=== PATIENT | female | born 1940 | race Caucasian/White ===

== ENCOUNTER → 2018-02-15 15:50 | Outpatient (CLI) | payer MEDICARE, SELFPAY ==
[2018-02-15 16:23] LABS: Hematocrit 37.6 % (37-47); Hemoglobin 11.2 g/dl (12.0-15.0); Mean Corp Hgb Conc 29.8 g/gl (32-36); Mean Corpuscular Hgb 28.4 pg (27.0-32.0); Mean Corpuscular Volume 95.2 fL (81-99); Mean Platelet Vol. 9.5 fl (6.2-12.0); Platelet Count 342 K/mm3 (150-450); RBC Distribution Width SD 55.2 fl (35.1-43.9); Red Blood Count 3.95 M/mm3 (4.2-5.4); White Blood Count 15.4 K/mm3 (4.4-11.0)
[2018-02-15 16:28] LABS: Thyroid Stim Hormone (TSH) 3.22 uIU/mL (0.358-3.74)
[2018-02-15 17:08] LABS: Scan Indicated on CBC? Y/N NO
== END ==
PROVIDERS: Family Provider Family Medicine; PCP Family Medicine; Visit Provider Family Medicine
DX: Z79.899 Other long term (current) drug therapy (principal)
CPT/HCPCS: 84443; 85027

== ENCOUNTER → 2018-04-05 16:12 | Outpatient (CLI) | payer MEDICARE, SELFPAY ==
[2018-04-05 17:33] LABS: Absolute Lymphocyte Count 2.17 X10^3/ul (0.83-4.51); Absolute Neutrophil Count 7.6 X10^3/uL (2.0-7.7); Basophil# 0.07 X10^3/uL; Basophil% 0.6 % (0-1); Eosinophil# 0.56 X10^3/uL; Hematocrit 39.6 % (37-47); Hemoglobin 12.3 g/dl (12.0-15.0); Lymphocyte # 2.17 X10^3/ul (4.0); Lymphocyte % 19.3 % (19-41); Mean Corp Hgb Conc 31.1 g/gl (32-36); Mean Corpuscular Hgb 28.1 pg (27.0-32.0); Mean Corpuscular Volume 90.6 fL (81-99); Mean Platelet Vol. 9.9 fl (6.2-12.0); Monocyte# 0.85 X10^3/uL; Monocyte% 7.6 % (0-10); Neutrophil # 7.57 X10^3/uL (2.7-7.7); Neutrophil % 67.2 % (47-70); Platelet Count 278 K/mm3 (150-450); RBC Distribution Width SD 53.8 fl (35.1-43.9); Red Blood Count 4.37 M/mm3 (4.2-5.4); White Blood Count 11.3 K/mm3 (4.4-11.0)
[2018-04-05 17:36] LABS: Hemoglobin A1c 6.6 % (4.2-6.3)
[2018-04-05 17:41] LABS: POSITIVE COUNT NO; POSITIVE DIFFERENTIAL NO; POSITIVE MORPHOLOGY NO
[2018-04-05 18:11] LABS: Anion Gap 5 (5-15); BUN 12 mg/dL (7-18); BUN/Creat Ratio 11.1 RATIO (10-20); Calcium,Total 9.1 mg/dL (8.5-10.1); Chloride 104 mmol/L (98-107); Cholesterol 169 mg/dL (200); Creatinine, Serum 1.08 mg/dL (0.55-1.02); EST Glomerular Filtration Rate 52 mL/min (>60); Est Glom Filt Rate - Afr Amer 63 mL/min (>60); Glucose 114 mg/dL (74-106); High Density Lipoprotein 78 mg/dL; Potassium 4.3 mmol/L (3.5-5.1); Sodium Level 136 mmol/L (136-145); Triglycerides 122 mg/dL; Very Low Density Lipoprotein 24 mg/dL (5-40)
== END ==
PROVIDERS: Family Provider Family Medicine; PCP Family Medicine; Visit Provider Family Medicine
DX: Z79.899 Other long term (current) drug therapy (principal); D64.9 Anemia, unspecified; E11.49 Type 2 diabetes mellitus with other diabetic neurological complication
CPT/HCPCS: 80048; 80061; 83036; 85025

== ENCOUNTER 2018-04-29 10:52 | Emergency (ER) | payer MEDICARE, SELFPAY ==
--- NOTE | 2018-04-29 10:52 | DT_ITS ---
This patient was seen during an EMR downtime April 22, 2018 - April 29, 2018. This patient may have a combination of paper and electronic documentation or all paper documentation. All documentation is viewable within the e-chart portion of [employer] for each patient visit.
[2018-04-29 10:53] VITALS: BP 177/75; PULSE 98; RESP 16; TEMP 36.8; O2SAT 91; BMI 42.3
--- NOTE | 2018-04-29 11:21 | ED.DCSUM_ITS ---
- ER Visit Summary Date of Service: 04/29/18 Chief Complaint: Left buttock and leg pain History of Present Illness: The patient is a 77 F with history of chronic lower back pain in the left who presents for worsening of her chronic pain, now with pain in the left buttock and leg. This new pain is been going on for approximately 2 weeks. Patient is currently on gabapentin, meloxicam, tramadol , and is 3 days into a prednisone taper for the same complaint. Pain is continuous and worse with movement and walking. Patient has fallen 3 times in the house due to her leg giving out. The last time was 1 week ago. Patient denies any other injuries from this. She is supposed to start therapy for her complaint, but missed her first appointment last week because of the fall. Patient is having difficulties with her activities of daily living because of the pain. No urinary symptoms, abdominal pain, fever, chest pain or shortness of breath. Patient is diabetic and has hypertension. No history of cancer or back surgery. Physical Examination: Vital signs: afebrile, hemodynamically stable, no hypoxia on room air General: well nourished, well developed, in no distress Skin: warm, dry, no rash, no pallor HEENT: normocephalic and atraumatic; PERRL, EOMI, moist mucous membranes Cardiovascular: regular rate and rhythm without murmurs, no peripheral edema, 2 + pulses all distal extremities Respiratory: No increased work of breathing, lungs are clear to auscultation bilaterally, no rales, rhonchi or wheezing Abdominal: Abdomen is soft, nontender with normoactive bowel sounds, no guarding or rebound, no masses Back: Tenderness in the left paraspinal/buttock region. No rash. No midline tenderness, deformity, step-offs, erythema or induration. Straight leg raise negative bilaterally. MSK: Moves all extremities, no deformities, normal strength and sensation in all dermatomes, full flexion and extension of knees and hips. Mild discomfort with external and internal rotation of the left hip. No leg shortening or rotation. Neuro: Awake and alert, oriented ?4. No facial droop, sensation and motor function intact and symmetric Test Results: Abnormal Lab Results 04/29/18 11:22 POC Glucose 154 H Clinical Impression(s) from Imaging Studies Lumbar Spine X-Ray 04/29/18 11:27 IMPRESSION: Degenerative changes of the spine, as detailed above. Electronically Signed: Tao Thurston MD at 12:57 EDT , Service support , Emergency Department Course and Treatment: The patient is diabetic and on prednisone, blood sugar was checked. It was 154. Is currently on multiple medications for her back pain, including prednisone. She is receiving appropriate outpatient workup, but is concerned because of the recurrent falls. X-ray was performed of the lumbar spine and showed degenerative changes. Patient was offered and declined pain medication in the emergency department. The family requested patient be admitted, and I discussed with them that there was no emergent indication that would require admission and emergency consultation with a back surgeon. Case management was consulted and evaluated the patient after patient and family stated that they would be willing for her to be placed in rehab due to her worsening condition. She was evaluated by physical therapist. Patient was able to ambulate. Patient is home health appropriate. Health follow-up was arranged with the patient by case management , and the family and patient were amenable to this plan. Patient was discharged home. Treatment Plan: [] Disposition: [] Impression: Acute on chronic back pain This note was generated with [employer] dictation software. It may contain incorrect words, spelling, and punctuation that were not noted in review of the chart prior to signing ED Disposition - Plan for ED Patient: Disposition: Home or Assisted Living Chief Complaint: Back Instructions: ED Neck Back Pain General, ED Sciatica Referrals: Blayne Dominguez III, MD [Primary Care Provider] - 3-5 Days Additional Instructions: Please follow-up with the home health care plan as was discussed with our pillowcase folder. Please follow-up with Dr. Dominguez for a reevaluation and to discuss further need for physical therapy or medications. If you have any worsening of your condition or any new concerning symptoms, please return immediately to the emergency department for another evaluation.
[2018-04-29 11:25] LABS: Bedside Glucose 154 mg/dL (70-110)
--- NOTE | 2018-04-29 11:27 | RAD_ITS ---
STUDY: X-RAY - LUMBAR SPINE REASON FOR EXAM: Female, 77 years old. Back and left leg pain. TECHNIQUE: 3 view(s) of the lumbar spine were obtained. COMPARISON: None FINDINGS: Normal lumbar lordosis. There is a 10 degree levoscoliosis centered at the thoracolumbar junction. There is a normal alignment of the vertebrae. There is multilevel endplate spondylosis of the thoracolumbar spine. There is multi-level degenerative disc disease with multi-level disc space narrowing. There is no demonstrated fracture. There are degenerative arthroses of the visualized lower lumbar facet articulations and bilateral sacroiliac joints. The soft tissue structures are unremarkable. RAD/Lumbar Spine 2 or 3 Views IMPRESSION: Degenerative changes of the spine, as detailed above. Electronically Signed: Tao Thurston MD at 12:57 EDT , Service support ,
--- NOTE | 2018-04-29 13:14 | CM.ED ---
Case Management Assessment: Patient evaluated in the ED due to recent falls and safe discharge planning. Home: Lives with spouse in one story home. Three steps into home. HHS/Aides: Has never had. DME: Uses a cane. Has shower chair as well. Home Oxygen: Denies. [facility]acy: [facility] Advance Directives: Yes, patient states her is her medical POA. PCP: Blayne Dominguez Specialists: Denies. Patient and family expressed interest inpatient rehab or SNF placement. There are no beds available on our inpatient rehab unit at this time. Discussed MCR payment for SNF requires a three midnight stay with inpatient status and would otherwise be self-pay. Jacquie, from [facility], confirms that they will accept the patient for PT/OT services with a start date of either 04/30/18 or 05/01/18. Family is agreeable with this plan. DC Plan: Home with home health PT/OT services. CM will continue to follow for safe and effective discharge planning.
--- NOTE | 2018-04-29 13:28 | DCINST.ED_ITS ---
ED Disposition - Plan for ED Patient: Disposition: Home or Assisted Living Chief Complaint: Back Instructions: ED Sciatica, ED Neck Back Pain General Referrals: Blayne Dominguez III, MD [Primary Care Provider] - 3-5 Days Additional Instructions: Please follow-up with the home health care plan as was discussed with our case managers. Please follow-up with Dr. Dominguez for a reevaluation and to discuss further need for physical therapy or medications. If you have any worsening of your condition or any new concerning symptoms, please return immediately to the emergency department for another evaluation.
== END 2018-04-29 13:59 | disposition home or self-care (01) ==
PROVIDERS: Emergency Provider Emergency Medicine; Family Provider Family Medicine; PCP Family Medicine
DX: G89.29 Other chronic pain (principal); M54.9 Dorsalgia, unspecified; E11.9 Type 2 diabetes mellitus without complications; I10 Essential (primary) hypertension
CPT/HCPCS: 72100; 82962; 97166; 99283; G8978; G8979

== ENCOUNTER → 2018-05-08 14:34 | Outpatient (CLI) | payer MEDICARE, SELFPAY ==
--- NOTE | 2018-05-08 14:42 | RAD_ITS ---
STUDY: X-RAY - PELVIS AND LEFT HIP REASON FOR EXAM: Left hip pain. TECHNIQUE: Radiological exam, hip, unilateral, with pelvis when performed; 2 or 3 views. COMPARISON: None. FINDINGS: Normal visualized soft tissue structures. Normal bilateral iliac wings, sacroiliac joints and visualized sacrum. Normal bilateral superior and inferior pubic rami. Normal pubic symphysis. Normal bilateral ischial tuberosities. Normal visualized femoral head. Normal acetabulum. Normal hip joint. RAD/Hip 2-3 Views with Pelvis IMPRESSION: Unremarkable x-ray examination of the pelvis and left hip. Electronically Signed: Anselmo Chua MD at 15:22 EDT Tel , Service support ,
== END ==
PROVIDERS: Family Provider Family Medicine; PCP Family Medicine; Visit Provider Anesthesiology Pain Medicine
DX: M25.559 Pain in unspecified hip (principal)
CPT/HCPCS: 73502

== ENCOUNTER → 2018-05-27 13:39 | Outpatient (CLI) | payer MEDICARE, SELFPAY ==
[2018-05-28 15:48] LABS: Anion Gap 11 (5-15); BUN 30 mg/dL (7-18); BUN/Creat Ratio 17.9 RATIO (10-20); Calcium,Total 10.7 mg/dL (8.5-10.1); Chloride 97 mmol/L (98-107); Creatinine, Serum 1.68 mg/dL (0.55-1.02); EST Glomerular Filtration Rate 31 mL/min (>60); Est Glom Filt Rate - Afr Amer 38 mL/min (>60); Glucose 139 mg/dL (74-106); Magnesium 1.4 mg/dL (1.6-2.6); Potassium 4.5 mmol/L (3.5-5.1); Sodium Level 136 mmol/L (136-145); Thyroid Stim Hormone (TSH) 0.67 uIU/mL (0.358-3.74)
[2018-05-29 08:29] LABS: Vitamin B12 480 pg/mL (211-911)
== END ==
PROVIDERS: Family Provider Family Medicine; PCP Family Medicine; Visit Provider Nurse Practitioner Family
DX: G60.9 Hereditary and idiopathic neuropathy, unspecified (principal)
CPT/HCPCS: 80048; 82607; 82746; 83735; 84443

== ENCOUNTER → 2018-07-16 11:14 | Outpatient (CLI) | payer MEDICARE, SELFPAY ==
[2018-07-16 12:52] LABS: T4 Total, Thyroxin 10.7 ug/dL (4.8-13.9); Thyroid Stim Hormone (TSH) 2.41 uIU/mL (0.358-3.74)
[2018-07-17 11:24] LABS: Thyroid Peroxidase AB 12 IU/mL (0-34)
[2018-07-17 13:34] LABS: T3 Total - Triiodothyronine 1.37 ng/mL (0.6-1.81)
== END ==
PROVIDERS: Family Provider Family Medicine; PCP Family Medicine; Visit Provider Dermatology Pediatric Dermatology
DX: I89.0 Lymphedema, not elsewhere classified (principal); E03.8 Other specified hypothyroidism
CPT/HCPCS: 36415; 84436; 84443; 84480; 86376

== ENCOUNTER 2018-08-30 12:30 | Outpatient (RCR) | payer MEDICARE, SELFPAY ==
--- NOTE | 2018-07-26 13:03 | HP.PTEVAL ---
Patient's Visit Information BG FULLER is a 77 year old F referred to Physical Therapy by Blayne Dominguez with a diagnosis of Low back pain. Date of Evaluation: 07/26/18 Physical Therapist: Laurel Steel - Visit Plan Frequency: 2-3x /Week Duration: 3 Weeks Plan: Focus on postural corrections, gait training without AD and endurance. Core s/s- leading to HEP with silver sneakers - Subjective Subjective: Patient reports that she has a lot of pain in her back and both legs. Had a pain injections from Dr. Fay yesterday. Can walk but not very far. This is the first one in a long time- feels this one might help. Feels better now than she did before. Pain starts in the back and travels down to her feet. Has lyphedema in both legs and she just has a lot of joint pain. Worst: 06/28 Agg: walking a lot, standing Eases: sitting. Pain feels more like pressure- goes away quickly when she sits down. Describes the leg pain as shooting, bee stings, and tingling in her toes. Insurance has declined and MRI but she has had hip x-rays about a month ago. Sleep: disturbed- but does sleep in a bed- right side wakes a lot due to pain. Has fallen a lot in the last year- last fall was 3 months ago- felt her legs buckled under her. Uses furniture at home but uses a quad cane outside. Has stairs at home but does not need to use them. Leaks urine. Feels at this point she is in a plateau- not better or worse. Has a small chair that fits her which is harder- but does have a reclyner she sits in. PMHx: DM, HTN,OA Meds: duloxetine, metformin, amoldipine, opmerazol, carvedilol, meloxicam, gabapentin, hydroxzine, vit D, Asprin, temazepam - Objective Gait: WFL, ambulated 150' with 4 point cane in R hand with L hand occasional reach for wall for support. Slight decrease in gait speed but no breaks needed. Ascend/descend 1 flight of stairs using 1 HR and cane with reciprocal pattern ascend and step to pattern descend- poor control. Posture: R shoulder depressed/L shoulder elevated, kyphosis. Lymphedema mild LE bilat. Able to rise from chair without using hands. 1 hand on arm rest when stand to sit in chair. LE min A when transfer supine to sit. Able to SLS R and L leg with bilat. hand support on table in front. Flexibility: global flexibility, hamstring WNL. ROM: lumbar WNL, LE: WNL Strength: Core: poor, Hip: 4/5 throughout,Knee: 4+/5, Ankle: 4+/5 Palpation: tender along paraspinals bilateral lumbar spine - Goals Goal 1:: Patient will be I with HEP and progression Goal Time Frame: 4-6 Weeks Goal 2:: Patient will demonstrate proper posture t/o tx session to demo increased core s/s. Goal Time Frame: 4-6 Weeks Goal 3:: Patient will ambulate > 300 ft. without use of cane around obstacles safely Goal Time Frame: 4-6 Weeks Goal 4:: Patient will have worst pain level 2/10 or less Goal Time Frame: 4-6 Weeks - Rehabilitation Potential Physical Therapy Diagnosis: Patient presents with hypomobility-she has decreased strength and muscular endurance leading to decreased ability to perform ADL's safely and increasing pain. Rehabilitation Potential: Fair - Anticipated Interventions Patient/Client Instruction: Educate patient on: Benefits of Fitness Program Therapeutic Exercise to Include: Strength training, Endurance training, Balance training, Body mechanics, Postural training, Gait and locomotor training, Dynamic Lumbar Stabilization For the Purpose of:: To improve muscle performance and motor function TENS: Yes Thermo therapy (hot pack): Yes Ultrasound (thermal/non thermal): Yes For the Purpose of:: To decrease pain Thank you for the opportunity to evaluate your patient. For Medicare and Medicare HMO plans, please review the plan of care and approve it. It will need to be FAXED BACK to us at [phone] for Medicare purposes. Please let me know if there are questions or concerns regarding this plan of care. Physician Signature: Date:
--- NOTE | 2018-07-31 09:23 | HP.OTEVAL_ITS ---
Patient's Visit Information BG FULLRE is a 77 year old F, referred to Occupational Therapy by Blayne Dominguez , with a diagnosis of LE lymphedema. Date of Evaluation: 07/30/18 Occupational Therapist: KAVIN Dougherty/Bill, CHT - Subjective Subjective: Pt arrives for OT lymphedema ed. and eval. pt arrives with circaid juxtalight Lower leg compression sock. pt states she did have to pay out of pocket for the garment- she recived one- and states it cost about $101. pt states her LE has been swelling for about a year. pt states she noticed swelling with travel. pt states she did get a sore on her right LE and it has been there 3-4 months. pt states she has tried the compression socks and they cased increase pain to LE . pt states she did have a short visit at the hospital for falls ( x4) all over pain and Home PT was rec'd for 4 weeks. The home PT did give pt HEP to perform and she is currently undergoing out-pt Physical therapy. - Pain right LE 0 Pain Intensity Range: 0, 3 - Lymphedema (Circumferential Measure) Mid-foot: right 22cm left 22.5cm Ankle: right 28cm left 27cm Lower calf: right 30.5 left 29cm Largest calf: right 43cm left 42cm Below knee: right 41cm left 39.5cm Lower Exremity Comments: right LE demo min. edema - Lower Limb Functional Index Lower Extremity Functional Score: 20 - Goals Demonstrate a 20% reduction in edema by d/c: Yes Demonstrate adequate knowledge of self-bangaging by 1st week: Yes Demonstrate adequate knowledge skin care/prec by 2nd week: Yes Select approp compression garment w/donning/care/wear by d/c: Yes Voice need to replace compression garment every 4-6mo by dc: Yes - Rehabilitation General Assessment: This 77 year old female amb. to OT area with quad cane. pt was SOB once to exam area. pt demo with increase edema in right LE. demo need for ed. on lymphedema and skin care precuations. pt arrived with circaide juxta light for right LE. therapist ed. pt and pts on donning/doffing, care and wearing the compression garment. pt also ed. on skin care and precautions with Circaide use. pt stated the circaide felt good on and demo good ability to amb. out of facility. pt is to cont. with out-pt PT. to cont to improve safe functional mobility. pt to return if she has questions, concerns with compression garment within 2-4 weeks. pt and spouse is agreeable to POC. Rehabilitation Potential: Good - Anticipated Interventions Anticipated Interventions: Education re Diagnosis, Education re Life-long lymphedema Management, Education re Skin Care and Precautions, Education re Correct Donning Tech,Care&Wearing Sched Comp Garments - Visit Plan Frequency: follow up call 2 weeks TEXT: Thank you for the opportunity to evaluate your patient. For Medicare and Medicare HMO plans, please review the plan of care and approve it. It will need to be FAXED BACK to us at [phone] for Medicare purposes. Please let me know if there are questions or concerns regarding this plan of care. Physician Signature: Date:
--- NOTE | 2018-09-02 07:17 | HP.PTREVAL_ITS ---
Blayne Dominguez, It has been my pleasure to treat BG FULLER over the last 10 visits for Low back pain. Please see the progress note below for an update on the physical therapy plan of care! Subjective: Was doing real good in therapy till past couple days had some bad times. Traveling was a little hard, used w/c in hotel because easier. Stairs in theater. Frequent pain. Pain in buttock, hip, and knee. No current pain. Most days 4-5/10, worst 7/10 when walking. Walk to end of drive way and back without a break. Most difficult part of walking is SOB and fatigue. Objective/Function: Gait: 4 point cane on R side, decreased brianda, leans to R. Posture: L shoulder elevated. Stairs: ascend step to pattern 2 HR-sig nificantly using UE to pull self up; descend stairs reciprocally 2 HR. AROM: LE WFL. Heel and toe raise with UE support. Strength: hip flex 4/5, ext 5/5, abd./add. 5/5, R hip IR/ER 5/5, L hip IR/ER 3+/5, R knee 5/5, L knee 4/5, ankle 5/5. Balance: SL R leg 7 seconds L leg 4 seconds. Sit to stand no UE 30 seconds: achieves 4 Plan Plan: Cont. PT services focusing on endurance, gait with LRD, and continue progressing LE strength. Goals Goal 1:: Patient will be I with HEP and progression Goal Time Frame: 4-6 Weeks Goal Progress: Progressing Goal 2:: Patient will demonstrate proper posture t/o tx session to demo increased core s/s. Goal Time Frame: 4-6 Weeks Goal Progress: Progressing Goal 3:: Patient will ambulate > 300 ft. without use of cane around obstacles safely Goal Time Frame: 4-6 Weeks Goal Progress: Progressing Goal 4:: Patient will have worst pain level 2/10 or less Goal Time Frame: 4-6 Weeks Goal Progress: Progressing Anticipated Interventions Patient/Client Instruction: Educate patient on: Benefits of Fitness Program Therapeutic Exercise to Include: Strength training, Endurance training, Balance training, Body mechanics, Postural training, Gait and locomotor training, Dynamic Lumbar Stabilization For the Purpose of:: To improve muscle performance and motor function TENS: Yes Thermo therapy (hot pack): Yes Ultrasound (thermal/non thermal): Yes For the Purpose of:: To decrease pain Please do not hesitate to contact me at [phone] by phone or if you have questions or concerns regarding this new plan of care! Sincerely, Laurel Steel
--- NOTE | 2018-11-15 09:29 | HP.PT.NRP ---
HP - Discharge Summary (1) - Patient Information BG FULLER was seen in my office for initial evaluation on 07/26/18. The following Plan of Care was established for this patient: Initial Frequency: 2-3x /Week Initial Duration: 3 Weeks - Anticipated Interventions Patient/Client Instruction: Educate patient on: Benefits of Fitness Program Therapeutic Exercise to Include: Strength training, Endurance training, Balance training, Body mechanics, Postural training, Gait and locomotor training, Dynamic Lumbar Stabilization For the Purpose of:: To improve muscle performance and motor function TENS: Yes Thermo therapy (hot pack): Yes Ultrasound (thermal/non thermal): Yes For the Purpose of:: To decrease pain This patient was last seen in our office . Pertinent comments regarding their Physical therapy will appear below: Patient has not attended therapy in over 8 weeks- appropriate for d/c and return to MD for further evaluation as needed. At this point I will be discontinuing this patient from physical therapy. I would be happy to see this patient again in the future if found appropriate by the physician. Thank you! Laurel Steel DPT
== END 2018-08-30 19:00 | disposition home or self-care (01) ==
LOC: PT 12:30
PROVIDERS: Family Provider Family Medicine; PCP Family Medicine; Visit Provider Family Medicine
DX: I89.0 Lymphedema, not elsewhere classified (principal)
CPT/HCPCS: 97110; 97162; 97164; 97166

== ENCOUNTER 2018-09-03 17:01 | Inpatient (IN) | payer MEDICARE, SELFPAY ==
[2018-09-03] VITALS (11 sets, daily range): BP systolic 118–148; BP diastolic 58–75; PULSE 74–96; RESP 18–26; TEMP 36.6–37.1; O2SAT 77–97; BMI 42.9; BMI 43.0; BMI 40.9; BMI 41.0
--- NOTE | 2018-09-03 17:10 | EKG12_ITS ---
Test Reason : CP Blood Pressure : / mmHG Vent. Rate : 075 BPM Atrial Rate : 075 BPM P-R Int : 140 ms QRS Dur : 088 ms QT Int : 400 ms P-R-T Axes : 041 052 038 degrees QTc Int : 446 ms Normal sinus rhythm Normal ECG Confirmed by ZORAIDA HYATT, ALBERTO ([id number]), scientific editor VIRY VERONICA ([id number]) on 09/05/2018 10:00:15 AM Referred By: Gilberto Squires Confirmed By:ALBERTO CONWAY MD
--- NOTE | 2018-09-03 17:15 | RAD_ITS ---
STUDY: X-RAY CHEST REASON FOR EXAM: Female, 77 years old. Chest pain TECHNIQUE: Single AP portable view of the chest. COMPARISON: February 01, 2010 chest FINDINGS: Allowing for summation of shadows there is vague focal groundglass opacity within the right upper lobe and thickening of the right minor fissure. There is increased linear density in the left lung base. There is no demonstrated pleural abnormality. There is mild to moderate cardiomegaly. Normal mediastinum and nickie. Normal visualized pulmonary arteries. Normal visualized aortic arch and descending thoracic aorta. There are diffuse degenerative changes of the visualized thoracic spine. Normal visualized ribs, clavicles, and shoulders. There is no demonstrated abnormality of the visualized soft tissue structures of the upper abdomen. RAD/Chest 1 View (Portable) IMPRESSION: Findings suspicious for developing right upper lobe right midlung zone infiltrate and/or effusion. Left lower lobe atelectasis and or developing infiltrate. Electronically Signed: Olive Hargrove MD at 17:41 EDT Tel , Service support ,
[2018-09-03 17:41] LABS: Absolute Lymphocyte Count 1.07 X10^3/ul (0.83-4.51); Basophil# 0.03 X10^3/uL; Basophil% 0.2 % (0-1); Eosinophil# 0.04 X10^3/uL; Eosinophils% 0.3 % (0-5); Hemoglobin 10.3 g/dl (12.0-15.0); Lymphocyte # 1.07 X10^3/ul (4.0); Lymphocyte % 7.9 % (19-41); Mean Corp Hgb Conc 31.2 g/gl (32-36); Mean Corpuscular Hgb 29.2 pg (27.0-32.0); Mean Corpuscular Volume 93.5 fL (81-99); Mean Platelet Vol. 9.3 fl (6.2-12.0); Monocyte# 1.26 X10^3/uL; Monocyte% 9.4 % (0-10); Neutrophil # 11.04 X10^3/uL (2.7-7.7); Platelet Count 188 K/mm3 (150-450); RBC Distribution Width CV 17.9 % (11.6-14.6); RBC Distribution Width SD 58.3 fl (35.1-43.9); Red Blood Count 3.53 M/mm3 (4.2-5.4); White Blood Count 13.5 K/mm3 (4.4-11.0)
[2018-09-03 17:42] LABS: POSITIVE COUNT NO; POSITIVE DIFFERENTIAL NO; POSITIVE MORPHOLOGY NO
[2018-09-03 17:55] LABS: D-Dimer Quantitative (DVT/PE) 0.88 FEU/ug/m (0.27-0.49)
[2018-09-03 18:01] LABS: Anion Gap 8 (5-15); BUN 12 mg/dL (7-18); BUN/Creat Ratio 12.1 RATIO (10-20); Calcium,Total 8.9 mg/dL (8.5-10.1); Chloride 102 mmol/L (98-107); Creatinine, Serum 0.99 mg/dL (0.55-1.02); EST Glomerular Filtration Rate 58 mL/min (>60); Est Glom Filt Rate - Afr Amer 70 mL/min (>60); Estimated Creatinine Clearance 65.28 ml/min; Glucose 132 mg/dL (74-106); Potassium 3.9 mmol/L (3.5-5.1); Sodium Level 135 mmol/L (136-145)
--- NOTE | 2018-09-03 18:12 | CT_ITS ---
STUDY: CTA CHEST REASON FOR EXAM: Female, 77 years old. Chest pain 3 days shortness of breath radiating to back History of cholecystectomy appendectomy RADIATION DOSAGE (If Supplied By Facility): CTDIvol = ( 15.06 ) mGy, DLP = ( 613.14 ) mGycm TECHNIQUE: The examination was performed with the intravenous administration of 100ML ml of Isovue 370 contrast material. Post-processing of the angiographic images was performed, with multiplanar reformation and 3D reconstruction. Individualized dose optimization techniques were used for this CT. COMPARISON: September 03, 2018 chest x-ray FINDINGS: Normal enhancement of the main pulmonary artery and right and left pulmonary arteries. Normal enhancement of the bilateral peripheral pulmonary arteries. There is no demonstrated pulmonary embolism. Normal thoracic aorta and visualized great vessels. There is no demonstrated aortic dissection. There is mild to moderate cardiac enlargement. There is a 1.86 cm lymph node in the AP window. There is a 1.9 cm lymph node in the AP window. There is a right side paratracheal lymph node measuring 8.2 mm. There is a lymph node measuring 1.7 x 1.7 cm per Normal visualized trachea and bronchi. There is a pattern of midlung zone ground glass opacity. There is a minimal focus of consolidation in the left upper lobe tracking along the major fissure. There is left lower lobe consolidation. There is right lower lobe consolidation. There is a small left pleural effusion. Normal chest wall structures. There is kyphosis. There is multilevel disc space narrowing endplate sclerosis spondylosis. There is severe right renal atrophy. CT/CTA Chest W/WO Contrast IMPRESSION: Right lower lobe consolidation. Left lower lobe consolidation left-sided effusion scattered areas of groundglass opacity which may represent atypical infiltrate and/or pulmonary edema. There is a trace focus of infiltrate in the left upper lobe. No evidence of pulmonary embolism. Cardiomegaly. Multilevel degenerative change of the thoracic spine. Severe right renal atrophy recommend correlation with renal laboratory values. Electronically Signed: Olive Hargrove MD at 19:25 EDT Tel , Service support ,
[2018-09-03 18:22] LABS: BNP,B-Type NATRIURETIC PEPTIDE 541.4 pg/mL (0-100)
[2018-09-03 18:44] LABS: Lactic Acid 1.9 mmol/L (0.4-2.0)
[2018-09-03 18:56] LABS: Amphetamine Urine VISTA NEGATIVE (<1000 ng/mL); Barbiturate Urine VISTA NEGATIVE (< 200 ng/mL); Benzodiazepine Urine VISTA POSITIVE (< 200 ng/mL); Cocaine Urine VISTA NEGATIVE (< 300 ng/mL); Ecstacy Urine VISTA NEGATIVE (< 500 ng/mL); Methadone Urine VISTA NEGATIVE (< 300 ng/mL); PCP Urine VISTA POSITIVE (< 25 ng/mL); THC Urine VISTA NEGATIVE (< 50 ng/mL); Vista UDS pH Range 5
--- NOTE | 2018-09-03 19:53 | ED.VISSUMM ---
- ER Visit Summary Date of Service: 09/03/18 Chief Complaint: Shortness of breath History of Present Illness: The patient is a 77 F presenting with shortness of breath and chest pain. She states this began about a week ago. She went to her primary care physician Dr. Dominguez today and was sent into the ED. She had a pulse ox of 74% in the office. She states the chest pain has been intermittent throughout the week and has been exertional. It is relieved with rest. She has had subjective fever and cough. She had recent travel to [place]. She has a history of diabetes, hypertension, hypercholesterolemia, CHF. She is not a smoker. Physical Examination: Vitals are stable. Patient is afebrile. Alert no acute distress. HEENT exam is unremarkable. Neck is supple. Lungs are rales bases bilaterally. Heart is regular rate and rhythm. Abdomen is soft nontender nondistended. Extremities are symmetric edema. Skin is warm and dry. No focal neurologic deficit. Remainder of exam is unremarkable. Emergency Department Course and Treatment: EKG is sinus rate of 75 with no acute ischemic changes. CBC shows a white count of 13.5, hemoglobin 10.3. Chemistries show sodium 135, glucose 132. Troponin is negative. BNP 541. D-dimer 0.88. Chest x-ray shows suspicion of bilateral infiltrate. CTA chest was obtained shows right lower lobe consolidation. Left lower lobe consolidation left-sided effusion scattered areas of groundglass opacity which may represent atypical infiltrate and/or pulmonary edema. There is a trace focus of infiltrate in the left upper lobe. No evidence of pulmonary embolism. Cardiomegaly. She was given Rocephin and Zithromax IV. Discussed with the hospitalist for admission. Disposition: Admission Impression: Community acquired pneumonia, hypoxia This note was generated with [employer] dictation software. It may contain incorrect words, spelling, and punctuation that were not noted in review of the chart prior to signing ED Disposition - Plan for ED Patient: Chief Complaint: Chest Pain Referrals: Blayne Dominguez III, MD [Primary Care Provider] -
--- NOTE | 2018-09-03 19:59 | ED.DCSUM_ITS ---
- ER Visit Summary Date of Service: 09/03/18 Chief Complaint: Shortness of breath History of Present Illness: The patient is a 77 F presenting with shortness of breath and chest pain. She states this began about a week ago. She went to her primary care physician Dr. Dominguez today and was sent into the ED. She had a pulse ox of 74% in the office. She states the chest pain has been intermittent throughout the week and has been exertional. It is relieved with rest. She has had subjective fever and cough. She had recent travel to [place]. She has a history of diabetes, hypertension, hypercholesterolemia, CHF. She is not a smoker. Physical Examination: Vitals are stable. Patient is afebrile. Alert no acute distress. HEENT exam is unremarkable. Neck is supple. Lungs are rales bases bilaterally. Heart is regular rate and rhythm. Abdomen is soft nontender nondistended. Extremities are symmetric edema. Skin is warm and dry. No focal neurologic deficit. Remainder of exam is unremarkable. Emergency Department Course and Treatment: EKG is sinus rate of 75 with no acute ischemic changes. CBC shows a white count of 13.5, hemoglobin 10.3. Chemistries show sodium 135, glucose 132. Troponin is negative. BNP 541. D- dimer 0.88. Chest x-ray shows suspicion of bilateral infiltrate. CTA chest was obtained shows right lower lobe consolidation. Left lower lobe consolidation left-sided effusion scattered areas of groundglass opacity which may represent atypical infiltrate and/or pulmonary edema. There is a trace focus of infiltrate in the left upper lobe. No evidence of pulmonary embolism. Cardiomegaly. She was given Rocephin and Zithromax IV. Discussed with the hospitalist for admission. Disposition: Admission Impression: Community acquired pneumonia, hypoxia This note was generated with [employer] dictation software. It may contain incorrect words, spelling, and punctuation that were not noted in review of the chart prior to signing ED Disposition - Plan for ED Patient: Chief Complaint: Chest Pain Referrals: Blayne Dominguez III, MD [Primary Care Provider] -
--- NOTE | 2018-09-03 20:24 | PCM.HP.STD ---
Problem List (1) Bilateral pneumonia Status: Acute (2) Depression Status: Chronic (3) Anxiety state Status: Chronic (4) HTN (hypertension) Status: Chronic (5) Acute hypoxemic respiratory failure Status: Acute (6) Polysubstance (excluding opioids) dependence Status: Acute History of Present Illness Date of Admission: 09/03/18 Chief Complaint: Chest pain and shortness of breath The patient is a 77 year old F with a significant history of hypertension, diabetes who presents with 3-5 days of progressively worsening chest pain and shortness of breath. Patient states that her chest pain and shortness of breath is aggravated with mild exertion. Her chest pain and shortness of breath improved somewhat with rest. Chest pain Her chest pain is substernal and it radiates to her back. She rates her pain as 10 out of 10. Her pain is constant. She described her chest pain as grabbing Shortness of breath. At the PCPs office her oxygen saturation was 74%. Also she reports of a nonproductive cough. At emergency department a chest x-ray and CTA showed bilateral infiltrates. At emergency department she was placed on 40% Venturi mask and her O2 sats was in the mid 90s. She was then placed on 6 L high flow nasal cannula and her O2 sat dropped to the 80s. Associated with her symptoms is fatigue, weakness and headache. The last time that her bowels moved was 3 days ago; but this is her normal pattern. Past Medical History Past Medical History (Chronic Problems): Chronic Problems Depression (Chronic) Morbid obesity (Chronic) HTN (hypertension) (Chronic) History of esophageal reflux (Chronic) History of angioedema (Chronic) History of asthma (Chronic) Anxiety state (Chronic) Allergies losartan [From Cozaar] Allergy (Verified 09/03/18 20:08) Swelling carbamazepine [From Tegretol] Adverse Reaction (Verified 09/03/18 20:08) MENTAL STATUS CHANGE hydrochlorothiazide Adverse Reaction (Verified 09/03/18 17:09) Unknown Home Medications: Ambulatory Orders Medication Instructions Recorded Amlodipine [Norvasc] 10 mg PO DAILY 04/29/18 Aspirin [Aspirin, Baby] 81 mg PO DAILY@0800 04/29/18 Carvedilol [Coreg] 6.25 mg PO BID 04/29/18 Cholecalciferol (Vitamin D3) 2,000 unit PO DAILY 04/29/18 [D3-2000] Duloxetine HCl 60 mg PO DAILY 04/29/18 Furosemide [Lasix] 20 mg PO DAILY 04/29/18 Gabapentin [Neurontin] 300 mg PO TIDCM 04/29/18 Hydroxyzine HCl 25 mg PO BID 04/29/18 Metformin HCl [Glucophage] 500 mg PO BIDCM 04/29/18 Omeprazole [Prilosec] 20 mg PO DAILY 04/29/18 Temazepam 30 mg PO QHS 04/29/18 traMADol [Ultram (G)] 50 mg PO BID 04/29/18 Mometasone Furoate [Elocon] 1 applic TP DAILY 09/03/18 Surgical History: cholecystectomy, hysterectomy, tonsillectomy Psychiatric History: Anxiety, Depression Lives: Spouse/ Significant Other Smoking Status: Never smoker Alcohol: Heavy - *Family History Maternal History Items: Cancer - LEUKEMIA Paternal History Items: Stroke Review of Systems Constitutional: Reports: Weakness, Fatigue HEENT: Reports: Head Aches. Denies: Sinus Congestion, Sinus Drainage Cardiovascular: Reports: Chest Pain. Denies: Palpitations Respiratory: Reports: Cough, Shortness of breath at rest, Shortness of breath upon exertion. Denies: Sputum production Gastrointestinal: Reports: Constipation - chronic. Denies: Abdominal Pain, Nausea, Vomiting Genitourinary: Denies: Dysuria Musculoskeletal: Denies: Joint Pain, Joint Tenderness Skin: Denies: Rash, Wounds Neurological: Reports: Headaches. Denies: Focal weakness, Numbness, Tingling Psychiatric: Reports: Anxiety, Depression. Denies: Homicidal Ideations, Suicidal Ideations Hematologic/ Lymphatic: Denies: Easy Bruising, Easy Bleeding VTE Information - Inpt Only VTE Present on Admission: No VTE Mechan Device Prophylaxis: None VTE Pharm Prophylaxis ordered?: Yes Patient Problems: Active and Suspected Problems Bilateral pneumonia (Acute) Acute hypoxemic respiratory failure (Acute) Polysubstance (excluding opioids) dependence (Acute) - Physical Exam General: Alert, Oriented x3, Cooperative HEENT: Atraumatic, PERRLA, EOMI, Normocephalic Neck: Supple, No JVD, Negative Carotid Bruits Lungs: Normal air movement, Rales - left lung lockhart Cardiovascular: Regular rate, No murmurs Abdomen: Bowel Sounds Present, Soft, Non Tender Extremities: No edema, Capillary Refill Less than 3 Seconds Skin: No rashes, No breakdown Musculoskeletal: No Tenderness to Palpation of Joints or Extremities Neurological: Cranial nerves II-XII grossly intact Psych/Mental Status: Normal Affect, Appropriate Vital Signs Temp Pulse Resp BP Pulse Ox 97.8 F 74 21 H 118/58 L 96 09/03/18 17:03 09/03/18 18:16 09/03/18 18:16 09/03/18 18:16 09/03/18 18:16 Oxygen Flow Rate (L/min) 10 Oxygen Delivery Method Non-Rebreather Weight: 86.9 kg Body Mass Index (BMI) 42.9 Finger Stick Blood Glucose 154 Laboratory Tests Past 24 Hrs 09/03/18 09/03/18 09/03/18 17:30 17:30 17:30 WBC 13.5 H RBC 3.53 L Hgb 10.3 L Hct 33.0 L MCV 93.5 MCH 29.2 MCHC 31.2 L RDW 17.9 H RDW Differential 58.3 H Plt Count 188 MPV 9.3 Immature Gran % (Auto) 0.200 Neut % (Auto) 82.0 H Lymph % (Auto) 7.9 L Villal[place] % (Auto) 9.4 Eos % (Auto) 0.3 Baso % (Auto) 0.2 Absolute Neuts (auto) 11.0 H Absolute Lymphs (auto) 1.07 Total Counted Not Reportable D-Dimer Quant (PE/DVT) 0.88 H* Sodium 135 L Potassium 3.9 Chloride 102 Carbon Dioxide 25.0 Anion Gap 8 BUN 12 Creatinine 0.99 Estim Creat Clear Calc 65.28 Est GFR (MDRD) Af Amer 70 Est GFR (MDRD) Non-Af 58 L BUN/Creatinine Ratio 12.1 Glucose 132 H Lactic Acid Calcium 8.9 Troponin I < 0.015 B-Natriuretic Peptide Urine Opiates Screen Urine Methadone Screen Ur Barbiturates Screen Ur Phencyclidine Scrn Ur Amphetamines Screen U Methamphetamin-MDMA U Benzodiazepines Scrn Urine Cocaine Screen U Cannabinoids Screen Ur Drug Screen Comment 09/03/18 09/03/18 09/03/18 17:30 18:15 18:25 WBC RBC Hgb Hct MCV MCH MCHC RDW RDW Differential Plt Count MPV Immature Gran % (Auto) Neut % (Auto) Lymph % (Auto) Villalba % (Auto) Eos % (Auto) Baso % (Auto) Absolute Neuts (auto) Absolute Lymphs (auto) Total Counted D-Dimer Quant (PE/DVT) Sodium Potassium Chloride Carbon Dioxide Anion Gap BUN Creatinine Estim Creat Clear Calc Est GFR (MDRD) Af Amer Est GFR (MDRD) Non-Af BUN/Creatinine Ratio Glucose Lactic Acid 1.9 Calcium Troponin I B-Natriuretic Peptide 541.4 H Urine Opiates Screen POSITIVE H Urine Methadone Screen NEGATIVE Ur Barbiturates Screen NEGATIVE Ur Phencyclidine Scrn POSITIVE H Ur Amphetamines Screen NEGATIVE U Methamphetamin-MDMA NEGATIVE U Benzodiazepines Scrn POSITIVE H Urine Cocaine Screen NEGATIVE U Cannabinoids Screen NEGATIVE Ur Drug Screen Comment Assessment/Plan All Active Problems Bilateral pneumonia (Acute) Acute hypoxemic respiratory failure (Acute) Polysubstance (excluding opioids) dependence (Acute) The patient is a 77 year old F with a significant history of hypertension, diabetes who presents with 3-5 days of progressively worsening chest pain and shortness of breath; and found to have neutrophilic leukocytosis, mild hyponatremia; and radiographic evidence of bilateral lung infiltrates consistent with likely pneumonia. Acute hypoxemic respiratory failure secondary to community-acquired pneumonia Patient with leukocytosis Chest x-ray independently reviewed confirms bilateral infiltrates CTA chest independently reviewed confirms bilateral infiltrates Blood culture ?2 is pending Respiratory Gram stain and culture ordered Antibiotics : Received ceftriaxone and azithromycin at emergency department. Ceftriaxone and azithromycin continued. DuoNeb scheduled. Albuterol as needed Continue Venturi mask and transition to high flow; or nasal cannula to keep O2 sat more than 92%. Legionella antigen screen and Strep antigen ordered Trend CBC and BMP. Hyponatremia Mild Likely this is due to her pneumonia or beer potomania Trend BMP Treat pneumonia as above Chest pain Received aspirin at emergency department. Likely this is due to her pneumonia Continue daily baby aspirin Troponin so far negative. Continue to trend troponin. Polysubstance dependence Per nurse, Family reported that patient used to take narcotics with alcohol and for this reason at home narcotics were discontinued. Urine screen showed Phencyclidine, opiates and benzo. Importantly patient takes temazepam nightly. Reported home tramadol not reordered at this time. Clinical monitoring. Ethanol dependence Per family patient drinks every day. She takes 2 shots of hard liquor daily Counseled. Placed on stroke protocol with thiamine, folic acid, multivitamins and Ativan as needed. Importantly patient takes temazepam nightly. Diabetes mellitus Blood glucose within goal admission. Patient takes metformin at home. Metformin held because patient received contrast for CTA Accu-Chek q. before meals at bedtime; and correction scale insulin Constipation The last time that her bowels moved was 3 days ago; but this is her normal pattern. Senokot ordered. DVT prophylaxis Lovenox. Code Visit Inpatient E&M: 19056 Init Hosp L3
[2018-09-03] MEDS: Ceftriaxone 1 GM/50 ML BAG IV (20:30)
--- NOTE | 2018-09-03 21:10 | EKG12_ITS ---
Test Reason : Blood Pressure : / mmHG Vent. Rate : 105 BPM Atrial Rate : 105 BPM P-R Int : 142 ms QRS Dur : 086 ms QT Int : 332 ms P-R-T Axes : 017 026 034 degrees QTc Int : 438 ms Sinus tachycardia Otherwise normal ECG When compared with ECG of 03-SEP-2018 21:42, MANUAL COMPARISON REQUIRED, DATA IS UNCONFIRMED Confirmed by ZORAIDA HYATT, ALBERTO ([id number]), staff editor JOHN ZHANG ([id number]) on 09/09/2018 10:55:30 AM Referred By: Gilberto Squires Confirmed By:ALBERTO CONWAY MD
[2018-09-04] VITALS (26 sets, daily range): BP systolic 144–169; BP diastolic 73–84; PULSE 91–129; RESP 16–24; TEMP 36.3–37.4; O2SAT 88–96
[2018-09-04] MEDS: Temazepam 15 MG Capsule 30 MG PO ×2 (00:29→21:51)
[2018-09-04] MEDS: hydrOXYzine PAM 25 MG Capsule PO ×3 (00:29→21:45)
[2018-09-04] MEDS: Carvedilol 6.25 MG Tablet PO ×3 (00:29→21:44)
[2018-09-04 00:51] LABS: Bedside Glucose 139 mg/dL (70-110)
[2018-09-04] MEDS: Albuterol 2.5 MG/3 ML VIAL.NEB. INHALATION ×2 (03:40→15:57)
[2018-09-04 05:54] LABS: Hematocrit 32.1 % (37-47); Hemoglobin 9.8 g/dl (12.0-15.0); Mean Corp Hgb Conc 30.5 g/gl (32-36); Mean Corpuscular Hgb 28.2 pg (27.0-32.0); Mean Corpuscular Volume 92.2 fL (81-99); Mean Platelet Vol. 10.3 fl (6.2-12.0); Platelet Count 182 K/mm3 (150-450); RBC Distribution Width CV 17.9 % (11.6-14.6); RBC Distribution Width SD 57.7 fl (35.1-43.9); Red Blood Count 3.48 M/mm3 (4.2-5.4); White Blood Count 13.6 K/mm3 (4.4-11.0)
[2018-09-04 05:57] LABS: Anion Gap 10 (5-15); BUN 10 mg/dL (7-18); BUN/Creat Ratio 13.6 RATIO (10-20); Calcium,Total 9.2 mg/dL (8.5-10.1); Chloride 102 mmol/L (98-107); Creatinine, Serum 0.74 mg/dL (0.55-1.02); EST Glomerular Filtration Rate 81 mL/min (>60); Est Glom Filt Rate - Afr Amer 99 mL/min (>60); Estimated Creatinine Clearance 61.29 ml/min; Glucose 106 mg/dL (74-106); Potassium 3.7 mmol/L (3.5-5.1); Sodium Level 137 mmol/L (136-145)
[2018-09-04 06:16] LABS: Scan Indicated on CBC? Y/N NO
[2018-09-04 06:55] LABS: Bedside Glucose 129 mg/dL (70-110)
[2018-09-04] MEDS: Ipratropium/Albuterol Sulfate 3 ML AMPUL.NEB INHALATION ×3 (07:23→23:30)
[2018-09-04] MEDS: Gabapentin 300 MG Capsule PO ×3 (08:35→17:52)
[2018-09-04] MEDS: Aspirin 81 MG TAB.CHEW PO (08:35)
[2018-09-04] MEDS: Folic Acid 1 MG Tablet PO (08:35)
[2018-09-04] MEDS: Multivitamins,Ther W-Minerals Tablet 1 TABLET PO (08:35)
[2018-09-04] MEDS: Ceftriaxone 1 GM/50 ML BAG IV ×2 (08:36→21:52)
[2018-09-04] MEDS: Thiamine Hydrochloride 100 MG Tablet PO ×2 (08:36→17:52)
[2018-09-04] MEDS: 0.9% NaCl Peripheral Flush Adult/Peds IV ×2 (08:36→13:24)
[2018-09-04] MEDS: DULoxetine Hcl 60 MG Capsule PO (09:39)
[2018-09-04] MEDS: Enoxaparin 40 MG/0.4 ML Syringe SC (09:39)
[2018-09-04] MEDS: Pantoprazole Sodium 20 MG Tablet PO (09:40)
[2018-09-04] MEDS: amLODIPine 10 MG Tablet PO (09:40)
[2018-09-04] MEDS: Senna Tablet 2 TABLET PO ×2 (09:41→21:52)
[2018-09-04] MEDS: Triamcinolone 0.5% Cream 1 APPLIC TOPICAL (09:42)
[2018-09-04] MEDS: Acetaminophen 325 MG Tablet 650 MG PO (11:16)
[2018-09-04 11:26] LABS: Bedside Glucose 165 mg/dL (70-110)
--- NOTE | 2018-09-04 11:41 | CASEMGMT ---
ALEXANDER TAVARES assessment: Face to Face with patient for initial transition planning/care coordination assessment. ALEXANDER TAVARES introduced self and role at [facility], pt voices understanding and consents to assessment at this time. Pt is sitting up in chair in no distress at this time with venti mask in place at this time. Pt is A/O x4 at this time and answers all questions appropriately at this time. Care providers, pharmacy, and demographics verified at this time. PCP: Alberto KUO Specialists: Betsey Preferred Pharmacy: [facility] Insurance: [employer] [facility] Prescription Benefit: [employer] [facility] Living Will/HPOA: Pt states has LW/HPOA and , Rasheed Tiwari, is HPOA. LW/HPOA are not currently on file at [facility] at this time. LNOK: Rasheed Tiwari, Living Arrangements: Pt lives with in house with stairs to basement and states does not need to use them regularly and pt states no concerns at home at this time. Transportation: Pt states normally drives and states no transportation concerns at at this time. DME/HHC: Pt states has a cane and shower chair at home at this time and states no need for any further DME at this time. Pt states no preference for DME company at this time if home oxygen is needed at discharge. Pt states no hx of HHC or SNF in the past. Pt states no concerns with going home at time of discharge. Pt states does not smoke but does drink occasionally. Pt voices no further concerns/needs at this time. CM to follow for home oxygen and any further discharge planning/needs. Advised pt to ask for CM if any further questions/concerns/needs arise, voices understanding. Plan: [place] ALEXANDER TAVARES
[2018-09-04] MEDS: Insulin Lispro 100 UNIT/ML INSULN.PEN SQ ×2 (12:17→17:51)
--- NOTE | 2018-09-04 12:30 | PCM.PN.HOSP ---
Patient Problems: Active and Suspected Problems Bilateral pneumonia (Acute) Acute hypoxemic respiratory failure (Acute) Polysubstance (excluding opioids) dependence (Acute) Subjective: Patient seen and examined. Complains of worsening SOB, denies fever or chills. ROS is negative Objective: Physical Exam General: Alert, Oriented x3, Cooperative, on Venturi mask, appears comfortable though HEENT: Atraumatic, PERRLA, EOMI, Normocephalic Neck: Supple, No JVD, Negative Carotid Bruits Lungs: Decreased air entry, rales in both lower lung lockhart Cardiovascular: Regular rate, No murmurs Abdomen: Bowel Sounds Present, Soft, Non Tender Extremities: No edema, Capillary Refill Less than 3 Seconds Skin: No rashes, No breakdown Musculoskeletal: No Tenderness to Palpation of Joints or Extremities Neurological: Cranial nerves II-XII grossly intact Psych/Mental Status: Normal Affect, Appropriate Vitals/I&O's: Vital Signs Temp Pulse Resp BP Pulse Ox 98.4 F 98 16 155/82 H 91 09/04/18 10:54 09/04/18 11:00 09/04/18 10:54 09/04/18 10:54 09/04/18 10:54 Oxygen Flow Rate (L/min) 12 Oxygen Delivery Method Venturi Mask Weight: 82.4 kg Body Mass Index (BMI) 40.9 Finger Stick Blood Glucose 154 Intake and Output for Last 24 Hours 09/02/18 09/03/18 09/04/18 23:59 23:59 23:59 Intake Total 487.1 / 487.1 640 / 640 Balance 487.1 / 487.1 640 / 640 Microbiology Past 72 Hours 09/03/18 23:15 Interface Orders Streptococcus pneumoniae Antigen (M - Final 09/03/18 23:15 Interface Orders Legionella Antigen - Final Laboratory Results 09/03/18 17:30: WBC 13.5 H, RBC 3.53 L, Hgb 10.3 L, Hct 33.0 L, MCV 93.5, MCH 29.2, MCHC 31.2 L, RDW 17.9 H, RDW Differential 58.3 H, Plt Count 188, MPV 9.3, Immature Gran % (Auto) 0.200, Neut % (Auto) 82.0 H, Lymph % (Auto) 7.9 L, [place] % (Auto) 9.4, Eos % (Auto) 0.3, Baso % (Auto) 0.2, Absolute Neuts (auto) 11.0 H, Absolute Lymphs (auto) 1.07, Total Counted Not Reportable 09/03/18 17:30: Sodium 135 L, Potassium 3.9, Chloride 102, Carbon Dioxide 25.0, Anion Gap 8, BUN 12, Creatinine 0.99, Estim Creat Clear Calc 65.28, Est GFR (MDRD) Af Amer 70, Est GFR (MDRD) Non-Af 58 L, BUN/Creatinine Ratio 12.1, Glucose 132 H, Calcium 8.9, Troponin I < 0.015 09/03/18 17:30: D-Dimer Quant (PE/DVT) 0.88 H* 09/03/18 17:30: B-Natriuretic Peptide 541.4 H 09/03/18 17:30: Ethyl Alcohol 15.0 09/03/18 18:15: Lactic Acid 1.9 09/03/18 18:25: Urine Opiates Screen POSITIVE H, Urine Methadone Screen NEGATIVE, Ur Barbiturates Screen NEGATIVE, Ur Phencyclidine Scrn POSITIVE H, Ur Amphetamines Screen NEGATIVE, U Methamphetamin-MDMA NEGATIVE, U Benzodiazepines Scrn POSITIVE H, Urine Cocaine Screen NEGATIVE, U Cannabinoids Screen NEGATIVE, Ur Drug Screen Comment 09/03/18 22:59: Troponin I < 0.015 09/04/18 00:27: POC Glucose 139 H 09/04/18 01:52: Troponin I < 0.015 09/04/18 05:04: Sodium 137, Potassium 3.7, Chloride 102, Carbon Dioxide 25.0, Anion Gap 10, BUN 10, Creatinine 0.74, Estim Creat Clear Calc 61.29, Est GFR (MDRD) Af Amer 99, Est GFR (MDRD) Non-Af 81, BUN/Creatinine Ratio 13.6, Glucose 106, Calcium 9.2, Troponin I < 0.015 09/04/18 05:04: WBC 13.6 H, RBC 3.48 L, Hgb 9.8 L, Hct 32.1 L, MCV 92.2, MCH 28.2, MCHC 30.5 L, RDW 17.9 H, RDW Differential 57.7 H, Plt Count 182, MPV 10.3 09/04/18 06:51: POC Glucose 129 H 09/04/18 11:14: POC Glucose 165 H Current Medications Acetaminophen (Tylenol) 650 mg PO Q6H PRN PRN PRN Reason: Mild Pain (scale 0-3)/T>100.7 Last Admin: 09/04/18 11:16 Dose: 650 mg Albuterol Sulfate (Ventolin Aerosols) 2.5 mg INHALATION Q2H PRN PRN PRN Reason: SHORTNESS OF BREATH Last Admin: 09/04/18 03:40 Dose: 2.5 mg Albuterol/Ipratropium (Duoneb) 3 ml INHALATION Q6H.RT COUNTS INCLUDE 234 BEDS AT THE [facility] Last Admin: 09/04/18 07:23 Dose: 3 ml Amlodipine Besylate (Norvasc) 10 mg PO DAILY COUNTS INCLUDE 234 BEDS AT THE [facility] Last Admin: 09/04/18 09:40 Dose: 10 mg Aspirin (Aspirin, Baby) 81 mg PO DAILY@0800 COUNTS INCLUDE 234 BEDS AT THE [facility] Last Admin: 09/04/18 08:35 Dose: 81 mg Carvedilol (Coreg) 6.25 mg PO BID COUNTS INCLUDE 234 BEDS AT THE [facility] Last Admin: 09/04/18 09:39 Dose: 6.25 mg Cholecalciferol (Vitamin D) 2,000 unit PO DAILY COUNTS INCLUDE 234 BEDS AT THE [facility] Last Admin: 09/04/18 09:43 Dose: 2,000 unit Dextrose (D50w Syringe) 0 gm IV X1 PRN; Protocol PRN Reason: Hypoglycemia Duloxetine HCl (Cymbalta) 60 mg PO DAILY COUNTS INCLUDE 234 BEDS AT THE [facility] Last Admin: 09/04/18 09:39 Dose: 60 mg Enoxaparin Sodium (Lovenox) 40 mg SC DAILY COUNTS INCLUDE 234 BEDS AT THE [facility] Last Admin: 09/04/18 09:39 Dose: 40 mg Folic Acid (Folic Acid) 1 mg PO DAILY@0800 COUNTS INCLUDE 234 BEDS AT THE [facility] Stop: 09/06/18 08:01 Last Admin: 09/04/18 08:35 Dose: 1 mg Gabapentin (Neurontin) 300 mg PO TIDCM COUNTS INCLUDE 234 BEDS AT THE [facility] Last Admin: 09/04/18 12:17 Dose: 300 mg Glucagon () 1 mg IM .X1 PRN PRN Reason: Hypoglycemia Hydroxyzine Pamoate (Vistaril Pamoate Capsule) 25 mg PO BID COUNTS INCLUDE 234 BEDS AT THE [facility] Last Admin: 09/04/18 09:43 Dose: 25 mg Azithromycin 500 mg/ Dextrose 255 mls @ 250 mls/hr IV Q24 COUNTS INCLUDE 234 BEDS AT THE [facility] Stop: 09/06/18 11:02 Last Admin: 09/04/18 09:44 Dose: 250 mls/hr Ceftriaxone Sodium (Rocephin) 1 gm in 50 mls @ 100 mls/hr IV Q12 COUNTS INCLUDE 234 BEDS AT THE [facility] Last Admin: 09/04/18 08:36 Dose: 100 mls/hr Insulin Human Lispro (Humalog Kwikpen (Bkc)) 0 unit SQ ACHS COUNTS INCLUDE 234 BEDS AT THE [facility]; Protocol Last Admin: 09/04/18 12:17 Dose: 2 units Lorazepam (Ativan) 2 mg PO Q2H PRN PRN; Protocol PRN Reason: CIWA score > 8 but <15 Lorazepam (Ativan) 2 mg PO UD PRN; Protocol PRN Reason: CIWA score >/=15. Lorazepam (Ativan) 2 mg IV Q2H PRN PRN; Protocol PRN Reason: CIWA score > 8 but <15 Lorazepam (Ativan) 2 mg IV UD PRN; Protocol PRN Reason: CIWA score >/=15. Magnesium Hydroxide (Milk Of Magnesia) 30 ml PO DAILY PRN PRN Reason: Constipation Multivitamins/Minerals ([facility]) [facility] Admin: 09/04/18 08:35 Dose: 1 tablet Ondansetron HCl (Zofran) 4 mg IV Q8H PRN PRN PRN Reason: Nausea Pantoprazole Sodium (Protonix) 20 mg PO DAILY COUNTS INCLUDE 234 BEDS AT THE [facility] Last Admin: 09/04/18 09:40 Dose: 20 mg Senna (Senokot) 2 tablet PO BID COUNTS INCLUDE 234 BEDS AT THE [facility] Last Admin: 09/04/18 09:41 Dose: 2 tablet Sodium Chloride () 5 - 30 ml IV UD PRN PRN Reason: SALINE FLUSH Last Admin: 09/04/18 08:36 Dose: 10 ml Temazepam (Restoril) 30 mg PO QHS COUNTS INCLUDE 234 BEDS AT THE [facility] Last Admin: 09/04/18 00:29 Dose: 30 mg Thiamine HCl ([facility]itamin [facility]) [facility] Stop: 09/06/18 17:01 Last Admin: 09/04/18 08:36 Dose: 100 mg Triamcinolone Acetonide (Triamcinolone Acetonide) 1 applic TOPICAL DAILY COUNTS INCLUDE 234 BEDS AT THE [facility] Last Admin: 09/04/18 09:42 Dose: 1 applicatio Medical Necessity - Tobacco Use Smoking Status: Never smoker Assessment/Plan All Active Problems Bilateral pneumonia (Acute) Acute hypoxemic respiratory failure (Acute) Polysubstance (excluding opioids) dependence (Acute) 77-year-old female with past medical history of hypertension, type II DM admitted with progressive worsening chest pain and shortness of breath ongoing for 3-5 days. 1. Acute hypoxic respiratory failure secondary to bilateral community-acquired pneumonia, patient is currently on Ventimask, Acute PE ruled out with negative CTA , will continue on breathing treatment, IV antibiotics, wean off oxygen, aggressive pulmonary toileting. 2. Community-acquired pneumonia, bilateral,started on IV ceftriaxone, azithromycin, leukocytosis remains the same, will continue to trend labs 3. Hypertension, uncontrolled, continue on amlodipine, carvedilol, continue to monitor vitals closely 4. Type II DM, sugars are fairly controlled, on metformin at home, continue with Accu-Cheks with insulin sliding scale 5. Hyponatremia, resolved 6. Elevated BNPep, no renal dysfunction, no history of CHF, will get 2D echo, Lasix 40 mg IV x1 7. DVT prophylaxis with Lovenox subcu 8. CODE STATUS - DNR CCA -clarified with patient who said she had a DNR on file. Code Visit Inpatient E&M: 60512 Subs Hosp L2
--- NOTE | 2018-09-04 12:48 | ECHOD_ITS ---
Reason For Study: Dyspnea/SOB Procedure This was a 2D Doppler, Color Flow transthoracic echocardiogram. Did not use Definity due to increased PAP. Exam performed portable in patient room. Left Ventricle Normal LV size. Left ventricular systolic function is normal. The estimated ejection fraction is 65 %. There is evidence of diastolic dysfunction. No regional wall motion abnormalities noted. Right Ventricle Normal RV size. Normal systolic function. Atria The left atrium is moderately enlarged. Normal right atrium. No doppler evidence for ASD. Mitral Valve There is no mitral annular calcification. Mild focal mitral valve calcification of the anterior leaflet. Moderate (2+) mitral valve insufficiency. Tricuspid Valve Normal tricuspid valve. Mild to moderate (1-2+) tricuspid valve insufficiency. Right ventricular systolic pressure estimated to be 61 mmHg. Aortic Valve Trisinus/trileaflet aortic valve. Mild focal aortic valve thickening. Trivial aortic valve insufficiency. Pulmonic Valve The pulmonic valve is not well visualized. Great Vessels Normal sized aortic root. Pericardium/Pleural No pericardial effusion. MMode/2D Measurements & Calculations LVIDd: 3.7 cm IVSd: 1.2 cm Ao root diam: 2.5 cm LVIDs: 2.4 cm LVPWd: 1.1 cm RVDd: 3.6 cm FS: 34.2 % LAV(MOD-bp): 71.7 ml LVAd ap4: 20.6 cm2 SV(MOD-sp4): 35.2 ml LAV(MOD-bp) Indexed: 42.1 ml/m2 EDV(MOD-sp4): 50.8 ml LAV(MOD-sp2): 72.7 ml EDV(sp4-el): 51.6 ml LAV(MOD-sp4): 64.5 ml LVAs ap4: 10.5 cm2 ESV(MOD-sp4): 15.6 ml ESV(sp4-el): 16.0 ml EF(MOD-sp4): 69.3 % EF(sp4-el): 69.1 % SV(sp4-el): 35.6 ml LA A4 area: 22.2 cm2 RA A4 area: 11.9 cm2 Time Measurements MV dec time: 0.07 sec Doppler Measurements & Calculations MV E max danny: 104.6 cm/sec Lat Peak E' Danny: 5.6 cm/sec Med Peak E' Danny: 8.1 cm/sec MV A max danny: 133.6 cm/sec E/E' lat: 18.6 E/E' med: 12.9 MV E/A: 0.78 MV V2 max: 143.0 cm/sec MV P1/2t max danny: 123.6 cm/sec Ao V2 max: 175.1 cm/sec MV max P.2 mmHg MV P1/2t: 68.9 msec Ao max P.3 mmHg MV V2 mean: 93.9 cm/sec MV dec slope: 525.2 cm/sec2 Ao V2 mean: 122.6 cm/sec MV mean P.9 mmHg MVA(P1/2t): 3.2 cm2 Ao mean P.7 mmHg MV V2 VTI: 31.0 cm Ao V2 VTI: 34.9 cm LV V1 max: 119.7 cm/sec PA V2 max: 82.3 cm/sec TR max danny: 365.5 cm/sec LV V1 max P.7 mmHg TR max P.4 mmHg Interpretation Summary Left ventricular systolic function is normal. The estimated ejection fraction is 65 %. The left atrium is moderately enlarged. Mild focal mitral valve calcification of the anterior leaflet. Moderate (2+) mitral valve insufficiency. Mild to moderate (1-2+) tricuspid valve insufficiency. Mild focal aortic valve thickening. Trivial aortic valve insufficiency. Right ventricular systolic pressure estimated to be 61 mmHg c/w pulmonary hypertension. There is evidence of diastolic dysfunction. Ordering Physician: Thania Hahn Referring Physician: Blayne Dominguez Performed By: Irma Salinas, RDCS, RVT
[2018-09-04] MEDS: Furosemide 40 MG/4 ML Vial IV (13:24)
--- NOTE | 2018-09-04 15:48 | CHAPLAIN ---
Type of Pastoral Visit _x__ Initial Visit ___ Follow-up Visit ___ On-call Visit ___ General Patient Visit ___ Spiritual Assessment ___ Family Conference ___ Bereavement ___ Rapid Response ___ Code Blue ___ Other (describe below) Pastoral Care Referral From _x__ Patient ___ Family ___ Nurse ___ Physician ___ Clinical Unit Educator ___ Internal Grinding Machine Operator ___ Other (describe below) Sacrament/Intervention _x__ Active listening ___ Anointing ___ Tenriism ___ Bereavement ___ Communion ___ Tita exploration ___ ___ Life review _x__ Prayer ___ Reconciliation ___ Sacrament of Sick _x__ Supportive presence ___ Wedding ___ Other (describe below) Pastoral Comments
[2018-09-04 17:21] LABS: Bedside Glucose 150 mg/dL (70-110)
[2018-09-04 22:06] LABS: Bedside Glucose 145 mg/dL (70-110)
[2018-09-05] VITALS (21 sets, daily range): BP systolic 150–175; BP diastolic 68–89; PULSE 90–106; RESP 17–22; TEMP 36.6–37.4; O2SAT 93–98
--- NOTE | 2018-09-05 00:03 | EKG12_ITS ---
Test Reason : CP-ADM Blood Pressure : / mmHG Vent. Rate : 091 BPM Atrial Rate : 091 BPM P-R Int : 156 ms QRS Dur : 088 ms QT Int : 366 ms P-R-T Axes : 011 015 037 degrees QTc Int : 450 ms Normal sinus rhythm Normal ECG When compared with ECG of 03-SEP-2018 17:06, MANUAL COMPARISON REQUIRED, DATA IS UNCONFIRMED Confirmed by ZORAIDA HYATT, ALBERTO ([id number]), graphic editor JOHN ZHANG ([id number]) on 09/09/2018 10:56:30 AM Referred By: Gilberto Squires Confirmed By:ALBERTO CONWAY MD
[2018-09-05] MEDS: Acetaminophen 325 MG Tablet 650 MG PO ×2 (00:07→20:00)
[2018-09-05] MEDS: Ipratropium/Albuterol Sulfate 3 ML AMPUL.NEB INHALATION ×5 (03:30→20:24)
--- NOTE | 2018-09-05 03:48 | RAD_ITS ---
STUDY: X-RAY CHEST REASON FOR EXAM: Female, 77 years old. Hypoxia TECHNIQUE: Single frontal view of the chest. COMPARISON: September 03, 2018 FINDINGS: Low lung volumes. Nonspecific elevation of the left hemidiaphragm. No pneumothorax. Similar appearance to the lungs including the bilateral areas of infiltrate. Question tiny left pleural effusion. Degenerative changes. The heart appears enlarged. RAD/Chest 1 View (Portable) IMPRESSION: Compared to prior examination September 03, 2018 there is been no significant interval change in the bilateral infiltrates. Recommend follow-up to ensure resolution. Electronically Signed: Mitch Garcia, at 4:28 EDT Tel , Service support ,
[2018-09-05 06:55] LABS: Bedside Glucose 113 mg/dL (70-110)
[2018-09-05 08:11] LABS: Absolute Lymphocyte Count 1.13 X10^3/ul (0.83-4.51); Absolute Neutrophil Count 10.5 X10^3/uL (2.0-7.7); Basophil# 0.03 X10^3/uL; Basophil% 0.2 % (0-1); Eosinophils% 1.5 % (0-5); Hematocrit 33.8 % (37-47); Hemoglobin 10.3 g/dl (12.0-15.0); Lymphocyte # 1.13 X10^3/ul (4.0); Lymphocyte % 8.7 % (19-41); Mean Corp Hgb Conc 30.5 g/gl (32-36); Mean Corpuscular Hgb 27.8 pg (27.0-32.0); Mean Corpuscular Volume 91.1 fL (81-99); Mean Platelet Vol. 9.6 fl (6.2-12.0); Monocyte# 0.99 X10^3/uL; Monocyte% 7.7 % (0-10); Neutrophil # 10.51 X10^3/uL (2.7-7.7); Neutrophil % 81.3 % (47-70); Platelet Count 213 K/mm3 (150-450); RBC Distribution Width CV 17.8 % (11.6-14.6); RBC Distribution Width SD 59.1 fl (35.1-43.9); Red Blood Count 3.71 M/mm3 (4.2-5.4); White Blood Count 12.9 K/mm3 (4.4-11.0)
[2018-09-05 08:19] LABS: POSITIVE COUNT NO; POSITIVE DIFFERENTIAL NO; POSITIVE MORPHOLOGY NO
[2018-09-05 08:29] LABS: Anion Gap 9 (5-15); BUN 7 mg/dL (7-18); BUN/Creat Ratio 10.3 RATIO (10-20); Calcium,Total 9.6 mg/dL (8.5-10.1); Chloride 101 mmol/L (98-107); Creatinine, Serum 0.68 mg/dL (0.55-1.02); EST Glomerular Filtration Rate 89 mL/min (>60); Est Glom Filt Rate - Afr Amer 108 mL/min (>60); Estimated Creatinine Clearance 61.29 ml/min; Glucose 112 mg/dL (74-106); Potassium 3.1 mmol/L (3.5-5.1); Sodium Level 141 mmol/L (136-145)
[2018-09-05] MEDS: Aspirin 81 MG TAB.CHEW PO (10:54)
[2018-09-05] MEDS: Folic Acid 1 MG Tablet PO (10:54)
[2018-09-05] MEDS: Multivitamins,Ther W-Minerals Tablet 1 TABLET PO (10:54)
[2018-09-05] MEDS: Pantoprazole Sodium 20 MG Tablet PO (10:55)
[2018-09-05] MEDS: DULoxetine Hcl 60 MG Capsule PO (10:55)
[2018-09-05] MEDS: Gabapentin 300 MG Capsule PO ×3 (10:55→18:19)
[2018-09-05] MEDS: Thiamine Hydrochloride 100 MG Tablet PO ×2 (10:55→19:57)
[2018-09-05] MEDS: amLODIPine 10 MG Tablet PO (10:55)
[2018-09-05] MEDS: Enoxaparin 40 MG/0.4 ML Syringe SC (10:55)
[2018-09-05] MEDS: Carvedilol 6.25 MG Tablet PO (10:55)
[2018-09-05] MEDS: Senna Tablet 2 TABLET PO ×2 (10:56→22:13)
[2018-09-05] MEDS: hydrOXYzine PAM 25 MG Capsule PO ×2 (10:56→22:06)
[2018-09-05] MEDS: Triamcinolone 0.5% Cream 1 APPLIC TOPICAL (10:57)
[2018-09-05] MEDS: 0.9% NaCl Peripheral Flush Adult/Peds IV ×4 (11:08→22:09)
[2018-09-05] MEDS: Ceftriaxone 1 GM/50 ML BAG IV ×2 (11:09→22:09)
[2018-09-05 11:35] LABS: Bedside Glucose 190 mg/dL (70-110)
--- NOTE | 2018-09-05 11:42 | PCM.PN.HOSP ---
Patient Problems: Active and Suspected Problems Bilateral pneumonia (Acute) Acute hypoxemic respiratory failure (Acute) Polysubstance (excluding opioids) dependence (Acute) Subjective: Patient was seen and examined. Feels slightly improved. Off the Ventimask. On 5 L of oxygen. No fevers or chills or nausea or vomiting or chest pain or dizziness. Objective: Physical Exam General: Alert, Oriented x3, Cooperative, on 5 L of oxygen, appears a little comfortable than yesterday HEENT: Atraumatic, PERRLA, EOMI, Normocephalic Neck: Supple, No JVD, Negative Carotid Bruits Lungs: Decreased air entry, rales in both lower lung lockhart Cardiovascular: Regular rate, No murmurs Abdomen: Bowel Sounds Present, Soft, Non Tender Extremities: No edema, Capillary Refill Less than 3 Seconds Skin: No rashes, No breakdown Musculoskeletal: No Tenderness to Palpation of Joints or Extremities Neurological: Cranial nerves II-XII grossly intact Psych/Mental Status: Normal Affect, Appropriate Vitals/I&O's: Vital Signs Temp Pulse Resp BP Pulse Ox 98.9 F 106 H 17 150/77 H 95 09/05/18 09:27 09/05/18 09:27 09/05/18 09:27 09/05/18 09:27 09/05/18 09:27 Oxygen Flow Rate (L/min) 5 Oxygen Delivery Method Nasal Cannula Weight: 82.4 kg Body Mass Index (BMI) 40.9 Finger Stick Blood Glucose 154 Intake and Output for Last 24 Hours 09/03/18 09/04/18 09/05/18 23:59 23:59 23:59 Intake Total 487.1 / 487.1 1186.5 / 1186.5 Balance 487.1 / 487.1 1186.5 / 1186.5 Microbiology Past 72 Hours 09/03/18 23:15 Interface Orders Streptococcus pneumoniae Antigen (M - Final 09/03/18 23:15 Interface Orders Legionella Antigen - Final Laboratory Results 09/04/18 16:54: POC Glucose 150 H 09/04/18 21:41: POC Glucose 145 H 09/05/18 06:52: POC Glucose 113 H 09/05/18 07:52: WBC 12.9 H, RBC 3.71 L, Hgb 10.3 L, Hct 33.8 L, MCV 91.1, MCH 27.8, MCHC 30.5 L, RDW 17.8 H, RDW Differential 59.1 H, Plt Count 213, MPV 9.6, Immature Gran % (Auto) 0.600, Neut % (Auto) 81.3 H, Lymph % (Auto) 8.7 L, Hawkins % (Auto) 7.7, Eos % (Auto) 1.5, Baso % (Auto) 0.2, Absolute Neuts (auto) 10.5 H, Absolute Lymphs (auto) 1.13, Total Counted Not Reportable 09/05/18 07:52: Sodium 141, Potassium 3.1 L, Chloride 101, Carbon Dioxide 31.0, Anion Gap 9, BUN 7, Creatinine 0.68, Estim Creat Clear Calc 61.29, Est GFR (MDRD) Af Amer 108, Est GFR (MDRD) Non-Af 89, BUN/Creatinine Ratio 10.3, Glucose 112 H, Calcium 9.6 09/05/18 11:31: POC Glucose 190 H Current Medications Acetaminophen (Tylenol) 650 mg PO Q6H PRN PRN PRN Reason: Mild Pain (scale 0-3)/T>100.7 Last Admin: 09/05/18 00:07 Dose: 650 mg Albuterol Sulfate (Ventolin Aerosols) 2.5 mg INHALATION Q2H PRN PRN PRN Reason: SHORTNESS OF BREATH Last Admin: 09/04/18 15:57 Dose: 2.5 mg Albuterol/Ipratropium (Duoneb) 3 ml INHALATION Q4H.RT [facility] Last Admin: 09/05/18 11:04 Dose: 3 ml Amlodipine Besylate (Norvasc) 10 mg PO DAILY [facility] Last Admin: 09/05/18 10:55 Dose: 10 mg Aspirin (Aspirin, Baby) 81 mg PO DAILY@0800 [facility] Last Admin: 09/05/18 10:54 Dose: 81 mg Carvedilol (Coreg) 6.25 mg PO BID [facility] Last Admin: 09/05/18 10:55 Dose: 6.25 mg Cholecalciferol (Vitamin D) 2,000 unit PO DAILY [facility] Last Admin: 09/05/18 10:56 Dose: 2,000 unit Dextrose (D50w Syringe) 0 gm IV X1 PRN; Protocol PRN Reason: Hypoglycemia Duloxetine HCl (Cymbalta) 60 mg PO DAILY [facility] Last Admin: 09/05/18 10:55 Dose: 60 mg Enoxaparin Sodium (Lovenox) 40 mg SC DAILY [facility] Last Admin: 09/05/18 10:55 Dose: 40 mg Folic Acid (Folic Acid) 1 mg PO DAILY@0800 [facility] Stop: 09/06/18 08:01 Last Admin: 09/05/18 10:54 Dose: 1 mg Gabapentin (Neurontin) 300 mg PO TIDCM [facility] Last Admin: 09/05/18 10:55 Dose: 300 mg Glucagon () 1 mg IM .X1 PRN PRN Reason: Hypoglycemia Hydroxyzine Pamoate (Vistaril Pamoate Capsule) 25 mg PO BID [facility] Last Admin: 09/05/18 10:56 Dose: 25 mg Azithromycin 500 mg/ Dextrose 255 mls @ 250 mls/hr IV Q24 [facility] Stop: 09/06/18 11:02 Last Admin: 09/04/18 09:44 Dose: 250 mls/hr Ceftriaxone Sodium (Rocephin) 1 gm in 50 mls @ 100 mls/hr IV Q12 [facility] Last Admin: 09/05/18 11:09 Dose: 100 mls/hr Insulin Human Lispro (Humalog Kwikpen (Bkc)) 0 unit SQ ACHS [facility]; Protocol Last Admin: 09/05/18 10:51 Dose: Not Given Labetalol HCl (Trandate) 10 mg IV Q6H PRN PRN PRN Reason: systolic BP >160 Lorazepam (Ativan) 2 mg PO Q2H PRN PRN; Protocol PRN Reason: CIWA score > 8 but <15 Lorazepam (Ativan) 2 mg PO UD PRN; Protocol PRN Reason: CIWA score >/=15. Lorazepam (Ativan) 2 mg IV Q2H PRN PRN; Protocol PRN Reason: CIWA score > 8 but <15 Lorazepam (Ativan) 2 mg IV UD PRN; Protocol PRN Reason: CIWA score >/=15. Magnesium Hydroxide (Milk Of Magnesia) 30 ml PO DAILY PRN PRN Reason: Constipation Multivitamins/Minerals ([facility]it[facility] With Minerals) [facility] Last Admin: 09/05/18 10:54 Dose: 1 tablet Ondansetron HCl (Zofran) 4 mg IV Q8H PRN PRN PRN Reason: Nausea Pantoprazole Sodium (Protonix) 20 mg PO DAILY [facility] Last Admin: 09/05/18 10:55 Dose: 20 mg Potassium Chloride (K-Dur) 60 meq PO X1 ONE Stop: 09/05/18 11:40 Senna (Senokot) 2 tablet PO BID [facility] Last Admin: 09/05/18 10:56 Dose: 2 tablet Sodium Chloride () 5 - 30 ml IV UD PRN PRN Reason: SALINE FLUSH Last Admin: 09/05/18 11:08 Dose: 10 ml Temazepam (Restoril) 30 mg PO QHS [facility] Last Admin: 09/04/18 21:51 Dose: 30 mg Thiamine HCl (Vitamin B1) 100 mg PO BIDCM [facility] Stop: 09/06/18 17:01 Last Admin: 09/05/18 10:55 Dose: 100 mg Triamcinolone Acetonide (Triamcinolone Acetonide) 1 applic TOPICAL DAILY [facility] Last Admin: 09/05/18 10:57 Dose: 1 applicatio Medical Necessity - Tobacco Use Smoking Status: Never smoker Assessment/Plan All Active Problems Bilateral pneumonia (Acute) Acute hypoxemic respiratory failure (Acute) Polysubstance (excluding opioids) dependence (Acute) 77-year-old female with past medical history of hypertension, type II DM admitted with progressive worsening chest pain and shortness of breath ongoing for 3-5 days. 1. Acute hypoxic respiratory failure secondary to bilateral community-acquired pneumonia, very slowly improving, currently on 5 L of oxygen Acute PE ruled out with negative CTA , will continue on breathing treatment, IV antibiotics, wean off oxygen, aggressive pulmonary toileting. 2. Community-acquired pneumonia, bilateral,started on IV ceftriaxone, azithromycin, slow improvement in leukocytosis, will continue to trend labs 3. Hypertension, uncontrolled, continue on amlodipine, carvedilol, increase carvedilol to 12.5 mg p.o. twice daily, add hydralazine as needed 4. Type II DM, sugars are fairly controlled, on metformin at home, continue with Accu-Cheks with insulin sliding scale 5. Hyponatremia, resolved 6. Hypokalemia, resolved 7. Elevated BNPep, no renal dysfunction, no history of CHF, likely second to fluid overload, given Lasix x1 with improvement 8. DVT prophylaxis with Lovenox subcu 9. CODE STATUS - DNR CCA -clarified with patient who said she had a DNR on file. Code Visit Inpatient E&M: 39431 Subs Hosp L2
[2018-09-05] MEDS: Insulin Lispro 100 UNIT/ML INSULN.PEN SQ (12:13)
[2018-09-05] MEDS: Labetalol 20 MG/4 ML Vial 10 MG IV (15:26)
[2018-09-05 17:51] LABS: Bedside Glucose 109 mg/dL (70-110)
[2018-09-05] MEDS: hydrALAZINE 20 MG/ML Vial 5 MG IV (19:35)
[2018-09-05] MEDS: Temazepam 15 MG Capsule 30 MG PO (22:09)
[2018-09-05] MEDS: Carvedilol 12.5 MG Tablet PO (22:13)
[2018-09-05 23:46] LABS: Bedside Glucose 114 mg/dL (70-110)
[2018-09-06] VITALS (19 sets, daily range): BP systolic 145–169; BP diastolic 70–86; PULSE 75–111; RESP 18; TEMP 36.9–37.3; O2SAT 92–97
[2018-09-06] MEDS: oxyCODONE 5 MG Tablet PO (03:32)
[2018-09-06 06:21] LABS: Anion Gap 8 (5-15); BUN 4 mg/dL (7-18); BUN/Creat Ratio 7.1 RATIO (10-20); Calcium,Total 9.8 mg/dL (8.5-10.1); Chloride 104 mmol/L (98-107); Creatinine, Serum 0.57 mg/dL (0.55-1.02); EST Glomerular Filtration Rate 110 mL/min (>60); Est Glom Filt Rate - Afr Amer 133 mL/min (>60); Estimated Creatinine Clearance 61.29 ml/min; Glucose 111 mg/dL (74-106); Potassium 3.6 mmol/L (3.5-5.1); Sodium Level 142 mmol/L (136-145)
[2018-09-06] MEDS: Labetalol 20 MG/4 ML Vial 10 MG IV (06:30)
[2018-09-06] MEDS: 0.9% NaCl Peripheral Flush Adult/Peds IV ×2 (06:31→21:43)
[2018-09-06] MEDS: Ipratropium/Albuterol Sulfate 3 ML AMPUL.NEB INHALATION ×5 (06:58→23:05)
[2018-09-06 07:06] LABS: Bedside Glucose 108 mg/dL (70-110)
[2018-09-06] MEDS: Aspirin 81 MG TAB.CHEW PO (08:34)
[2018-09-06] MEDS: Thiamine Hydrochloride 100 MG Tablet PO ×2 (08:34→16:11)
[2018-09-06] MEDS: Folic Acid 1 MG Tablet PO (08:34)
[2018-09-06] MEDS: Gabapentin 300 MG Capsule PO ×3 (08:34→16:11)
[2018-09-06] MEDS: Multivitamins,Ther W-Minerals Tablet 1 TABLET PO (08:34)
[2018-09-06] MEDS: Carvedilol 12.5 MG Tablet PO ×2 (09:47→21:43)
[2018-09-06] MEDS: Senna Tablet 2 TABLET PO ×2 (09:47→21:46)
[2018-09-06] MEDS: hydrOXYzine PAM 25 MG Capsule PO ×2 (09:47→21:42)
[2018-09-06] MEDS: Pantoprazole Sodium 20 MG Tablet PO (09:47)
[2018-09-06] MEDS: amLODIPine 10 MG Tablet PO (09:48)
[2018-09-06] MEDS: Enoxaparin 40 MG/0.4 ML Syringe SC (09:48)
[2018-09-06] MEDS: DULoxetine Hcl 60 MG Capsule PO (09:48)
[2018-09-06] MEDS: Triamcinolone 0.5% Cream 1 APPLIC TOPICAL (09:48)
[2018-09-06] MEDS: Ceftriaxone 1 GM/50 ML BAG IV ×2 (09:48→21:46)
[2018-09-06] MEDS: Insulin Lispro 100 UNIT/ML INSULN.PEN SQ (11:05)
[2018-09-06 11:20] LABS: Bedside Glucose 215 mg/dL (70-110)
--- NOTE | 2018-09-06 15:58 | CASEMGMT ---
Pt states that she already has OP therapy set up and is fine to go home with same. Call to [facility] to verify that no new order needed at this time. Pt aware of possible need for home oxygen at discharge and advised her that this RN ANUSHA left order with instruction on chart at this time, voices understanding. Green sheet on chart. SStshay MUNOZ CM
[2018-09-06 16:16] LABS: Bedside Glucose 130 mg/dL (70-110)
--- NOTE | 2018-09-06 17:57 | PCM.PN.HOSP ---
Patient Problems: Active and Suspected Problems Bilateral pneumonia (Acute) Acute hypoxemic respiratory failure (Acute) Polysubstance (excluding opioids) dependence (Acute) Subjective: Patient was seen and examined. She is feeling frustrated that she still on oxygen. Remains on 5 L of oxygen. Denies any fever or chills or chest pain. No acute events overnight Objective: Physical Exam General: Alert, Oriented x3, Cooperative, on 5 L of oxygen, appears a little comfortable than yesterday HEENT: Atraumatic, PERRLA, EOMI, Normocephalic Neck: Supple, No JVD, Negative Carotid Bruits Lungs: Decreased air entry, rales in both lower lung lockhart Cardiovascular: Regular rate, No murmurs Abdomen: Bowel Sounds Present, Soft, Non Tender Extremities: No edema, Capillary Refill Less than 3 Seconds Skin: No rashes, No breakdown Musculoskeletal: No Tenderness to Palpation of Joints or Extremities Neurological: Cranial nerves II-XII grossly intact Psych/Mental Status: Normal Affect, Appropriate Vitals/I&O's: Vital Signs Temp Pulse Resp BP Pulse Ox 98.4 F 94 18 146/75 H 97 09/06/18 14:06 09/06/18 14:46 09/06/18 14:21 09/06/18 14:06 09/06/18 14:09 Oxygen Flow Rate (L/min) 4 Oxygen Delivery Method Nasal Cannula Weight: 82.4 kg Body Mass Index (BMI) 40.9 Finger Stick Blood Glucose 154 Intake and Output for Last 24 Hours 09/04/18 09/05/18 09/06/18 23:59 23:59 23:59 Intake Total 1186.5 / 1186.5 1183.6 / 1183.6 559 / 559 Balance 1186.5 / 1186.5 1183.6 / 1183.6 559 / 559 Microbiology Past 72 Hours 09/03/18 23:15 Interface Orders Streptococcus pneumoniae Antigen (M - Final 09/03/18 23:15 Interface Orders Legionella Antigen - Final Laboratory Results 09/05/18 22:02: POC Glucose 114 H 09/06/18 05:42: Sodium 142, Potassium 3.6, Chloride 104, Carbon Dioxide 30.0, Anion Gap 8, BUN 4 L, Creatinine 0.57, Estim Creat Clear Calc 61.29, Est GFR (MDRD) Af Amer 133, Est GFR (MDRD) Non-Af 110, BUN/Creatinine Ratio 7.1 L, Glucose 111 H, Calcium 9.8 09/06/18 06:33: POC Glucose 108 09/06/18 11:05: POC Glucose 215 H 09/06/18 16:10: POC Glucose 130 H Current Medications Acetaminophen (Tylenol) 650 mg PO Q6H PRN PRN PRN Reason: Mild Pain (scale 0-3)/T>100.7 Last Admin: 09/05/18 20:00 Dose: 650 mg Albuterol Sulfate (Ventolin Aerosols) 2.5 mg INHALATION Q2H PRN PRN PRN Reason: SHORTNESS OF BREATH Last Admin: 09/04/18 15:57 Dose: 2.5 mg Albuterol/Ipratropium (Duoneb) 3 ml INHALATION Q4H.RT [facility] Last Admin: 09/06/18 14:20 Dose: 3 ml Amlodipine Besylate (Norvasc) 10 mg PO DAILY [facility] Last Admin: 09/06/18 09:48 Dose: 10 mg Aspirin (Aspirin, Baby) 81 mg PO DAILY@0800 [facility] Last Admin: 09/06/18 08:34 Dose: 81 mg Carvedilol (Coreg) 12.5 mg PO BID [facility] Last Admin: 09/06/18 09:47 Dose: 12.5 mg Cholecalciferol (Vitamin D) 2,000 unit PO DAILY [facility] Last Admin: 09/06/18 09:47 Dose: 2,000 unit Dextrose (D50w Syringe) 0 gm IV X1 PRN; Protocol PRN Reason: Hypoglycemia Duloxetine HCl (Cymbalta) 60 mg PO DAILY [facility] Last Admin: 09/06/18 09:48 Dose: 60 mg Enoxaparin Sodium (Lovenox) 40 mg SC DAILY [facility] Last Admin: 09/06/18 09:48 Dose: 40 mg Gabapentin (Neurontin) 300 mg PO TIDCM [facility] Last Admin: 09/06/18 16:11 Dose: 300 mg Glucagon () 1 mg IM .X1 PRN PRN Reason: Hypoglycemia Hydralazine HCl (Apresoline Iv) 5 mg IV Q6H PRN PRN PRN Reason: BLOOD PRESSURE Last Admin: 09/05/18 19:35 Dose: 5 mg Hydroxyzine Pamoate (Vistaril Pamoate Capsule) 25 mg PO BID [facility] Last Admin: 09/06/18 09:47 Dose: 25 mg Ceftriaxone Sodium (Rocephin) 1 gm in 50 mls @ 100 mls/hr IV Q12 [facility] Last Admin: 09/06/18 09:48 Dose: 100 mls/hr Insulin Human Lispro (Humalog Kwikpen (Bkc)) 0 unit SQ ACHS [facility]; Protocol Last Admin: 09/06/18 16:11 Dose: Not Given Labetalol HCl (Trandate) 10 mg IV Q6H PRN PRN PRN Reason: systolic BP >160 Last Admin: 09/06/18 06:30 Dose: 10 mg Lorazepam (Ativan) 2 mg PO Q2H PRN PRN; Protocol PRN Reason: CIWA score > 8 but <15 Lorazepam (Ativan) 2 mg PO UD PRN; Protocol PRN Reason: CIWA score >/=15. Lorazepam (Ativan) 2 mg IV Q2H PRN PRN; Protocol PRN Reason: CIWA score > 8 but <15 Lorazepam (Ativan) 2 mg IV UD PRN; Protocol PRN Reason: CIWA score >/=15. Magnesium Hydroxide (Milk Of Magnesia) 30 ml PO DAILY PRN PRN Reason: Constipation Multivitamins/Minerals ([facility] Min[facility]) [facility] Last Admin: 09/06/18 08:34 Dose: 1 tablet Ondansetron HCl (Zofran) 4 mg IV Q8H PRN PRN PRN Reason: Nausea Pantoprazole Sodium (Protonix) 20 mg PO DAILY [facility] Last Admin: 09/06/18 09:47 Dose: 20 mg Senna (Senokot) 2 tablet PO BID [facility] Last Admin: 09/06/18 09:47 Dose: 2 tablet Sodium Chloride () 5 - 30 ml IV UD PRN PRN Reason: SALINE FLUSH Last Admin: 09/06/18 06:31 Dose: 10 ml Temazepam (Restoril) 30 mg PO QHS [facility] Last Admin: 09/05/18 22:09 Dose: 30 mg Triamcinolone Acetonide (Triamcinolone Acetonide) 1 applic TOPICAL DAILY [facility] Last Admin: 09/06/18 09:48 Dose: 1 applicatio Medical Necessity - Tobacco Use Smoking Status: Never smoker Assessment/Plan All Active Problems Bilateral pneumonia (Acute) Acute hypoxemic respiratory failure (Acute) Polysubstance (excluding opioids) dependence (Acute) 77-year-old female with past medical history of hypertension, type II DM admitted with progressive worsening chest pain and shortness of breath ongoing for 3-5 days. 1. Acute hypoxic respiratory failure secondary to bilateral community-acquired pneumonia, very slowly improving, currently on 5 L of oxygen Acute PE ruled out with negative CTA , will continue on breathing treatment, IV antibiotics, wean off oxygen, aggressive pulmonary toileting. 2. Community-acquired pneumonia, bilateral,started on IV ceftriaxone, azithromycin(day 4), slow improvement in leukocytosis, will continue to trend labs 3. Hypertension, fairly controlled, continue on amlodipine, carvedilol, hydralazine as needed 4. Type II DM, sugars are fairly controlled, on metformin at home, continue with Accu-Cheks with insulin sliding scale 5. Hyponatremia, resolved 6. Hypokalemia, resolved 7. Elevated BNPep, no renal dysfunction, no history of CHF, likely second to fluid overload, given Lasix x1 with some improvement, will continue with lasix 20mg po bid 8. DVT prophylaxis with Lovenox subcu 9. CODE STATUS - DNR CCA -clarified with patient who said she had a DNR on file. Code Visit Inpatient E&M: 44074 Subs Hosp L2
[2018-09-06] MEDS: Acetaminophen 325 MG Tablet 650 MG PO (20:27)
[2018-09-06] MEDS: Furosemide 20 MG Tablet PO (20:27)
[2018-09-06] MEDS: Temazepam 15 MG Capsule 30 MG PO (21:46)
[2018-09-06 22:35] LABS: Bedside Glucose 128 mg/dL (70-110)
[2018-09-07] VITALS (15 sets, daily range): BP systolic 139–184; BP diastolic 67–95; PULSE 92–115; RESP 18–20; TEMP 36.5–37.1; O2SAT 84–98
[2018-09-07] MEDS: Acetaminophen 325 MG Tablet 650 MG PO ×2 (04:18→10:22)
[2018-09-07] MEDS: Labetalol 20 MG/4 ML Vial 10 MG IV (04:25)
[2018-09-07] MEDS: 0.9% NaCl Peripheral Flush Adult/Peds IV ×3 (04:26→05:47)
[2018-09-07] MEDS: hydrALAZINE 20 MG/ML Vial 5 MG IV (05:47)
[2018-09-07 06:50] LABS: Bedside Glucose 126 mg/dL (70-110)
[2018-09-07] MEDS: Ipratropium/Albuterol Sulfate 3 ML AMPUL.NEB INHALATION ×2 (07:19→11:09)
[2018-09-07 07:27] LABS: Anion Gap 9 (5-15); BUN 5 mg/dL (7-18); BUN/Creat Ratio 6.8 RATIO (10-20); Calcium,Total 10.5 mg/dL (8.5-10.1); Chloride 101 mmol/L (98-107); Creatinine, Serum 0.73 mg/dL (0.55-1.02); EST Glomerular Filtration Rate 82 mL/min (>60); Est Glom Filt Rate - Afr Amer 99 mL/min (>60); Estimated Creatinine Clearance 61.29 ml/min; Glucose 133 mg/dL (74-106); Potassium 3.5 mmol/L (3.5-5.1); Sodium Level 139 mmol/L (136-145)
[2018-09-07] MEDS: Gabapentin 300 MG Capsule PO ×2 (08:27→12:10)
[2018-09-07] MEDS: Multivitamins,Ther W-Minerals Tablet 1 TABLET PO (08:27)
[2018-09-07] MEDS: Aspirin 81 MG TAB.CHEW PO (08:27)
[2018-09-07] MEDS: Triamcinolone 0.5% Cream 1 APPLIC TOPICAL (10:21)
[2018-09-07] MEDS: Ceftriaxone 1 GM/50 ML BAG IV (10:21)
[2018-09-07] MEDS: Enoxaparin 40 MG/0.4 ML Syringe SC (10:22)
[2018-09-07] MEDS: DULoxetine Hcl 60 MG Capsule PO (10:23)
[2018-09-07] MEDS: amLODIPine 10 MG Tablet PO (10:23)
[2018-09-07] MEDS: Pantoprazole Sodium 20 MG Tablet PO (10:23)
[2018-09-07] MEDS: Carvedilol 12.5 MG Tablet PO ×2 (10:23→12:13)
[2018-09-07] MEDS: Furosemide 20 MG Tablet PO (10:24)
[2018-09-07] MEDS: hydrOXYzine PAM 25 MG Capsule PO (10:24)
[2018-09-07] MEDS: Senna Tablet 2 TABLET PO (10:24)
[2018-09-07 11:15] LABS: Bedside Glucose 209 mg/dL (70-110)
--- NOTE | 2018-09-07 11:30 | DCINST_ITS ---
- Discharge Diagnoses Current Active Problems: Current Active and Chronic Problems Bilateral pneumonia (Acute) Depression (Chronic) Acute hypoxemic respiratory failure (Acute) Polysubstance (excluding opioids) dependence (Acute) You will use the following diet at home:: Calorie/Carbohydrate Controlled (specify 1200, 1400, etc) - 1800 ADA diet, Cardiac Your food should be the consistency of: Regular Discharge Activity: May Not Drive Call your doctor if you observe: Fever of 101 or Higher, Inability to have a bowel movement, Shortness of breath, Dizziness, Fainting spells, Swelling in the ankles, Chest pain Allergies/Adverse Reactions: Allergies losartan [From Cozaar] Allergy (Verified 09/03/18 20:08) Swelling carbamazepine [From Tegretol] Adverse Reaction (Verified 09/03/18 20:08) MENTAL STATUS CHANGE hydrochlorothiazide Adverse Reaction (Verified 09/03/18 17:09) Unknown Medications to take at Discharge Amlodipine [Norvasc] 10 mg PO DAILY 04/29/18 Aspirin [Aspirin, Baby] 81 mg PO DAILY@0800 04/29/18 Cholecalciferol (Vitamin D3) [D3-2000] 2,000 unit PO DAILY 04/29/18 Duloxetine HCl 60 mg PO DAILY 04/29/18 Gabapentin [Neurontin] 300 mg PO TIDCM 04/29/18 Hydroxyzine HCl 25 mg PO BID 04/29/18 Metformin HCl [Glucophage] 500 mg PO BIDCM 04/29/18 Omeprazole [Prilosec] 20 mg PO DAILY 04/29/18 Temazepam 30 mg PO QHS 04/29/18 traMADol [Ultram] 50 mg PO BID 04/29/18 Mometasone Furoate [Elocon] 1 applic TP DAILY 09/03/18 Albuterol Inhaler [Ventolin Hfa] 2 puff INHALATION Q4H PRN PRN #1 inhaler 09/07/18 Carvedilol [Coreg (Beta Augie)] 25 mg PO BID #60 tablet 09/07/18 Furosemide [Lasix] 40 mg PO DAILY #10 09/07/18 Levofloxacin [Levaquin] 500 mg PO DAILY #3 tablet 09/07/18 Lisinopril [Prinivil] 10 mg PO DAILY #30 tablet 09/07/18 The following prescriptions were given: Albuterol Inhaler [Ventolin Hfa] 2 puff INHALATION Q4H PRN PRN #1 inhaler PRN Reason: SOB/Wheezing Levofloxacin [Levaquin] 500 mg PO DAILY #3 tablet Lisinopril [Prinivil] 10 mg PO DAILY #30 tablet Carvedilol [Coreg (Beta Augie)] 25 mg PO BID #60 tablet Primary Care Physician: Blayne Dominguez III, MD [Primary Care Provider] - Please follow up with your Primary Care Physician in: in 1-2 weeks Test Results: Test results from this visit will be discussed in further detail at your follow- up appointment, if applicable. Please Follow Up With: Blayne Dominguez III, MD
--- NOTE | 2018-09-07 11:31 | DS.PCM_ITS ---
Discharge Date and Diagnosis Date of Admission: 09/03/18 Date of Discharge: 09/07/18 - Primary Discharge Diagnosis Active and Suspected Problems Bilateral pneumonia (Acute) Acute hypoxemic respiratory failure (Acute) Polysubstance (excluding opioids) dependence (Acute) - Secondary Discharge Diagnosis Chronic Problems Depression (Chronic) Morbid obesity (Chronic) HTN (hypertension) (Chronic) History of esophageal reflux (Chronic) History of angioedema (Chronic) History of asthma (Chronic) Anxiety state (Chronic) Hospital Course and Treatment Summary of Care Provided: The patient is a pleasant 77-year-old female with past medical history of hypertension, type II DM admitted with progressive worsening chest pain and shortness of breath ongoing for 3-5 days, consistent with acute hypoxic respiratory failure secondary to bilateral lower lobes community-acquired pneumonia: 1. Acute hypoxic respiratory failure secondary to bilateral community-acquired pneumonia: Patient had slow improvement. She was on 95% on 2 L of oxygen and ambulating on room air 84%. Patient discharged on portable and concentrator oxygen 2-4 L to keep pulse ox more than 90%. Follow with PCP. Chest CTA was done and acute PE ruled out. Continue on breathing treatment, IV antibiotics, wean off oxygen, aggressive pulmonary toileting. 2. Community-acquired pneumonia, bilateral lower lobes: It was started on IV ceftriaxone, and Zithromax. Patient had 5 days of IV antibiotics Rocephin. Patient completed Zithromax. Discharged on 3 more days of Levaquin. 3. Hypertension, intermittently high: Continue on amlodipine, carvedilol, hydralazine as needed: Patient blood pressure was high yesterday evening and night 173/74. Patient blood pressure was controlled on labetalol. Stable in the morning. Patient discharged on amlodipine, lisinopril, Coreg. Follow with PCP 4. Type II DM, sugars are fairly controlled, on metformin at home, continue with Accu-Cheks with insulin sliding scale 5. Hyponatremia, resolved 6. Hypokalemia, resolved 7. Elevated BNPep, no renal dysfunction, no history of CHF, likely second to fluid overload, given Lasix x1 with some improvement, will continue with lasix 20mg po bid 8. DVT prophylaxis with Lovenox subcu 9. CODE STATUS - DNR CCA -clarified with patient Discharge medication reconciliation done. Discharge follow-up instructions completed. Patient has mild bilateral lower extremity lymphedema. Advised Lasix 40 mg daily for 7 days and then decrease to 20 mg daily. Lisinopril was started and a prescription given for 10 mg daily. Coreg was increased from 12.5-25 mg twice daily. Discharge medications discussed with the patient. Total time spent, exact 35 minutes on discharge meds reconciliation, examinatio n, review of imaging and blood test and discussion with the patient on follow-up instructions. - Physical Exam General: Alert, Oriented x3, Cooperative HEENT: Atraumatic, PERRLA, EOMI, Normocephalic Neck: Supple, No JVD, Negative Carotid Bruits Lungs: No rhonchi, No wheeze, No rales, Diminished - Bilateral lung bases. Cardiovascular: Regular rate, Normal S1, Normal S2, No murmurs, - - Sinus rhythm on the monitoring and evaluation advisor Abdomen: Bowel Sounds Present, Soft, Non Tender, Non-Distended Extremities: Capillary Refill Less than 3 Seconds, Edema - Mild bilateral lymphedema Skin: No rashes, No breakdown Musculoskeletal: No Tenderness to Palpation of Joints or Extremities Neurological: Cranial nerves II-XII grossly intact, Neuro grossly intact, Motor Exam 5/5 strength throughout Psych/Mental Status: Normal Affect, Appropriate Vital Signs Temp Pulse Resp BP Pulse Ox 98.6 F 104 H 18 152/95 H 96 09/07/18 10:20 09/07/18 11:09 09/07/18 11:09 09/07/18 10:20 09/07/18 11:09 Oxygen Flow Rate (L/min) 2 Oxygen Delivery Method Nasal Cannula Weight: 181 lb 10.574 oz Body Mass Index (BMI) 40.9 Finger Stick Blood Glucose 154 Intake and Output for Last 24 Hours 09/05/18 09/06/18 09/07/18 23:59 23:59 23:59 Intake Total 1183.6 / 1183.6 711 / 711 200 / 200 Output Total 1600 / 1600 Balance 1183.6 / 1183.6 711 / 711 -1400 / -1400 Laboratory Tests Past 24 Hrs 09/07/18 06:16 Sodium 139 Potassium 3.5 Chloride 101 Carbon Dioxide 29.0 Anion Gap 9 BUN 5 L Creatinine 0.73 Estim Creat Clear Calc 61.29 Est GFR (MDRD) Af Amer 99 Est GFR (MDRD) Non-Af 82 BUN/Creatinine Ratio 6.8 L Glucose 133 H Calcium 10.5 H POC Glucose 09/07/18 09/07/18 09/06/18 11:11 06:30 21:39 POC Glucose 209 H 126 H 128 H 09/06/18 16:10 POC Glucose 130 H Discharge Activity: May Not Drive Call your doctor if you observe: Fever of 101 or Higher, Inability to have a bowel movement, Shortness of breath, Dizziness, Fainting spells, Swelling in the ankles, Chest pain Home Medications: Medications to take at Discharge Amlodipine [Norvasc] 10 mg PO DAILY 04/29/18 Aspirin [Aspirin, Baby] 81 mg PO DAILY@0800 04/29/18 Cholecalciferol (Vitamin D3) [D3-2000] 2,000 unit PO DAILY 04/29/18 Duloxetine HCl 60 mg PO DAILY 04/29/18 Gabapentin [Neurontin] 300 mg PO TIDCM 04/29/18 Hydroxyzine HCl 25 mg PO BID 04/29/18 Metformin HCl [Glucophage] 500 mg PO BIDCM 04/29/18 Omeprazole [Prilosec] 20 mg PO DAILY 04/29/18 Temazepam 30 mg PO QHS 04/29/18 traMADol [Ultram] 50 mg PO BID 04/29/18 Mometasone Furoate [Elocon] 1 applic TP DAILY 09/03/18 Albuterol Inhaler [Ventolin Hfa] 2 puff INHALATION Q4H PRN PRN #1 inhaler 09/07/18 Carvedilol [Coreg (Beta Augie)] 25 mg PO BID #60 tablet 09/07/18 Furosemide [Lasix] 40 mg PO DAILY #10 09/07/18 Levofloxacin [Levaquin] 500 mg PO DAILY #3 tablet 09/07/18 Lisinopril [Prinivil] 10 mg PO DAILY #30 tablet 09/07/18 Following Prescrptions Were Given to Patient: Albuterol Inhaler [Ventolin Hfa] 2 puff INHALATION Q4H PRN PRN #1 inhaler PRN Reason: SOB/Wheezing Levofloxacin [Levaquin] 500 mg PO DAILY #3 tablet Lisinopril [Prinivil] 10 mg PO DAILY #30 tablet Carvedilol [Coreg (Beta Augie)] 25 mg PO BID #60 tablet Primary Care Physician: Blayne Dominguez III, MD [Primary Care Provider] - Please follow up with your Primary Care Physician in: in 1-2 weeks Please Follow Up With: Blayne Dominguez III, MD Medical Necessity - Tobacco Use Smoking Status: Never smoker Meaningful Use Info Meaningful Use Diagnoses (Choose all that apply): None applicable Code Visit Inpatient E&M: 98665 Disch Hosp
--- NOTE | 2018-09-07 11:51 | CPS ---
SpO2 decreased with ambulation on RA to 84%. O2 added at 2 l/m nasal cannula SpO2 increased to 90%.
[2018-09-07] MEDS: Insulin Lispro 100 UNIT/ML INSULN.PEN SQ (12:09)
[2018-09-07] MEDS: Lisinopril 10 MG Tablet PO (12:09)
--- NOTE | 2018-09-09 16:38 | CASEMGMT ---
Discharge follow-up phone call GENESIS: Laura STRATA: 4 Discharge date: 09/07/18 Adm Dx: Bilateral pneumonia Call placed to pt and asked her how she has been feeling since she was discharged from the hospital. Pt states she has been doing well. Pt was discharged on oxygen and pt states [facility] did bring the oxygen out to her home and set it up for her. Pt states she denies having any questions about the discharge instructions. She states she was able to get all of her prescriptions filled and denies having any questions about them. Instructed pt on importance of taking antibiotic as prescribed until gone. Pt voiced understanding. Pt stated she called and made an appt with Dr Blayne Dominguez for this coming . Provided [employer] CM's number to pt and informed her to call if she has any questions or concerns. ALEXANDER TAVARES thanked pt for choosing [facility]. Maryjo NEIL RN, CM
== END 2018-09-07 14:25 | disposition home or self-care (01) | DRG 193 ==
LOC: ED 17:53 → PCU 09-04 06:19
PROVIDERS: Internal Medicine; Admitting Provider Hospitalist; Emergency Provider Emergency Medicine; Family Provider Family Medicine; PCP Family Medicine; Referring Provider Hospitalist; Visit Provider Internal Medicine
DX: J18.9 Pneumonia, unspecified organism (principal); J96.01 Acute respiratory failure with hypoxia; Z68.41 Body mass index [BMI] 40.0-44.9, adult; E87.1 Hypo-osmolality and hyponatremia; I10 Essential (primary) hypertension; E11.9 Type 2 diabetes mellitus without complications; E66.01 Morbid (severe) obesity due to excess calories; Z79.84 Long term (current) use of oral hypoglycemic drugs; F32.9 Major depressive disorder, single episode, unspecified; E87.6 Hypokalemia; Z66 Do not resuscitate
CPT/HCPCS: 36415; 71045; 71275; 80048; 80307; 80320; 82962; 83605; 83880; 84484; 85025; 85027; 85379; 87040; 87449; 93005; 93306; 94640; 94667; 94668; 97116; 97162; 97165; 97530; 97535; 99251; 99285; J7040; J7050; Q9967; A4216; G0463; G0480; J1940

== ENCOUNTER → 2018-10-05 10:55 | Outpatient (CLI) | payer MEDICARE, SELFPAY ==
[2018-10-05 12:05] LABS: Microalbumin,Random Urine 38.4 mg/L (NO RANGE EST.); Microalbumin:Creatinine Ratio 47.9 mg/g CRE (<30 mg/g CRE)
== END ==
PROVIDERS: Family Provider Family Medicine; PCP Family Medicine; Referring Provider Family Medicine; Visit Provider Family Medicine
DX: Z79.899 Other long term (current) drug therapy (principal)
CPT/HCPCS: 82043; 82570

== ENCOUNTER → 2018-12-13 15:24 | Outpatient (CLI) | payer MEDICARE, SELFPAY ==
[2018-12-13 16:10] LABS: AST(SGOT) 10 U/L (15-37); Alanine Aminotransfer ALT/SGPT 17 U/L (13-56); Albumin, Serum 3.7 g/dL (3.2-5.0); Alkaline Phosphatase 88 U/L (45-117); Anion Gap 10 (5-15); BUN 12 mg/dL (7-18); BUN/Creat Ratio 10.9 RATIO (10-20); Calcium,Total 9.6 mg/dL (8.5-10.1); Chloride 103 mmol/L (98-107); EST Glomerular Filtration Rate 51 mL/min (>60); Est Glom Filt Rate - Afr Amer 62 mL/min (>60); Globulin 3.7 g/dL (2.2-4.2); Glucose 124 mg/dL (74-106); Potassium 3.9 mmol/L (3.5-5.1); Protein, Total 7.4 g/dL (6.4-8.2); Sodium Level 140 mmol/L (136-145); Thyroid Stim Hormone (TSH) 1.52 uIU/mL (0.358-3.74)
== END ==
PROVIDERS: Family Provider Family Medicine; PCP Family Medicine; Referring Provider Family Medicine; Visit Provider Family Medicine
DX: R60.1 Generalized edema (principal); E03.9 Hypothyroidism, unspecified; K76.0 Fatty (change of) liver, not elsewhere classified
CPT/HCPCS: 80053; 84443

== ENCOUNTER → 2019-02-04 15:28 | Outpatient (CLI) | payer MEDICARE, SELFPAY ==
[2018-09-03 21:27] VITALS: BMI 40.9
[2019-02-04 16:34] LABS: Cholesterol 182 mg/dL (200); High Density Lipoprotein 82 mg/dL; Triglycerides 95 mg/dL; Very Low Density Lipoprotein 19 mg/dL (5-40)
[2019-02-04 16:38] LABS: Hemoglobin A1c 6.3 % (4.2-6.3)
== END ==
PROVIDERS: Family Provider Family Medicine; PCP Family Medicine; Referring Provider Family Medicine; Visit Provider Family Medicine
DX: E78.5 Hyperlipidemia, unspecified (principal); E11.29 Type 2 diabetes mellitus with other diabetic kidney complication; R80.9 Proteinuria, unspecified
CPT/HCPCS: 80061; 83036

== ENCOUNTER 2020-09-18 14:33 | Inpatient (IN) | payer MEDICARE, SELFPAY ==
[2020-09-18] VITALS (10 sets, daily range): BP systolic 113–161; BP diastolic 60–81; PULSE 72–87; RESP 20–24; TEMP 35.8–36.5; O2SAT 76–99; BMI 39.0; BMI 39.7; BMI 39.8
--- NOTE | 2020-09-18 14:50 | RAD_ITS ---
STUDY: X-RAY CHEST REASON FOR EXAM: Female, 79 years old. SOB for a couple days. TECHNIQUE: AP COMPARISON: 09/05/2018 FINDINGS: Lungs are hypoexpanded. Stable elevation of left hemidiaphragm with chronic fibrotic changes in the left lung base. No airspace disease. There is no demonstrated pleural abnormality. There is mild cardiac enlargement. Normal mediastinum and nickie. Normal visualized pulmonary arteries. Normal visualized aortic arch and descending thoracic aorta. There is demineralization of the osseous structures. Normal visualized ribs, clavicles, and shoulders. There is no demonstrated abnormality of the visualized soft tissue structures of the upper abdomen. RAD/Chest 1 View (Portable) IMPRESSION: 1. Stable, nonacute x-ray examination of the chest. 2. Similar chronic changes of left lung bases 2018. Electronically Signed: Brandon Escalona MD (Brooks) at 16:43 EDT , Service support ,
--- NOTE | 2020-09-18 14:52 | EKG12_ITS ---
Test Reason : Blood Pressure : / mmHG Vent. Rate : 074 BPM Atrial Rate : 074 BPM P-R Int : 164 ms QRS Dur : 092 ms QT Int : 406 ms P-R-T Axes : 030 032 088 degrees QTc Int : 450 ms Normal sinus rhythm Normal ECG Confirmed by ZORAIDA HYATT, ALBERTO ([id number]), clinical editor FIDELIA VEGA ([id number]) on 09/21/2020 11:22:34 AM Referred By: Ariadna Green Confirmed By:ALBERTO CONWAY MD
--- NOTE | 2020-09-18 15:00 | ED.DCSUM_ITS ---
- ER Visit Summary Date of Service: 09/18/20 Chief Complaint: Shortness of breath History of Present Illness: The patient is a 79 F history of noncemented diabetes and has had pneumonia twice this year. No prior history of DVT or PE. States has been short of breath since last evening. Denies nausea, vomiting or diarrhea. Mild nonproductive cough. No fever or chills. No hemoptysis. She has had no recent Covid testing. Physical Examination: Elderly female no acute distress initial pulse ox is 76 on room air on oxygen she is in the mid 90s. H EENT exam unremarkable. Neck nontender. Lungs clear to auscultation bilaterally. No rales, rhonchi or wheezing. Heart regular rhythm no murmur rate about 90. Abdomen soft nontender normal bowel sounds no peritoneal signs. Extremities moves all 4. Neurovascular intact. Calves nontender without edema or cords. Neurologically she is awake alert with no focal motor deficits. Test Results: Chest x-ray chronic changes no acute process read both of myself and the radiologist portable 1 view. CTA chest shows no PE no dissection. Elevated left hemidiaphragm. Atelectasis. EKG is normal sinus rhythm rate of 74 no acute signs of CO or ischemia. CBC has elevated white count of 13.6. Chronic anemia with a hemoglobin of 10.7 which is her baseline. Electrolytes unremarkable creatinine of 1.1 gap of 5. Troponin normal. D-dimer elevated 1.11. Emergency Department Course and Treatment: Only female hypoxic rule out COVID-19 versus pneumonia versus pulmonary emboli or other etiologies. Treatment Plan: Patient was treated with IV Decadron. Repeat exam is unchanged. Discussed with hospitalist the patient will be admitted awaiting Covid results Disposition: admission Impression: Acute hypoxia rule out COVID-19 History of diabetes This note was generated with [employer] software. It may contain incorrect words, spelling, and punctuation that were not noted in review of the chart prior to signing ED Disposition - Plan for ED Patient: Referrals: Blayne Dominguez III, MD [Primary Care Provider] -
[2020-09-18 15:09] LABS: Absolute Lymphocyte Count 0.73 X10^3/uL (0.83-4.51); Absolute Neutrophil Count 11.6 X10^3/uL (2.0-7.7); Basophil# 0.06 X10^3/uL; Basophil% 0.4 % (0-1); Eosinophil# 0.26 X10^3/uL; Eosinophils% 1.9 % (0-5); Hematocrit 35.1 % (37-47); Hemoglobin 10.7 g/dL (12.0-15.0); Lymphocyte # 0.73 X10^3/ul (4.0); Lymphocyte % 5.4 % (19-41); Mean Corp Hgb Conc 30.5 g/dL (32-36); Mean Corpuscular Hgb 28.5 pg (27.0-32.0); Mean Corpuscular Volume 93.6 fL (81-99); Mean Platelet Vol. 9.1 fl (6.2-12.0); Monocyte# 0.89 X10^3/uL; Monocyte% 6.5 % (0-10); NRBC Flagged by Analyzer 0 % (0-5); Neutrophil # 11.59 X10^3/uL (2.7-7.7); Neutrophil % 85.1 % (47-70); Platelet Count 602 K/mm3 (150-450); RBC Distribution Width CV 17.8 % (11.6-14.6); RBC Distribution Width SD 60.3 fl (35.1-43.9); Red Blood Count 3.75 M/mm3 (4.2-5.4); White Blood Count 13.6 K/mm3 (4.4-11.0)
[2020-09-18 15:23] LABS: Anion Gap 5 (5-15); BUN 14 mg/dL (7-18); BUN/Creat Ratio 12.3 RATIO (10-20); Calcium,Total 9.5 mg/dL (8.5-10.1); Chloride 110 mmol/L (98-107); Creatinine, Serum 1.14 mg/dL (0.55-1.02); EST Glomerular Filtration Rate 49 mL/min (>60); Est Glom Filt Rate - Afr Amer 59 mL/min (>60); Estimated Creatinine Clearance 28.74 ml/min; Glucose 129 mg/dL (74-106); Potassium 3.6 mmol/L (3.5-5.1); Sodium Level 140 mmol/L (136-145)
[2020-09-18 15:26] LABS: D-Dimer Quantitative (DVT/PE) 1.11 FEU/ug/m (0.27-0.49)
--- NOTE | 2020-09-18 16:16 | CT_ITS ---
STUDY: CTA CHEST REASON FOR EXAM: Female, 79 years old. HYPOXIA, ELEVATED D-DIMER, RADIATION DOSAGE (If Supplied By Facility): CTDIvol = ( 12.46 ) mGy, DLP = ( 415.46 ) mGycm TECHNIQUE: The examination was performed with the intravenous administration of IV 100mL Isovue-370. Post-processing of the angiographic images was performed, with multiplanar reformation and 3D reconstruction. Individualized dose optimization techniques were used for this CT. COMPARISON: None. FINDINGS: Normal enhancement of the main pulmonary artery and right and left pulmonary arteries. Normal enhancement of the bilateral peripheral pulmonary arteries. There is no demonstrated pulmonary embolism. Normal thoracic aorta and visualized great vessels. There is no demonstrated aortic dissection. Normal heart and pericardium. There are reactive appearing lymph nodes of the mediastinum without dominant cheok mass. Normal hilar regions. Normal visualized trachea and bronchi. Scattered fibrotic changes predominantly in the lower lungs with compressive atelectasis involving the bilateral lung bases. No airspace consolidation. No sizable effusion. Left hemidiaphragm is elevated. Normal chest wall structures. There are degenerative changes of thoracic spine. There is atrophy of the right kidney, partially visualized. CT/CTA Chest W/WO Contrast IMPRESSION: 1. No central or segmental embolism. 2. Elevation left hemidiaphragm. 3. Bilateral lower lobe atelectasis. Electronically Signed: Brandon Escalona MD (Brooks) at 17:35 EDT , Service support ,
[2020-09-18] MEDS: dexAMETHasone 10 MG/ML Vial IV (18:11)
--- NOTE | 2020-09-18 18:14 | HP.PCM_ITS ---
Problem List (1) Depression Status: Chronic (2) Morbid obesity Status: Chronic (3) HTN (hypertension) Status: Chronic (4) Anxiety state Status: Chronic History of Present Illness Date of Admission: 09/18/20 Chief Complaint: Shortness of breath. The patient is a 79 year old F with past medical history as mentioned above presented to the emergency room because of shortness of breath and cough. Her symptoms started 3 days ago with shortness of breath, exertional, aggravated by activity, associated with productive cough with minimal clear sputum as well as sore throat. She denies fever or chills. She denied nasal sinus congestion. She states that there is nobody sick around her at home or diagnosed with COVID- 19. She denied recent travel. In the emergency department, she was afebrile, blood pressure and heart rate are stable, she was tachypneic, initial pulse ox was 76% on room air, improved to 91% on 4 L. Routine blood work was remarkable for mild leukocytosis which is chronic, hemoglobin of 10.7 g/dL which is also chronic, otherwise unremarkable. EKG revealed normal sinus rhythm, no acute changes. Troponin was negative. D-dimer was elevated. Chest x-ray revealed elevated left hemidiaphragm, no obvious infiltrate or consolidation. CTA chest revealed no PE or dissection, elevated left hemidiaphragm, bilateral lower lobe atelectasis, possible infiltrate. COVID-19 PCR came back negative. She is being admitted for suspected COVID-19 and acute hypoxic respiratory insufficiency. Past Medical History Past Medical History (Chronic Problems): Chronic Problems Type 2 diabetes mellitus (Chronic) Asthma (Chronic) GERD (gastroesophageal reflux disease) (Chronic) Depression (Chronic) Polysubstance (excluding opioids) dependence (Chronic) Morbid obesity (Chronic) HTN (hypertension) (Chronic) Anxiety state (Chronic) Allergies losartan [From Cozaar] Allergy (Verified 09/18/20 14:34) Swelling carbamazepine [From Tegretol] Adverse Reaction (Verified 09/18/20 14:34) MENTAL STATUS CHANGE hydrochlorothiazide Adverse Reaction (Verified 09/18/20 14:34) Unknown Home Medications: Ambulatory Orders Medication Instructions Recorded Amlodipine [Norvasc] 10 mg PO DAILY 04/29/18 Cholecalciferol (Vitamin D3) 2,000 unit PO DAILY 04/29/18 [D3-2000] Duloxetine HCl 60 mg PO DAILY 04/29/18 Gabapentin [Neurontin] 300 mg PO BID 04/29/18 Hydroxyzine HCl 25 mg PO BID 04/29/18 Omeprazole [Prilosec] 20 mg PO DAILY 04/29/18 metFORMIN HCl [Glucophage] 500 mg PO BIDCM 04/29/18 Mometasone Furoate [Elocon] 1 applic TP DAILY 09/03/18 Albuterol Inhaler [Ventolin Hfa] 2 puff INHALATION Q4H PRN PRN #1 09/07/18 inhaler Carvedilol [Coreg (Beta Augie)] 25 mg PO BID #60 tablet 09/07/18 Furosemide [Lasix] 40 mg PO DAILY #10 09/07/18 Lisinopril [Prinivil] 10 mg PO DAILY #30 tablet 09/07/18 Surgical History: cholecystectomy, hysterectomy, tonsillectomy Psychiatric History: Anxiety, Depression Lives: Spouse/ Significant Other Smoking Status: Never smoker Alcohol: None Drugs: None - *Family History Maternal History Items: Cancer - LEUKEMIA Paternal History Items: Stroke Review of Systems Constitutional: Reports: Weakness. Denies: Anorexia, Chills, Fever, Malaise Eyes: Denies: Blurred vision, Double vision, Drainage, Redness HEENT: Reports: Sore Throat. Denies: Difficulty Hearing, Ear Pain, Eye Pain, Nasal Congestion Cardiovascular: Denies: Chest Pain, Chest Pressure, Edema, Heaviness, Palpitations, Syncope Respiratory: Reports: Cough, Pleuritic Pain, Shortness of Breath, Shortness of breath upon exertion, Sputum production. Denies: Wheezing Gastrointestinal: Denies: Abdominal Pain, Constipation, Diarrhea, Nausea, Vomiting Genitourinary: Denies: Dysuria, Frequency, Hematuria Musculoskeletal: Denies: Arm Pain, Back Pain, Foot Pain Skin: Denies: Dryness, Rash Neurological: Denies: Balance problems, Double vision, Change in Speech, Slurred speech, Confusion, Headaches, Incoordination Psychiatric: Reports: Anxiety, Depression Endocrine: Denies: Change in Body Habitus, Polydipsia, Polyuria VTE Information - Inpt Only VTE Present on Admission: No VTE Mechan Device Prophylaxis: None VTE Pharm Prophylaxis ordered?: Yes - Physical Exam Vitals/I&O's: Vital Signs Temp Pulse Resp BP Pulse Ox 97.2 F L 78 22 H 113/81 H 91 09/18/20 14:34 09/18/20 16:47 09/18/20 16:47 09/18/20 16:47 09/18/20 16:47 Oxygen Flow Rate (L/min) 4 Oxygen Delivery Method Nasal Cannula Weight: 200 lb Body Mass Index (BMI) 39.0 Finger Stick Blood Glucose 154 General: Alert, Oriented x3, Cooperative, - - Mildly short of breath. HEENT: Atraumatic, PERRLA, EOMI, Normocephalic Oral: Moist Mucosa, No Gingival or Mucosal Lesions/ Ulcerations Neck: Supple, No JVD, Negative Carotid Bruits, Trachea Midline, Thyroid Normal Size and Texture Lungs: Clear to auscultation, No wheeze, No rales, Diminished, Rhonchi, Short of Breath Cardiovascular: Regular rate, Regular Rhythm, Normal S1, Normal S2, PMI Normal Abdomen: Bowel Sounds Present, Soft, Non Tender, Non-Distended, No Hepato- splenomegaly, Obese Extremities: No clubbing, No cyanosis, Edema Skin: No rashes, No breakdown Lymphatic: No Cervical, Supraclavicular, or Inguinal Adenopathy Neurological: Cranial nerves II-XII grossly intact, Motor Exam 5/5 strength throughout Psych/Mental Status: Normal Affect, Appropriate, Alert and oriented to time, place, person, mood and affect Laboratory Results 09/18/20 14:50: WBC 13.6 H, RBC 3.75 L, Hgb 10.7 L, Hct 35.1 L, MCV 93.6, MCH 28.5, MCHC 30.5 L, RDW Std Deviation 60.3 H, RDW Coeff of Felicia 17.8 H, Plt Count 602 H, MPV 9.1, Immature Gran % (Auto) 0.700, Neut % (Auto) 85.1 H, Lymph % (Auto) 5.4 L, [place] % (Auto) 6.5, Eos % (Auto) 1.9, Baso % (Auto) 0.4, Absolute Neuts (auto) 11.6 H, Absolute Lymphs (auto) 0.73 L, Nucleated RBC % 0 09/18/20 14:50: Sodium 140, Potassium 3.6, Chloride 110 H, Carbon Dioxide 25.0, Anion Gap 5, BUN 14, Creatinine 1.14 H, Estim Creat Clear Calc 28.74, Est GFR (MDRD) Af Amer 59 L, Est GFR (MDRD) Non-Af 49 L, BUN/Creatinine Ratio 12.3, Glucose 129 H, Calcium 9.5, Troponin I < 0.015 09/18/20 14:50: D-Dimer Quant (PE/DVT) 1.11 H* 09/18/20 16:20: COVID-19 (JAY) Pending Clinical Impression(s) from Imaging Studies Chest X-Ray 09/18/20 14:50 IMPRESSION: 1. Stable, nonacute x-ray examination of the chest. 2. Similar chronic changes of left lung bases 2017. Electronically Signed: Brandon Escalona MD (Brooks) at 16:43 EDT , Service support , Chest CTA 09/18/20 16:16 IMPRESSION: 1. No central or segmental embolism. 2. Elevation left hemidiaphragm. 3. Bilateral lower lobe atelectasis. Electronically Signed: Brandon Escalona MD (Brooks) at 17:35 EDT , Service support , Current Medications Iopamidol (Contrast Allergy Safety Check) 0 ml IV X1 MAYANK Assessment/Plan This is a 79 years old female patient presented to the emergency room because of shortness of breath and cough, was hypoxic with pulse ox of 76% on room air upon arrival to ED, improved to 99% on 4 L, found to have questionable bilateral infiltrate versus atelectasis on CTA chest, COVID-19 came back negative although it is still a possibility and she is being admitted for suspected COVID-19 and acute hypoxic respiratory insufficiency. #1 Acute COVID-19 pneumonia/acute hypoxic respiratory insufficiency: Chest x-ra y and CTA chest reviewed. Patient is currently on 4 L of oxygen. EKG reviewed, was unremarkable. Troponin was negative. COVID-19 PCR came back negative. Although COVID-19 came back negative, I still think this patient has Kovic 19. Plan: Admit to [facility] COVID-19 floor, isolation precautions, albuterol inhaler as needed, repeat COVID-19 PCR tomorrow, check BNP, CPK, LDH, LFT, pro time and INR, start IV Decadron, Tylenol as needed, Zofran as needed, pulmonology and infectious disease consult, repeat CBC and BMP tomorrow morning, incentive spirometer, PT OT evaluation and treatment. #2 hypertension: Blood pressure stable, continue Norvasc and Coreg as well as lisinopril. #3 type 2 diabetes mellitus: ADA diet, Accu-Cheks, insulin sliding scale, hold Metformin. #3 chronic anemia: Hemoglobin and hematocrit are stable, no evidence of active bleeding, no indication for transfusion. #4 GERD: Continue PPI. #5 anxiety/depression: Stable, continue duloxetine. #6 DVT prophylaxis: Subcu Lovenox. This note was generated with [employer] dictation software. It may contain incorrect words, spelling, and punctuation that were not noted in checking the note before signing. Inpatient E&M: [id number] Init Hosp L3
[2020-09-18 19:17] LABS: Probe Check PASS; Specimen Processing Control PASS
[2020-09-18 21:17] LABS: Prothrombin Time (Protime)PT. 12.4 SECONDS (11.7-14.9)
[2020-09-18 21:23] LABS: BNP,B-Type NATRIURETIC PEPTIDE 484.3 pg/mL (0-100)
[2020-09-18 21:24] LABS: AST(SGOT) 104 U/L (15-37); Alanine Aminotransfer ALT/SGPT 56 U/L (13-56); Albumin, Serum 3.3 g/dL (3.2-5.0); Alkaline Phosphatase 242 U/L (45-117); Bilirubin, Direct 0.29 mg/dL (0.00-0.30); CPK Total, Creatine Kinase 26 U/L (26-192); Globulin 3.9 g/dL (2.2-4.2); LDH 234 U/L (84-246); Protein, Total 7.2 g/dL (6.4-8.2)
[2020-09-18] MEDS: Gabapentin 300 MG Capsule PO (21:41)
[2020-09-18] MEDS: Carvedilol 25 MG Tablet PO (21:41)
[2020-09-18 21:59] LABS: Lactic Acid 0.7 mmol/L (0.4-1.9)
[2020-09-18 22:55] LABS: Bedside Glucose 139 mg/dL (70-110)
[2020-09-19] VITALS (11 sets, daily range): BP systolic 147–162; BP diastolic 68–91; PULSE 88–110; RESP 16–24; TEMP 36.6–37.3; O2SAT 92–95
--- NOTE | 2020-09-19 01:17 | NURSING ---
This RN spoke with Osiris in the lab. Per lab techs, must be 24 hours between initial covid test and repeat. Chon MUNOZ
[2020-09-19] MEDS: Insulin Lispro 100 UNIT/ML INSULN.PEN SC ×4 (06:50→21:58)
[2020-09-19 07:06] LABS: Bedside Glucose 175 mg/dL (70-110)
[2020-09-19 07:28] LABS: Absolute Lymphocyte Count 0.42 X10^3/uL (0.83-4.51); Absolute Neutrophil Count 6.6 X10^3/uL (2.0-7.7); Basophil# 0.01 X10^3/uL; Basophil% 0.1 % (0-1); Hematocrit 34.4 % (37-47); Hemoglobin 10.3 g/dL (12.0-15.0); Lymphocyte # 0.42 X10^3/ul (4.0); Lymphocyte % 5.9 % (19-41); Mean Corp Hgb Conc 29.9 g/dL (32-36); Mean Corpuscular Hgb 27.9 pg (27.0-32.0); Mean Corpuscular Volume 93.2 fL (81-99); Mean Platelet Vol. 9.1 fl (6.2-12.0); Monocyte# 0.07 X10^3/uL; NRBC Flagged by Analyzer 0 % (0-5); Neutrophil # 6.55 X10^3/uL (2.7-7.7); Neutrophil % 91.9 % (47-70); POSITIVE DIFFERENTIAL YES; Platelet Count 515 K/mm3 (150-450); RBC Distribution Width CV 17.8 % (11.6-14.6); RBC Distribution Width SD 60.2 fl (35.1-43.9); Red Blood Count 3.69 M/mm3 (4.2-5.4); White Blood Count 7.1 K/mm3 (4.4-11.0)
[2020-09-19 07:42] LABS: Differential Indicated SCAN CRITERIA MET
[2020-09-19 07:55] LABS: Anion Gap 7 (5-15); BUN 12 mg/dL (7-18); BUN/Creat Ratio 13.9 RATIO (10-20); Calcium,Total 9.6 mg/dL (8.5-10.1); Chloride 108 mmol/L (98-107); Creatinine, Serum 0.87 mg/dL (0.55-1.02); EST Glomerular Filtration Rate 67 mL/min (>60); Est Glom Filt Rate - Afr Amer 81 mL/min (>60); Estimated Creatinine Clearance 66.61 ml/min; Glucose 166 mg/dL (74-106); Potassium 3.9 mmol/L (3.5-5.1); Sodium Level 140 mmol/L (136-145)
[2020-09-19 09:53] LABS: Differential Comment SCANNED
[2020-09-19] MEDS: Pantoprazole Sodium 20 MG Tablet PO (10:02)
[2020-09-19] MEDS: Carvedilol 25 MG Tablet PO ×2 (10:02→22:02)
[2020-09-19] MEDS: Furosemide 40 MG Tablet PO (10:02)
[2020-09-19] MEDS: Enoxaparin 40 MG/0.4 ML Syringe SC (10:02)
[2020-09-19] MEDS: DULoxetine Hcl 60 MG Capsule PO (10:02)
[2020-09-19] MEDS: Gabapentin 300 MG Capsule PO ×2 (10:02→22:02)
[2020-09-19] MEDS: amLODIPine 10 MG Tablet PO (10:02)
[2020-09-19] MEDS: Lisinopril 10 MG Tablet PO (10:02)
[2020-09-19] MEDS: dexAMETHasone 10 MG/ML Vial 6 MG IV (10:03)
--- NOTE | 2020-09-19 11:34 | PCM.CONS.PUL ---
Problem List (1) Type 2 diabetes mellitus Status: Chronic (2) Asthma Status: Chronic (3) GERD (gastroesophageal reflux disease) Status: Chronic (4) Depression Status: Chronic (5) Morbid obesity Status: Chronic (6) HTN (hypertension) Status: Chronic Reason for Consult Date of Consultation: 09/19/20 Reason for Consultation: Hypoxia, concern for Covid History of Present Illness: The patient is a 79 year old F, with past medical history listed below, who presented [facility] on 09/18/2020 secondary to progressive shortness of breath. Patient states that she has a 48 to 72-hour history of progressive shortness of breath with a mild productive cough. Patient denied any nausea, vomiting or diarrhea. No fever or chills have been noted. Patient denied any exposure to Covid and states that she has been staying at home with her since this all started. In the ER, patient was noted to be in the mid 90s on room air. Chest x-ray was relatively unremarkable and a CTA showed no PE. No groundglass opacities were noted on the CAT scan. Patient did have an elevated left hemidiaphragm and atelectasis. CBC did show a leukocytosis of 13.6 and a chronic anemia at 10.7. Creatinine was slightly elevated at 1.1, but troponin was normal. D-dimer was slightly elevated at 1.11. Patient did have a Covid test that was negative, but given concern for respiratory complaints, patient remained in Covid isolation and was transferred to the floor for further evaluation. Since being on the floor, patient reports she is subjectively improved. Patient states that she does carry a diagnosis of asthma, but does not require supplemental oxygen at baseline. Patient is very clear that she has not had any fevers and has not had any exposures. Patient denies any current chest pain, abdominal pain, nausea or vomiting. No diarrhea has been reported. Patient is denying any dysuria. Does take Lasix at baseline and reports she has been compliant Review of systems otherwise negative from a constitutional, HEENT, respiratory, cardiovascular, GI, genitourinary, musculoskeletal, skin, neurologic, psychiatric and hematologic system unless stated above. Past Medical History Past Medical History (Chronic Problems): Chronic Problems Type 2 diabetes mellitus (Chronic) Asthma (Chronic) GERD (gastroesophageal reflux disease) (Chronic) Depression (Chronic) Polysubstance (excluding opioids) dependence (Chronic) Morbid obesity (Chronic) HTN (hypertension) (Chronic) Anxiety state (Chronic) Allergies losartan [From Cozaar] Allergy (Verified 09/18/20 14:34) Swelling carbamazepine [From Tegretol] Adverse Reaction (Verified 09/18/20 14:34) MENTAL STATUS CHANGE hydrochlorothiazide Adverse Reaction (Verified 09/18/20 14:34) Unknown Home Medications: Ambulatory Orders Medication Instructions Recorded Amlodipine [Norvasc] 10 mg PO DAILY 04/29/18 Cholecalciferol (Vitamin D3) 2,000 unit PO DAILY 04/29/18 [D3-2000] Duloxetine HCl 60 mg PO DAILY 04/29/18 Gabapentin [Neurontin] 300 mg PO BID 04/29/18 Hydroxyzine HCl 25 mg PO BID 04/29/18 Omeprazole [Prilosec] 20 mg PO DAILY 04/29/18 metFORMIN HCl [Glucophage] 500 mg PO BIDCM 04/29/18 Mometasone Furoate [Elocon] 1 applic TP DAILY 09/03/18 Albuterol Inhaler [Ventolin Hfa] 2 puff INHALATION Q4H PRN PRN #1 09/07/18 inhaler Carvedilol [Coreg (Beta Augie)] 25 mg PO BID #60 tablet 09/07/18 Furosemide [Lasix] 40 mg PO DAILY #10 09/07/18 Lisinopril [Prinivil] 10 mg PO DAILY #30 tablet 09/07/18 Surgical History: cholecystectomy, hysterectomy, tonsillectomy Psychiatric History: Anxiety, Depression Lives: Spouse/ Significant Other Smoking Status: Never smoker Alcohol: None Drugs: None - *Family History Maternal History Items: Cancer - LEUKEMIA Paternal History Items: Stroke Review of Systems Comment: See HPI Objective: All imaging was personally reviewed. Patient does have an echocardiogram from [address] of the chest did not show any pulmonary embolism, but also did not show any groundglass opacities. Patient did have some elevation of the left hemidiaphragm with associated atelectasis. - Physical Exam Vitals/I&O's: Vital Signs Temp Pulse Resp BP Pulse Ox 36.8 C 110 H 18 147/91 H 92 09/19/20 09:58 09/19/20 09:58 09/19/20 09:58 09/19/20 09:58 09/19/20 09:58 Oxygen Flow Rate (L/min) 5 Oxygen Delivery Method Nasal Cannula Weight: 80.467 kg Body Mass Index (BMI) 39.7 Finger Stick Blood Glucose 154 Intake and Output for Last 24 Hours 09/17/20 09/18/20 09/19/20 23:59 23:59 22:59 Intake Total 300 / 300 Balance 300 / 300 General: Alert, Oriented x3, Cooperative, No apparent distress, Well developed, Well nourished, - - Morbidly obese. No conversational dyspnea. HEENT: Atraumatic, PERRLA, EOMI, Normocephalic, - - No scleral icterus or injection noted Oral: Moist Mucosa, No Gingival or Mucosal Lesions/ Ulcerations Neck: Supple, No JVD, No Nodes, Trachea Midline Lungs: No rhonchi, No wheeze, Diminished, Rales - Left base, - - Symmetric expansion. Cardiovascular: Regular rate, Regular Rhythm, Normal S1, Normal S2, No murmurs, No rub noted, No Gallop Abdomen: Bowel Sounds Present, Soft, Non Tender, Non-Distended, Obese Extremities: No clubbing, No cyanosis, Edema - Trace bilateral Skin: No rashes, No breakdown Musculoskeletal: No Tenderness to Palpation of Joints or Extremities Lymphatic: No Cervical, Supraclavicular, or Inguinal Adenopathy Neurological: Cranial nerves II-XII grossly intact, Neuro grossly intact, Motor Exam 5/5 strength throughout Psych/Mental Status: Alert and oriented to time, place, person, mood and affect Laboratory Results 09/18/20 14:50: WBC 13.6 H, RBC 3.75 L, Hgb 10.7 L, Hct 35.1 L, MCV 93.6, MCH 28.5, MCHC 30.5 L, RDW Std Deviation 60.3 H, RDW Coeff of Felicia 17.8 H, Plt Count 602 H, MPV 9.1, Immature Gran % (Auto) 0.700, Neut % (Auto) 85.1 H, Lymph % (Auto) 5.4 L, [place] % (Auto) 6.5, Eos % (Auto) 1.9, Baso % (Auto) 0.4, Absolute Neuts (auto) 11.6 H, Absolute Lymphs (auto) 0.73 L, Nucleated RBC % 0 09/18/20 14:50: Sodium 140, Potassium 3.6, Chloride 110 H, Carbon Dioxide 25.0, Anion Gap 5, BUN 14, Creatinine 1.14 H, Estim Creat Clear Calc 28.74, Est GFR (MDRD) Af Amer 59 L, Est GFR (MDRD) Non-Af 49 L, BUN/Creatinine Ratio 12.3, Glucose 129 H, Calcium 9.5, Troponin I < 0.015 09/18/20 14:50: D-Dimer Quant (PE/DVT) 1.11 H* 09/18/20 14:50: PT 12.4, INR 1.0 09/18/20 14:50: Total Bilirubin 0.60, Direct Bilirubin 0.29, AST 104 H, ALT 56, Alkaline Phosphatase 242 H, Lactate Dehydrogenase 234, Total Creatine Kinase 26, Total Protein 7.2, Albumin 3.3, Globulin 3.9 09/18/20 14:50: B-Natriuretic Peptide 484.3 H 09/18/20 16:20: COVID-19 (JAY) Not Detected 09/18/20 21:22: Lactic Acid 0.7 09/18/20 21:37: POC Glucose 139 H 09/19/20 06:00: WBC 7.1, RBC 3.69 L, Hgb 10.3 L, Hct 34.4 L, MCV 93.2, MCH 27.9, MCHC 29.9 L, RDW Std Deviation 60.2 H, RDW Coeff of Felicia 17.8 H, Plt Count 515 H, MPV 9.1, Immature Gran % (Auto) 1.100 H, Neut % (Auto) 91.9 H, Lymph % (Auto) 5.9 L, [place] % (Auto) 1.0, Eos % (Auto) 0.0, Baso % (Auto) 0.1, Absolute Neuts (auto) 6.6, Absolute Lymphs (auto) 0.42 L, Nucleated RBC % 0, Differential Comment SCANNED 09/19/20 06:00: Sodium 140, Potassium 3.9, Chloride 108 H, Carbon Dioxide 25.0, Anion Gap 7, BUN 12, Creatinine 0.87, Estim Creat Clear Calc 66.61, Est GFR (MDRD) Af Amer 81, Est GFR (MDRD) Non-Af 67, BUN/Creatinine Ratio 13.9, Glucose 166 H, Calcium 9.6 09/19/20 06:47: POC Glucose 175 H 09/19/20 07:55: COVID-19 (JAY) Not Detected Current Medications Acetaminophen (Acetaminophen 325 Mg Tablet) 650 mg PO Q6H PRN PRN PRN Reason: Pain Score 1-10/Temp > 100.7 F Albuterol Sulfate (Albuterol Sulfate 18 Gm Inhaler (200 Puffs)) 2 puff IH Q4H PRN PRN PRN Reason: Shortness of breath, wheezing Last Admin: 09/19/20 05:26 Dose: 2 puff Documented by: Amlodipine Besylate (Amlodipine 10 Mg Tablet) 10 mg PO DAILY [facility] Last Admin: 09/19/20 10:02 Dose: 10 mg Documented by: Carvedilol (Carvedilol 25 Mg Tablet) 25 mg PO BID [facility] Last Admin: 09/19/20 10:02 Dose: 25 mg Documented by: Dexamethasone Sodium Phosphate (Dexamethasone 10 Mg/Ml Vial) 6 mg IV DAILY [facility] Last Admin: 09/19/20 10:03 Dose: 6 mg Documented by: Duloxetine HCl (Duloxetine Hcl 60 Mg Capsule) 60 mg PO DAILY [facility] Last Admin: 09/19/20 10:02 Dose: 60 mg Documented by: Enoxaparin Sodium (Enoxaparin 40 Mg/0.4 Ml Syringe) 40 mg SC DAILY [facility] Last Admin: 09/19/20 10:02 Dose: 40 mg Documented by: Furosemide (Furosemide 40 Mg Tablet) 40 mg PO DAILY [facility] Stop: 09/25/20 10:01 Last Admin: 09/19/20 10:02 Dose: 40 mg Documented by: Furosemide (Furosemide 20 Mg Tablet) 20 mg PO DAILY [facility] Gabapentin (Gabapentin 300 Mg Capsule) 300 mg PO BID [facility] Last Admin: 09/19/20 10:02 Dose: 300 mg Documented by: Hydralazine HCl (Hydralazine 20 Mg/Ml Vial) 10 mg IV Q8H PRN PRN PRN Reason: for SBP>160 Hydroxyzine Pamoate (Hydroxyzine Maribell 25 Mg Capsule) 25 mg PO BID PRN PRN PRN Reason: ANXIETY Sodium Chloride () 250 mls @ 15 mls/hr IV .[id number] PRN PRN Reason: Saline Flush Insulin Human Lispro (Insulin Lispro 100 Unit/Ml Insuln.Pen) 0 unit SC ACHS [facility]; Protocol Last Admin: 09/19/20 06:50 Dose: 1 units Documented by: Lisinopril (Lisinopril 10 Mg Tablet) 10 mg PO DAILY [facility] Last Admin: 09/19/20 10:02 Dose: 10 mg Documented by: Miscellaneous Information (Inhaler, Assist Devices 1 Each Spacer) 1 each INHALATION PRN PRN PRN Reason: WITH ALBUTEROL MDI Ondansetron HCl (Ondansetron 4 Mg/2 Ml Vial) 4 mg IV Q8H PRN PRN PRN Reason: NAUSEA/VOMITING Pantoprazole Sodium (Pantoprazole Sodium 20 Mg Tablet) 20 mg PO DAILY [facility] Last Admin: 09/19/20 10:02 Dose: 20 mg Documented by: Senna/Docusate Sodium (Senna/Docusate Sodium 1 Tablet) 2 tablet PO BID PRN PRN PRN Reason: Constipation Sodium Chloride (0.9% Saline Lock 10 Ml Syringe) 10 - 40 ml IV UD PRN PRN Reason: SALINE FLUSH Zolpidem Tartrate (Zolpidem Tartrate 5 Mg Tablet) 5 mg PO QHS PRN PRN PRN Reason: INSOMNIA Clinical Impression(s) from Imaging Studies Chest X-Ray 09/18/20 14:50 IMPRESSION: 1. Stable, nonacute x-ray examination of the chest. 2. Similar chronic changes of left lung bases 2018. Electronically Signed: Brandon Escalona MD ([place]) at 16:43 EDT , Service support , Chest CTA 09/18/20 16:16 IMPRESSION: 1. No central or segmental embolism. 2. Elevation left hemidiaphragm. 3. Bilateral lower lobe atelectasis. Electronically Signed: Brandon Escalona MD ([facility]) at 17:35 EDT , Service support , Assessment/Plan RECOMMENDATIONS: 1. Okay to continue respiratory isolation until repeat Covid testing 2. Give additional dose of Lasix this evening 3. Consider repeat echocardiogram 4. Wean oxygen as tolerated 5. Encourage incentive spirometer IMPRESSIONS: 1. Acute hypoxic respiratory insufficiency Unclear etiology at this time. Covid is very prevalent in the community, so this would be a concern. However, if repeat Covid testing is negative, likely okay to discontinue respiratory isolation and Decadron from my perspective. My clinical concern would be for acute diastolic congestive heart failure as an etiology given the elevated BNP. Patient would benefit from a repeat echocardiogram, but defer to primary service. Encourage incentive spirometer and ambulation as tolerated. 2. Diabetes mellitus type 2 Anticipate exacerbation of underlying diabetes secondary to steroid therapy. Patient may require increased sliding scale insulin. Given patient's age, Metformin may not be the best option moving forward. 3. Hypertension/chronic anemia/GERD/anxiety/depression/morbid obesity/advanced age Complicates care, management, recovery and prognosis. Okay to reinitiate baseline medications from my perspective. Inpatient E&M: 64107 Init Hosp L3
--- NOTE | 2020-09-19 13:48 | ECHOD_ITS ---
Reason For Study: SOB Procedure This was a 2D Doppler, Color Flow transthoracic echocardiogram. The study was technically difficult. Exam performed portable in patient room. Left Ventricle Normal LV size. Left ventricular systolic function is normal. The estimated ejection fraction is 60 %. No regional wall motion abnormalities noted. Right Ventricle Normal RV size. Normal systolic function. Atria The left atrium is moderately enlarged. Normal right atrium. Mitral Valve Normal mitral valve. Mild-Moderate (1-2+) eccentric mitral valve insufficiency. Tricuspid Valve Normal tricuspid valve. Moderate (2+) tricuspid valve insufficiency. Pulmonary artery systolic pressure is 58 mmHg. Aortic Valve Trisinus/trileaflet aortic valve. Pulmonic Valve Normal pulmonic valve. Great Vessels Normal aortic root. The pulmonary artery is normal size. Normal inferior vena cava. Pericardium/Pleural No pericardial effusion. MMode/2D Measurements & Calculations LVIDd: 3.7 cm IVSd: 1.0 cm LAV(MOD-bp): 72.8 ml LVIDs: 2.8 cm LVPWd: 0.92 cm LAV(MOD-bp) Indexed: 43.2 ml/m2 RVDd: 3.7 cm FS: 24.9 % LAV(MOD-sp2): 74.2 ml LAV(MOD-sp4): 67.8 ml LA dimension(2D): 4.4 cm LA A4 area: 23.1 cm2 RA A4 area: 13.8 cm2 Time Measurements MV dec time: 0.21 sec Doppler Measurements & Calculations MV E max danny: 96.6 cm/sec Lat Peak E' Danny: 6.8 cm/sec Med Peak E' Danny: 6.3 cm/sec MV A max danny: 142.5 cm/sec E/E' lat: 14.1 E/E' med: 15.4 MV E/A: 0.68 MV V2 max: 152.2 cm/sec Ao V2 max: 159.0 cm/sec LV V1 max: 110.5 cm/sec MV max P.3 mmHg Ao max P.1 mmHg LV V1 max P.9 mmHg MV V2 mean: 104.1 cm/sec MV mean P.8 mmHg MV V2 VTI: 23.5 cm PA V2 max: 93.9 cm/sec TR max danny: 369.4 cm/sec MV P1/2t-pr_phl: 43.6 msec TR max P.6 mmHg Interpretation Summary Normal LV size. Left ventricular systolic function is normal. The estimated ejection fraction is 60 %. Pulmonary artery systolic pressure is 58 mmHg. The left atrium is moderately enlarged. Ordering Physician: Alok Jensen Referring Physician: MUNIRA ORELLANA III Performed By: Jojo Aguilar, SHERRY, RVT
[2020-09-19 14:01] LABS: Bedside Glucose 218 mg/dL (70-110)
--- NOTE | 2020-09-19 16:14 | PN_ITS ---
Subjective: Breathing little bit better, still on 5 L nasal cannula. She is not on chronic home oxygen. Vitals/I&O's: Vital Signs Temp Pulse Resp BP Pulse Ox 98.2 F 101 H 18 151/81 H 95 09/19/20 11:46 09/19/20 11:46 09/19/20 11:46 09/19/20 11:46 09/19/20 11:46 Oxygen Flow Rate (L/min) 5 Oxygen Delivery Method Nasal Cannula Weight: 177 lb 6.39 oz Body Mass Index (BMI) 39.7 Finger Stick Blood Glucose 154 Intake and Output for Last 24 Hours 09/17/20 09/18/20 09/19/20 23:59 23:59 22:59 Intake Total 300 / 300 Balance 300 / 300 General: Alert, Oriented x3, Cooperative, No apparent distress HEENT: Atraumatic, PERRLA, EOMI, Normocephalic Oral: Moist Mucosa Neck: Supple, No JVD Lungs: Normal air movement, No rhonchi, No wheeze, Diminished, Rales Cardiovascular: Regular rate, Regular Rhythm, Normal S1, Normal S2, No murmurs Abdomen: Soft, Non Tender, Non-Distended, No Hepato-splenomegaly Extremities: Capillary Refill Less than 3 Seconds, Edema - Trace Skin: No rashes, No breakdown Neurological: Neuro grossly intact, Sensory exam intact to light touch and pain Psych/Mental Status: Normal Affect, Appropriate Laboratory Results 09/18/20 14:50: PT 12.4, INR 1.0 09/18/20 14:50: Total Bilirubin 0.60, Direct Bilirubin 0.29, AST 104 H, ALT 56, Alkaline Phosphatase 242 H, Lactate Dehydrogenase 234, Total Creatine Kinase 26, Total Protein 7.2, Albumin 3.3, Globulin 3.9 09/18/20 14:50: B-Natriuretic Peptide 484.3 H 09/18/20 16:20: COVID-19 (JAY) Not Detected 09/18/20 21:22: Lactic Acid 0.7 09/18/20 21:37: POC Glucose 139 H 09/19/20 06:00: WBC 7.1, RBC 3.69 L, Hgb 10.3 L, Hct 34.4 L, MCV 93.2, MCH 27.9, MCHC 29.9 L, RDW Std Deviation 60.2 H, RDW Coeff of Felicia 17.8 H, Plt Count 515 H, MPV 9.1, Immature Gran % (Auto) 1.100 H, Neut % (Auto) 91.9 H, Lymph % (Auto) 5.9 L, [place] % (Auto) 1.0, Eos % (Auto) 0.0, Baso % (Auto) 0.1, Absolute Neuts (auto) 6.6, Absolute Lymphs (auto) 0.42 L, Nucleated RBC % 0, Differential Comment SCANNED 09/19/20 06:00: Sodium 140, Potassium 3.9, Chloride 108 H, Carbon Dioxide 25.0, Anion Gap 7, BUN 12, Creatinine 0.87, Estim Creat Clear Calc 66.61, Est GFR (MDRD) Af Amer 81, Est GFR (MDRD) Non-Af 67, BUN/Creatinine Ratio 13.9, Glucose 166 H, Calcium 9.6 09/19/20 06:47: POC Glucose 175 H 09/19/20 07:55: COVID-19 (JAY) Not Detected 09/19/20 11:48: POC Glucose 218 H Current Medications Acetaminophen (Acetaminophen 325 Mg Tablet) 650 mg PO Q6H PRN PRN PRN Reason: Pain Score 1-10/Temp > 100.7 F Albuterol Sulfate (Albuterol Sulfate 18 Gm Inhaler (200 Puffs)) 2 puff IH Q4H PRN PRN PRN Reason: Shortness of breath, wheezing Last Admin: 09/19/20 05:26 Dose: 2 puff Documented by: Amlodipine Besylate (Amlodipine 10 Mg Tablet) 10 mg PO DAILY [facility] Last Admin: 09/19/20 10:02 Dose: 10 mg Documented by: Carvedilol (Carvedilol 25 Mg Tablet) 25 mg PO BID [facility] Last Admin: 09/19/20 10:02 Dose: 25 mg Documented by: Duloxetine HCl (Duloxetine Hcl 60 Mg Capsule) 60 mg PO DAILY [facility] Last Admin: 09/19/20 10:02 Dose: 60 mg Documented by: Enoxaparin Sodium (Enoxaparin 40 Mg/0.4 Ml Syringe) 40 mg SC DAILY [facility] Last Admin: 09/19/20 10:02 Dose: 40 mg Documented by: Furosemide (Furosemide 40 Mg Tablet) 40 mg PO DAILY [facility] Stop: 09/25/20 10:01 Last Admin: 09/19/20 10:02 Dose: 40 mg Documented by: Furosemide (Furosemide 20 Mg Tablet) 20 mg PO DAILY [facility] Furosemide (Furosemide 40 Mg Tablet) 40 mg PO X1 ONE Stop: 09/19/20 18:01 Gabapentin (Gabapentin 300 Mg Capsule) 300 mg PO BID [facility] Last Admin: 09/19/20 10:02 Dose: 300 mg Documented by: Hydralazine HCl (Hydralazine 20 Mg/Ml Vial) 10 mg IV Q8H PRN PRN PRN Reason: for SBP>160 Hydroxyzine Pamoate (Hydroxyzine Maribell 25 Mg Capsule) 25 mg PO BID PRN PRN PRN Reason: ANXIETY Sodium Chloride () 250 mls @ 15 mls/hr IV .[id number] PRN PRN Reason: Saline Flush Insulin Human Lispro (Insulin Lispro 100 Unit/Ml Insuln.Pen) 0 unit SC ACHS [facility]; Protocol Last Admin: 09/19/20 11:51 Dose: 2 units Documented by: Lisinopril (Lisinopril 10 Mg Tablet) 10 mg PO DAILY [facility] Last Admin: 09/19/20 10:02 Dose: 10 mg Documented by: Miscellaneous Information (Inhaler, Assist Devices 1 Each Spacer) 1 each INHALATION PRN PRN PRN Reason: WITH ALBUTEROL MDI Ondansetron HCl (Ondansetron 4 Mg/2 Ml Vial) 4 mg IV Q8H PRN PRN PRN Reason: NAUSEA/VOMITING Pantoprazole Sodium (Pantoprazole Sodium 20 Mg Tablet) 20 mg PO DAILY [facility] Last Admin: 09/19/20 10:02 Dose: 20 mg Documented by: Senna/Docusate Sodium (Senna/Docusate Sodium 1 Tablet) 2 tablet PO BID PRN PRN PRN Reason: Constipation Sodium Chloride (0.9% Saline Lock 10 Ml Syringe) 10 - 40 ml IV UD PRN PRN Reason: SALINE FLUSH Zolpidem Tartrate (Zolpidem Tartrate 5 Mg Tablet) 5 mg PO QHS PRN PRN PRN Reason: INSOMNIA Medical Necessity - Tobacco Use Smoking Status: Never smoker Assessment/Plan 1. Acute hypoxic respiratory insufficiency secondary to acute on chronic diastolic CHF and pulmonary hypertension/HTN/HLD -2 Covid test were negative -CT of the chest was unremarkable despite elevated D-dimer -We will start her on IV Lasix with her first dose this evening and then transition to daily IV Lasix and monitor fluid status as well as her creatinine -Since she is not Covid we will order an echo for tomorrow for further evaluation previous echo demonstrated pulmonary hypertension with pressures at 61 mmHg as well as diastolic dysfunction -We will continue with her home blood pressure medications 2. DM 2 -We will hold her home metformin and continue with sliding scale insulin -Accu-Cheks AC at bedtime 3. Anxiety/depression -Stable -Continue with Cymbalta, gabapentin, hydroxyzine 4. GERD -Stable -Continue with PPI 5. Chronic anemia -Stable -No active bleeding DVT: Lovenox Inpatient E&M: 66599 Subs Hosp L2
[2020-09-19] MEDS: Furosemide 40 MG/4 ML Vial IV (16:43)
[2020-09-19 16:51] LABS: Bedside Glucose 160 mg/dL (70-110)
[2020-09-19 22:41] LABS: Bedside Glucose 257 mg/dL (70-110)
[2020-09-20] VITALS (7 sets, daily range): BP systolic 144–153; BP diastolic 72–87; PULSE 95–100; RESP 18–24; TEMP 36.3–36.9; O2SAT 93–98
[2020-09-20 05:58] LABS: Absolute Lymphocyte Count 0.94 X10^3/uL (0.83-4.51); Absolute Neutrophil Count 13.2 X10^3/uL (2.0-7.7); Basophil# 0.01 X10^3/uL; Basophil% 0.1 % (0-1); Hematocrit 33.4 % (37-47); Hemoglobin 10.2 g/dL (12.0-15.0); Lymphocyte # 0.94 X10^3/ul (4.0); Lymphocyte % 6.2 % (19-41); Mean Corp Hgb Conc 30.5 g/dL (32-36); Mean Corpuscular Hgb 28.2 pg (27.0-32.0); Mean Corpuscular Volume 92.3 fL (81-99); Mean Platelet Vol. 8.5 fl (6.2-12.0); Monocyte# 0.87 X10^3/uL; Monocyte% 5.7 % (0-10); NRBC Flagged by Analyzer 0 % (0-5); Neutrophil # 13.24 X10^3/uL (2.7-7.7); Neutrophil % 87.3 % (47-70); Platelet Count 481 K/mm3 (150-450); RBC Distribution Width CV 18.2 % (11.6-14.6); RBC Distribution Width SD 59.6 fl (35.1-43.9); Red Blood Count 3.62 M/mm3 (4.2-5.4); White Blood Count 15.2 K/mm3 (4.4-11.0)
[2020-09-20 06:26] LABS: Anion Gap 4 (5-15); BUN 18 mg/dL (7-18); BUN/Creat Ratio 19.2 RATIO (10-20); Calcium,Total 9.7 mg/dL (8.5-10.1); Chloride 109 mmol/L (98-107); Creatinine, Serum 0.94 mg/dL (0.55-1.02); EST Glomerular Filtration Rate 61 mL/min (>60); Est Glom Filt Rate - Afr Amer 74 mL/min (>60); Estimated Creatinine Clearance 59.68 ml/min; Glucose 142 mg/dL (74-106); Potassium 3.4 mmol/L (3.5-5.1); Sodium Level 140 mmol/L (136-145)
[2020-09-20 07:15] LABS: Bedside Glucose 138 mg/dL (70-110)
--- NOTE | 2020-09-20 09:04 | PN_ITS ---
Reason for Visit: Acute dyspnea Subjective: Patient is a 79-year-old lady admitted with progressive shortness of breath COVID-19 assay obtained on admission came back negative. Admitted to a monitored bed for subsequent management Objective: GENERAL: cooperative HEENT: Atraumatic; EYES; Anicteric, Normal Conjunctiva NECK; supple, normal thyroid, RESPIRATORY: Diminished to auscultation CARDIOVASCULAR: Regular S1 S2, GI: soft, normoactive bowel sounds, : No Renal angle tenderness; EXTREMITIES: No edema, no clubbing, MUSCULOSKELETAL: no muscle waisting NEURO: Awake; no lateralizing signs. SKIN: No Rash PSYCH; Flat affect Vitals/I&O's: Vital Signs Temp Pulse Resp BP Pulse Ox 97.5 F L 99 18 144/87 H 96 09/20/20 06:00 09/20/20 06:00 09/20/20 06:00 09/20/20 06:00 09/20/20 07:15 Oxygen Flow Rate (L/min) 5 Oxygen Delivery Method Nasal Cannula Weight: 77.9 kg Body Mass Index (BMI) 39.7 Finger Stick Blood Glucose 154 Intake and Output for Last 24 Hours 09/19/20 09/19/20 09/20/20 00:59 23:59 23:59 Intake Total 300 / 300 Output Total 1350 / 1350 Balance -1050 / -1050 Laboratory Results 09/19/20 06:00: Differential Comment SCANNED 09/19/20 07:55: COVID-19 (JAY) Not Detected 09/19/20 11:48: POC Glucose 218 H 09/19/20 16:37: POC Glucose 160 H 09/19/20 21:56: POC Glucose 257 H 09/20/20 05:44: WBC 15.2 H, RBC 3.62 L, Hgb 10.2 L, Hct 33.4 L, MCV 92.3, MCH 28.2, MCHC 30.5 L, RDW Std Deviation 59.6 H, RDW Coeff of Felicia 18.2 H, Plt Count 481 H, MPV 8.5, Immature Gran % (Auto) 0.700, Neut % (Auto) 87.3 H, Lymph % (Auto) 6.2 L, Citrus % (Auto) 5.7, Eos % (Auto) 0.0, Baso % (Auto) 0.1, Absolute Neuts (auto) 13.2 H, Absolute Lymphs (auto) 0.94, Nucleated RBC % 0 09/20/20 05:44: Sodium 140, Potassium 3.4 L, Chloride 109 H, Carbon Dioxide 27.0, Anion Gap 4 L, BUN 18, Creatinine 0.94, Estim Creat Clear Calc 59.68, Est GFR (MDRD) Af Amer 74, Est GFR (MDRD) Non-Af 61, BUN/Creatinine Ratio 19.2, Glucose 142 H, Calcium 9.7 09/20/20 07:01: POC Glucose 138 H Current Medications Acetaminophen (Acetaminophen 325 Mg Tablet) 650 mg PO Q6H PRN PRN PRN Reason: Pain Score 1-10/Temp > 100.7 F Albuterol Sulfate (Albuterol Sulfate 18 Gm Inhaler (200 Puffs)) 2 puff IH Q4H PRN PRN PRN Reason: Shortness of breath, wheezing Last Admin: 09/19/20 05:26 Dose: 2 puff Documented by: Amlodipine Besylate (Amlodipine 10 Mg Tablet) 10 mg PO DAILY [facility] Last Admin: 09/19/20 10:02 Dose: 10 mg Documented by: Carvedilol (Carvedilol 25 Mg Tablet) 25 mg PO BID [facility] Last Admin: 09/19/20 22:02 Dose: 25 mg Documented by: Duloxetine HCl (Duloxetine Hcl 60 Mg Capsule) 60 mg PO DAILY [facility] Last Admin: 09/19/20 10:02 Dose: 60 mg Documented by: Enoxaparin Sodium (Enoxaparin 40 Mg/0.4 Ml Syringe) 40 mg SC DAILY [facility] Last Admin: 09/19/20 10:02 Dose: 40 mg Documented by: Furosemide (Furosemide 40 Mg/4 Ml Vial) 40 mg IV DAILY [facility] Gabapentin (Gabapentin 300 Mg Capsule) 300 mg PO BID [facility] Last Admin: 09/19/20 22:02 Dose: 300 mg Documented by: Hydralazine HCl (Hydralazine 20 Mg/Ml Vial) 10 mg IV Q8H PRN PRN PRN Reason: for SBP>160 Hydroxyzine Pamoate (Hydroxyzine Maribell 25 Mg Capsule) 25 mg PO BID PRN PRN PRN Reason: ANXIETY Sodium Chloride () 250 mls @ 15 mls/hr IV .[id number] PRN PRN Reason: Saline Flush Insulin Human Lispro (Insulin Lispro 100 Unit/Ml Insuln.Pen) 0 unit SC ACHS [facility]; Protocol Last Admin: 09/19/20 21:58 Dose: 3 units Documented by: Lisinopril (Lisinopril 10 Mg Tablet) 10 mg PO DAILY [facility] Last Admin: 09/19/20 10:02 Dose: 10 mg Documented by: Miscellaneous Information (Inhaler, Assist Devices 1 Each Spacer) 1 each INHALATION PRN PRN PRN Reason: WITH ALBUTEROL MDI Ondansetron HCl (Ondansetron 4 Mg/2 Ml Vial) 4 mg IV Q8H PRN PRN PRN Reason: NAUSEA/VOMITING Pantoprazole Sodium (Pantoprazole Sodium 20 Mg Tablet) 20 mg PO DAILY [facility] Last Admin: 09/19/20 10:02 Dose: 20 mg Documented by: Senna/Docusate Sodium (Senna/Docusate Sodium 1 Tablet) 2 tablet PO BID PRN PRN PRN Reason: Constipation Sodium Chloride (0.9% Saline Lock 10 Ml Syringe) 10 - 40 ml IV UD PRN PRN Reason: SALINE FLUSH Zolpidem Tartrate (Zolpidem Tartrate 5 Mg Tablet) 5 mg PO QHS PRN PRN PRN Reason: INSOMNIA STROKE Vital Signs/Narrative: Vital Signs Temp Pulse Resp BP Pulse Ox 09/20/20 07:15 96 09/20/20 06:00 97.5 F L 99 18 144/87 H 98 Medical Necessity - Tobacco Use Smoking Status: Never smoker Assessment/Plan Patient is a 79-year-old lady admitted with progressive shortness of breath COVID-19 assay obtained on admission came back negative. Admitted to a monitored bed for subsequent management 1. Acute respiratory insufficiency ?Affected to be secondary to viral bronchitis. COVID-19 assay came back negative. Patient managed with aerosol treatment and supplemental oxygen. 2. Hypertension - Blood pressure controlled, home medications continued with dose adjustment as needed 3. Diabetes mellitus type II - Controlled/uncontrolled, -patient's oral hypoglycemics held. -Placed on long acting insulin, Accu-Cheks a.c. and at bedtime and covered with sliding scale insulin 4. Anemia - Secondary to chronic disorder monitoring H&H and transfuse if patient becomes symptomatic or hemoglobin falls below 7 5. GERD ?Patient is on PPI 6. Depression with anxiety ?Patient is on duloxetine did continue 7. DVT prophylaxis ?Lovenox Advance planning; did discuss with the patient and family regarding advanced directives as well as CODE STATUS. Did explain the various scenarios involved ( FULL CODE, DNR CCA, DNR CCA with no intubation, and DNR CC and what each meant) patient elected to be DNR CCA no intubation. Order was placed. Time spent on discussion 18 minutes. Clinical Impression(s) from Imaging Studies Chest X-Ray 09/18/20 14:50 IMPRESSION: 1. Stable, nonacute x-ray examination of the chest. 2. Similar chronic changes of left lung bases 2017. Electronically Signed: Brandon Escalona MD (Brooks) at 16:43 EDT , Service support , Chest CTA 09/18/20 16:16 IMPRESSION: 1. No central or segmental embolism. 2. Elevation left hemidiaphragm. 3. Bilateral lower lobe atelectasis. Electronically Signed: Brandon Escalona MD (Brooks) at 17:35 EDT , Service support , Inpatient E&M: 35213 Subs Hosp L2 Procedures: 91103 Advncd Care Plan 30 Min
[2020-09-20] MEDS: Carvedilol 25 MG Tablet PO ×2 (09:28→21:56)
[2020-09-20] MEDS: 0.9% Saline Lock 10 ML Syringe IV (09:29)
[2020-09-20] MEDS: DULoxetine Hcl 60 MG Capsule PO (09:29)
[2020-09-20] MEDS: Furosemide 40 MG/4 ML Vial IV (09:29)
[2020-09-20] MEDS: Gabapentin 300 MG Capsule PO ×2 (09:30→21:55)
[2020-09-20] MEDS: Enoxaparin 40 MG/0.4 ML Syringe SC (09:30)
[2020-09-20] MEDS: Pantoprazole Sodium 20 MG Tablet PO (09:31)
[2020-09-20] MEDS: Lisinopril 10 MG Tablet PO (09:31)
[2020-09-20] MEDS: amLODIPine 10 MG Tablet PO (09:31)
[2020-09-20] MEDS: Insulin Lispro 100 UNIT/ML INSULN.PEN SC ×2 (11:53→16:41)
[2020-09-20 12:01] LABS: Bedside Glucose 175 mg/dL (70-110)
--- NOTE | 2020-09-20 13:55 | CASEMGMT ---
ALEXANDER TAVARES assessment: Face to Face with patient for initial transition planning/care coordination assessment. ALEXANDER TAVARES introduced self and role at [facility], pt voices understanding and consents to assessment at this time. Pt is sitting up in bed in no distress at this time. Pt is A/Ox4 at this time and answers all questions appropriately at this time. Pt is currently on 3.5iters of oxygen nc at this time. Care providers, pharmacy, and demographics verified at this time Presentation: SOB for a couple days, low sats at urgent care and family brought to ED-70's in triage Admitting dx: Acute resp failure PCP: Alberto KUO Specialists: Pt states no current specialists. Preferred Pharmacy: [facility] Insurance: [facility] Prescription Benefit: Yes Living Will/HPOA: Pt states has LW/HPOA and is aware that they are not on file at [facility] at this time. Pt states , Rasheed Tiwari, is HPOA. LNOK: Rasheed Tiwari, ; Mariaelena Head, daughter Living Arrangements: Pt states lives with in 1 story home and states no concerns at home at this time. Pt states is independent with ADL's. Transportation: Pt states drives and states no transportation concerns at this time. DME/HHC: Pt states has the following DME: walker, grab bars, and shower chair. Pt states no need for any further DME but would like [facility] for home oxygen, if needed. Pt states has had HHC in the past and denies SNF in the past. Pt states no concerns with going home at time of discharge. Pt states is retired. Pt states does not smoke cigarettes but does drink ETOH occasionally. Pt states no further concerns/needs at this time. CM to follow for home oxygen qualification and any further discharge planning/needs. Advised pt to ask for CM if any further questions/concerns/needs arise, voices understanding. Pt Goal: Home Plan: Home, pending O2 testing, PT/OT ian. Ciarra MUNOZ CM
--- NOTE | 2020-09-20 14:57 | PN_ITS ---
Subjective: The patient was seen and examined at the bedside this morning. Events from the last 24 hours have been reviewed. The patient is currently afebrile, hemodynamically stable and maintaining appropriate oxygen saturations on 3 L/min via nasal cannula. The patient has now had 2 negative Covid tests. She remains on scheduled IV Lasix. Objective: The patient's most recent lab work, culture data and imaging studies have all been personally reviewed. Surface echocardiogram revealed normal LV size with an ejection fraction of 60%. Pulmonary artery systolic pressure was estimated to be 58 mmHg. - Physical Exam Vitals/I&O's: Vital Signs Temp Pulse Resp BP Pulse Ox 98.5 F 100 18 149/72 H 98 09/20/20 09:25 09/20/20 09:25 09/20/20 09:25 09/20/20 09:25 09/20/20 09:25 Oxygen Flow Rate (L/min) 3.5 Oxygen Delivery Method Nasal Cannula Weight: 171 lb 11.841 oz Body Mass Index (BMI) 39.7 Finger Stick Blood Glucose 154 Intake and Output for Last 24 Hours 09/19/20 09/19/20 09/20/20 00:59 23:59 23:59 Intake Total 540 / 540 Output Total 2049 / 2049 Balance -1510 / -1510 General: Alert, Cooperative, No apparent distress, - - Resting comfortably in bed. Morbidly obese. HEENT: Atraumatic, Normocephalic Oral: Moist Mucosa, No Gingival or Mucosal Lesions/ Ulcerations Neck: Supple, No Nodes, Trachea Midline Lungs: Diminished Cardiovascular: Regular rate, Regular Rhythm Abdomen: Bowel Sounds Present, Soft, Non Tender, Obese Extremities: No clubbing, No cyanosis, Edema Skin: No breakdown Musculoskeletal: No Tenderness to Palpation of Joints or Extremities, No Muscle Wasting Lymphatic: No Cervical, Supraclavicular, or Inguinal Adenopathy Neurological: Cranial nerves II-XII grossly intact, Neuro grossly intact Psych/Mental Status: Normal Affect, Appropriate Labs (Last 48 Hours) 09/18/20 09/18/20 09/18/20 14:50 14:50 14:50 WBC RBC Hgb Hct MCV MCH MCHC RDW Std Deviation RDW Coeff of Felicia Plt Count MPV Immature Gran % (Auto) Neut % (Auto) Lymph % (Auto) Wilcox % (Auto) Eos % (Auto) Baso % (Auto) Absolute Neuts (auto) Absolute Lymphs (auto) Nucleated RBC % Differential Comment PT 12.4 INR 1.0 Sodium Potassium Chloride Carbon Dioxide Anion Gap BUN Creatinine Estim Creat Clear Calc Est GFR (MDRD) Af Amer Est GFR (MDRD) Non-Af BUN/Creatinine Ratio Glucose Lactic Acid Calcium Total Bilirubin 0.60 Direct Bilirubin 0.29 AST 104 H ALT 56 Alkaline Phosphatase 242 H Lactate Dehydrogenase 234 Total Creatine Kinase 26 B-Natriuretic Peptide 484.3 H Total Protein 7.2 Albumin 3.3 Globulin 3.9 COVID-19 (JAY) POC Glucose 09/18/20 09/18/20 09/18/20 16:20 21:22 21:37 WBC RBC Hgb Hct MCV MCH MCHC RDW Std Deviation RDW Coeff of Felicia Plt Count MPV Immature Gran % (Auto) Neut % (Auto) Lymph % (Auto) Wilcox % (Auto) Eos % (Auto) Baso % (Auto) Absolute Neuts (auto) Absolute Lymphs (auto) Nucleated RBC % Differential Comment PT INR Sodium Potassium Chloride Carbon Dioxide Anion Gap BUN Creatinine Estim Creat Clear Calc Est GFR (MDRD) Af Amer Est GFR (MDRD) Non-Af BUN/Creatinine Ratio Glucose Lactic Acid 0.7 Calcium Total Bilirubin Direct Bilirubin AST ALT Alkaline Phosphatase Lactate Dehydrogenase Total Creatine Kinase B-Natriuretic Peptide Total Protein Albumin Globulin COVID-19 (JAY) Not Detected POC Glucose 139 H 09/19/20 09/19/20 09/19/20 06:00 06:00 06:47 WBC 7.1 RBC 3.69 L Hgb 10.3 L Hct 34.4 L MCV 93.2 MCH 27.9 MCHC 29.9 L RDW Std Deviation 60.2 H RDW Coeff of Felicia 17.8 H Plt Count 515 H MPV 9.1 Immature Gran % (Auto) 1.100 H Neut % (Auto) 91.9 H Lymph % (Auto) 5.9 L Wilcox % (Auto) 1.0 Eos % (Auto) 0.0 Baso % (Auto) 0.1 Absolute Neuts (auto) 6.6 Absolute Lymphs (auto) 0.42 L Nucleated RBC % 0 Differential Comment SCANNED PT INR Sodium 140 Potassium 3.9 Chloride 108 H Carbon Dioxide 25.0 Anion Gap 7 BUN 12 Creatinine 0.87 Estim Creat Clear Calc 66.61 Est GFR (MDRD) Af Amer 81 Est GFR (MDRD) Non-Af 67 BUN/Creatinine Ratio 13.9 Glucose 166 H Lactic Acid Calcium 9.6 Total Bilirubin Direct Bilirubin AST ALT Alkaline Phosphatase Lactate Dehydrogenase Total Creatine Kinase B-Natriuretic Peptide Total Protein Albumin Globulin COVID-19 (JAY) POC Glucose 175 H 09/19/20 09/19/20 09/19/20 07:55 11:48 16:37 WBC RBC Hgb Hct MCV MCH MCHC RDW Std Deviation RDW Coeff of Felicia Plt Count MPV Immature Gran % (Auto) Neut % (Auto) Lymph % (Auto) Wilcox % (Auto) Eos % (Auto) Baso % (Auto) Absolute Neuts (auto) Absolute Lymphs (auto) Nucleated RBC % Differential Comment PT INR Sodium Potassium Chloride Carbon Dioxide Anion Gap BUN Creatinine Estim Creat Clear Calc Est GFR (MDRD) Af Amer Est GFR (MDRD) Non-Af BUN/Creatinine Ratio Glucose Lactic Acid Calcium Total Bilirubin Direct Bilirubin AST ALT Alkaline Phosphatase Lactate Dehydrogenase Total Creatine Kinase B-Natriuretic Peptide Total Protein Albumin Globulin COVID-19 (JAY) Not Detected POC Glucose 218 H 160 H 09/19/20 09/20/20 09/20/20 21:56 05:44 05:44 WBC 15.2 H RBC 3.62 L Hgb 10.2 L Hct 33.4 L MCV 92.3 MCH 28.2 MCHC 30.5 L RDW Std Deviation 59.6 H RDW Coeff of Felicia 18.2 H Plt Count 481 H MPV 8.5 Immature Gran % (Auto) 0.700 Neut % (Auto) 87.3 H Lymph % (Auto) 6.2 L Wilcox % (Auto) 5.7 Eos % (Auto) 0.0 Baso % (Auto) 0.1 Absolute Neuts (auto) 13.2 H Absolute Lymphs (auto) 0.94 Nucleated RBC % 0 Differential Comment PT INR Sodium 140 Potassium 3.4 L Chloride 109 H Carbon Dioxide 27.0 Anion Gap 4 L BUN 18 Creatinine 0.94 Estim Creat Clear Calc 59.68 Est GFR (MDRD) Af Amer 74 Est GFR (MDRD) Non-Af 61 BUN/Creatinine Ratio 19.2 Glucose 142 H Lactic Acid Calcium 9.7 Total Bilirubin Direct Bilirubin AST ALT Alkaline Phosphatase Lactate Dehydrogenase Total Creatine Kinase B-Natriuretic Peptide Total Protein Albumin Globulin COVID-19 (JAY) POC Glucose 257 H 09/20/20 09/20/20 07:01 11:52 WBC RBC Hgb Hct MCV MCH MCHC RDW Std Deviation RDW Coeff of Felicia Plt Count MPV Immature Gran % (Auto) Neut % (Auto) Lymph % (Auto) Wilcox % (Auto) Eos % (Auto) Baso % (Auto) Absolute Neuts (auto) Absolute Lymphs (auto) Nucleated RBC % Differential Comment PT INR Sodium Potassium Chloride Carbon Dioxide Anion Gap BUN Creatinine Estim Creat Clear Calc Est GFR (MDRD) Af Amer Est GFR (MDRD) Non-Af BUN/Creatinine Ratio Glucose Lactic Acid Calcium Total Bilirubin Direct Bilirubin AST ALT Alkaline Phosphatase Lactate Dehydrogenase Total Creatine Kinase B-Natriuretic Peptide Total Protein Albumin Globulin COVID-19 (JAY) POC Glucose 138 H 175 H Clinical Impression(s) from Imaging Studies Chest X-Ray 09/18/20 14:50 IMPRESSION: 1. Stable, nonacute x-ray examination of the chest. 2. Similar chronic changes of left lung bases 2018. Electronically Signed: Brandon Escalona MD (Brooks) at 16:43 EDT , Service support , Chest CTA 09/18/20 16:16 IMPRESSION: 1. No central or segmental embolism. 2. Elevation left hemidiaphragm. 3. Bilateral lower lobe atelectasis. Electronically Signed: Brandon Escalona MD (Brooks) at 17:35 EDT , Service support , Current Medications Acetaminophen (Acetaminophen 325 Mg Tablet) 650 mg PO Q6H PRN PRN PRN Reason: Pain Score 1-10/Temp > 100.7 F Albuterol Sulfate (Albuterol Sulfate 18 Gm Inhaler (200 Puffs)) 2 puff IH Q4H PRN PRN PRN Reason: Shortness of breath, wheezing Last Admin: 09/19/20 05:26 Dose: 2 puff Documented by: Amlodipine Besylate (Amlodipine 10 Mg Tablet) 10 mg PO DAILY [facility] Last Admin: 09/20/20 09:31 Dose: 10 mg Documented by: Carvedilol (Carvedilol 25 Mg Tablet) 25 mg PO BID [facility] Last Admin: 09/20/20 09:28 Dose: 25 mg Documented by: Duloxetine HCl (Duloxetine Hcl 60 Mg Capsule) 60 mg PO DAILY [facility] Last Admin: 09/20/20 09:29 Dose: 60 mg Documented by: Enoxaparin Sodium (Enoxaparin 40 Mg/0.4 Ml Syringe) 40 mg SC DAILY [facility] Last Admin: 09/20/20 09:30 Dose: 40 mg Documented by: Furosemide (Furosemide 40 Mg/4 Ml Vial) 40 mg IV DAILY [facility] Last Admin: 09/20/20 09:29 Dose: 40 mg Documented by: Gabapentin (Gabapentin 300 Mg Capsule) 300 mg PO BID [facility] Last Admin: 09/20/20 09:30 Dose: 300 mg Documented by: Hydralazine HCl (Hydralazine 20 Mg/Ml Vial) 10 mg IV Q8H PRN PRN PRN Reason: for SBP>160 Hydroxyzine Pamoate (Hydroxyzine Maribell 25 Mg Capsule) 25 mg PO BID PRN PRN PRN Reason: ANXIETY Sodium Chloride () 250 mls @ 15 mls/hr IV .[id number] PRN PRN Reason: Saline Flush Insulin Human Lispro (Insulin Lispro 100 Unit/Ml Insuln.Pen) 0 unit SC [facility]; Protocol Last Admin: 09/20/20 11:53 Dose: 1 units Documented by: Miscellaneous Information (Inhaler, Assist Devices 1 Each Spacer) 1 each INHALATION PRN PRN PRN Reason: WITH ALBUTEROL MDI Ondansetron HCl (Ondansetron 4 Mg/2 Ml Vial) 4 mg IV Q8H PRN PRN PRN Reason: NAUSEA/VOMITING Pantoprazole Sodium (Pantoprazole Sodium 20 Mg Tablet) 20 mg PO DAILY [facility] Last Admin: 09/20/20 09:31 Dose: 20 mg Documented by: Senna/Docusate Sodium (Senna/Docusate Sodium 1 Tablet) 2 tablet PO BID PRN PRN PRN Reason: Constipation Sodium Chloride (0.9% Saline Lock 10 Ml Syringe) 10 - 40 ml IV UD PRN PRN Reason: SALINE FLUSH Last Admin: 09/20/20 09:29 Dose: 10 ml Documented by: Zolpidem Tartrate (Zolpidem Tartrate 5 Mg Tablet) 5 mg PO QHS PRN PRN PRN Reason: INSOMNIA Medical Necessity - Tobacco Use Smoking Status: Never smoker Assessment/Plan RECOMMENDATIONS: 1. Continue diuretics as tolerated by hemodynamics and renal function. 2. Continue to wean supplemental oxygen to maintain saturations at or above 90%. 3. Encourage incentive spirometer use and mobilize patient as tolerated. 4. Secondary work-up for pulmonary hypertension, including sleep study, can be undertaken on outpatient basis. IMPRESSIONS: 1. Acute hypoxic respiratory insufficiency Clinical concern would be for acute diastolic congestive heart failure as an etiology given the elevated BNP. Agree with continuing diuresis as tolerated by hemodynamics and renal function. Continue to wean supplemental oxygen to maintain saturations at or above 90%. Encourage incentive spirometer use and mobilize patient as tolerated. 2. Hypertension/chronic anemia/GERD/anxiety/depression/morbid obesity/diabetes mellitus/advanced age Complicates care, management, recovery and prognosis. Okay to continue baseline medications from my perspective. This note was generated with lucierna dictation software. It may contain incorrect words, spelling, and punctuation that were not noted in checking the note before signing. Inpatient E&M: 53014 Subs Hosp L2
[2020-09-20 16:50] LABS: Bedside Glucose 159 mg/dL (70-110)
--- NOTE | 2020-09-20 19:55 | CON.PCM_ITS ---
Problem List (1) Asthma Status: Chronic Reason for Consult: hypoxia Consulted by: Dr. Ridley History of Present Illness: The patient is a 79 year old F presented with 4-5 days of progressive dyspnea, mild orthopnea, no fever no change in taste or smell, no n/v/d. Chronic muscle aches, no change from baseline. Lives with who has not been sick. Came to hospital, covid neg x2, seen by pulm. On 3.5L, feeling ok, still some dyspnea and cough. Full ROS performed and neg except as noted above. - Medical History Past Medical History (Chronic Problems): Chronic Problems Type 2 diabetes mellitus (Chronic) Asthma (Chronic) GERD (gastroesophageal reflux disease) (Chronic) Depression (Chronic) Polysubstance (excluding opioids) dependence (Chronic) Morbid obesity (Chronic) HTN (hypertension) (Chronic) Anxiety state (Chronic) Allergies/Adverse Reactions: Allergies lisinopril [From Zestril] Allergy (Verified 09/20/20 19:11) Swelling tongue swelling losartan [From Cozaar] Allergy (Verified 09/18/20 14:34) Swelling carbamazepine [From Tegretol] Adverse Reaction (Verified 09/18/20 14:34) MENTAL STATUS CHANGE hydrochlorothiazide Adverse Reaction (Verified 09/18/20 14:34) Unknown Home Medications: Ambulatory Orders Medication Instructions Recorded Amlodipine [Norvasc] 10 mg PO DAILY 04/29/18 Cholecalciferol (Vitamin D3) 2,000 unit PO DAILY 04/29/18 [D3-2000] Duloxetine HCl 60 mg PO DAILY 04/29/18 Gabapentin [Neurontin] 300 mg PO BID 04/29/18 Hydroxyzine HCl 25 mg PO BID 04/29/18 Omeprazole [Prilosec] 20 mg PO DAILY 04/29/18 metFORMIN HCl [Glucophage] 500 mg PO BIDCM 04/29/18 Mometasone Furoate [Elocon] 1 applic TP DAILY 09/03/18 Albuterol Inhaler [Ventolin Hfa] 2 puff INHALATION Q4H PRN PRN #1 09/07/18 inhaler Carvedilol [Coreg (Beta Augie)] 25 mg PO BID #60 tablet 09/07/18 Furosemide [Lasix] 40 mg PO DAILY #10 09/07/18 Lisinopril [Prinivil] 10 mg PO DAILY #30 tablet 09/07/18 - Social History Tobacco Use: non-smoker Vital Signs Temp Pulse Resp BP Pulse Ox 98.1 F 95 18 151/72 H 94 09/20/20 15:40 09/20/20 15:40 09/20/20 15:40 09/20/20 15:40 09/20/20 15:40 Oxygen Flow Rate (L/min) 2 Oxygen Delivery Method Nasal Cannula Weight: 77.9 kg Body Mass Index (BMI) 39.7 Finger Stick Blood Glucose 154 Laboratory Tests Past 24 Hrs 09/20/20 09/20/20 05:44 05:44 WBC 15.2 H RBC 3.62 L Hgb 10.2 L Hct 33.4 L MCV 92.3 MCH 28.2 MCHC 30.5 L RDW Std Deviation 59.6 H RDW Coeff of Felicia 18.2 H Plt Count 481 H MPV 8.5 Immature Gran % (Auto) 0.700 Neut % (Auto) 87.3 H Lymph % (Auto) 6.2 L [place] % (Auto) 5.7 Eos % (Auto) 0.0 Baso % (Auto) 0.1 Absolute Neuts (auto) 13.2 H Absolute Lymphs (auto) 0.94 Nucleated RBC % 0 Sodium 140 Potassium 3.4 L Chloride 109 H Carbon Dioxide 27.0 Anion Gap 4 L BUN 18 Creatinine 0.94 Estim Creat Clear Calc 59.68 Est GFR (MDRD) Af Amer 74 Est GFR (MDRD) Non-Af 61 BUN/Creatinine Ratio 19.2 Glucose 142 H Calcium 9.7 - Other Studies Radiology: [] reviewed Other Studies: [] Route of nutrition/ use of supplements: [] Nutritional Intake: [] IV Site: [] Cid Catheter: [] - Physical Exam General: Alert, Oriented x3, Cooperative, No apparent distress HEENT: Atraumatic, PERRLA, EOMI Neck: Supple, No Nodes Lungs: Diminished Cardiovascular: Regular rate, Regular Rhythm Abdomen: Soft, Non Tender, Non-Distended Extremities: No edema Skin: No rashes IV Site: Peripheral, without redness Musculoskeletal: No Tenderness to Palpation of Joints or Extremities Neurological: Cranial nerves II-XII grossly intact - Assessment/Plan Antibiotics: [] Assessment/Plan: [] Hypoxia, covid neg x2, some lymphopenia, but labs and symptoms otherwise not that convincing for covid. Getting diuresis, cont to monitor off abx. Will follow as needed, thank you
[2020-09-20 23:05] LABS: Bedside Glucose 144 mg/dL (70-110)
[2020-09-21 03:30] VITALS: BP 157/78; PULSE 92; RESP 18; TEMP 37.6; O2SAT 100
[2020-09-21 07:05] LABS: Bedside Glucose 107 mg/dL (70-110)
--- NOTE | 2020-09-21 07:42 | PN_ITS ---
Reason for Visit: Acute bronchitis Subjective: Patient seen clinical condition continues to improve. Plan is for patient to be discharged home after home O2 assessment Objective: GENERAL: cooperative HEENT: Atraumatic; EYES; Anicteric, Normal Conjunctiva NECK; supple, normal thyroid, RESPIRATORY: Diminished to auscultation CARDIOVASCULAR: Regular S1 S2, GI: soft, normoactive bowel sounds, : No Renal angle tenderness; EXTREMITIES: No edema, no clubbing, MUSCULOSKELETAL: no muscle waisting NEURO: Awake; no lateralizing signs. SKIN: No Rash PSYCH; Flat affect Vitals/I&O's: Vital Signs Temp Pulse Resp BP Pulse Ox 99.6 F H 92 18 157/78 H 100 09/21/20 03:30 09/21/20 03:30 09/21/20 03:30 09/21/20 03:30 09/21/20 03:30 Oxygen Flow Rate (L/min) 3 Oxygen Delivery Method Nasal Cannula Weight: 76.8 kg Body Mass Index (BMI) 39.7 Finger Stick Blood Glucose 154 Intake and Output for Last 24 Hours 09/19/20 09/20/20 09/21/20 23:59 23:59 23:59 Intake Total 780 / 980 320 / 320 Output Total 2550 / 2850 300 / 300 Balance -1770 / -1870 Laboratory Results 09/20/20 11:52: POC Glucose 175 H 09/20/20 16:40: POC Glucose 159 H 09/20/20 22:54: POC Glucose 144 H 09/21/20 06:53: POC Glucose 107 Current Medications Acetaminophen (Acetaminophen 325 Mg Tablet) 650 mg PO Q6H PRN PRN PRN Reason: Pain Score 1-10/Temp > 100.7 F Albuterol Sulfate (Albuterol Sulfate 18 Gm Inhaler (200 Puffs)) 2 puff IH Q4H PRN PRN PRN Reason: Shortness of breath, wheezing Last Admin: 09/19/20 05:26 Dose: 2 puff Documented by: Amlodipine Besylate (Amlodipine 10 Mg Tablet) 10 mg PO DAILY [facility] Last Admin: 09/20/20 09:31 Dose: 10 mg Documented by: Carvedilol (Carvedilol 25 Mg Tablet) 25 mg PO BID [facility] Last Admin: 09/20/20 21:56 Dose: 25 mg Documented by: Duloxetine HCl (Duloxetine Hcl 60 Mg Capsule) 60 mg PO DAILY [facility] Last Admin: 09/20/20 09:29 Dose: 60 mg Documented by: Enoxaparin Sodium (Enoxaparin 40 Mg/0.4 Ml Syringe) 40 mg SC DAILY [facility] Last Admin: 09/20/20 09:30 Dose: 40 mg Documented by: Furosemide (Furosemide 40 Mg/4 Ml Vial) 40 mg IV DAILY [facility] Last Admin: 09/20/20 09:29 Dose: 40 mg Documented by: Gabapentin (Gabapentin 300 Mg Capsule) 300 mg PO BID [facility] Last Admin: 09/20/20 21:55 Dose: 300 mg Documented by: Hydralazine HCl (Hydralazine 20 Mg/Ml Vial) 10 mg IV Q8H PRN PRN PRN Reason: for SBP>160 Hydroxyzine Pamoate (Hydroxyzine Maribell 25 Mg Capsule) 25 mg PO BID PRN PRN PRN Reason: ANXIETY Sodium Chloride () 250 mls @ 15 mls/hr IV .[id number] PRN PRN Reason: Saline Flush Insulin Human Lispro (Insulin Lispro 100 Unit/Ml Insuln.Pen) 0 unit SC [facility]; Protocol Last Admin: 09/21/20 06:54 Dose: Not Given Documented by: Miscellaneous Information (Inhaler, Assist Devices 1 Each Spacer) 1 each INHALATION PRN PRN PRN Reason: WITH ALBUTEROL MDI Ondansetron HCl (Ondansetron 4 Mg/2 Ml Vial) 4 mg IV Q8H PRN PRN PRN Reason: NAUSEA/VOMITING Pantoprazole Sodium (Pantoprazole Sodium 20 Mg Tablet) 20 mg PO DAILY [facility] Last Admin: 09/20/20 09:31 Dose: 20 mg Documented by: Senna/Docusate Sodium (Senna/Docusate Sodium 1 Tablet) 2 tablet PO BID PRN PRN PRN Reason: Constipation Sodium Chloride (0.9% Saline Lock 10 Ml Syringe) 10 - 40 ml IV UD PRN PRN Reason: SALINE FLUSH Last Admin: 09/20/20 09:29 Dose: 10 ml Documented by: Zolpidem Tartrate (Zolpidem Tartrate 5 Mg Tablet) 5 mg PO QHS PRN PRN PRN Reason: INSOMNIA Medical Necessity - Tobacco Use Smoking Status: Never smoker Assessment/Plan Patient is a 79-year-old lady admitted with progressive shortness of breath COVID-19 assay obtained on admission came back negative. Admitted to a monitored bed for subsequent management 1. Acute respiratory insufficiency ?Affected to be secondary to viral bronchitis. COVID-19 assay came back negative. Patient managed with aerosol treatment and supplemental oxygen. -09/21/2020 ;Patient seen clinical condition continues to improve. Plan is for patient to be discharged home after home O2 assessment 2. Hypertension - Blood pressure controlled, home medications continued with dose adjustment as needed 3. Diabetes mellitus type II - Controlled/uncontrolled, -patient's oral hypoglycemics held. -Placed on long acting insulin, Accu-Cheks a.c. and at bedtime and covered with sliding scale insulin 4. Anemia - Secondary to chronic disorder monitoring H&H and transfuse if patient becomes symptomatic or hemoglobin falls below 7 5. GERD ?Patient is on PPI 6. Depression with anxiety ?Patient is on duloxetine did continue 7. DVT prophylaxis ?Lovenox Inpatient E&M: [id number] [facility] Hosp L2
[2020-09-21 07:53] VITALS: O2SAT 94
[2020-09-21 08:18] VITALS: BP 164/80; PULSE 94; RESP 20; TEMP 36.9; O2SAT 92
[2020-09-21 08:21] LABS: Hematocrit 35.5 % (37-47); Hemoglobin 10.9 g/dL (12.0-15.0); Mean Corp Hgb Conc 30.7 g/dL (32-36); Mean Corpuscular Hgb 27.7 pg (27.0-32.0); Mean Corpuscular Volume 90.3 fL (81-99); Mean Platelet Vol. 8.4 fl (6.2-12.0); Platelet Count 472 K/mm3 (150-450); RBC Distribution Width CV 18.3 % (11.6-14.6); RBC Distribution Width SD 58.1 fl (35.1-43.9); Red Blood Count 3.93 M/mm3 (4.2-5.4)
[2020-09-21] MEDS: 0.9% Saline Lock 10 ML Syringe IV (08:28)
[2020-09-21] MEDS: Furosemide 40 MG/4 ML Vial IV (08:29)
[2020-09-21] MEDS: Pantoprazole Sodium 20 MG Tablet PO (08:29)
[2020-09-21] MEDS: Enoxaparin 40 MG/0.4 ML Syringe SC (08:29)
[2020-09-21] MEDS: Gabapentin 300 MG Capsule PO (08:29)
[2020-09-21] MEDS: DULoxetine Hcl 60 MG Capsule PO (08:29)
[2020-09-21] MEDS: Carvedilol 25 MG Tablet PO (08:29)
[2020-09-21] MEDS: amLODIPine 10 MG Tablet PO (08:29)
[2020-09-21 08:40] LABS: Anion Gap 6 (5-15); BUN 12 mg/dL (7-18); BUN/Creat Ratio 14.9 RATIO (10-20); Calcium,Total 9.5 mg/dL (8.5-10.1); Chloride 103 mmol/L (98-107); Creatinine, Serum 0.81 mg/dL (0.55-1.02); EST Glomerular Filtration Rate 73 mL/min (>60); Est Glom Filt Rate - Afr Amer 88 mL/min (>60); Estimated Creatinine Clearance 68.28 ml/min; Glucose 98 mg/dL (74-106); Magnesium 0.9 mg/dL (1.6-2.6); Sodium Level 138 mmol/L (136-145)
[2020-09-21 11:16] LABS: Bedside Glucose 121 mg/dL (70-110)
--- NOTE | 2020-09-21 11:30 | PCM.DC ---
- Discharge Diagnoses Current Active Problems: Current Active and Chronic Problems Type 2 diabetes mellitus (Chronic) Asthma (Chronic) GERD (gastroesophageal reflux disease) (Chronic) Depression (Chronic) Morbid obesity (Chronic) HTN (hypertension) (Chronic) Anxiety state (Chronic) You will use the following diet at home:: Calorie/Carbohydrate Controlled (specify 1200, 1400, etc) - 1800 Discharge Activity: Return to Normal Activity Allergies/Adverse Reactions: Allergies lisinopril [From Zestril] Allergy (Verified 09/20/20 19:11) Swelling tongue swelling losartan [From Cozaar] Allergy (Verified 09/18/20 14:34) Swelling carbamazepine [From Tegretol] Adverse Reaction (Verified 09/18/20 14:34) MENTAL STATUS CHANGE hydrochlorothiazide Adverse Reaction (Verified 09/18/20 14:34) Unknown Medications to take at Discharge Amlodipine [Norvasc] 10 mg PO DAILY 04/29/18 Cholecalciferol (Vitamin D3) [D3-2000] 2,000 unit PO DAILY 04/29/18 Duloxetine HCl 60 mg PO DAILY 04/29/18 Gabapentin [Neurontin] 300 mg PO BID 04/29/18 Hydroxyzine HCl 25 mg PO BID 04/29/18 Omeprazole [Prilosec] 20 mg PO DAILY 04/29/18 metFORMIN HCl [Glucophage] 500 mg PO BIDCM 04/29/18 Mometasone Furoate [Elocon] 1 applic TP DAILY 09/03/18 Albuterol Inhaler [Ventolin Hfa] 2 puff INHALATION Q4H PRN PRN #1 inhaler 09/07/18 Carvedilol [Coreg (Beta Augie)] 25 mg PO BID #60 tablet 09/07/18 Furosemide [Lasix] 40 mg PO DAILY #10 09/07/18 Lisinopril [Prinivil] 10 mg PO DAILY #30 tablet 09/07/18 Magnesium Oxide 400 mg PO BID #60 tab 09/21/20 Magnesium Oxide [Mag-Oxide Magnesium] 200 mg PO BID #60 tab 09/21/20 The following prescriptions were given: Magnesium Oxide [Mag-Oxide Magnesium] 200 mg PO BID #60 tab Transmission Status: Pending to [facility] [id number] Magnesium Oxide 400 mg PO BID #60 tab Primary Care Physician: Blayne Dominguez III, MD [Primary Care Provider] - Please follow up with your Primary Care Physician in: 1-2 weeks Test Results: Test results from this visit will be discussed in further detail at your follow-up appointment, if applicable. Proposed Discharge Date: 09/21/20
--- NOTE | 2020-09-21 11:33 | PCM.DC.SUM ---
Discharge Date and Diagnosis Date of Admission: 09/18/20 Date of Discharge: 09/21/20 - Primary Discharge Diagnosis Acute Problems: Acute viral bronchitis - Secondary Discharge Diagnosis Chronic Problems: Chronic Problems Type 2 diabetes mellitus (Chronic) Asthma (Chronic) GERD (gastroesophageal reflux disease) (Chronic) Depression (Chronic) Polysubstance (excluding opioids) dependence (Chronic) Morbid obesity (Chronic) HTN (hypertension) (Chronic) Anxiety state (Chronic) Hospital Course and Treatment Imaging Results: Clinical Impression(s) from Imaging Studies Chest X-Ray 09/18/20 14:50 IMPRESSION: 1. Stable, nonacute x-ray examination of the chest. 2. Similar chronic changes of left lung bases 2017. Electronically Signed: Brandon Escalona MD (Brooks) at 16:43 EDT , Service support , Chest CTA 09/18/20 16:16 IMPRESSION: 1. No central or segmental embolism. 2. Elevation left hemidiaphragm. 3. Bilateral lower lobe atelectasis. Electronically Signed: Brandon Escalona MD (Brooks) at 17:35 EDT , Service support , Summary of Care Provided: Patient is a 79-year-old lady admitted with progressive shortness of breath COVID-19 assay obtained on admission came back negative. Admitted to a monitored bed for subsequent management 1. Acute respiratory insufficiency ?Affected to be secondary to viral bronchitis. COVID-19 assay came back negative. Patient managed with aerosol treatment and supplemental oxygen. -09/21/2020 ;Patient seen clinical condition continues to improve. Patient was assessed for home oxygen needs prior to discharge she did qualify. She will need portability since he is active both in the community as well as at home 2. Hypertension - Blood pressure controlled, home medications continued with dose adjustment as needed 3. Diabetes mellitus type II - Controlled/uncontrolled, -patient's oral hypoglycemics held. -Placed on long acting insulin, Accu-Cheks a.c. and at bedtime and covered with sliding scale insulin 4. Anemia - Secondary to chronic disorder monitoring H&H and transfuse if patient becomes symptomatic or hemoglobin falls below 7 5. GERD ?Patient is on PPI 6. Depression with anxiety ?Patient is on duloxetine did continue 7. DVT prophylaxis ?Lovenox 8. Severe hypomagnesemia ?This was corrected per protocol prescription written for magnesium oxide on discharge Objective: GENERAL: cooperative HEENT: Atraumatic; EYES; Anicteric, Normal Conjunctiva NECK; supple, normal thyroid, RESPIRATORY: Diminished to auscultation CARDIOVASCULAR: Regular S1 S2, GI: soft, normoactive bowel sounds, : No Renal angle tenderness; EXTREMITIES: No edema, no clubbing, MUSCULOSKELETAL: no muscle waisting NEURO: Awake; no lateralizing signs. SKIN: No Rash PSYCH; Flat affect - Physical Exam Vitals/I&O's: Vital Signs Temp Pulse Resp BP Pulse Ox 98.4 F 94 20 H 164/80 H 92 09/21/20 08:18 09/21/20 08:18 09/21/20 08:18 09/21/20 08:18 09/21/20 08:18 Oxygen Flow Rate (L/min) 3 Oxygen Delivery Method Nasal Cannula Weight: 76.8 kg Body Mass Index (BMI) 39.7 Finger Stick Blood Glucose 154 Intake and Output for Last 24 Hours 09/19/20 09/20/20 09/21/20 23:59 23:59 23:59 Intake Total 780 / 980 560 / 560 Output Total 2550 / 2850 750 / 750 Balance -1770 / -1870 -190 / -190 Laboratory Results 09/20/20 11:52: POC Glucose 175 H 09/20/20 16:40: POC Glucose 159 H 09/20/20 22:54: POC Glucose 144 H 09/21/20 06:53: POC Glucose 107 09/21/20 08:12: WBC 16.0 H, RBC 3.93 L, Hgb 10.9 L, Hct 35.5 L, MCV 90.3, MCH 27.7, MCHC 30.7 L, RDW Std Deviation 58.1 H, RDW Coeff of Felicia 18.3 H, Plt Count 472 H, MPV 8.4 09/21/20 08:12: Sodium 138, Potassium 3.0 L, Chloride 103, Carbon Dioxide 29.0, Anion Gap 6, BUN 12, Creatinine 0.81, Estim Creat Clear Calc 68.28, Est GFR (MDRD) Af Amer 88, Est GFR (MDRD) Non-Af 73, BUN/Creatinine Ratio 14.9, Glucose 98, Calcium 9.5, Magnesium 0.9 L* 09/21/20 11:09: POC Glucose 121 H Current Medications Acetaminophen (Acetaminophen 325 Mg Tablet) 650 mg PO Q6H PRN PRN PRN Reason: Pain Score 1-10/Temp > 100.7 F Albuterol Sulfate (Albuterol Sulfate 18 Gm Inhaler (200 Puffs)) 2 puff IH Q4H PRN PRN PRN Reason: Shortness of breath, wheezing Last Admin: 09/19/20 05:26 Dose: 2 puff Documented by: Amlodipine Besylate (Amlodipine 10 Mg Tablet) 10 mg PO DAILY [facility] Last Admin: 09/21/20 08:29 Dose: 10 mg Documented by: Carvedilol (Carvedilol 25 Mg Tablet) 25 mg PO BID [facility] Last Admin: 09/21/20 08:29 Dose: 25 mg Documented by: Duloxetine HCl (Duloxetine Hcl 60 Mg Capsule) 60 mg PO DAILY [facility] Last Admin: 09/21/20 08:29 Dose: 60 mg Documented by: Enoxaparin Sodium (Enoxaparin 40 Mg/0.4 Ml Syringe) 40 mg SC DAILY [facility] Last Admin: 09/21/20 08:29 Dose: 40 mg Documented by: Furosemide (Furosemide 40 Mg/4 Ml Vial) 40 mg IV DAILY [facility] Last Admin: 09/21/20 08:29 Dose: 40 mg Documented by: Gabapentin (Gabapentin 300 Mg Capsule) 300 mg PO BID [facility] Last Admin: 09/21/20 08:29 Dose: 300 mg Documented by: Hydralazine HCl (Hydralazine 20 Mg/Ml Vial) 10 mg IV Q8H PRN PRN PRN Reason: for SBP>160 Hydroxyzine Pamoate (Hydroxyzine Maribell 25 Mg Capsule) 25 mg PO BID PRN PRN PRN Reason: ANXIETY Sodium Chloride () 250 mls @ 15 mls/hr IV .[id number] PRN PRN Reason: Saline Flush Magnesium Sulfate () 4 gm in 100 mls @ 25 mls/hr IV X1 ONE Stop: 09/21/20 13:20 Insulin Human Lispro (Insulin Lispro 100 Unit/Ml Insuln.Pen) 0 unit SC [facility]; Protocol Last Admin: 09/21/20 11:09 Dose: Not Given Documented by: Miscellaneous Information (Inhaler, Assist Devices 1 Each Spacer) 1 each INHALATION PRN PRN PRN Reason: WITH ALBUTEROL MDI Ondansetron HCl (Ondansetron 4 Mg/2 Ml Vial) 4 mg IV Q8H PRN PRN PRN Reason: NAUSEA/VOMITING Pantoprazole Sodium (Pantoprazole Sodium 20 Mg Tablet) 20 mg PO DAILY [facility] Last Admin: 09/21/20 08:29 Dose: 20 mg Documented by: Senna/Docusate Sodium (Senna/Docusate Sodium 1 Tablet) 2 tablet PO BID PRN PRN PRN Reason: Constipation Sodium Chloride (0.9% Saline Lock 10 Ml Syringe) 10 - 40 ml IV UD PRN PRN Reason: SALINE FLUSH Last Admin: 09/21/20 08:28 Dose: 10 ml Documented by: Zolpidem Tartrate (Zolpidem Tartrate 5 Mg Tablet) 5 mg PO QHS PRN PRN PRN Reason: INSOMNIA Discharge Diet: 1800 Calorie Control Diet Discharge Activity: Return to Normal Activity Home Medications: Medications to take at Discharge Amlodipine [Norvasc] 10 mg PO DAILY 04/29/18 Cholecalciferol (Vitamin D3) [D3-2000] 2,000 unit PO DAILY 04/29/18 Duloxetine HCl 60 mg PO DAILY 04/29/18 Gabapentin [Neurontin] 300 mg PO BID 04/29/18 Hydroxyzine HCl 25 mg PO BID 04/29/18 Omeprazole [Prilosec] 20 mg PO DAILY 04/29/18 metFORMIN HCl [Glucophage] 500 mg PO BIDCM 04/29/18 Mometasone Furoate [Elocon] 1 applic TP DAILY 09/03/18 Albuterol Inhaler [Ventolin Hfa] 2 puff INHALATION Q4H PRN PRN #1 inhaler 09/07/18 Carvedilol [Coreg (Beta Augie)] 25 mg PO BID #60 tablet 09/07/18 Furosemide [Lasix] 40 mg PO DAILY #10 09/07/18 Lisinopril [Prinivil] 10 mg PO DAILY #30 tablet 09/07/18 Magnesium Oxide 400 mg PO BID #60 tab 09/21/20 Magnesium Oxide [Mag-Oxide Magnesium] 200 mg PO BID #60 tab 09/21/20 Following Prescriptions Were Given to Patient: Magnesium Oxide [Mag-Oxide Magnesium] 200 mg PO BID #60 tab Transmission Status: Received by [facility] [id number] Magnesium Oxide 400 mg PO BID #60 tab Primary Care Physician: Blayne Dominguez III, MD [Primary Care Provider] - Please follow up with your Primary Care Physician in: 1-2 weeks Disposition: Home Minutes spent on discharge:: 35 Patient Condition:: Stable Medical Necessity - Tobacco Use Smoking Status: Never smoker Meaningful Use Info Meaningful Use Diagnoses (Choose all that apply): None applicable Inpatient E&M: 30830 Disch Hosp
[2020-09-21] MEDS: Magnesium Sulfate 4gm/100mL 4 GM/100 ML IV.SOLN. IV (12:06)
[2020-09-21 14:10] VITALS: O2SAT 87; O2SAT 88; O2SAT 90
[2020-09-21 14:17] VITALS: BP 151/63; PULSE 89; RESP 20; TEMP 36.8; O2SAT 93
--- NOTE | 2020-09-21 14:43 | CASEMGMT ---
Pt does qualify for home oxygen 3liters continuous at this time. Pt had stated previously [facility] [place] [facility]. Script and referral faxed to [facility] at this time. Pt updated on all and states no need for any further therapy at this time. Call to [facility] to updated on referral and to notify of discharge today, voices understanding. Pt voices no further questions/concerns/needs at this time. Ciarra MUNOZ CM
--- NOTE | 2020-09-22 16:04 | CASEMGMT ---
ALEXANDER TAVARES Discharge F/U Phone Call LACE: 11 Strata: 3 Discharge date: 09/21/2020 Call date: 09/22/2020 Call time: [id number] Admission dx: Acute hypoxic resp insufficiency Pt states has been 'doing fair' since discharge. Pt states no questions regarding discharge instructions/medications at this time. Pt states her son scheduled f/u appt's and she plans to keep them. Pt states she got her home oxygen set up last night and states no concerns. Pt states no suggestions for [facility] at this time and states 'I thought the care was very good and the food was good, too!' Pt voices no further questions/concerns/needs at this time. SStaten ALEXANDER TAVARES
== END 2020-09-21 17:40 | disposition home or self-care (01) | DRG 202 ==
LOC: ED 17:23 → PCU 19:34
PROVIDERS: Family Medicine; Admitting Provider Hospitalist; Emergency Provider Emergency Medicine; PCP Family Medicine; Referring Provider Hospitalist; Visit Provider Internal Medicine
DX: J20.8 Acute bronchitis due to other specified organisms (principal); I50.33 Acute on chronic diastolic (congestive) heart failure; F19.20 Other psychoactive substance dependence, uncomplicated; J98.11 Atelectasis; R09.02 Hypoxemia; I11.0 Hypertensive heart disease with heart failure; I27.20 Pulmonary hypertension, unspecified; K21.9 Gastro-esophageal reflux disease without esophagitis; J45.909 Unspecified asthma, uncomplicated; E66.01 Morbid (severe) obesity due to excess calories; Z66 Do not resuscitate; F41.8 Other specified anxiety disorders; E83.42 Hypomagnesemia; Z68.39 Body mass index [BMI] 39.0-39.9, adult; T38.0X5A Adverse effect of glucocorticoids and synthetic analogues, initial encounter; D63.8 Anemia in other chronic diseases classified elsewhere; E11.9 Type 2 diabetes mellitus without complications; D64.9 Anemia, unspecified; Z79.84 Long term (current) use of oral hypoglycemic drugs; Z80.6 Family history of leukemia; Z82.3 Family history of stroke; Z90.710 Acquired absence of both cervix and uterus; Z91.041 Radiographic dye allergy status
CPT/HCPCS: 36415; 71045; 71275; 80048; 80076; 82550; 82962; 83605; 83615; 83735; 83880; 84484; 85025; 85027; 85379; 85610; 87635; 93005; 93306; 94762; 97161; 97165; 97530; 99251; 99285; Q9957; Q9967; A4216; G0463; J1940; U0002

== ENCOUNTER → 2020-11-29 10:07 | Outpatient (CLI) | payer MEDICARE, SELFPAY ==
[2020-09-18 20:28] VITALS: BMI 39.7
== END ==
PROVIDERS: PCP Family Medicine; Referring Provider Family Medicine; Visit Provider Family Medicine
DX: Z20.828 Contact with and (suspected) exposure to other viral communicable diseases (principal)
CPT/HCPCS: 87635; C9803; U0005; U0003

== ENCOUNTER 2020-12-17 12:44 | Outpatient (RCR) | payer MEDICARE, SELFPAY ==
[2020-09-18 20:28] VITALS: BMI 39.7
== END 2020-12-17 23:59 ==
LOC: IMMUN 12:44
PROVIDERS: PCP Family Medicine; Visit Provider Family Medicine
DX: Z23 Encounter for immunization (principal)
CPT/HCPCS: 0011A; 0012A; 91301

== ENCOUNTER 2021-01-11 16:40 | Inpatient (IN) | payer MEDICARE, SELFPAY ==
[2020-09-18 20:28] VITALS: BMI 39.7
[2021-01-11] VITALS (7 sets, daily range): BP systolic 101–159; BP diastolic 69–84; PULSE 92–100; RESP 18–20; TEMP 36.7–37.2; O2SAT 93–96; BMI 37.5; BMI 37.6; BMI 35.7
--- NOTE | 2021-01-11 16:50 | EKG12_ITS ---
Test Reason : ALT LOC Blood Pressure : / mmHG Vent. Rate : 089 BPM Atrial Rate : 089 BPM P-R Int : 142 ms QRS Dur : 090 ms QT Int : 370 ms P-R-T Axes : 032 005 039 degrees QTc Int : 450 ms Normal sinus rhythm Possible Inferior infarct , age undetermined Abnormal ECG Confirmed by ZORAIDA HYATT, ALBERTO ([id number]), film or videotape editor FIDELIA VEGA ([id number]) on 01/12/2021 12:52:59 PM Referred By: SAMUEL Confirmed By:ALBERTO CONWAY MD
--- NOTE | 2021-01-11 16:51 | ED.DCSUM_ITS ---
History of Present Illness Chief Complaint: Alt LOC Informant: Patient, Green Chain Off Bearer Onset: Today Narrative: Patient brought in by EMS secondary to concerns for altered mental status. Patient states she laid down to take a nap in the next thing she knows [facility] was there to bring her to the hospital. She has no complaints and feels like she is at her baseline. She has been wearing home oxygen for the past 6 months or so. She normally wears 2 L. Nursing staff does note her O2 sat was low at 84% on room air here and squad noted she did not have her oxygen on when they were called to the house. - Past Medical History (1) Asthma Status: Chronic (2) Depression Status: Chronic (3) GERD (gastroesophageal reflux disease) Status: Chronic (4) HTN (hypertension) Status: Chronic (5) Type 2 diabetes mellitus Status: Chronic Past Medical History - Allergies and Home Meds Allergies/Adverse Reactions: Allergies lisinopril [From Zestril] Allergy (Verified 01/11/21 16:44) Swelling tongue swelling losartan [From Cozaar] Allergy (Verified 01/11/21 16:44) Swelling carbamazepine [From Tegretol] Adverse Reaction (Verified 01/11/21 16:44) MENTAL STATUS CHANGE hydrochlorothiazide Adverse Reaction (Verified 01/11/21 16:44) Unknown Primary Care Physician: Blayne Dominguez III, MD [Primary Care Provider] - Surgical History: cholecystectomy, hysterectomy, tonsillectomy Lives: Spouse/ Significant Other Smoking Status: Never smoker - Family History Maternal Family History: Reports: Cancer - LEUKEMIA Paternal Family History: Reports: Stroke Review of Systems General: Denies: Chills, Fever Eyes: Denies: Visual changes - bilaterally ENT: Denies: Bilateral ear pain Cardiovascular: Denies: Chest pain, Palpitations Respiratory: Denies: Dyspnea, Cough Gastrointestinal: Denies: Abdominal pain, Vomiting, Diarrhea Musculoskeletal: Denies: Swelling, Extremity Pain Skin: Denies: Rash Neurological: Denies: Headache Hematologic: Denies: Easy bruising, Easy bleeding Allergy: Denies: Uticaria Physical Exam Vital Signs/Narrative: Vital Signs Temp Pulse Resp BP Pulse Ox 01/11/21 16:41 98.3 F 92 20 H 133/69 H 95 Inital Vital Signs reviewed: Yes General: Well nourished, Well developed Head: Normocephalic ENT: Moist mucous membranes Neck: Supple Cardiovascular: Regular rate, Regular rhythm Respiratory: No distress, CTA bilaterally Abdomen: Soft, Nontender Extremities: Nontender Skin: Normal color Neurological: Alert, Oriented x3, Normal Strength, Normal Sensation Psychological: Normal affect Diagnostic/Tx/Re-eval Laboratory Results 01/11/21 01/11/21 01/11/21 16:50 16:50 16:50 WBC 10.4 RBC 3.76 L Hgb 11.1 L Hct 35.6 L MCV 94.7 MCH 29.5 MCHC 31.2 L RDW Std Deviation 56.7 H RDW Coeff of Felicia 16.9 H Plt Count 408 MPV 9.2 Immature Gran % (Auto) 0.500 Neut % (Auto) 68.4 Lymph % (Auto) 18.0 L Wake % (Auto) 9.6 Eos % (Auto) 2.6 Baso % (Auto) 0.9 Absolute Neuts (auto) 7.1 Absolute Lymphs (auto) 1.88 Nucleated RBC % 0 Sodium 138 Potassium 3.4 L Chloride 103 Carbon Dioxide 25.0 Anion Gap 10 BUN 10 Creatinine 0.97 Estim Creat Clear Calc 55.57 Est GFR (MDRD) Af Amer 71 Est GFR (MDRD) Non-Af 59 L BUN/Creatinine Ratio 10.3 Glucose 89 Calcium 9.2 Urine Color Urine Clarity Urine pH Ur Specific [place] Urine Protein Urine Glucose (UA) Urine Ketones Urine Occult Blood Urine Nitrite Urine Bilirubin Urine Urobilinogen Ur Leukocyte Esterase Urine RBC Urine WBC Ur Squamous Epith Cells Urine Bacteria Urine Mucus Ethyl Alcohol 152.0 01/11/21 17:40 WBC RBC Hgb Hct MCV MCH MCHC RDW Std Deviation RDW Coeff of Felicia Plt Count MPV Immature Gran % (Auto) Neut % (Auto) Lymph % (Auto) Wake % (Auto) Eos % (Auto) Baso % (Auto) Absolute Neuts (auto) Absolute Lymphs (auto) Nucleated RBC % Sodium Potassium Chloride Carbon Dioxide Anion Gap BUN Creatinine Estim Creat Clear Calc Est GFR (MDRD) Af Amer Est GFR (MDRD) Non-Af BUN/Creatinine Ratio Glucose Calcium Urine Color Yellow Urine Clarity Clear Urine pH 6.5 Ur Specific [place] 1.005 Urine Protein Negative Urine Glucose (UA) Normal Urine Ketones Negative Urine Occult Blood Negative Urine Nitrite Negative Urine Bilirubin Negative Urine Urobilinogen Normal Ur Leukocyte Esterase 25 H Urine RBC 0 SEEN Urine WBC 0 SEEN Ur Squamous Epith Cells 0 SEEN Urine Bacteria 1+ Urine Mucus 0 SEEN Ethyl Alcohol - EKG Initial EKG Interpretation: Sinus Rhythm - Sinus [address]. - Medical Decision Making Patient was observed on director corporate compliance throughout her ED stay. Alcohol level does return at 150. Patient was seen by social work and she initially declined detox. Patient's daughter presented to the emergency room to speak with her mom. She stated that the patient's has agreed to come in for alcohol detox as he is also an alcoholic. In light of this patient is now in agreement with staying for alcohol detox. I will speak with hospitalist regarding admission. ED Disposition - Plan for ED Patient: Disposition: Acute Care Hospital [facility] Diagnosis: Alcohol intoxication, Desire for detoxification Referrals: Blayne Dominguez III, MD [Primary Care Provider] -
[2021-01-11 17:00] LABS: Absolute Lymphocyte Count 1.88 X10^3/uL (0.83-4.51); Absolute Neutrophil Count 7.1 X10^3/uL (2.0-7.7); Basophil# 0.09 X10^3/uL; Basophil% 0.9 % (0-1); Eosinophil# 0.27 X10^3/uL; Eosinophils% 2.6 % (0-5); Hematocrit 35.6 % (37-47); Hemoglobin 11.1 g/dL (12.0-15.0); Lymphocyte # 1.88 X10^3/ul (4.0); Mean Corp Hgb Conc 31.2 g/dL (32-36); Mean Corpuscular Hgb 29.5 pg (27.0-32.0); Mean Corpuscular Volume 94.7 fL (81-99); Mean Platelet Vol. 9.2 fl (6.2-12.0); Monocyte% 9.6 % (0-10); NRBC Flagged by Analyzer 0 % (0-5); Neutrophil # 7.14 X10^3/uL (2.7-7.7); Neutrophil % 68.4 % (47-70); Platelet Count 408 K/mm3 (150-450); RBC Distribution Width CV 16.9 % (11.6-14.6); RBC Distribution Width SD 56.7 fl (35.1-43.9); Red Blood Count 3.76 M/mm3 (4.2-5.4); White Blood Count 10.4 K/mm3 (4.4-11.0)
[2021-01-11 17:13] LABS: Anion Gap 10 (5-15); BUN 10 mg/dL (7-18); BUN/Creat Ratio 10.3 RATIO (10-20); Calcium,Total 9.2 mg/dL (8.5-10.1); Chloride 103 mmol/L (98-107); Creatinine, Serum 0.97 mg/dL (0.55-1.02); EST Glomerular Filtration Rate 59 mL/min (>60); Est Glom Filt Rate - Afr Amer 71 mL/min (>60); Estimated Creatinine Clearance 55.57 ml/min; Glucose 89 mg/dL (74-106); Potassium 3.4 mmol/L (3.5-5.1); Sodium Level 138 mmol/L (136-145)
--- NOTE | 2021-01-11 17:30 | CM.ED ---
SOCIAL WORK Informant: Dr. Jenkins Reason for Consult: Resources Met with patient in room. Introduced role and reason for referral. Patient A&Ox3. Patient states, I had a drink this afternoon and laid down for nap and next thing I knew my family and ambulance was at my house. Patient reports drinks gin and tonic every couple days. Patient does not view use as a problem. Patient states lives home with in a 1 story home. Patient reports family assists as needed. Patient admits to times of feeling weak and states has had home health care in the past. Patient reports would like to review list, but does not believe she needs home health at this time. Provider lists for skilled home health services and private duty given. Patient reports has oxygen at home through [facility]. Patient voices no needs for home going. Work up being completed at this time. This worker to remain available for needs. Maribell Nava, DIGITAL X RAY SERVICE ENGINEER, SUPERVISOR TAN ROOM
--- NOTE | 2021-01-11 17:33 | ED.RN ---
daughter jazlyn left contact number. [phone]. iman mclaughlin rn [phone]
[2021-01-11 17:45] LABS: Mucous, Urine 0 SEEN /hpf (<or=2+); Red Blood Cells-Urine 0 SEEN /hpf (0-5); Squamous Epithelial Cells - UA 0 SEEN /hpf (5-10); White Blood Cells 0 SEEN /hpf (0-5)
[2021-01-11 17:55] LABS: Color, Urine Yellow (Yellow); Glucose, Dipstick Normal (Normal); Ketone-Dipstick Negative (Negative); Leukocyte Esterase-Dipstick 25 /ul (Negative); Nitrite-Dipstick Negative (Negative); Occult Blood-Urine Negative /ul (Negative); Protein-Dipstick Negative (Negative); Specific Gravity, Urine 1.005 (1.002-1.030); Urine Bilirubin Dipstick Negative (Negative); Urine Clarity Clear (Clear); Urine Urobilinogen Normal (Normal); Urine pH 6.5 (5.0 - 8.0)
[2021-01-11 18:01] LABS: Bacteria 1+ /hpf (None Seen)
--- NOTE | 2021-01-11 19:05 | PCM.HP.STD ---
Problem List (1) Alcohol intoxication Status: Acute Qualifiers: Complication of substance-induced condition: with delirium Qualified Code(s): F10.921 - Alcohol use, unspecified with intoxication delirium (2) Desire for detoxification Status: Acute (3) Type 2 diabetes mellitus Status: Chronic Qualifiers: Diabetes mellitus fpc insulin use: without fpc use Diabetes mellitus complication status: with other specified complication Qualified Code(s): E11.69 - Type 2 diabetes mellitus with other specified complication (4) Asthma Status: Chronic Qualifiers: Asthma severity: unspecified severity Asthma persistence: unspecified Asthma complication type: unspecified Qualified Code(s): J45.909 - Unspecified asthma, uncomplicated (5) GERD (gastroesophageal reflux disease) Status: Chronic Qualifiers: Esophagitis presence: esophagitis presence not specified Qualified Code(s): K21.9 - Gastro-esophageal reflux disease without esophagitis (6) Depression Status: Chronic Qualifiers: Depression Type: unspecified Qualified Code(s): F32.9 - Major depressive disorder, single episode, unspecified (7) HTN (hypertension) Status: Chronic Qualifiers: Hypertension type: essential hypertension Qualified Code(s): I10 - Essential (primary) hypertension (8) Anxiety state Status: Chronic History of Present Illness Date of Admission: 01/11/21 Chief Complaint: Encephalopathy, confusion, hypoxia after intoxication The patient is a 80 y/o F w/ PMHx: Asthma, Anxiety and Depression/Panic attacks/Agoraphobia, Obesity, GERD, Diabetes mellitus type II, EtOH Abuse (cocktails, double, at least 2-4 daily) who presents to the [facility] ED on 01/11/21 with history of altered mental status noted to have laid down for nap and only awoke when the squad was bring her to the emergency room with nursing staff concern for oxygenation 84% although patient did not have oxygen on and is currently using 2 L nasal cannula at baseline which has been using for at least the last 6 months with episode per family of screaming and agitation. In the ED upon arrival patient clinically improved once oxygenation improved. She denies any recent illness including fever, chills, nausea, emesis, abdominal pain, cough or dyspnea sensation. She does have chronic issues with constipation and diarrhea per family. Per discussion with family patient does share pills with her spouse and likely has been taking his temazepam for sleeping in addition to family reporting that she often will use NyQuil for sleep in addition to her alcohol intake. Given her current presentation patient is amenable and eager to try alcohol detox program. Work-up in the ED included T 98.3, heart rate 92, BP 133/69, respiratory rate 20, 95% on 2 L nasal cannula, CBC with WC 10.4, hemoglobin 11.1, platelet 408 with no marked shift, BMP with potassium 3.4 otherwise not marked appearing, pending hepatic profile upon requested evaluation of patient, urinalysis with negative nitrite, leukocyte esterase 25, 0 urine WBCs with 1+ bacteria, ethyl alcohol level 152. Past Medical History Past Medical History (Chronic Problems): Chronic Problems Type 2 diabetes mellitus (Chronic) Asthma (Chronic) GERD (gastroesophageal reflux disease) (Chronic) Depression (Chronic) Polysubstance (excluding opioids) dependence (Chronic) Morbid obesity (Chronic) HTN (hypertension) (Chronic) Anxiety state (Chronic) Allergies lisinopril [From Zestril] Allergy (Verified 01/11/21 16:44) Swelling tongue swelling losartan [From Cozaar] Allergy (Verified 01/11/21 16:44) Swelling carbamazepine [From Tegretol] Adverse Reaction (Verified 01/11/21 16:44) MENTAL STATUS CHANGE hydrochlorothiazide Adverse Reaction (Verified 01/11/21 16:44) Unknown Home Medications: Ambulatory Orders Medication Instructions Recorded Amlodipine [Norvasc] 10 mg PO DAILY 04/29/18 Cholecalciferol (Vitamin D3) 2,000 unit PO DAILY 04/29/18 [D3-2000] Duloxetine HCl 60 mg PO DAILY 04/29/18 Hydroxyzine HCl 25 mg PO BID PRN 04/29/18 Omeprazole [Prilosec] 20 mg PO DAILY 04/29/18 metFORMIN HCl [Glucophage] 500 mg PO BIDCM 04/29/18 Amitriptyline HCl 50 mg PO QHS 01/11/21 Carvedilol [Coreg] 6.25 mg PO BID 01/11/21 Furosemide [Lasix] 20 mg PO DAILY 01/11/21 Magnesium Oxide [Mag-Oxide] 400 mg PO DAILY 01/11/21 Surgical History: cholecystectomy, hysterectomy, tonsillectomy Psychiatric History: Anxiety, Depression 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 Per discussion with family she also misuses sleeping aids including NyQuil and sleeping pills of her spouse's. Drugs: None - *Family History Maternal History Items: Cancer - Mother with history of leukemia. Paternal History Items: Stroke Review of Systems Constitutional: Reports: Weakness, Fatigue. Denies: Anorexia, Chills, Fever, Malaise, Weight Change HEENT: Reports: Head Aches. Denies: Sinus Congestion, Sinus Drainage Cardiovascular: Denies: Chest Pain, Palpitations Respiratory: Denies: Cough, Shortness of Breath, Shortness of breath at rest, Shortness of breath upon exertion, Sputum production Gastrointestinal: Reports: Constipation, Diarrhea. Denies: Abdominal Pain, Nausea, Vomiting Genitourinary: Denies: Dysuria Musculoskeletal: Reports: Back Pain, Joint Pain. Denies: Joint Tenderness Skin: Denies: Rash, Wounds Neurological: Reports: Confusion. Denies: Focal weakness, Numbness, Tingling Psychiatric: Reports: Anxiety, Depression. Denies: Homicidal Ideations, Suicidal Ideations Hematologic/ Lymphatic: Reports: Anemia. Denies: Easy Bruising, Easy Bleeding VTE Information - Inpt Only VTE Present on Admission: No VTE Mechan Device Prophylaxis: SCD's VTE Pharm Prophylaxis ordered?: Yes Patient Problems: Active and Suspected Problems Alcohol intoxication (Acute) Desire for detoxification (Acute) Subjective: Patient seated upright in ED bed, no acute distress, at her baseline per discussion with her and her family. Objective: Physical Examination: General: awake, alert, oriented x [address], self, recent events although is not sure exactly what happened prompting ED presentation, remains cooperative, seated upright in the ED bed, no acute distress. Skin: normal color, turgor, no icterus, cyanosis. HEENT: AT/NC, EOMI, PERRLA, mildly dry MM, no carotid bruits or JVD noted. Lungs: CTA bilaterally, moderate effort, mild decrease BL bases, no rales, ronchi or wheezing. Heart: Regular rate and rhythm; no gallop, rub audible. Abdomen: soft, obese, NTTP, ND, normal BS, no HSM. Extremities: no cyanosis, clubbing, or edema. Neurological: patient awake, alert, oriented as noted; cognitive function improved, appears baseline intact; pupils equally reactive to light and accomodation; cranial nerves II-XII grossly normal, moving all 4 extremities, no focal deficits, strength mildly global decrease given acute presentation and underlying comorbidities. Psychiatric: affect appears mildly fatigued otherwise normal, no acute evidence of depressive or anxiety feelings but does have noted history. - Physical Exam Vitals/I&O's: Vital Signs Temp Pulse Resp BP Pulse Ox 98.3 F 93 20 H 117/70 94 01/11/21 16:41 01/11/21 18:52 01/11/21 18:52 01/11/21 18:52 01/11/21 18:52 Oxygen Flow Rate (L/min) 2 Oxygen Delivery Method Room Air Weight: 167 lb 12.348 oz Body Mass Index (BMI) 37.5 Finger Stick Blood Glucose 154 Laboratory Results 01/11/21 16:50: WBC 10.4, RBC 3.76 L, Hgb 11.1 L, Hct 35.6 L, MCV 94.7, MCH 29.5, MCHC 31.2 L, RDW Std Deviation 56.7 H, RDW Coeff of Felicia 16.9 H, Plt Count 408, MPV 9.2, Immature Gran % (Auto) 0.500, Neut % (Auto) 68.4, Lymph % (Auto) 18.0 L, [place] % (Auto) 9.6, Eos % (Auto) 2.6, Baso % (Auto) 0.9, Absolute Neuts (auto) 7.1, Absolute Lymphs (auto) 1.88, Nucleated RBC % 0 01/11/21 16:50: Sodium 138, Potassium 3.4 L, Chloride 103, Carbon Dioxide 25.0, Anion Gap 10, BUN 10, Creatinine 0.97, Estim Creat Clear Calc 55.57, Est GFR (MDRD) Af Amer 71, Est GFR (MDRD) Non-Af 59 L, BUN/Creatinine Ratio 10.3, Glucose 89, Calcium 9.2 01/11/21 16:50: Ethyl Alcohol 152.0 01/11/21 16:50: Total Bilirubin Pending, Direct Bilirubin Pending, AST Pending, ALT Pending, Alkaline Phosphatase Pending, Total Protein Pending, Albumin Pending 01/11/21 17:40: Urine Color Yellow, Urine Clarity Clear, Urine pH 6.5, Ur Specific [place] 1.005, Urine Protein Negative, Urine Glucose (UA) Normal, Urine Ketones Negative, Urine Occult Blood Negative, Urine Nitrite Negative, Urine Bilirubin Negative, Urine Urobilinogen Normal, Ur Leukocyte Esterase 25 H, Urine RBC 0 SEEN, Urine WBC 0 SEEN, Ur Squamous Epith Cells 0 SEEN, Urine Bacteria 1+, Urine Mucus 0 SEEN Assessment/Plan All Active Problems Alcohol intoxication (Acute) Desire for detoxification (Acute) The patient is a 80 y/o F w/ PMHx: Asthma, Anxiety and Depression/Panic attacks/Agoraphobia, Obesity, GERD, Diabetes mellitus type II, EtOH Abuse (cocktails, double, at least 2-4 daily) who presents to the [facility] ED on 01/11/21 with history of altered mental status noted to have laid down for nap and only awoke when the squad was bring her to the emergency room with nursing staff concern for oxygenation 84% although patient did not have oxygen on and is currently using 2 L nasal cannula at baseline which has been using for at least the last 6 months with episode per family of screaming and agitation. 1. Acute EtOH Withdrawal: Will admit to [facility], routine labs obtained in the ED upon presentation with noted hypokalemia and anemia, request hepatic profile as had not been obtained in the emergency room. Given interest in sobriety, will initiate and continue on protocol with taper course of Phenobarbital, scheduled gabapentin for seizure prophylaxis, as needed Catapres, Bentyl, Vistaril, IV fluids, IV antiemetics, Tylenol as needed for pain. Will consult Case management for assistance for transition to next level of rehabilitation care and likely her and her spouse will benefit from consideration of transition out of the home to assisted living in a very structured setting especially given underlying dementia history and her spouse who is the individual who gives her and makes her drinks. Mag, phos pending. Maintain on CIWA protocol concurrently. 2. Hypokalemia: Admission K+ 3.4, magnesium level pending as noted, supplementation given, repeat level in AM. 3. Normocytic anemia, chronic: Admission hemoglobin 11.1, baseline prior similar ranging 10-11 primarily, encourage continued outpatient work-up. 4. Hypertension: Continue home regimen including Norvasc, Coreg, Lasix, PRN hydralazine. 5. Obesity: Weight loss and lifestyle changes encouraged. 6. Diabetes mellitus type II: We will continue oral home regimen, ADA diet, accu checks w/ ISS. 7. Asthma: Not on any chronic inhalers, encourage head of bed, I-S, as needed albuterol. 8. GERD: We will continue home PPI. 9. Anxiety and depression/panic attacks/agoraphobia: We will continue patient home Cymbalta and amitriptyline regimen. Will benefit strongly from continued follow-up therapy. 10. DVT prophylaxis: SCDs, Lovenox. 11. CODE status: Patient SERA is her per discussion with her and her children as well as her and living will is currently in place. Discussed CODE status at length including difference between FULL code, DNR-CCA and DNR-CC status. Following discussions about the differences in these status, requested Full Code status. Discussed that these items especially given her spouse dementia should be updated as they have not been reviewed in nearly 20 years nor has the family discussed code status concepts. Advanced Care Planning Face to Face Time: 16 minutes. Inpatient E&M: 55484 Init Hosp L3 Procedures: 86476 Advncd Care Plan 30 Min
[2021-01-11 19:13] LABS: AST(SGOT) 196 U/L (15-37); Alanine Aminotransfer ALT/SGPT 115 U/L (13-56); Albumin, Serum 3.3 g/dL (3.2-5.0); Alkaline Phosphatase 431 U/L (45-117); Bilirubin, Direct 0.22 mg/dL (0.00-0.30); Globulin 3.6 g/dL (2.2-4.2); Protein, Total 6.9 g/dL (6.4-8.2)
--- NOTE | 2021-01-11 19:36 | CM.ED ---
SOCIAL WORK Updated by Dr. Jenkins, patient now agreeable to detox as daughter brought in for detox. Hospitalist has been jessicad. Maribell Nava, ADOPTION SERVICES MANAGER, MARKET SPECIALIST
--- NOTE | 2021-01-11 20:03 | CM.ED ---
SOCIAL WORK Call to [facility] Treatment Navigator to update on patient's admission to [facility]. No answer. left message. Maribell Nava MSW, MOBILE HOME PARK MANAGER
[2021-01-11] MEDS: Potassium Chloride Oral Tablet 20 MEQ 40 MEQ PO (20:50)
[2021-01-11] MEDS: 0.9% Saline Lock 10 ML Syringe IV (20:53)
[2021-01-11] MEDS: Lactated Ringers 1,000 ML 125 ML IV (20:54)
[2021-01-11 21:10] LABS: Magnesium 1.2 mg/dL (1.6-2.6); Phosphorus 2.7 mg/dL (2.5-4.9)
[2021-01-11] MEDS: Phenobarbital 32.4 MG Tablet 97.2 MG PO (21:49)
[2021-01-11] MEDS: Magnesium Sulfate 4gm/100mL 4 GM/100 ML IV.SOLN. IV (22:47)
[2021-01-11] MEDS: Amitriptyline 25 MG Tablet 50 MG PO (22:48)
[2021-01-11] MEDS: Carvedilol 6.25 MG Tablet PO (22:48)
[2021-01-11] MEDS: hydrOXYzine PAM 25 MG Capsule 50 MG PO (22:53)
[2021-01-11 22:55] LABS: Bedside Glucose 134 mg/dL (70-110)
[2021-01-12 01:01] VITALS: BP 153/56; PULSE 108; RESP 18; TEMP 37; O2SAT 97
[2021-01-12] MEDS: Gabapentin 100 MG Capsule 200 MG PO (01:05)
[2021-01-12] MEDS: Phenobarbital 32.4 MG Tablet 97.2 MG PO ×5 (01:05→16:31)
[2021-01-12 05:34] VITALS: BP 142/73; PULSE 80; RESP 16; TEMP 36.4; O2SAT 96
[2021-01-12] MEDS: hydrOXYzine PAM 25 MG Capsule 50 MG PO (05:39)
[2021-01-12 06:46] LABS: Bedside Glucose 113 mg/dL (70-110)
[2021-01-12 07:04] LABS: AST(SGOT) 74 U/L (15-37); Alanine Aminotransfer ALT/SGPT 94 U/L (13-56); Albumin, Serum 2.9 g/dL (3.2-5.0); Alkaline Phosphatase 381 U/L (45-117); Anion Gap 4 (5-15); BUN 12 mg/dL (7-18); BUN/Creat Ratio 14.6 RATIO (10-20); Chloride 105 mmol/L (98-107); Creatinine, Serum 0.82 mg/dL (0.55-1.02); EST Glomerular Filtration Rate 71 mL/min (>60); Est Glom Filt Rate - Afr Amer 86 mL/min (>60); Estimated Creatinine Clearance 63.58 ml/min; Glucose 110 mg/dL (74-106); Magnesium 2.7 mg/dL (1.6-2.6); Potassium 3.4 mmol/L (3.5-5.1); Protein, Total 5.9 g/dL (6.4-8.2); Sodium Level 138 mmol/L (136-145)
[2021-01-12 07:11] VITALS: O2SAT 96
[2021-01-12 09:48] VITALS: BP 132/80; PULSE 80; RESP 16; TEMP 36.6; O2SAT 93
--- NOTE | 2021-01-12 09:53 | ADDICTION ---
This keno writer/runner met with PT in her room to complete ASAM,, MSE, AUDIT assessments and to plan for d/c. PT plans to follow-up with a woman who does counseling that she has seen before. PT not interested in follow-up and will d/c to home if appropriate. Assessments completed, faxed to [facility] and placed in PT's chart.
[2021-01-12] MEDS: Folic Acid 1 MG Tablet PO (09:58)
[2021-01-12] MEDS: metFORMIN HCl 500 MG Tablet PO ×2 (09:59→16:31)
[2021-01-12] MEDS: Thiamine Hydrochloride 100 MG Tablet PO (09:59)
[2021-01-12] MEDS: DULoxetine Hcl 60 MG Capsule PO (10:00)
[2021-01-12] MEDS: Carvedilol 6.25 MG Tablet PO ×2 (10:00→21:53)
[2021-01-12] MEDS: Furosemide 20 MG Tablet PO (10:01)
[2021-01-12] MEDS: Magnesium Chloride 64 MG Delay Rel.Tablet 128 MG PO (10:01)
[2021-01-12] MEDS: Pantoprazole Sodium 20 MG Tablet PO (10:02)
[2021-01-12] MEDS: amLODIPine 10 MG Tablet PO (10:02)
--- NOTE | 2021-01-12 14:01 | CASEMGMT ---
Social Work SW met with pt in room and introduced self and role of SW. Pt sitting in bed agreeable to talk with SW. Pt stating that she lives at home with her and both she and her were brought to the hospital and talked into the alcohol program by their daughter. SW inquired about plans to followup for alcohol treatment and pt denies that she will be following up as out patient. She did states she will talk to her counselor who is supportive of her. Pt does admit that she likes to drink gin and tonic but probably drinks too much and shoulf cut back. Pt does not answer when asked how much and how often she drinks. SW inquired about home situation and pt denies any needs at this time. Pt states she is able to care for herself and does the meal prep, although not much actual cooking any longer. Pt stating she feels safe in her home and does not feel threatened by anyone. Pt does not drive but relies on her for transportation. Pt does state falls at home and she also falls. SW inquired about home health services. Pt states she has had home health in the past with [facility] but denies wanting to restart this service. SW inquired about possibility of Assisted Living. Pt states she has been thinking this is a good idea but spouse is not ready to talk about it yet. SW provided list of area Assisted Livings. Pt appreciative of information. At this time pt denying any additional needs at discharge. WALESKA Lynch updated on pt interaction. WALESKA Giron
[2021-01-12 15:26] VITALS: BP 107/77; PULSE 68; RESP 16; TEMP 36.7; O2SAT 95
--- NOTE | 2021-01-12 15:38 | CASEMGMT ---
SW spoke with pt regarding Advance Directives. Pt confirms that she has recently completed both documents although she is unable to remember who she appointed as her HCPOA. Pt notified that documents are not in [facility] records and request they be brought in when able. WALESKA Giron
[2021-01-12 16:35] LABS: Bedside Glucose 124 mg/dL (70-110)
--- NOTE | 2021-01-12 17:05 | PCM.PROGNOTE ---
Patient Problems: Active and Suspected Problems Alcohol intoxication (Acute) Desire for detoxification (Acute) Subjective: Patient was seen and examined today, there is been some discussion about how much the patient actually drinks at home-it may be as few as 3-4 drinks a day after talking with social work msw and nursing. Patient does not seem to be undergoing active withdrawal at this time, she does not appear to be tremorous or nervous, if anything she appears to be mildly sedated. I have elected to stop her phenobarb taper and put her on programmed phenobarbital which I will further decrease tomorrow if the patient remains asymptomatic. - Physical Exam Vitals/I&O's: Vital Signs Temp Pulse Resp BP Pulse Ox 98.0 F 68 16 107/77 95 01/12/21 15:26 01/12/21 15:26 01/12/21 15:26 01/12/21 15:26 01/12/21 15:26 Oxygen Flow Rate (L/min) 2 Oxygen Delivery Method Nasal Cannula Weight: 73.6 kg Body Mass Index (BMI) 35.7 Finger Stick Blood Glucose 154 Intake and Output for Last 24 Hours 01/10/21 01/11/21 01/12/21 23:59 23:59 23:59 Intake Total 435.42 / 435.42 1064.58 / 1064.58 Output Total 100 / 100 300 / 300 Balance 335.42 / 335.42 764.58 / 764.58 General: Alert, Oriented x3, Cooperative, No apparent distress, - - Patient is mildly somnolent HEENT: Atraumatic, PERRLA, EOMI, Normocephalic Oral: Moist Mucosa Neck: Supple, No JVD, Trachea Midline, Thyroid Normal Size and Texture Lungs: Clear to auscultation, Normal air movement, No rhonchi, No wheeze, No rales Cardiovascular: Regular rate, Regular Rhythm, Normal S1, Normal S2, No murmurs, PMI Normal, No rub noted, No Gallop Abdomen: Bowel Sounds Present, Soft, Non Tender, Non-Distended Extremities: No clubbing, No cyanosis, No edema, Capillary Refill Less than 3 Seconds Skin: No rashes, No breakdown Musculoskeletal: No Tenderness to Palpation of Joints or Extremities Neurological: Cranial nerves II-XII grossly intact, Neuro grossly intact, Sensory exam intact to light touch and pain, Coordination normal Psych/Mental Status: Normal Affect, Appropriate Laboratory Results 01/11/21 16:50: Sodium 138, Potassium 3.4 L, Chloride 103, Carbon Dioxide 25.0, Anion Gap 10, BUN 10, Creatinine 0.97, Estim Creat Clear Calc 55.57, Est GFR (MDRD) Af Amer 71, Est GFR (MDRD) Non-Af 59 L, BUN/Creatinine Ratio 10.3, Glucose 89, Calcium 9.2 01/11/21 16:50: Ethyl Alcohol 152.0 01/11/21 16:50: Total Bilirubin 0.50, Direct Bilirubin 0.22, AST 196 H, ALT 115 H, Alkaline Phosphatase 431 H, Total Protein 6.9, Albumin 3.3, Globulin 3.6 01/11/21 16:50: Phosphorus 2.7, Magnesium 1.2 L 01/11/21 17:40: Urine Color Yellow, Urine Clarity Clear, Urine pH 6.5, Ur Specific [place] 1.005, Urine Protein Negative, Urine Glucose (UA) Normal, Urine Ketones Negative, Urine Occult Blood Negative, Urine Nitrite Negative, Urine Bilirubin Negative, Urine Urobilinogen Normal, Ur Leukocyte Esterase 25 H, Urine RBC 0 SEEN, Urine WBC 0 SEEN, Ur Squamous Epith Cells 0 SEEN, Urine Bacteria 1+, Urine Mucus 0 SEEN 01/11/21 22:46: POC Glucose 134 H 01/12/21 05:45: Sodium 138, Potassium 3.4 L, Chloride 105, Carbon Dioxide 29.0, Anion Gap 4 L, BUN 12, Creatinine 0.82, Estim Creat Clear Calc 63.58, Est GFR (MDRD) Af Amer 86, Est GFR (MDRD) Non-Af 71, BUN/Creatinine Ratio 14.6, Glucose 110 H, Calcium 9.0, Magnesium 2.7 H, Total Bilirubin 0.40, AST 74 H, ALT 94 H, Alkaline Phosphatase 381 H, Total Protein 5.9 L, Albumin 2.9 L, Globulin 3.0, Albumin/Globulin Ratio 1.0 01/12/21 06:36: POC Glucose 113 H 01/12/21 16:29: POC Glucose 124 H Current Medications Acetaminophen (Acetaminophen 500 Mg Tablet) 650 mg PO Q4H PRN PRN PRN Reason: Temp > 100.4 F Amitriptyline HCl (Amitriptyline 25 Mg Tablet) 50 mg PO QHS [facility] Last Admin: 01/11/21 22:48 Dose: 50 mg Documented by: Amlodipine Besylate (Amlodipine 10 Mg Tablet) 10 mg PO DAILY [facility] Last Admin: 01/12/21 10:02 Dose: 10 mg Documented by: Bisacodyl (Bisacodyl 10 Mg Suppository) 10 mg RC DAILY PRN PRN Reason: Constipation Carvedilol (Carvedilol 6.25 Mg Tablet) 6.25 mg PO BID [facility] Last Admin: 01/12/21 10:00 Dose: 6.25 mg Documented by: Cholecalciferol (Cholecalciferol (Vit D3) 1,000 Unit (25mcg)) 2,000 unit PO DAILY [facility] Last Admin: 01/12/21 10:02 Dose: 2,000 unit Documented by: Duloxetine HCl (Duloxetine Hcl 60 Mg Capsule) 60 mg PO DAILY [facility] Last Admin: 01/12/21 10:00 Dose: 60 mg Documented by: Folic Acid (Folic Acid 1 Mg Tablet) 1 mg PO DAILY@0800 [facility] Last Admin: 01/12/21 09:58 Dose: 1 mg Documented by: Furosemide (Furosemide 20 Mg Tablet) 20 mg PO DAILY [facility] Last Admin: 01/12/21 10:01 Dose: 20 mg Documented by: Insulin Human Lispro (Insulin Lispro 100 Unit/Ml Insuln.Pen) 0 unit SC [facility]; Protocol Last Admin: 01/12/21 16:31 Dose: Not Given Documented by: Magnesium Chloride (Magnesium Chloride 64 Mg Delay Rel.Tablet) 128 mg PO DAILY [facility] Last Admin: 01/12/21 10:01 Dose: 128 mg Documented by: Metformin HCl (Met[facility] Hcl 500 Mg Tablet) [facility] Admin: 01/12/21 16:31 Dose: 500 mg Documented by: Ondansetron HCl (Ondansetron 8 Mg Tablet) 8 mg PO Q8H PRN PRN PRN Reason: NAUSEA Pantoprazole Sodium (Pantoprazole Sodium 20 Mg Tablet) 20 mg PO DAILY [facility] Last Admin: 01/12/21 10:02 Dose: 20 mg Documented by: Phenobarbital (Phenobarbital 16.2 Mg Tablet) 32.4 mg PO 4X/DAY [facility] Sodium Chloride (0.9% Saline Lock 10 Ml Syringe) 10 - 40 ml IV UD PRN PRN Reason: SALINE FLUSH Last Admin: 01/11/21 20:53 Dose: 10 ml Documented by: Thiamine HCl (Thiamine Hydrochloride 100 Mg Tablet) 100 mg PO DAILYCM [facility] Last Admin: 01/12/21 09:59 Dose: 100 mg Documented by: Medical Necessity - Tobacco Use Smoking Status: Never smoker Tobacco Use: Non-smoker Assessment/Plan All Active Problems Alcohol intoxication (Acute) Desire for detoxification (Acute) #1 alcohol withdrawal-patient exhibits mild symptoms at this point again I have decided to change her phenobarb taper and observe the patient, patient states that she does not want to go into an inpatient alcohol detox program she wants to follow-up as an outpatient with outpatient detox programs. #2 chronic alcoholism #3 type 2 diabetes-blood sugars have been controlled, I will reevaluate the need to perform fingerstick blood sugars tomorrow after looking at her blood sugars for the next 24 hours. #4 chronic depression #5 essential hypertension #6 chronic anxiety Inpatient E&M: 41944 Subs Hosp L2
--- NOTE | 2021-01-12 17:07 | CASEMGMT ---
Social Work Note SW received call from Dr. Pond who admitted pt last night and spoke with pt's daughter. Pt's daughter had relayed concerns to Dr. Pond including pt taking her 's medications and pt's driving while intoxicated. Dr. Pond states she called pt's PCP regarding concerns. JAYSHREE updated that pt's daughter Mariaelena would like to be called for update ([phone]). SW in to speak with pt. JAYSHREE introduced self and role at [facility]. JAYSHREE asked pt if this worker could call Mariaelena back, pt gave this worker permission to do so. JAYSHREE spoke with RN, pt is independent/stand by assist in room. JAYSHREE placed a call to Mariaelena. Mariaelena states pt has been addicted to something her whole life. Mariaelena states in the 20s pt started taking Barbiturates. Mariaelena states pt has the mindset of there's a pill for everything. Mariaelena states she spoke with pt's PCP (Dr. Dominguez) about pill use and when PCP cut back off pain pills pt started drinking. Mariaelena states that is how pt margarita, with drinking. Mariaelena states pt drinks everyday and drink lots. Mariaelena states whatever pt told you, double it and that is probably what she drinks. Mariaelena states when pt found out she had called PCP's office it changed her and pt's relationship. Mariaelena states when she found pt the other day pt was laying in bed, pt was angry and screaming and stated why do you always do this to me. Mariaelena states she had just walked into pt's room. Mariaelena states that pt is not currently seeing a counselor and it's been over a year since pt has seen a counselor. Mariaelena states pt is pretty adamant about not doing counseling. Mariaelena states pt has been in [facility] detox before and has been to [facility]. JAYSHREE informed Mariaelena that pt was spoken to about HHC and Assisted Living and at this time pt denied. Mariaelena asked if pt would be able to go to SNF. JAYSHREE informed Mariaelena that pt wouldn't qualify for SNF plus pt would have to be agreeable. JAYSHREE informed Mariaelena that an APS referral will be made at discharge for pt. JAYSHREE also updated Mariaelena that Dr. Pond did call pt's PCP Dr. Dominguez regarding concerns as well. Mariaelena states understanding, denied additional needs or concerns at this time. SW to remain available if additional needs or concerns arise. SW to make APS referral at discharge. Lora Guevara MARKETING SEGMENT MANAGER, CAGE MAKER MACHINE
[2021-01-12 21:44] VITALS: BP 137/77; PULSE 86; RESP 18; TEMP 37; O2SAT 96
[2021-01-12] MEDS: Amitriptyline 25 MG Tablet 50 MG PO (21:53)
[2021-01-12] MEDS: Acetaminophen 500 MG Tablet 650 MG PO (21:56)
[2021-01-12 22:06] LABS: Bedside Glucose 105 mg/dL (70-110)
[2021-01-13 00:11] LABS: Bedside Glucose 115 mg/dL (70-110)
[2021-01-13 03:43] VITALS: BP 152/69; PULSE 89; RESP 20; TEMP 36.8; O2SAT 96
[2021-01-13 06:35] LABS: Bedside Glucose 121 mg/dL (70-110)
[2021-01-13 07:32] VITALS: O2SAT 93
[2021-01-13 08:09] VITALS: BP 159/87; PULSE 83; RESP 16; TEMP 36.6; O2SAT 96
[2021-01-13] MEDS: Folic Acid 1 MG Tablet PO (08:22)
[2021-01-13] MEDS: metFORMIN HCl 500 MG Tablet PO ×2 (08:23→16:47)
[2021-01-13] MEDS: Thiamine Hydrochloride 100 MG Tablet PO (08:23)
--- NOTE | 2021-01-13 09:00 | CASEMGMT ---
Social Work Note JAYSHREE received call from pt's daughter Mariaelena. Mariaelena states she and her brother and sister had a meeting last night and wanted to inform this worker of the conversation. Mariaelena states she spoke with doctor this morning about COVID vaccinations for pt and was informed pt will be released tomorrow afternoon. Mariaelena states she would like this worker to address the following to pt. Mariaelena asked this worker to let pt know that her 3 children love her and are looking out for her safety and health. Mariaelena states they have taken all of the alcohol and paraphernalia out of the home and pt and her will be returning to a sober living environment, they are taking the car away as pt's shouldn't be driving, they will be ordering groceries online, and her three children really want to see her in counseling. JAYSHREE informed Mariaelena that all of that information should be coming from pt's family not this SW. Mariaelena asked how can get relay this information if pt has no phone. JAYSHREE informed Mariaelena that once pt returns home, they can have a family meeting. Mariaelena asked if this worker could just mention the things to buffer the news to pt. Mariaelena asked if pt could do in home counseling. JAYSHREE informed Mariaelena that pt has to be agreeable and has to mention it to [employer] that she is agreeable. JAYSHREE informed Mariaelena that [employer] should be back in to see pt today. SW in to speak with pt. JAYSHREE updated pt that Mariaelena had called in today and wanted pt to be informed that there will be some changes when pt returns home. JAYSHREE also informed pt that if she wants to do counseling at discharge then she needs to tell [employer] when they come in to see pt. Pt states understanding. Lora Guevara GEAR KEEPER, ELECTRICAL INSTALLER
[2021-01-13] MEDS: Furosemide 20 MG Tablet PO (09:38)
[2021-01-13] MEDS: amLODIPine 10 MG Tablet PO (09:38)
[2021-01-13] MEDS: DULoxetine Hcl 60 MG Capsule PO (09:38)
[2021-01-13] MEDS: Carvedilol 6.25 MG Tablet PO ×2 (09:38→21:26)
[2021-01-13] MEDS: Pantoprazole Sodium 20 MG Tablet PO (09:38)
[2021-01-13] MEDS: Magnesium Chloride 64 MG Delay Rel.Tablet 128 MG PO (09:38)
[2021-01-13 11:36] LABS: Bedside Glucose 98 mg/dL (70-110)
[2021-01-13 17:21] LABS: Bedside Glucose 100 mg/dL (70-110)
--- NOTE | 2021-01-13 17:28 | PCM.PROGNOTE ---
Patient Problems: Active and Suspected Problems Alcohol intoxication (Acute) Desire for detoxification (Acute) Subjective: Patient was seen and examined today, she does not appear nervous or anxious, I had a long discussion with her daughter by phone today, her daughter states that the patient has a habit of taking multiple drugs and does not take care of her home or her . Patient told the ironing worker yesterday that she was following up with a counselor that she has been in contact with-according to the daughter the patient does not have a counselor. Patient's daughter states she and her siblings are going to remove all alcohol from the house and take away the car keys due to the fact the has dementia. Patient does not drive. - Physical Exam Vitals/I&O's: Vital Signs Temp Pulse Resp BP Pulse Ox 97.8 F 83 16 159/87 H 96 01/13/21 08:09 01/13/21 08:09 01/13/21 08:09 01/13/21 08:09 01/13/21 08:09 Oxygen Flow Rate (L/min) 2 Oxygen Delivery Method Nasal Cannula Weight: 73.6 kg Body Mass Index (BMI) 35.7 Finger Stick Blood Glucose 154 Intake and Output for Last 24 Hours 01/11/21 01/12/21 01/13/21 23:59 23:59 23:59 Intake Total 435.42 / 435.42 1064.58 / 1584.58 570 / 570 Output Total 100 / 100 300 / 300 200 / 200 Balance 335.42 / 335.42 764.58 / 1284.58 370 / 370 General: Alert, Oriented x3, Cooperative, No apparent distress, Well developed, Well nourished HEENT: Atraumatic, PERRLA, EOMI, Normocephalic Oral: Moist Mucosa Neck: Supple, No JVD, Trachea Midline, Thyroid Normal Size and Texture Lungs: Clear to auscultation, Normal air movement, No rhonchi, No wheeze, No rales Cardiovascular: Regular rate, Regular Rhythm, Normal S1, Normal S2, No murmurs, PMI Normal, No rub noted, No Gallop Abdomen: Bowel Sounds Present, Soft, Non Tender, Non-Distended, No hernias noted Extremities: No clubbing, No cyanosis, No edema, Capillary Refill Less than 3 Seconds Skin: No rashes, No breakdown Musculoskeletal: No Tenderness to Palpation of Joints or Extremities Neurological: Cranial nerves II-XII grossly intact, Neuro grossly intact, Sensory exam intact to light touch and pain Psych/Mental Status: Normal Affect, Appropriate, Alert and oriented to time, place, person, mood and affect Laboratory Results 01/12/21 11:23: POC Glucose 115 H 01/12/21 21:52: POC Glucose 105 01/13/21 06:32: POC Glucose 121 H 01/13/21 11:09: POC Glucose 98 01/13/21 16:46: POC Glucose 100 Current Medications Acetaminophen (Acetaminophen 500 Mg Tablet) 650 mg PO Q4H PRN PRN PRN Reason: Temp > 100.4 F Last Admin: 01/12/21 21:56 Dose: 500 mg Documented by: Amitriptyline HCl (Amitriptyline 25 Mg Tablet) 50 mg PO QHS [facility] Last Admin: 01/12/21 21:53 Dose: 50 mg Documented by: Amlodipine Besylate (Amlodipine 10 Mg Tablet) 10 mg PO DAILY [facility] Last Admin: 01/13/21 09:38 Dose: 10 mg Documented by: Bisacodyl (Bisacodyl 10 Mg Suppository) 10 mg RC DAILY PRN PRN Reason: Constipation Carvedilol (Carvedilol 6.25 Mg Tablet) 6.25 mg PO BID [facility] Last Admin: 01/13/21 09:38 Dose: 6.25 mg Documented by: Cholecalciferol (Cholecalciferol (Vit D3) 1,000 Unit (25mcg)) 2,000 unit PO DAILY [facility] Last Admin: 01/13/21 09:39 Dose: 2,000 unit Documented by: Duloxetine HCl (Duloxetine Hcl 60 Mg Capsule) 60 mg PO DAILY [facility] Last Admin: 01/13/21 09:38 Dose: 60 mg Documented by: Folic Acid (Folic Acid 1 Mg Tablet) 1 mg PO DAILY@0800 [facility] Last Admin: 01/13/21 08:22 Dose: 1 mg Documented by: Furosemide (Furosemide 20 Mg Tablet) 20 mg PO DAILY [facility] Last Admin: 01/13/21 09:38 Dose: 20 mg Documented by: Insulin Human Lispro (Insulin Lispro 100 Unit/Ml Insuln.Pen) 0 unit SC [facility]; Protocol Last Admin: 01/13/21 16:46 Dose: Not Given Documented by: Magnesium Chloride (Magnesium Chloride 64 Mg Delay Rel.Tablet) 128 mg PO DAILY [facility] Last Admin: 01/13/21 09:38 Dose: 128 mg Documented by: Metformin [facility] ([facility] Hcl [facility] Mg [facility]t) [facility] Last Admin: 01/13/21 16:47 Dose: 500 mg Documented by: Ondansetron HCl (Ondansetron 8 Mg Tablet) 8 mg PO Q8H PRN PRN PRN Reason: NAUSEA Pantoprazole Sodium (Pantoprazole Sodium 20 Mg Tablet) 20 mg PO DAILY [facility] Last Admin: 01/13/21 09:38 Dose: 20 mg Documented by: Phenobarbital (Phenobarbital 16.2 Mg Tablet) 32.4 mg PO Q6H [facility] Last Admin: 01/13/21 16:47 Dose: 32.4 mg Documented by: Sodium Chloride (0.9% Saline Lock 10 Ml Syringe) 10 - 40 ml IV UD PRN PRN Reason: SALINE FLUSH Last Admin: 01/11/21 20:53 Dose: 10 ml Documented by: Thiamine HCl (Thiamine Hydrochloride 100 Mg Tablet) [facility] Last Admin: 01/13/21 08:23 Dose: 100 mg Documented by: Medical Necessity - Tobacco Use Smoking Status: Never smoker Tobacco Use: Non-smoker Assessment/Plan All Active Problems Alcohol intoxication (Acute) Desire for detoxification (Acute) Morbid obesity (Resolved) #1 alcohol withdrawal-patient exhibits mild symptoms at this point, I have decided to taper the patient's phenobarb again #2 chronic alcoholism-it appears that the patient is not sincere about wanting to quit drinking (according to the daughter) and due to the fact that she is lying about outpatient follow-up. #3 type 2 diabetes-blood sugars have been controlled, I will stop the patient's fingerstick blood sugars #4 chronic depression #5 essential hypertension #6 chronic anxiety Inpatient E&M: 45024 Subs Hosp L2
[2021-01-13 20:29] VITALS: BP 125/94; PULSE 87; RESP 18; TEMP 37.3; O2SAT 99
[2021-01-13] MEDS: Amitriptyline 25 MG Tablet 50 MG PO (21:26)
[2021-01-14 02:00] VITALS: BP 160/63; PULSE 86; RESP 18; TEMP 36.6; O2SAT 96
[2021-01-14 07:57] VITALS: BP 177/89; PULSE 82; RESP 18; TEMP 36.8; O2SAT 99
[2021-01-14] MEDS: amLODIPine 10 MG Tablet PO (08:02)
[2021-01-14] MEDS: Thiamine Hydrochloride 100 MG Tablet PO (08:02)
[2021-01-14] MEDS: Carvedilol 6.25 MG Tablet PO (08:02)
[2021-01-14] MEDS: Folic Acid 1 MG Tablet PO (08:02)
[2021-01-14] MEDS: metFORMIN HCl 500 MG Tablet PO (08:02)
[2021-01-14] MEDS: BENZOCAINE/MENTHOL 1 LOZENGE 2 LOZENGE MUCOUS MEM (08:03)
[2021-01-14 08:27] VITALS: BP 167/85; PULSE 80; RESP 14; TEMP 36.7; O2SAT 98
[2021-01-14] MEDS: Phenobarbital 32.4 MG Tablet PO (09:31)
[2021-01-14 09:33] VITALS: RESP 14
[2021-01-14] MEDS: Furosemide 20 MG Tablet PO (10:53)
[2021-01-14] MEDS: Magnesium Chloride 64 MG Delay Rel.Tablet 128 MG PO (10:53)
[2021-01-14] MEDS: DULoxetine Hcl 60 MG Capsule PO (10:53)
[2021-01-14] MEDS: Pantoprazole Sodium 20 MG Tablet PO (10:53)
--- NOTE | 2021-01-14 11:04 | ADDICTION ---
This justowriter operator was asked to f/u with PT as her family provided more detailed information to [facility] staff. This justowriter operator inquired about PT's engagement in counseling as her daughter shared with staff that PT is not in counseling. PT stated that I haven't talked to her in awhile but I am going to call her when I get out of here. PT states that she does not want a referral to any agencies in the area as she likes my counselor. This justowriter operator provided PT with business card in case she wants to follow-up post d/c.
--- NOTE | 2021-01-14 12:43 | DCINST_ITS ---
- Discharge Diagnoses Current Active Problems: Current Active and Chronic Problems Alcohol intoxication (Acute) Desire for detoxification (Acute) Type 2 diabetes mellitus (Chronic) Asthma (Chronic) GERD (gastroesophageal reflux disease) (Chronic) Depression (Chronic) HTN (hypertension) (Chronic) Anxiety state (Chronic) You will use the following diet at home:: Calorie/Carbohydrate Controlled (specify 1200, 1400, etc) - 1800 rosalinda Your food should be the consistency of: Regular Your liquids should be the consistency of: Regular/Thin Discharge Activity: Return to Normal Activity Weight Bearing Status: Full weight bearing Allergies/Adverse Reactions: Allergies lisinopril [From Zestril] Allergy (Verified 01/11/21 16:44) Swelling tongue swelling losartan [From Cozaar] Allergy (Verified 01/11/21 16:44) Swelling carbamazepine [From Tegretol] Adverse Reaction (Verified 01/11/21 16:44) MENTAL STATUS CHANGE hydrochlorothiazide Adverse Reaction (Verified 01/11/21 19:09) confusion Medications to take at Discharge Amlodipine [Norvasc] 10 mg PO DAILY 04/29/18 Cholecalciferol (Vitamin D3) [D3-2000] 2,000 unit PO DAILY 04/29/18 Duloxetine HCl 60 mg PO DAILY 04/29/18 Omeprazole [Prilosec] 20 mg PO DAILY 04/29/18 metFORMIN HCl [Glucophage] 500 mg PO BIDCM 04/29/18 Amitriptyline HCl 50 mg PO QHS 01/11/21 Carvedilol [Coreg (Beta Augie)] 6.25 mg PO BID 01/11/21 Furosemide [Lasix] 20 mg PO DAILY 01/11/21 Magnesium Oxide [Mag-Oxide] 400 mg PO DAILY 01/11/21 Acetaminophen [Tylenol] 650 mg PO Q4H PRN PRN tablet 01/14/21 Primary Care Physician: Blayne Dominguez III, MD [Primary Care Provider] - Please follow up with your Primary Care Physician in: in 7-10 days Test Results: Test results from this visit will be discussed in further detail at your follow- up appointment, if applicable. Please Follow Up With: alcohol detox services When: as soon as possible
[2021-01-14 14:56] VITALS: BP 159/90; PULSE 90; RESP 18; TEMP 36.8; O2SAT 92
[2021-01-14 15:00] VITALS: BP 159/90; PULSE 90; RESP 18; TEMP 36.8; O2SAT 92
--- NOTE | 2021-01-14 18:32 | PCM.DC.SUM ---
Discharge Date and Diagnosis - Problem List Patient Problems: Active and Suspected Problems Alcohol intoxication (Acute) Desire for detoxification (Acute) Date of Admission: 01/11/21 Date of Discharge: 01/14/21 - Primary Discharge Diagnosis Acute Problems: Active Problems #1 alcohol withdrawal #2 chronic alcoholism #3 type 2 diabetes- #4 chronic depression #5 essential hypertension #6 chronic anxiety #7 alcohol intoxication - Secondary Discharge Diagnosis Chronic Problems: Chronic Problems Type 2 diabetes mellitus (Chronic) Asthma (Chronic) GERD (gastroesophageal reflux disease) (Chronic) Depression (Chronic) Polysubstance (excluding opioids) dependence (Chronic) HTN (hypertension) (Chronic) Anxiety state (Chronic) Hospital Course and Treatment Operations: None Procedures: None Summary of Care Provided: The patient is a 80 year old F seen in the emergency room at [facility] after being brought in by EMS secondary to altered mental status, patient states that she laid down to take a nap and then the next thing she knew the squad was there to bring her to the hospital. She has home oxygen at home and normally wears 2 L but according to family members, she does not wear her oxygen reliably. Her oxygen saturations noted to be 84% on room air, when she was picked up to take to the hospital she was not wearing her oxygen at the house. Work-up in the emergency room included a CBC that was remarkable for hemoglobin of 11.1, patient's potassium was slightly low at 3.4, urinalysis showed +1 bacteria but was otherwise unremarkable. Patient's tox screen was positive for an alcohol level of 152. Patient was admitted to [place] [id number] into the alcohol detox program here at the hospital, she was placed on phenobarb for alcohol withdrawal and she was seen in consultation by addiction outreach and education social worker. Patient told the addiction social horticultural services supervisor that she was following up as an outpatient with a counselor which was untrue according to the patient's daughter. I had discussion with the patient's daughter who stated that the patient has a history of taking as much medication as she can get a hold of at home and she drinks as many as 8 drinks in a day at home. Patient had minimal withdrawal symptoms during her hospitalization, on 01/14/2021, she was seen and examined: On examination she appeared in good health and spirits, she does not appear to be in any distress. Vital signs as documented. Skin warm and dry and without overt rashes. Neck without JVD, thyroid appears normal, trachea is midline, neck is supple. Lungs clear, normal air movement was noted. Heart exam notable for regular rhythm, normal sounds and absence of murmurs, rubs or gallops. Abdomen unremarkable and without evidence of organomegaly, masses, or abdominal aortic enlargement, bowel sounds are present in all 4 quadrants, no abdominal tenderness was noted. Extremities nonedematous, no cyanosis was noted, no clubbing was noted. Neuro: Cranial nerves II through XII are grossly intact, no focal motor deficits were noted, sensation to light touch and pinprick is intact, motor exam 5/5 throughout. Psych: Patient is alert and oriented x3, she does not appear anxious or depressed, she does not appear agitated. I had discussions with the patient's daughter who is her POA, the patient's daughter stated that she was going to remove all alcohol from her home intake her 's car keys away (he has dementia) and they were going to remove any medications that the patient could use inappropriately. Patient was discharged in stable condition on 01/14/2021. Patient Problems: Active and Suspected Problems Alcohol intoxication (Acute) Desire for detoxification (Acute) - Physical Exam Vitals/I&O's: Vital Signs Temp Pulse Resp BP Pulse Ox 98.2 F 90 18 159/90 H 92 01/14/21 15:00 01/14/21 15:00 01/14/21 15:00 01/14/21 15:00 01/14/21 15:00 Oxygen Flow Rate (L/min) 2 Oxygen Delivery Method Nasal Cannula Weight: 73.6 kg Body Mass Index (BMI) 35.7 Finger Stick Blood Glucose 154 Intake and Output for Last 24 Hours 01/12/21 01/13/21 01/14/21 23:59 23:59 23:59 Intake Total 1064.58 / 1584.58 1020 / 1020 250 / 250 Output Total 300 / 300 750 / 750 1500 / 1500 Balance 764.58 / 1284.58 270 / 270 -1250 / -1250 Discharge Activity: Return to Normal Activity Weight Bearing Status: Full weight bearing Home Medications: Medications to take at Discharge Amlodipine [Norvasc] 10 mg PO DAILY 04/29/18 Cholecalciferol (Vitamin D3) [D3-2000] 2,000 unit PO DAILY 04/29/18 Duloxetine HCl 60 mg PO DAILY 04/29/18 Omeprazole [Prilosec] 20 mg PO DAILY 04/29/18 metFORMIN HCl [Glucophage] 500 mg PO BIDCM 04/29/18 Amitriptyline HCl 50 mg PO QHS 01/11/21 Carvedilol [Coreg (Beta Augie)] 6.25 mg PO BID 01/11/21 Furosemide [Lasix] 20 mg PO DAILY 01/11/21 Magnesium Oxide [Mag-Oxide] 400 mg PO DAILY 01/11/21 Acetaminophen [Tylenol] 650 mg PO Q4H PRN PRN tab 01/14/21 Primary Care Physician: Blayne Dominguez III, MD [Primary Care Provider] - Please follow up with your Primary Care Physician in: in 7-10 days Please Follow Up With: alcohol detox services When: as soon as possible Disposition: Home Minutes spent on discharge:: 32 Patient Condition:: Stable Medical Necessity - Tobacco Use Smoking Status: Never smoker Tobacco Use: Non-smoker Meaningful Use Info Meaningful Use Diagnoses (Choose all that apply): None applicable Inpatient E&M: 82362 Disch Hosp
== END 2021-01-14 15:01 | disposition home or self-care (01) | DRG 897 ==
LOC: ED 18:38 → MS3 19:39
PROVIDERS: Admitting Provider Family Medicine; Emergency Provider Emergency Medicine; PCP Family Medicine; Visit Provider Internal Medicine
DX: F10.239 Alcohol dependence with withdrawal, unspecified (principal); F19.20 Other psychoactive substance dependence, uncomplicated; F10.229 Alcohol dependence with intoxication, unspecified; J45.909 Unspecified asthma, uncomplicated; K21.9 Gastro-esophageal reflux disease without esophagitis; F32.9 Major depressive disorder, single episode, unspecified; I10 Essential (primary) hypertension; F41.9 Anxiety disorder, unspecified; E11.9 Type 2 diabetes mellitus without complications; E66.01 Morbid (severe) obesity due to excess calories; Z66 Do not resuscitate; D64.9 Anemia, unspecified; E87.6 Hypokalemia; F03.90 Unspecified dementia, unspecified severity, without behavioral disturbance, psychotic disturbance, mood disturbance, and anxiety; Z68.37 Body mass index [BMI] 37.0-37.9, adult; Z80.6 Family history of leukemia; Z82.3 Family history of stroke; Z90.710 Acquired absence of both cervix and uterus; Y90.6 Blood alcohol level of 120-199 mg/100 ml; F40.00 Agoraphobia, unspecified; F41.0 Panic disorder [episodic paroxysmal anxiety]
CPT/HCPCS: 80048; 80053; 80076; 81001; 82077; 82962; 83735; 84100; 85025; 93005; 99251; 99285; J7120; A4216; G0463

== ENCOUNTER 2021-04-07 22:21 | Emergency (ER) | payer MEDICARE, SELFPAY ==
[2021-01-11 20:26] VITALS: BMI 35.7
[2021-04-07 22:23] VITALS: BP 144/76; PULSE 87; RESP 16; TEMP 37; O2SAT 92; BMI 32.0
--- NOTE | 2021-04-08 01:17 | EDS_ITS ---
HPI History of Present Illness Chief Complaint: Mental Health Narrative Narrative: Patient reports I had a couple of drinks and went to bed. Her reports that the patient woke and was screaming and hollering at him. She was being verbally abusive. He was unable to get her to stop so he called EMS. Patient is now alert and calm. She reports that she drinks every couple days. She does report that she has a history of depression and she feels more depressed. However, she denies any suicidal ideation. Her primary care physician is Dr. Blayne Dominguez iii. She reports that she had been on a medication in the past for depression, but she does not remember what the name of this medication is. She is actually has an appointment to see the physician who is taking over for Dr. Blayne Dominguez in 2 days. [facility] Medical History Congestive heart failure (CHF) Diabetes Hypertension Home Medications amlodipine 10 mg PO DAILY 04/29/18 [History Last Taken 01/11/21] cholecalciferol (vitamin D3) [D3-2000] 2,000 unit PO DAILY 04/29/18 [History Last Taken 01/11/21] duloxetine 60 mg PO DAILY 04/29/18 [History Last Taken 01/11/21] metformin 500 mg PO BIDCM 04/29/18 [History Last Taken 01/11/21] omeprazole 20 mg PO DAILY 04/29/18 [History Last Taken 01/11/21] amitriptyline 50 mg PO QHS 01/11/21 [History Last Taken 01/10/21] carvedilol 6.25 mg PO BID 01/11/21 [History Last Taken Unknown] furosemide 20 mg PO DAILY 01/11/21 [History Last Taken 01/11/21] magnesium oxide 400 mg PO DAILY 01/11/21 [History Last Taken 01/11/21] acetaminophen 650 mg PO Q4H PRN PRN tab 01/14/21 [Rx Last Taken Unknown] Allergy/AdvReac Type Severity Reaction Status Date / Time lisinopril [From Zestril] Allergy Swelling Verified 04/07/21 22:23 losartan [From Cozaar] Allergy Swelling Verified 04/07/21 22:23 carbamazepine [From Tegretol] AdvReac MENTAL Verified 04/07/21 22:23 STATUS CHANGE hydrochlorothiazide AdvReac confusion Verified 04/07/21 22:23 Surgical History S/P hysterectomy Social History Smoking Status: Never smoker ROS ROS ED Constitutional Constitutional ED: Denies chills, fever(s) or sweats Eyes Eyes: Denies change in vision ENT ENT ED: Denies sore throat Cardiovascular Cardiovascular: Denies chest pain Respiratory/Chest Respiratory/Chest: Denies cough, dyspnea or dyspnea on exertion Gastrointestinal Gastrointestinal: Denies abdominal pain, diarrhea, melena, nausea or vomiting Genitourinary Genitourinary ED: Denies dysuria or urinary frequency Musculoskeletal Musculoskeletal: Denies myalgias Integumentary Denies rash Neurologic Neurologic: Denies headache(s), paresthesias or weakness Psychiatric Psychiatric: Reports depression; Denies suicidal ideation or suicidal thoughts EXAM Physical Exam Const Vital Signs: 04/07/21 22:23 Temperature 98.6 F Temperature Source Oral Pulse Rate 87 Respiratory Rate 16 Blood Pressure 144/76 H Blood Pressure Mean 98 Pulse Ox 92 Oxygen Delivery Method Room Air Positive well nourished and well developed General Appearance ED: well developed HEENT Reports normocephalic and head/scalp atraumatic Eyes PERRL Neck no lymphadenopathy, supple and no JVD General: Negative for tenderness Resp normal respiratory effort and clear to auscultation bilaterally Cardio regular rate, regular rhythm and no murmurs GI normal to inspection, nondistended, normoactive bowel sounds and non-tender GI Narrative: No guarding, rebound, or peritoneal signs. Palpation: soft Back/Spine Back/Spine Narrative: Nontender. Extremity General Extremety ED: Negative for edema or tenderness General Extremity: Negative for edema Neuro oriented x3, CN's II-XII intact bilaterally and no sensory deficits noted Sensorium / Orientation: alert Motor Exam: strength 5/5 throughout Psych mental status grossly normal Psych Narrative: Mental status exam: Patient appears their stated age. Good posture and grooming. Good eye contact. Normal rate, volume, and latency of speech. No suicidal or homicidal ideation. No auditory or visual hallucinations. Flow of thought is logical. Insight and judgment is fair. Skin no rashes or lesions noted MDM [facility] Treatment and Re-Evaluation Comments:: Emergency department course: Patient is now calm. She is alert and appropriate. She does not appear clinically intoxicated. I had a prolonged discussion the patient and her about treatment options. They both feel comfortable with her going home. Treatment plan: Patient be discharged instructions to follow-up with the physician taking over for Dr. Blayne Dominguez in 2 days as previously scheduled. Did speak with him about the antidepressant that she was on previously and be pl aced back on this if they feel it is in her best interest. Return to the emergency department for any worsening symptoms. Disposition: To home in improved and stable condition. Discharge Plan Triage Chief Complaint: Mental Health ED Provider: Kermit Miller Dx/Rx/DC Orders Clinical Impression: Depression, Alcohol intoxication Instructions: ED Depression, ED Alcohol Intoxication Prescriptions: No Action metformin 500 MG tablet 500 mg PO BIDCM RF: 0 amlodipine 10 MG tablet 10 mg PO DAILY RF: 0 omeprazole 20 MG capsule 20 mg PO DAILY RF: 0 duloxetine 60 MG Capsule.Dr 60 mg PO DAILY RF: 0 cholecalciferol (vitamin D3) [D3-2000] 2,000 UNIT capsule 2,000 unit PO DAILY RF: 0 amitriptyline 50 MG tablet 50 mg PO QHS RF: 0 carvedilol 6.25 MG tablet 6.25 mg PO BID RF: 0 furosemide 20 MG tablet 20 mg PO DAILY RF: 0 magnesium oxide 200 MG tablet 400 mg PO DAILY RF: 0 acetaminophen 500 MG tablet 650 mg PO Q4H PRN PRN (Reason: Temp > 100.4 F) RF: 0 Primary Care Provider: Blayne Dominguez III Referrals: Blayne Dominguez III, MD [Primary Care Provider] - 2 Days Disposition Disposition: Home, self care Discharge Date/Time: 04/07/21 23:20
== END 2021-04-07 23:20 | disposition home or self-care (01) ==
LOC: ED 22:53
PROVIDERS: Emergency Provider Emergency Medicine; PCP Family Medicine
DX: F32.9 Major depressive disorder, single episode, unspecified (principal); F10.129 Alcohol abuse with intoxication, unspecified; E11.9 Type 2 diabetes mellitus without complications; I11.0 Hypertensive heart disease with heart failure; I50.9 Heart failure, unspecified; Z79.84 Long term (current) use of oral hypoglycemic drugs; Z79.899 Other long term (current) drug therapy
CPT/HCPCS: 99284

== ENCOUNTER → 2021-05-30 16:08 | Outpatient (CLI) | payer MEDICARE, SELFPAY ==
[2021-05-30 16:33] LABS: Mucous, Urine 0 SEEN /hpf (<or=2+); Red Blood Cells-Urine 0 SEEN /hpf (0-5); Squamous Epithelial Cells - UA 0 SEEN /hpf (5-10)
[2021-05-30 16:59] LABS: AST(SGOT) 14 U/L (15-37); Alanine Aminotransfer ALT/SGPT 27 U/L (13-56); Albumin, Serum 3.7 g/dL (3.2-5.0); Alkaline Phosphatase 97 U/L (45-117); Anion Gap 8 (5-15); BUN 16 mg/dL (7-18); Calcium,Total 10.2 mg/dL (8.5-10.1); Chloride 105 mmol/L (98-107); Cholesterol 170 mg/dL (200); Creatinine, Serum 1.07 mg/dL (0.55-1.02); EST Glomerular Filtration Rate 52 mL/min (>60); Est Glom Filt Rate - Afr Amer 63 mL/min (>60); Globulin 3.8 g/dL (2.2-4.2); Glucose 105 mg/dL (74-106); High Density Lipoprotein 87 mg/dL; Potassium 3.4 mmol/L (3.5-5.1); Protein, Total 7.5 g/dL (6.4-8.2); Sodium Level 139 mmol/L (136-145); Triglycerides 123 mg/dL; Very Low Density Lipoprotein 25 mg/dL (5-40)
[2021-05-30 17:03] LABS: Vitamin D,25 Hydroxy 24.3 ng/mL
[2021-05-30 17:07] LABS: Color, Urine Yellow (Yellow); Glucose, Dipstick Normal (Normal); Ketone-Dipstick Negative (Negative); Leukocyte Esterase-Dipstick 500 /ul (Negative); Nitrite-Dipstick Negative (Negative); Occult Blood-Urine Negative /ul (Negative); Protein-Dipstick 15 mg/dl (Negative); Urine Bilirubin Dipstick Negative (Negative); Urine Clarity Sl. Cloudy (Clear); Urine Urobilinogen Normal (Normal)
[2021-05-30 17:22] LABS: Bacteria 3+ /hpf (None Seen); White Blood Cells 25-50 SEEN /hpf (0-5)
[2021-05-30 17:25] LABS: Hemoglobin A1c 6.1 % (3.8-5.6)
[2021-05-30 17:29] LABS: Microalbumin,Random Urine 38.2 mg/L (NO RANGE EST.); Microalbumin:Creatinine Ratio 28.7 mg/g CRE (<30 mg/g CRE)
== END ==
PROVIDERS: PCP Family Medicine; Visit Provider Physician Assistant
DX: E55.9 Vitamin D deficiency, unspecified (principal); E11.49 Type 2 diabetes mellitus with other diabetic neurological complication
CPT/HCPCS: 80053; 80061; 81001; 82043; 82306; 82570; 83036

== ENCOUNTER 2022-02-06 04:52 | Observation (INO) | payer MEDICARE, SELFPAY ==
[2022-02-06] VITALS (16 sets, daily range): BP systolic 120–186; BP diastolic 51–79; PULSE 75–120; RESP 14–24; TEMP 36.3–36.9; O2SAT 92–96; BMI 34.5; BMI 34.4
--- NOTE | 2022-02-06 05:15 | EKG12_ITS ---
Test Reason : CP Blood Pressure : / mmHG Vent. Rate : 122 BPM Atrial Rate : 122 BPM P-R Int : 134 ms QRS Dur : 084 ms QT Int : 308 ms P-R-T Axes : 013 028 067 degrees QTc Int : 438 ms Sinus tachycardia Nonspecific ST abnormality Abnormal ECG Confirmed by ZORAIDA HYATT, ALBERTO ([id number]), make up editor FIDELIA VEGA ([id number]) on 02/09/2022 9:24:01 AM Referred By: LIZA Confirmed By:ALBERTO CONWAY MD
--- NOTE | 2022-02-06 05:15 | RAD_ITS ---
STUDY: X-RAY CHEST REASON FOR EXAM: Female, 81 years old. chest pain TECHNIQUE: AP portable upright COMPARISON: None. FINDINGS: There is elevation of the left hemidiaphragm. There is mild interstitial infiltrate and/or atelectasis at the left base Overall the right lung is clear There is no demonstrated pleural abnormality. Normal size heart. Normal mediastinum and nickie. Normal visualized pulmonary arteries. Normal visualized aortic arch and descending thoracic aorta. Normal visualized thoracic spine. Normal visualized ribs, clavicles, and shoulders. There is no demonstrated abnormality of the visualized soft tissue structures of the upper abdomen. RAD/Chest 1 View (Portable) IMPRESSION: There is elevation of the left hemidiaphragm. Electronically Signed: Ja Tolbert MD at 5:42 EDT ,
[2022-02-06] MEDS: Aspirin 81 MG TAB.CHEW 324 MG PO (05:26)
[2022-02-06 05:30] LABS: Absolute Lymphocyte Count 1.74 X10^3/uL (0.83-4.51); Absolute Neutrophil Count 8.9 X10^3/uL (2.0-7.7); Basophil# 0.11 X10^3/uL; Basophil% 0.9 % (0-1); Eosinophil# 0.12 X10^3/uL; Hematocrit 36.3 % (37-47); Hemoglobin 11.4 g/dL (12.0-15.0); Lymphocyte # 1.74 X10^3/ul (0.83-4.51); Lymphocyte % 14.8 % (19-41); Mean Corp Hgb Conc 31.4 g/dL (32-36); Mean Corpuscular Hgb 29.1 pg (27.0-32.0); Mean Corpuscular Volume 92.6 fL (81-99); Mean Platelet Vol. 9.3 fl (6.2-12.0); Monocyte# 0.83 X10^3/uL; Monocyte% 7.1 % (0-10); NRBC Flagged by Analyzer 0 % (0-5); Neutrophil # 8.88 X10^3/uL (2.7-7.7); Neutrophil % 75.9 % (47-70); Platelet Count 456 K/mm3 (150-450); RBC Distribution Width CV 16.2 % (11.6-14.6); RBC Distribution Width SD 55.3 fl (35.1-43.9); Red Blood Count 3.92 M/mm3 (4.2-5.4); White Blood Count 11.7 K/mm3 (4.4-11.0)
[2022-02-06] MEDS: Nitroglycerin SL (ED/IMG/CATH) 0.4 MG TABLET SL ×3 (05:35→05:46)
[2022-02-06 05:50] LABS: BNP,B-Type NATRIURETIC PEPTIDE 209.9 pg/mL (0-100)
[2022-02-06 05:52] LABS: Anion Gap 7 (5-15); BUN 18 mg/dL (7-18); BUN/Creat Ratio 20.7 RATIO (10-20); Calcium,Total 9.6 mg/dL (8.5-10.1); Chloride 107 mmol/L (98-107); Creatinine, Serum 0.87 mg/dL (0.55-1.02); EST Glomerular Filtration Rate 66 mL/min (>60); Est Glom Filt Rate - Afr Amer 80 mL/min (>60); Estimated Creatinine Clearance 55.96 ml/min; Glucose 74 mg/dL (74-106); Magnesium 1.4 mg/dL (1.6-2.6); Sodium Level 138 mmol/L (136-145); Thyroid Stim Hormone (TSH) 1.16 uIU/mL (0.358-3.74); Troponin-I HS 8 pg/mL (3.0-54.0)
--- NOTE | 2022-02-06 06:10 | CT_ITS ---
STUDY: CTA CHEST REASON FOR EXAM: Female, 81 years old. SOB RADIATION DOSAGE (If Supplied By Facility): CTDIvol = ( 6.26 ) mGy, DLP = ( 210.83 ) mGycm TECHNIQUE: The examination was performed with the intravenous administration of IV 100mL Isovue-370. Post-processing of the angiographic images was performed, with multiplanar reformation and 3D reconstruction. Individualized dose optimization techniques were used for this CT. COMPARISON: None. FINDINGS: Normal enhancement of the main pulmonary artery and right and left pulmonary arteries. Normal enhancement of the bilateral peripheral pulmonary arteries. There is no demonstrated pulmonary embolism. Normal thoracic aorta and visualized great vessels. There is no demonstrated aortic dissection. Normal heart and pericardium. Normal mediastinum. Normal hilar regions. Normal visualized trachea and bronchi. The lungs are well expanded. Normal pulmonary parenchyma. Normal pleura. Normal chest wall structures. Normal osseous structures. Normal visualized upper abdomen. CT/CTA Chest W/WO Contrast IMPRESSION: Normal CTA chest examination, without a demonstrated pulmonary embolism or arterial dissection. Electronically Signed: Ja Tolbert MD at 7:13 EDT ,
--- NOTE | 2022-02-06 06:44 | ED.VIS.CHEST ---
HPI History of Present Illness Chief Complaint: Chest Pain Informant: patient Narrative Narrative: Patient is a 81-year-old female with history of congestive heart failure, type 2 diabetes mellitus, GERD, hypertension, anxiety and alcohol use but denies dependency presenting with chest pain. Patient states she is feeling a little unwell after dinner tonight but then around 1 AM suddenly had significant discomfort in her chest, heart racing, back pain and sweating. She not take any for symptoms prior to arrival. Feels that maybe she has felt this way in the past but cannot recall. Denies any recent weight change or no edema. Reports that she is actually lost 55 pounds recently. Patient does not wear oxygen at home but she states she used to wear oxygen, 2 L. She cannot recall further details. Chart review showed that patient had echocardiogram on 09/04/2018 which showed an EF of 65% and elevated right ventricular systolic pressure consistent with pulmonary hypertension, diastolic dysfunction and mild valvular insufficiency. Stress test in 09/04 was normal. [facility] Medical History Congestive heart failure (CHF) Diabetes Hypertension Home Medications amlodipine 10 mg PO DAILY 04/29/18 [History Last Taken 01/11/21] cholecalciferol (vitamin D3) [D3-2000] 2,000 unit PO DAILY 04/29/18 [History Last Taken 01/11/21] duloxetine 60 mg PO DAILY 04/29/18 [History Last Taken 01/11/21] carvedilol 6.25 mg PO BID 01/11/21 [History Last Taken Unknown] furosemide 20 mg PO DAILY 01/11/21 [History Last Taken 01/11/21] acetaminophen 650 mg PO Q4H PRN PRN tab 01/14/21 [Rx Last Taken Unknown] gabapentin 100 mg PO TID 02/06/22 [History Last Taken Unknown] metformin 500 mg PO BID 02/06/22 [History Last Taken Unknown] omeprazole 20 mg PO DAILY 02/06/22 [History Last Taken Unknown] Allergy/AdvReac Type Severity Reaction Status Date / Time lisinopril [From Zestril] Allergy Swelling Verified 04/07/21 22:23 losartan [From Cozaar] Allergy Swelling Verified 04/07/21 22:23 carbamazepine [From Tegretol] AdvReac MENTAL Verified 04/07/21 22:23 STATUS CHANGE hydrochlorothiazide AdvReac confusion Verified 04/07/21 22:23 Surgical History S/P hysterectomy Social History Smoking Status: Never smoker ROS ROS ED Constitutional Constitutional ED: Reports sweats; Denies chills or fever(s) Eyes Eyes: Denies change in vision ENT ENT ED: Denies ear pain or sore throat Cardiovascular Cardiovascular: Reports as per HPI, chest pain and racing heartbeat Respiratory/Chest Respiratory/Chest: Reports dyspnea; Denies cough Gastrointestinal Gastrointestinal: Denies abdominal pain or vomiting Genitourinary Genitourinary ED: Denies dysuria Musculoskeletal Musculoskeletal: Denies arthralgias or myalgias Integumentary Denies rash Neurologic Neurologic: Denies headache(s), paresthesias or weakness Psychiatric Psychiatric: Denies depression EXAM Physical Exam Const Vital Signs: 02/06/22 04:53 02/06/22 04:58 02/06/22 05:10 Temperature 98.4 F 98.4 F Temperature Source Oral Oral Pulse Rate 120 H Respiratory Rate 24 H Respiratory Effort Normal Non-Labored Respiratory Pattern Normal Blood Pressure 183/78 H Blood Pressure Mean 113 Pulse Ox 93 Oxygen Delivery Method Nasal Cannula Oxygen Flow Rate (L/min) 2 02/06/22 05:13 02/06/22 05:35 02/06/22 05:38 Temperature Temperature Source Pulse Rate 107 H Respiratory Rate Respiratory Effort Respiratory Pattern Blood Pressure 149/73 H Blood Pressure Mean Pulse Ox Oxygen Delivery Method Nasal Cannula Nasal Cannula Oxygen Flow Rate (L/min) 2 3 02/06/22 05:40 02/06/22 05:46 02/06/22 05:53 Temperature Temperature Source Pulse Rate 110 H 108 H 102 H Respiratory Rate 21 H Respiratory Effort Respiratory Pattern Blood Pressure 130/62 H 121/62 H 129/69 H Blood Pressure Mean 89 Pulse Ox 92 Oxygen Delivery Method Nasal Cannula Oxygen Flow Rate (L/min) 3 02/06/22 06:28 Temperature Temperature Source Pulse Rate 104 H Respiratory Rate 20 H Respiratory Effort Respiratory Pattern Blood Pressure 147/75 H Blood Pressure Mean 99 Pulse Ox 94 Oxygen Delivery Method Nasal Cannula Oxygen Flow Rate (L/min) 3 Positive well nourished and well developed General Appearance ED: well developed and NAD HEENT Reports moist mucous membranes normocephalic and atraumatic Eyes PERRL Neck supple and no JVD Chest Wall inspection of chest normal and palpation of chest normal Resp normal respiratory effort and clear to auscultation bilaterally Resp Narrative: No wheezing or crackles appreciated Effort and Inspection: Negative for respiratory distress Cardio regular rhythm and no murmurs Rate: tachycardic GI normal to inspection, nondistended, normoactive bowel sounds Back/Spine no CVA tenderness Extremity normal to inspection General Extremety ED: Negative for edema, pulses abnormal or tenderness General Extremity: Negative for edema or pulses abnormal Neuro oriented x3 Sensorium / Orientation: awake and alert Psych mental status grossly normal Skin no rashes or lesions noted and no wounds Heart Score History: Highly Suspicious ECG: Nonspecific Repolarization Age: >/= 65 years Risk Factors: 1 or 2 Risk Factors Troponin: </= Normal Limit Score: 6 MDM MDM MDM Narrative Medical decision making narrative: Patient evaluated for sudden onset of chest pain. She has associated hypertension tachycardia. EKG does not show ACS. It does show sinus tachycardia with some subtle ST depression in 1 and 2 which could be rate related. High-sensitivity troponin initially is normal. Patient's BNP is mildly elevated but is actually below what is been previously. Given patient's tachycardia, clear breath sounds and chest pain I cannot rule out PE. Is high on the differential. CTA is ordered. Patient does have mildly elevated white blood cell count of 11.7 and a mild anemia of 11.4. These are nonspecific. CMP is normal. TSH is normal. Patient is given 3 nitroglycerin as well as aspirin emergency room. She has complete resolution of her pain after nitroglycerin. Patient was hypoxic requiring oxygen. With ambulation she was 86%. She does not currently wear home oxygen. Patient require admission for further evaluation of her chest pain and her hypoxia. Lab Data Labs: Laboratory Results - last 24 hr 02/06/22 02/06/22 02/06/22 05:00 05:00 05:00 WBC 11.7 H RBC 3.92 L Hgb 11.4 L Hct 36.3 L MCV 92.6 MCH 29.1 MCHC 31.4 L RDW Std Deviation 55.3 H RDW Coeff of Felicia 16.2 H Plt Count 456 H MPV 9.3 Immature Gran % (Auto) 0.300 Neut % (Auto) 75.9 H Lymph % (Auto) 14.8 L [place] % (Auto) 7.1 Eos % (Auto) 1.0 Baso % (Auto) 0.9 Absolute Neuts (auto) 8.9 H Absolute Lymphs (auto) 1.74 Nucleated RBC % 0 Sodium 138 Potassium 4.0 Chloride 107 Carbon Dioxide 24.0 Anion Gap 7 BUN 18 Creatinine 0.87 Estim Creat Clear Calc 55.96 Est GFR (MDRD) Af Amer 80 Est GFR (MDRD) Non-Af 66 BUN/Creatinine Ratio 20.7 H Glucose 74 Calcium 9.6 Magnesium 1.4 L Troponin I High Sens 8 B-Natriuretic Peptide 209.9 H TSH 1.16 02/06/22 07:20 WBC RBC Hgb Hct MCV MCH MCHC RDW Std Deviation RDW Coeff of Felicia Plt Count MPV Immature Gran % (Auto) Neut % (Auto) Lymph % (Auto) [place] % (Auto) Eos % (Auto) Baso % (Auto) Absolute Neuts (auto) Absolute Lymphs (auto) Nucleated RBC % Sodium Potassium Chloride Carbon Dioxide Anion Gap BUN Creatinine Estim Creat Clear Calc Est GFR (MDRD) Af Amer Est GFR (MDRD) Non-Af BUN/Creatinine Ratio Glucose Calcium Magnesium Troponin I High Sens 9 B-Natriuretic Peptide TSH Radiography Chest X-Ray - ED: 1 View, Read by ED Physician, Read by Radiologist, No Acute Disease, No Infiltrates and - (Left hemidiaphragm elevation) Diagnostic Testing: Clinical Impression(s) from Imaging Studies Chest X-Ray 02/06/22 05:15 IMPRESSION: There is elevation of the left hemidiaphragm. Electronically Signed: Ja Tolbert MD at 5:42 EDT , Chest CTA 02/06/22 06:10 IMPRESSION: Normal CTA chest examination, without a demonstrated pulmonary embolism or arterial dissection. Electronically Signed: Ja Tolbert MD at 7:13 EDT , Rhythm Strip Rhythm Strip: Sinus Tach Rate: 122 Ectopy: None EKG Initial EKG: Attestation: I personally reviewed and interpreted this EKG as follows: Interpretation: Sinus Tachycardia Comments: Sinus tachycardia rate 122 Normal axis Normal intervals Mild ST depression in 1 and 2, possibly rate related Compared to prior EKG patient is now tachycardic Discharge Plan Dx/Rx/DC Orders Clinical Impression: Hypoxia, Hypertension, Chest pain, Tachycardia Disposition Disposition: Acute Care Hospital [facility]
--- NOTE | 2022-02-06 07:02 | ED.RN ---
AMBULATED ON ROOM AIR AND WAS 86%
--- NOTE | 2022-02-06 07:34 | HP.PCM.HOS_ITS ---
HPI - General General Date of Admission: 02/06/22 HPI Narrative BG FULLER, is a 81 F with an extensive PMH as outlined who was admitted with a complaint of chest pain which started around 1am on the day of admission. She had acute onset chest pain, with associated palpitations. SHe had associated shortness of breath, and also had pleuritic chest pain. Chest pain was improved by SL nitroglycerin. She denied any nausea, vomiting, fever or chills and review of systems was otherwise negative. Vitals in the ED were temp of 98.4F, with PA of 104, BP of 147/75, RR of 20 and she was saturating at 94% on 3L of oxygen. CBC showed wbc of 11.7, Hb of 11.4 and platelets of 456. Chemistry was unremarkable and Magnesium was 1.4. Initial troponin was 8; BNP was 209.9. CTA of the chest was negative for PE. SHe is being admitted to be managed for chest pain to r/o ACS [facility] Medical History Congestive heart failure (CHF) Diabetes Hypertension Home Medications amlodipine 10 mg PO DAILY 04/29/18 [History Last Taken 01/11/21] cholecalciferol (vitamin D3) [D3-2000] 2,000 unit PO DAILY 04/29/18 [History Last Taken 01/11/21] duloxetine 60 mg PO DAILY 04/29/18 [History Last Taken 01/11/21] carvedilol 6.25 mg PO BID 01/11/21 [History Last Taken Unknown] furosemide 20 mg PO DAILY 01/11/21 [History Last Taken 01/11/21] acetaminophen 650 mg PO Q4H PRN PRN tab 01/14/21 [Rx Last Taken Unknown] gabapentin 100 mg PO TID 02/06/22 [History Last Taken Unknown] metformin 500 mg PO BID 02/06/22 [History Last Taken Unknown] omeprazole 20 mg PO DAILY 02/06/22 [History Last Taken Unknown] Allergy/AdvReac Type Severity Reaction Status Date / Time lisinopril [From Zestril] Allergy Swelling Verified 04/07/21 22:23 losartan [From Cozaar] Allergy Swelling Verified 04/07/21 22:23 carbamazepine [From Tegretol] AdvReac MENTAL Verified 04/07/21 22:23 STATUS CHANGE hydrochlorothiazide AdvReac confusion Verified 04/07/21 22:23 Surgical History S/P hysterectomy Social History Smoking Status: Never smoker ROS Constitutional Constitutional: Denies anorexia, chills, fatigue, fever(s) or weakness Eyes Eyes: Denies change in vision ENT HEENT: Denies dysphagia Cardiovascular Cardiovascular: Reports chest pain, dyspnea on exertion, edema, paroxysmal nocturnal dyspnea and rapid heart rate; Denies lightheadedness, orthopnea or palpitations Respiratory/Chest Respiratory/Chest: Reports dyspnea, shortness of breath at rest and shortness of breath with exertion; Denies cough, excessive phlegm production, hemoptysis, productive cough or wheezing Gastrointestinal Gastrointestinal: Denies abdominal pain or diarrhea Genitourinary Genitourinary: Denies burning urination Musculoskeletal Musculoskeletal: Denies arthralgias Neurologic Neurologic: Denies confusion Psychiatric Psychiatric: Denies anxiety or depression Endocrine Endocrinology: Denies change in body appearance Hematologic/Lymphatic Hematologic/Lymphatic: Denies anemia Allergic/Immunologic Allergic/Immunologic: Denies asthma Vital Signs Vital Signs Vital Signs: 02/06/22 04:53 02/06/22 04:58 02/06/22 05:10 Temperature 98.4 F 98.4 F Temperature Source Oral Oral Pulse Rate 120 H Respiratory Rate 24 H Respiratory Effort Normal Non-Labored Respiratory Pattern Normal Blood Pressure 183/78 H Blood Pressure Mean 113 Pulse Ox 93 Oxygen Delivery Method Nasal Cannula Oxygen Flow Rate (L/min) 2 02/06/22 05:13 02/06/22 05:35 02/06/22 05:38 Temperature Temperature Source Pulse Rate 107 H Respiratory Rate Respiratory Effort Respiratory Pattern Blood Pressure 149/73 H Blood Pressure Mean Pulse Ox Oxygen Delivery Method Nasal Cannula Nasal Cannula Oxygen Flow Rate (L/min) 2 3 02/06/22 05:40 02/06/22 05:46 02/06/22 05:53 Temperature Temperature Source Pulse Rate 110 H 108 H 102 H Respiratory Rate 21 H Respiratory Effort Respiratory Pattern Blood Pressure 130/62 H 121/62 H 129/69 H Blood Pressure Mean 89 Pulse Ox 92 Oxygen Delivery Method Nasal Cannula Oxygen Flow Rate (L/min) 3 02/06/22 06:28 Temperature Temperature Source Pulse Rate 104 H Respiratory Rate 20 H Respiratory Effort Respiratory Pattern Blood Pressure 147/75 H Blood Pressure Mean 99 Pulse Ox 94 Oxygen Delivery Method Nasal Cannula Oxygen Flow Rate (L/min) 3 Weight Weight: 154 lb 1.65 oz Body Mass Index (BMI) 34.5 Physical Exam Const alert, oriented x3 and no apparent distress General Appearance: cooperative HEENT normocephalic, head/scalp atraumatic, hearing grossly normal bilaterally and [place] oral mucous membranes Eyes PERRL and EOMs intact bilaterally Neck no lymphadenopathy, supple and no JVD Resp Resp Narrative: mildly diminished breath sounds bibasally, no wheezes, 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 On 2L of oxygen by nasal canula Cardio regular rate, regular rhythm, S1 normal heart sound, S2 normal heart sound and no murmurs GI normal to inspection, nondistended, normoactive bowel sounds, soft to palpation, non-tender and non-distended Extremity normal to inspection, full ROM and no clubbing, cyanosis or edema Peripheral Pulses: Yes pulses 2+ throughout Skin no rashes or lesions noted Neuro oriented x3, CN's II-XII intact bilaterally and moves all extremities Sensorium / Orientation: awake and alert Psych affect normal Results Lab / Micro Data Result Diagrams: 02/06/22 05:00 02/06/22 05:00 Labs: Laboratory Results - last 24 hr 02/06/22 05:00: WBC 11.7 H, RBC 3.92 L, Hgb 11.4 L, Hct 36.3 L, MCV 92.6, MCH 29.1, MCHC 31.4 L, RDW Std Deviation 55.3 H, RDW Coeff of Felicia 16.2 H, Plt Count 456 H, MPV 9.3, Immature Gran % (Auto) 0.300, Neut % (Auto) 75.9 H, Lymph % (Auto) 14.8 L, [place] % (Auto) 7.1, Eos % (Auto) 1.0, Baso % (Auto) 0.9, Absolute Neuts (auto) 8.9 H, Absolute Lymphs (auto) 1.74, Nucleated RBC % 0 02/06/22 05:00: Sodium 138, Potassium 4.0, Chloride 107, Carbon Dioxide 24.0, Anion Gap 7, BUN 18, Creatinine 0.87, Estim Creat Clear Calc 55.96, Est GFR (MDRD) Af Amer 80, Est GFR (MDRD) Non-Af 66, BUN/Creatinine Ratio 20.7 H, Glucose 74, Calcium 9.6, Magnesium 1.4 L, Troponin I High Sens 8, TSH 1.16 02/06/22 05:00: B-Natriuretic Peptide 209.9 H Rhythm Strip Rhythm Strip: Sinus Tach Rate: 122 Ectopy: None Radiology Impression Chest X-Ray 02/06/22 05:15 IMPRESSION: There is elevation of the left hemidiaphragm. Electronically Signed: Ja Tolbert MD at 5:42 EDT , Chest CTA 02/06/22 06:10 IMPRESSION: Normal CTA chest examination, without a demonstrated pulmonary embolism or arterial dissection. Electronically Signed: Ja Tolbert MD at 7:13 EDT , Assessment & Plan Assessment/Plan (1) Chest pain: PLAN: # Chest pain to r/o ACs * admit to PCU with telemetry * initial troponin was negative. Cycle troponins * for stress test if troponins are negative. * get 2 D echo * #Acute hypoxic respiratory insufficiency * Possibly due to acute exacerbation of heart failure. CT chest negative for PE * currently on 3L of oxygen * CXR shows no acute cardiopulmonary process * BP is 209.9 * 2Decho ordered * 2D echo from 09/2020 showed EF of 60% with no regional wall motion abnormalities noted. RVSP of 58mmhg. * will diurese with IV lasix based on elevated BNP, pending 2D echo findings * #Hypertension: On amlodipine and carvedilol #Type 2 diabetes mellitus: Hold Metformin. Insulin sliding scale. Accu-Cheks AC at bedtime. #GERD: on omeprazole #Depression: on duloxetine DVT prophylaxis: lovenox Code status: full code * Patient counseled extensively about different types of CODE STATUS including full code, DNR CCA and DNR CCA. Patient elects to be full code. Total [id number] time 16 minutes. Charges/Coding Visit Charges OBSV E&M: 62207 Initial observation care L3 Procedures Hospitalists Procedures: 94545 Advncd Care Plan 30 Min
[2022-02-06 07:42] LABS: Troponin-I HS 9 pg/mL (3.0-54.0)
--- NOTE | 2022-02-06 09:38 | ECHOD_ITS ---
Reason For Study: CHEST PAIN Procedure This was a 2D Doppler, Color Flow transthoracic echocardiogram. Exam performed portable in patient room. Left Ventricle Normal LV size. Left ventricular systolic function is normal. The estimated ejection fraction is 65 %. Stage 1 diastolic dysfunction. No regional wall motion abnormalities noted. Right Ventricle Normal RV size. Normal systolic function. Atria The left atrium is moderately enlarged. Normal right atrium. Mitral Valve Normal mitral valve. Tricuspid Valve Normal tricuspid valve. Mild to moderate (1-2+) tricuspid valve insufficiency. Pulmonary artery systolic pressure is 53 mmHg. Aortic Valve Trisinus/trileaflet aortic valve. Mild focal aortic valve calcification. Mild aortic stenosis. Pulmonic Valve Normal pulmonic valve. Great Vessels Normal aortic root. The pulmonary artery is normal size. Normal inferior vena cava. Pericardium/Pleural No pericardial effusion. MMode/2D Measurements & Calculations LVIDd: 4.3 cm IVSd: 1.1 cm LVOT diam: 1.9 cm LVIDs: 2.5 cm LVPWd: 1.1 cm LVOT area: 2.7 cm2 RVDd: 2.8 cm FS: 42.4 % Ao root diam: 2.7 cm LAV(MOD-bp): 118.3 ml LA A4 area: 31.5 cm2 LAV(MOD-bp) Indexed: 74.4 ml/m2 LAV(MOD-sp2): 103.9 ml LAV(MOD-sp4): 124.1 ml LA dimension(2D): 4.1 cm RA A4 area: 12.2 cm2 Time Measurements MV dec time: 0.15 sec Doppler Measurements & Calculations MV E max danny: 111.5 cm/sec Lat Peak E' Danny: 8.9 cm/sec Med Peak E' Danny: 7.2 cm/sec MV A max danny: 139.0 cm/sec E/E' lat: 12.6 E/E' med: 15.4 MV E/A: 0.80 Ao V2 max: 213.3 cm/sec LV V1 max: 139.7 cm/sec SV(LVOT): 75.7 ml Ao max P.2 mmHg LV V1 max P.8 mmHg Ao V2 mean: 152.9 cm/sec LV V1 mean P.6 mmHg Ao mean P.2 mmHg LV V1 mean: 103.3 cm/sec Ao V2 VTI: 42.5 cm LV V1 VTI: 27.8 cm ROGER(I,D): 1.8 cm2 ROGER(V,D): 1.8 cm2 PA V2 max: 124.4 cm/sec TR max danny: 350.1 cm/sec TR max P.1 mmHg ECHO/Echo Complete Interpretation Summary Normal LV size. Left ventricular systolic function is normal. The estimated ejection fraction is 65 %. Stage 1 diastolic dysfunction. Pulmonary artery systolic pressure is 53 mmHg. The left atrium is moderately enlarged. Ordering Physician: Nicolle Carter Referring Physician: Aleksandr Salazar Performed By: Paola Sorenson, SHERRY, RVT
[2022-02-06] MEDS: DULoxetine Hcl 60 MG Capsule PO (11:24)
[2022-02-06] MEDS: amLODIPine 10 MG Tablet PO (11:25)
[2022-02-06] MEDS: Cholecalciferol (VIT D3) 25 MCG TABLET (1,000 UNITS) 50 MCG PO (11:25)
[2022-02-06] MEDS: Carvedilol 6.25 MG Tablet PO ×2 (11:25→21:45)
[2022-02-06] MEDS: Pantoprazole Sodium 20 MG Tablet PO (11:25)
[2022-02-06] MEDS: Enoxaparin 40 MG/0.4 ML Syringe SC (11:25)
[2022-02-06] MEDS: 0.9% Saline Lock 10 ML Syringe IV (11:42)
[2022-02-06] MEDS: Furosemide 40 MG/4 ML Vial IV ×2 (11:42→17:19)
[2022-02-06] MEDS: Magnesium Sulfate 4gm/100mL 4 GM/100 ML IV.SOLN. IV (11:43)
[2022-02-06 12:16] LABS: Bedside Glucose 115 mg/dL (74-106)
[2022-02-06 12:36] LABS: Troponin-I HS 9 pg/mL (3.0-54.0)
[2022-02-06] MEDS: Gabapentin 100 MG Capsule PO ×2 (13:38→21:45)
--- NOTE | 2022-02-06 13:54 | STRESSREP_ITS ---
Stress Test Report Pharmacologic myocardial perfusion stress test. 81-year-old lady with a history of chest pain. Stress protocol: Resting EKG demonstrates normal sinus rhythm with a rate of 104 bpm resting blood pressure is 138/98 mmHg. Occasional premature atrial complexes noted. 0.4 mg of regadenoson was infused per usual protocol followed by rapid intra venous saline flush injection continuous EKG monitoring was performed. The maximum heart rate attained was 112 bpm which was 80% of max impact at heart rate the maximum workload was 1 metabolic equivalent. At rest there were no ST or T wave changes noted to suggest abnormal flow reserve and at peak infusion nonspecific ST changes were noted with did not meet the criteria for ischemia. No clinical angina was noted. Myocardial perfusion protocol. 11.3 mCi of technetium 99m sestamibi was injected at rest. 0.4 mg of regadenoson was infused per usual protocol. At peak infusion 34.1 mCi of ramez hnetium 99m sestamibi was injected stress images were obtained stress and rest images were reconstructed and compared in the short axis vertical long and horizontal long axis. Gated images were also obtained. Perfusion SPECT analysis. Review of the stress images demonstrate normal uptake of tracer noted in all areas of the myocardium the resting images similarly demonstrate normal uptake of tracer noted in all areas of the myocardium. No areas of reversibility are noted to suggest ischemia and no previous infarct is noted. Gated SPECT analysis: The gated ejection fraction is 82%. Conclusion: Normal pharmacologic myocardial perfusion stress test. Preserved ejection fraction.
[2022-02-06] MEDS: Acetaminophen 325 MG Tablet 650 MG PO ×2 (14:23→21:44)
[2022-02-06 16:16] LABS: Bedside Glucose 156 mg/dL (74-106)
[2022-02-07] VITALS (8 sets, daily range): BP systolic 145–155; BP diastolic 58–77; PULSE 73–82; RESP 16–18; TEMP 36.5–37; O2SAT 90–97
[2022-02-07 01:16] LABS: Bedside Glucose 142 mg/dL (74-106)
[2022-02-07 06:00] LABS: Absolute Lymphocyte Count 1.64 X10^3/uL (0.83-4.51); Absolute Neutrophil Count 5.7 X10^3/uL (2.0-7.7); Basophil% 1.1 % (0-1); Eosinophil# 0.21 X10^3/uL; Eosinophils% 2.4 % (0-5); Hematocrit 34.2 % (37-47); Hemoglobin 10.8 g/dL (12.0-15.0); Lymphocyte # 1.64 X10^3/ul (0.83-4.51); Lymphocyte % 18.5 % (19-41); Mean Corp Hgb Conc 31.6 g/dL (32-36); Mean Corpuscular Volume 91.9 fL (81-99); Mean Platelet Vol. 10.1 fl (6.2-12.0); Monocyte# 1.24 X10^3/uL; NRBC Flagged by Analyzer 0 % (0-5); Neutrophil # 5.65 X10^3/uL (2.7-7.7); Neutrophil % 63.5 % (47-70); Platelet Count 393 K/mm3 (150-450); RBC Distribution Width CV 16.2 % (11.6-14.6); RBC Distribution Width SD 54.1 fl (35.1-43.9); Red Blood Count 3.72 M/mm3 (4.2-5.4); White Blood Count 8.9 K/mm3 (4.4-11.0)
[2022-02-07] MEDS: Gabapentin 100 MG Capsule PO ×2 (06:27→13:14)
[2022-02-07 06:36] LABS: Anion Gap 5 (5-15); BUN 20 mg/dL (7-18); BUN/Creat Ratio 22.9 RATIO (10-20); Calcium,Total 9.8 mg/dL (8.5-10.1); Chloride 103 mmol/L (98-107); Creatinine, Serum 0.88 mg/dL (0.55-1.02); EST Glomerular Filtration Rate 66 mL/min (>60); Est Glom Filt Rate - Afr Amer 80 mL/min (>60); Estimated Creatinine Clearance 55.25 ml/min; Glucose 133 mg/dL (74-106); Potassium 3.9 mmol/L (3.5-5.1); Sodium Level 135 mmol/L (136-145)
[2022-02-07 06:41] LABS: Bedside Glucose 139 mg/dL (74-106)
[2022-02-07] MEDS: Acetaminophen 325 MG Tablet 650 MG PO (09:33)
[2022-02-07] MEDS: Cholecalciferol (VIT D3) 25 MCG TABLET (1,000 UNITS) 50 MCG PO (09:34)
[2022-02-07] MEDS: Carvedilol 6.25 MG Tablet PO (09:34)
[2022-02-07] MEDS: Pantoprazole Sodium 20 MG Tablet PO (09:34)
[2022-02-07] MEDS: amLODIPine 10 MG Tablet PO (09:34)
[2022-02-07] MEDS: DULoxetine Hcl 60 MG Capsule PO (09:34)
[2022-02-07] MEDS: Enoxaparin 40 MG/0.4 ML Syringe SC (09:35)
[2022-02-07] MEDS: Furosemide 40 MG/4 ML Vial IV (09:35)
--- NOTE | 2022-02-07 10:35 | CASEMGMT ---
Per Trina RN, pt does not qualify for home oxygen at discharge. Pt states no concerns with going home at time of discharge. Ciarra MUNOZ CM
[2022-02-07 11:41] LABS: Bedside Glucose 163 mg/dL (74-106)
--- NOTE | 2022-02-07 12:33 | CASEMGMT ---
This RN ANUSHA to room with GRANADOS form, explanation done-pt voices understanding, and signs GRANADOS form. Original to chart and copy to pt. Pt voices no further questions/concerns/needs. SStaten ALEXANDER CM
--- NOTE | 2022-02-07 13:25 | PCM.DC.SUM ---
Providers Date of Admission: 02/06/22 Primary Care Physician: Dr. Aleksandr Salazar MD Reason For Visit: CHEST PAIN Diagnosis Discharge Diagnosis (1) Chest pain: Status: Acute Code(s): R07.9 - Chest pain, unspecified Medications at Discharge Home Medications amlodipine 10 mg PO DAILY 04/29/18 cholecalciferol (vitamin D3) [D3-2000] 2,000 unit PO DAILY 04/29/18 duloxetine 60 mg PO DAILY 04/29/18 carvedilol 6.25 mg PO BID 01/11/21 acetaminophen 650 mg PO Q4H PRN PRN tab 01/14/21 gabapentin 100 mg PO TID 02/06/22 metformin 500 mg PO BID 02/06/22 omeprazole 20 mg PO DAILY 02/06/22 furosemide [Lasix] 40 mg PO DAILY #30 tab 02/07/22 potassium chloride [Klor-Con M20] 20 meq PO DAILY #30 tab 02/07/22 Hospital Course Operations None Procedures 2-D Echocardiogram and Nuclear stress test Summary of Care Provided Minutes Spent on Discharge: 40 Hospital Course: BG FULLER, is a 81 F with an extensive PMH as outlined who was admitted with a complaint of chest pain which started around 1am on the day of admission. She had acute onset chest pain, with associated palpitations. SHe had associated shortness of breath, and also had pleuritic chest pain. Chest pain was improved by SL nitroglycerin. She denied any nausea, vomiting, fever or chills and review of systems was otherwise negative. Vitals in the ED were temp of 98.4F, with NE of 104, BP of 147/75, RR of 20 and she was saturating at 94% on 3L of oxygen. CBC showed wbc of 11.7, Hb of 11.4 and platelets of 456. Chemistry was unremarkable and Magnesium was 1.4. Initial troponin was 8; BNP was 209.9. CTA of the chest was negative for PE. SHe was admitted to be managed for chest pain to r/o ACS. She had a stress test on 02.06.2022 which was negative for any evidence of ischemia. His shortness of breath subsequently resolved and she felt better. He had a 2D echo which showed EF of 65% and stage I diastolic dysfunction with no regional wall motion abnormalities seen. Left atrium is moderately enlarged and pulmonary artery systolic pressure was 53 mmHg. Patient shortness of breath was therefore thought to be likely due to pulmonary artery hypertension. She was diuresed with IV Lasix and felt much better. She was weaned off of oxygen. Family had expressed some concern about patient's alcohol intake. Patient however said that she only drank occasionally when she went out with her and on weekends. She had no evidence of withdrawal from alcohol during this admission and remained stable. She was discharged home on 02/07/2022 and was discharged on p.o. Lasix 40 mg daily. She is to follow-up with her primary care doctor in 1 to 2 weeks and was also referred to pulmonology for follow-up for pulmonary hypertension. Patient was seen and examined prior to discharge. She had no active complaints and felt well. Review of systems otherwise negative. Labs and vitals reviewed. Medication reviewed and reconciled. Physical Exam Const alert, oriented x3 and no apparent distress General Appearance: cooperative, comfortable and well kempt Orientation / Consciousness: awake Exam Limitations: no limitations HEENT normocephalic, head/scalp atraumatic, hearing grossly normal bilaterally and moist oral mucous membranes Eyes PERRL and EOMs intact bilaterally Neck no lymphadenopathy, supple and no JVD Resp normal respiratory effort, no retractions, no use of accessory muscles and clear to auscultation bilaterally Cardio regular rate, regular rhythm, S1 normal heart sound, S2 normal heart sound and no murmurs Cardio Narrative: on room air. GI normal to inspection, nondistended, normoactive bowel sounds, soft to palpation, non-tender and non-distended Extremity normal to inspection, full ROM and no clubbing, cyanosis or edema Skin no rashes or lesions noted Neuro oriented x3, CN's II-XII intact bilaterally and moves all extremities Sensorium / Orientation: awake and alert Psych affect normal Weight / BMI Weight Weight: 153 lb 14.122 oz Body Mass Index (BMI) 34.4 ABG / Lab / Microbiology Data Result Diagrams: 02/07/22 04:26 02/07/22 04:26 Laboratory: Laboratory Results - last 24 hr 02/06/22 16:10: POC Glucose 156 H 02/06/22 21:51: POC Glucose 142 H 02/07/22 04:26: WBC 8.9, RBC 3.72 L, Hgb 10.8 L, Hct 34.2 L, MCV 91.9, MCH 29.0, MCHC 31.6 L, RDW Std Deviation 54.1 H, RDW Coeff of Felicia 16.2 H, Plt Count 393, MPV 10.1, Immature Gran % (Auto) 0.500, Neut % (Auto) 63.5, Lymph % (Auto) 18.5 L, [place] % (Auto) 14.0 H, Eos % (Auto) 2.4, Baso % (Auto) 1.1 H, Absolute Neuts (auto) 5.7, Absolute Lymphs (auto) 1.64, Nucleated RBC % 0 02/07/22 04:26: Sodium 135 L, Potassium 3.9, Chloride 103, Carbon Dioxide 27.0, Anion Gap 5, BUN 20 H, Creatinine 0.88, Estim Creat Clear Calc 55.25, Est GFR (MDRD) Af Amer 80, Est GFR (MDRD) Non-Af 66, BUN/Creatinine Ratio 22.9 H, Glucose 133 H, Calcium 9.8 02/07/22 06:31: POC Glucose 139 H 02/07/22 11:24: POC Glucose 163 H D/C Instructions Discharge Diet: Low fat / Low cholesterol Discharge Activity: Return to Normal Activity May resume sexual activity in: No Restrictions Weight Bearing Status: Weight bearing as tolerated Call your doctor if you observe: Fever of 101 or Higher, Shortness of breath, Dizziness, Swelling in the ankles, Chest pain and Increased palpitations (irregular heartbeat) Meaningful Use Info Meaningful Use Diagnoses (Choose all that apply): None applicable Discharge Plan Admission Admit Date/Time: 02/06/22 07:40 Primary Reason for Your Visit: chest pain, acute hypoxic respiratory insufficiency, pulm hypertension Attending Provider: Nicolle Carter Primary Care Provider: Aleksandr Salazar Instructions Patient Instructions: Pulmonary Hypertension, ED Chest Pain, Noncardiac Discharge Orders/Prescriptions Prescriptions: New furosemide [Lasix] 40 mg tablet 40 mg PO DAILY Qty: 30 RF: 1 potassium chloride [Klor-Con M20] 20 mEq tablet,ER particles/crystals 20 meq PO DAILY Qty: 30 RF: 1 Continued amlodipine 10 MG tablet 10 mg PO DAILY RF: 0 duloxetine 60 MG capsule,delayed release(DR/EC) 60 mg PO DAILY RF: 0 cholecalciferol (vitamin D3) [D3-2000] 2,000 UNIT capsule 2,000 unit PO DAILY RF: 0 carvedilol 6.25 MG tablet 6.25 mg PO BID RF: 0 acetaminophen 500 MG tablet 650 mg PO Q4H PRN PRN (Reason: Temp > 100.4 F) RF: 0 metformin 500 mg tablet 500 mg PO BID RF: 0 omeprazole 20 mg capsule,delayed release(DR/EC) 20 mg PO DAILY RF: 0 gabapentin 100 mg capsule 100 mg PO TID RF: 0 Discontinued furosemide 20 MG tablet 20 mg PO DAILY RF: 0 Referrals / Follow Up: Kelton Alexander DO [STAFF PHYSICIAN] - Within 1 Month (establish care for pulmonary hypertension) Aleksandr Salazar MD [Primary Care Provider] - Within 2 Weeks Disposition Disposition (needs filled in before D/C Order can be placed): Home, Self Care Charges/Coding Visit Charges OBSV E&M: 92409 Observation care discharge
== END 2022-02-07 13:39 | disposition home or self-care (01) ==
LOC: ED 05:43 → PCU 07:59
PROVIDERS: Admitting Provider Student in an Organized Health Care Education/Training Program; Emergency Provider Emergency Medicine; PCP Family Medicine; Visit Provider Student in an Organized Health Care Education/Training Program
DX: R07.89 Other chest pain (principal); I11.0 Hypertensive heart disease with heart failure; I50.32 Chronic diastolic (congestive) heart failure; E11.9 Type 2 diabetes mellitus without complications; R09.02 Hypoxemia; K21.9 Gastro-esophageal reflux disease without esophagitis; Z79.899 Other long term (current) drug therapy; Z79.84 Long term (current) use of oral hypoglycemic drugs; R94.31 Abnormal electrocardiogram [ECG] [EKG]; R00.0 Tachycardia, unspecified; F41.9 Anxiety disorder, unspecified; F32.A Depression, unspecified
CPT/HCPCS: 36415; 71045; 71275; 78452; 80048; 82962; 83735; 83880; 84443; 84484; 85025; 93005; 93017; 93306; 96372; 96374; 96376; 97110; 97162; 97166; 97535; 99218; 99282; A9500; Q9967; A4216; G0378; J1940; J2785

== ENCOUNTER 2022-03-09 12:45 | Inpatient (IN) | payer MEDICARE, SELFPAY ==
[2022-03-09] VITALS (10 sets, daily range): BP systolic 105–119; BP diastolic 58–72; PULSE 87–97; RESP 16–18; TEMP 36.6–36.9; O2SAT 92–95; BMI 31.8; BMI 32.3
--- NOTE | 2022-03-09 12:54 | CT_ITS ---
INDICATION: abdominal pain, vomitting EXAMINATION: CT ABDOMEN AND PELVIS WITHOUT CONTRAST - CT Abdomen And Pelvis W/O Contrast Injection TECHNIQUE: Helically acquired images were obtained of the abdomen and pelvis without oral or IV contrast. A radiation dose optimization technique was used for this scan. IV Contrast dosage and agent: None. Oral contrast: None. COMPARISON: None. FINDINGS: LOWER CHEST: Elevation of the left hemidiaphragm is seen. Mild pleural reaction visualized in bilateral lower lung lockhart with linear subsegmental atelectatic streaks. Mild cardiomegaly, no evidence of pericardial effusion. LIVER: Homogeneous. No focal mass. GALLBLADDER AND BILIARY TREE: There is an increased density visualized in the gallbladder fossa most likely representing sutures, distended the common bile duct most likely secondary to postcholecystectomy status would recommend clinical correlation. No intrahepatic biliary ductal dilation. PANCREAS: Marked atrophy of the pancreas/fatty infiltration is seen. SPLEEN: Normal size without focal cystic or solid mass. ADRENAL GLANDS: No nodules. KIDNEYS AND URETERS: Normal renal size and position. No hydronephrosis. PERITONEUM: No ascites or free air. No other fluid collection. BOWEL: No evidence of acute appendicitis. No stomach or bowel distension. No focal inflammatory change. Scattered diverticular disease, abundance of stool in the ascending colon. LYMPH NODES: No enlarged mesenteric or retroperitoneal lymph nodes. VESSELS: Aorta is non-dilated. URINARY BLADDER: Unremarkable. REPRODUCTIVE ORGANS: No pelvic masses. ABDOMINAL WALL: No discrete abdominal or pelvic wall hernia. BONES: Degenerative bone changes seen. No lytic or blastic abnormality. CT/Abdomen/Pelvis without Cont IMPRESSION: No evidence of acute abdominal pathology is seen. Electronically Signed: Wm Hernandez MD at 14:04 EDT Reading Location ID and State: [facility] [place] Tel , Service support ,
--- NOTE | 2022-03-09 12:54 | CT_ITS ---
INDICATION: fall, head injury EXAMINATION: CT BRAIN - CT Head or Brain W/O Contrast Injection TECHNIQUE: Multiple axial images were obtained of the head without intravenous contrast. A radiation dose optimization technique was used for this scan. IV Contrast dosage and agent: None. COMPARISON: None. FINDINGS: No evidence of parenchymal hemorrhages or contusions. No evidence of intra or extra-axial fluid collection is seen. Extensive areas of low attenuation are visualized in the periventricular and subcortical white matter suggestive of chronic microvascular disease. No evidence of acute territorial infarct is seen. Subtle scattered lacunar infarcts visualized in bilateral basal ganglia most likely chronic. Mild prominence of the ventricles and sulci is visualized suggestive of chronic atrophic brain changes. No evidence of intracranial mass or mass effect, no evidence of midline shift is seen. No evidence of sellar or parasellar masses seen. No structural midline barium abnormality is seen. Both globes, extraocular muscles, optic nerves and retrobulbar fat appear unremarkable. Unremarkable aeration of the paranasal sinuses and the mastoid air cells. No evidence of physical sclerotic bone changes seen. CT/Brain/Head without Contrast IMPRESSION: No evidence of traumatic brain injury is seen. Chronic microvascular disease and chronic atrophic brain changes, Electronically Signed: Wm Hernandez MD at 14:08 EDT Reading Location ID and State: [facility] / [place] Tel , Service support ,
--- NOTE | 2022-03-09 12:54 | CT_ITS ---
INDICATION: trauma EXAMINATION: CT CERVICAL SPINE - CT Spine Cervical W/O Contrast Injection TECHNIQUE: Helically acquired images were obtained of the cervical spine. 2D reformatted images were reviewed. A radiation dose optimization technique was used for this scan. IV Contrast dosage and agent: None. COMPARISON: None. FINDINGS: Straightening of alignment of the columns of the cervical spine is visualized. No fracture or traumatic subluxation. Subtle grade 1 anterolisthesis of C4 over C5 is seen. No discrete lytic or blastic abnormality. Unremarkable craniocervical junction and cervicothoracic junction. Multilevel degenerative endplate changes seen, no evidence of compression deformity of the cervical vertebral bodies. Increased density visualized within the C7 vertebral body is suggestive of hemangioma. Decreased intervertebral disc height visualized at multiple levels but most prominent at C5-C6 and C6-C7. Multilevel degenerative disc osteophyte complex, uncovertebral disease and hypertrophic changes in the facet joints is seen. No prevertebral soft tissue swelling. There is no cervical adenopathy. Limited evaluation of the upper lung lockhart unremarkable. CT/Spine Cervical without Contras IMPRESSION: Degenerative changes of the cervical spine, no acute osseous abnormality seen. Electronically Signed: Wm Hernandez MD at 14:13 EDT Reading Location ID and State: [facility] / [place] Tel , Service support ,
--- NOTE | 2022-03-09 12:55 | EKG12_ITS ---
Test Reason : FALL Blood Pressure : / mmHG Vent. Rate : 095 BPM Atrial Rate : 095 BPM P-R Int : 136 ms QRS Dur : 100 ms QT Int : 316 ms P-R-T Axes : 071 003 183 degrees QTc Int : 397 ms Normal sinus rhythm Inferior infarct , age undetermined , cannot be excluded Nonspecific ST and T wave abnormality Abnormal ECG Confirmed by NICK HYATT, JOE ([id number]), greeting card editor FIDELIA VEGA ([id number]) on 03/14/2022 8:48:01 AM Referred By: FRANKLIN Confirmed By:JOE ROMERO MD
--- NOTE | 2022-03-09 12:58 | EDS_ITS ---
HPI HPI - Fall History of Present Illness Chief Complaint: Fall Detail of Chief Complaint: Multiple falls today Informant: patient Narrative Narrative: Patient presents to the emergency department after sustaining mu ltiple falls today. Patient states that during one of the fall she fell and hit her head on the toilet and is unsure if she lost consciousness. She is not on any blood thinners. Patient relates history of not feeling well for about a week with vomiting. Patient's not been able to keep much down she states as far as food or water. Patient states she always has some chronic diarrhea she has a history of IBS. She denies any fevers. She is generally feels weak. She presents via EMS for evaluation. Patient denies any chest pain or shortness of breath. She does describe some diffuse abdominal pain. [facility] Medical History Congestive heart failure (CHF) Diabetes Hypertension Home Medications amlodipine 10 mg PO DAILY 04/29/18 [History Last Taken 01/11/21] cholecalciferol (vitamin D3) [D3-2000] 2,000 unit PO DAILY 04/29/18 [History Last Taken 01/11/21] duloxetine 60 mg PO DAILY 04/29/18 [History Last Taken 01/11/21] carvedilol 6.25 mg PO BID 01/11/21 [History Last Taken Unknown] acetaminophen 650 mg PO Q4H PRN PRN tab 01/14/21 [Rx Last Taken Unknown] gabapentin 100 mg PO TID 02/06/22 [History Last Taken Unknown] metformin 500 mg PO BID 02/06/22 [History Last Taken Unknown] omeprazole 20 mg PO DAILY 02/06/22 [History Last Taken Unknown] furosemide [Lasix] 40 mg PO DAILY #30 tab 02/07/22 [Rx Last Taken Unknown] potassium chloride [Klor-Con M20] 20 meq PO DAILY #30 tab 02/07/22 [Rx Last Take n Unknown] Allergy/AdvReac Type Severity Reaction Status Date / Time lisinopril [From Zestril] Allergy Swelling Verified 03/09/22 12:49 losartan [From Cozaar] Allergy Swelling Verified 03/09/22 12:49 carbamazepine [From Tegretol] AdvReac MENTAL Verified 03/09/22 12:49 STATUS CHANGE hydrochlorothiazide AdvReac confusion Verified 03/09/22 12:49 Surgical History S/P hysterectomy Social History Smoking Status: Never smoker ROS ROS ED Constitutional Constitutional ED: Reports systems reviewed and no addt'l complaints, except as documented; Denies body ache(s), change in weight or chills Eyes Eyes: Denies acute decrease in peripheral vision, change in vision, double vision or loss of vision ENT ENT ED: Reports none; Denies ear pain, lip swelling, loss taste/smell, neck pain, otalgia or sore throat Cardiovascular Cardiovascular: Reports none; Denies abdominal pain, chest pain with activity, leg edema, lightheadedness, palpitations, rapid heart rate or syncope Respiratory/Chest Respiratory/Chest: Reports none; Denies change in mental status, dry cough, dyspnea, hemoptysis, shortness of breath at rest or shortness of breath with exertion Gastrointestinal Gastrointestinal: Reports none, abdominal pain, nausea and vomiting; Denies change in stool character, diarrhea, hematemesis, hematochezia, melena or rectal bleeding Genitourinary Genitourinary ED: Reports none; Denies abdominal discomfort, anuria, dysuria, genital pain or polyuria Musculoskeletal Musculoskeletal: Reports none; Denies arthralgias, back pain, difficulty walking, extremity pain, muscle weakness or myalgias Integumentary Reports none; Denies abscess or rash Neurologic Neurologic: Reports none, headache(s) and weakness; Denies abnormal gait, confusion, focal weakness, frequent falls, loss of vision, numbness, paresthesias, radicular pain or vertigo Psychiatric Psychiatric: Reports systems reviewed and no addt'l complaints, except as documented and none; Denies behavioral changes, confusion, difficulty concentrating, hallucinations, suicidal ideation, tactile hallucinations or visual hallucinations Endocrine Endocrinology: Denies none, cold intolerance, excessive sweating, fatigue or he at intolerance Hematologic/Lymphatic Hematologic/Lymphatic: Reports none; Denies anemia, easy bleeding or easy bruising Allergic/Immunologic Allergic/Immunologic ED: Denies as per HPI, none, lip swelling, mouth swelling, throat swelling, tongue swelling or hives EXAM Physical Exam Const Vital Signs: 03/09/22 12:45 03/09/22 12:49 03/09/22 12:51 Temperature 97.8 F 97.8 F Temperature Source Temporal Temporal Pulse Rate 97 97 Respiratory Rate 16 16 Respiratory Effort Normal Non-Labored Respiratory Depth Normal Respiratory Pattern Normal Blood Pressure 115/63 115/63 Blood Pressure Mean 80 80 Pulse Ox 95 95 93 Oxygen Delivery Method Room Air Room Air Room Air 03/09/22 14:01 Temperature 98.4 F Temperature Source Temporal Pulse Rate 88 Respiratory Rate 16 Respiratory Effort Respiratory Depth Respiratory Pattern Blood Pressure 105/64 Blood Pressure Mean 77 Pulse Ox 94 Oxygen Delivery Method Room Air Positive well nourished and well developed General Appearance ED: well developed and NAD HEENT Reports TM's clear and moist mucous membranes normocephalic and atraumatic; Negative for trauma or tenderness Tympanic Membrane ED: Yes TM's clear Eyes PERRL and EOMs intact bilaterally General Eye ED: Negative for pale conjunctiva or scleral icterus Neck no lymphadenopathy, supple and no JVD Neck Narrative: Mild diffuse tenderness to the C-spine. C-collar was left in place. General: tenderness Chest Wall inspection of chest normal and palpation of chest normal Chest: Negative for tenderness Resp normal respiratory effort and clear to auscultation bilaterally Effort and Inspection: Negative for respiratory distress or pain with movement Auscultation: Negative for rhonchi, wheezes or diminished lung sounds Cardio regular rate, regular rhythm, S1 normal heart sound, S2 normal heart sound and no murmurs Peripheral Pulses: pulses 2+ throughout GI normal to inspection, nondistended, normoactive bowel sounds, soft to palpation, non-distended and no masses GI Narrative: Patient with diffuse tenderness to palpation. Mild guarding. There is no rebound, rigidity, or peritoneal signs. Back/Spine no CVA tenderness and no thoracic nor lumbar tenderness Extremity normal to inspection General Extremety ED: Negative for edema General Extremity: Negative for edema Neuro oriented x3, CN's II-XII intact bilaterally, no sensory deficits noted and gait normal Sensorium / Orientation: awake, alert, oriented to person, oriented to place and oriented to time Motor Exam: strength 5/5 throughout and strength abnormal Psych mental status grossly normal Skin no rashes or lesions noted and no wounds MDM MDM MDM Narrative Medical decision making narrative: IV established on arrival. Patient had a CT scan of the brain without contrast that was unremarkable. Patient had a CT of the C-spine that showed no fractures. Patient has CT scan of the abdomen pelvis that showed no acute disease process. After the c-collar was removed it was noted that patient had some blood to the posterior right occiput and a 2.5 cm laceration that was currently not bleeding. Area cleansed and irrigated with saline. Using 4-0 nylon 1 single ruptured suture placed with good wound edge approximation. Patient tolerated procedure well. Patient was started on IV potassium. I ordered stool for C. difficile as well as enteric pathogens. I suspect she likely has a viral syndrome given all the vomiting and some loose stools. Case discussed with hospitalist will evaluate patient for admission Lab Data Labs: Laboratory Results - last 24 hr 03/09/22 03/09/22 03/09/22 13:05 13:05 14:22 WBC 18.1 H RBC 3.80 L Hgb 11.2 L Hct 33.1 L MCV 87.1 MCH 29.5 MCHC 33.8 RDW Std Deviation 53.1 H RDW Coeff of Felicia 17.3 H Plt Count 239 MPV 10.6 Immature Gran % (Auto) 1.100 H Neut % (Auto) 83.5 H Lymph % (Auto) 6.8 L [place] % (Auto) 7.9 Eos % (Auto) 0.4 Baso % (Auto) 0.3 Absolute Neuts (auto) 15.1 H Absolute Lymphs (auto) 1.24 Nucleated RBC % 0 Sodium 130 L Potassium 2.2 L* Chloride 89 L Carbon Dioxide 32.0 Anion Gap 9 BUN 25 H Creatinine 1.22 H Estim Creat Clear Calc 38.07 Est GFR (MDRD) Af Amer 54 L Est GFR (MDRD) Non-Af 45 L BUN/Creatinine Ratio 20.5 H Glucose 172 H Calcium 10.2 H Troponin I High Sens 6 Urine Color Yellow Urine Clarity Clear Urine pH 6.0 Ur Specific [place] 1.010 Urine Protein Negative Urine Glucose (UA) Normal Urine Ketones Negative Urine Occult Blood Negative Urine Nitrite Positive H Urine Bilirubin Negative Urine Urobilinogen Normal Ur Leukocyte Esterase Negative Urine RBC 0 SEEN Urine WBC 0-5 SEEN Ur Squamous Epith Cells 0-5 SEEN Urine Bacteria 4+ Urine Mucus 0 SEEN Radiography Diagnostic Testing: Clinical Impression(s) from Imaging Studies Abdomen/Pelvis CT 03/09/22 12:54 IMPRESSION: No evidence of acute abdominal pathology is seen. Electronically Signed: Wm Hernandez MD at 14:04 EDT , Brain CT 03/09/22 12:54 IMPRESSION: No evidence of traumatic brain injury is seen. Chronic microvascular disease and chronic atrophic brain changes, Electronically Signed: Wm Hernandez MD at 14:08 EDT , Cervical Spine CT 03/09/22 12:54 IMPRESSION: Degenerative changes of the cervical spine, no acute osseous abnormality seen. Electronically Signed: Wm Hernandez MD at 14:13 EDT , EKG Initial EKG: Attestation: I personally reviewed and interpreted this EKG as follows: Comments: Sinus rhythm with a rate of [address] changes Discharge Plan Triage Chief Complaint: Fall ED Provider: Jacquelyn Eli Dx/Rx/DC Orders Clinical Impression: Vomiting, GEORGI (acute kidney injury), Acute hypokalemia, Falls frequently, Closed head injury, Laceration of scalp Prescriptions: No Action amlodipine 10 MG tablet 10 mg PO DAILY RF: 0 duloxetine 60 MG capsule,delayed release(DR/EC) 60 mg PO DAILY RF: 0 cholecalciferol (vitamin D3) [D3-2000] 2,000 UNIT capsule 2,000 unit PO DAILY RF: 0 carvedilol 6.25 MG tablet 6.25 mg PO BID RF: 0 acetaminophen 500 MG tablet 650 mg PO Q4H PRN PRN (Reason: Temp > 100.4 F) RF: 0 metformin 500 mg tablet 500 mg PO BID RF: 0 omeprazole 20 mg capsule,delayed release(DR/EC) 20 mg PO DAILY RF: 0 gabapentin 100 mg capsule 100 mg PO TID RF: 0 furosemide [Lasix] 40 mg tablet 40 mg PO DAILY Qty: 30 RF: 1 potassium chloride [Klor-Con M20] 20 mEq tablet,ER particles/crystals 20 meq PO DAILY Qty: 30 RF: 1 Primary Care Provider: Aleksandr Salazar Referrals: Aleksandr Salazar MD [Primary Care Provider] - Disposition Disposition: Acute Care Hospital [facility]
[2022-03-09 13:12] LABS: Absolute Lymphocyte Count 1.24 X10^3/uL (0.83-4.51); Absolute Neutrophil Count 15.1 X10^3/uL (2.0-7.7); Basophil# 0.05 X10^3/uL; Basophil% 0.3 % (0-1); Eosinophil# 0.08 X10^3/uL; Eosinophils% 0.4 % (0-5); Hematocrit 33.1 % (37-47); Hemoglobin 11.2 g/dL (12.0-15.0); Lymphocyte # 1.24 X10^3/ul (0.83-4.51); Lymphocyte % 6.8 % (19-41); Mean Corp Hgb Conc 33.8 g/dL (32-36); Mean Corpuscular Hgb 29.5 pg (27.0-32.0); Mean Corpuscular Volume 87.1 fL (81-99); Mean Platelet Vol. 10.6 fl (6.2-12.0); Monocyte# 1.44 X10^3/uL; Monocyte% 7.9 % (0-10); NRBC Flagged by Analyzer 0 % (0-5); Neutrophil # 15.12 X10^3/uL (2.7-7.7); Neutrophil % 83.5 % (47-70); Platelet Count 239 K/mm3 (150-450); RBC Distribution Width CV 17.3 % (11.6-14.6); RBC Distribution Width SD 53.1 fl (35.1-43.9); White Blood Count 18.1 K/mm3 (4.4-11.0)
[2022-03-09] MEDS: Ondansetron 4 MG/2 ML Vial IV ×3 (13:28→23:05)
[2022-03-09 13:31] LABS: Anion Gap 9 (5-15); BUN 25 mg/dL (7-18); BUN/Creat Ratio 20.5 RATIO (10-20); Calcium,Total 10.2 mg/dL (8.5-10.1); Chloride 89 mmol/L (98-107); Creatinine, Serum 1.22 mg/dL (0.55-1.02); EST Glomerular Filtration Rate 45 mL/min (>60); Est Glom Filt Rate - Afr Amer 54 mL/min (>60); Estimated Creatinine Clearance 38.07 ml/min; Glucose 172 mg/dL (74-106); Potassium 2.2 mmol/L (3.5-5.1); Sodium Level 130 mmol/L (136-145); Troponin-I HS 6 pg/mL (3.0-54.0)
[2022-03-09] MEDS: Potassium Chloride 10mEq/100mL 10 MEQ/100 ML IV.SOLN. 100 MEQ IV BOLUS ×4 (14:18→18:56)
[2022-03-09 14:28] LABS: Mucous, Urine 0 SEEN /hpf (<or=2+); Red Blood Cells-Urine 0 SEEN /hpf (0-5)
[2022-03-09 14:29] LABS: Color, Urine Yellow (Yellow); Glucose, Dipstick Normal (Normal); Ketone-Dipstick Negative (Negative); Leukocyte Esterase-Dipstick Negative /ul (Negative); Nitrite-Dipstick Positive (Negative); Occult Blood-Urine Negative /ul (Negative); Protein-Dipstick Negative (Negative); Urine Bilirubin Dipstick Negative (Negative); Urine Clarity Clear (Clear); Urine Urobilinogen Normal (Normal)
[2022-03-09 14:35] LABS: Bacteria 4+ /hpf (None Seen); Squamous Epithelial Cells - UA 0-5 SEEN /hpf (5-10); White Blood Cells 0-5 SEEN /hpf (0-5)
--- NOTE | 2022-03-09 15:01 | HP.PCM.HOS_ITS ---
Documented by User: Malou Rutherford NP, P[employer]ING [employer]KER-C 03/09/22 15:32 HPI - General HPI Narrative BG FULLER, is a 81 F who presents to the emergency room due to nausea, vomiting, diarrhea and weakness with falls. Patient states this has been ongoing for 3 to 4 days. She denies cough, fever, chills. States she is unable to keep food or drink down. Patient reports multiple falls at home today. States during one fall, she hit her head on the toilet. Denies known loss of consciousness. She denies urinary symptoms. Denies significant abdominal pain. States her grandchildren have had a GI bug however she states she has not been around them recently. She denies any recent travel or eating out. She states she mostly stays home. Her who lives with her at home is not sick. She has a past medical history of hypertension, type 2 diabetes mellitus, GERD, anxiety, depression, history of alcohol abuse, asthma. [facility] Medical History Congestive heart failure (CHF) Diabetes Hypertension Hypertension Home Medications amlodipine 10 mg PO DAILY 04/29/18 [History Last Taken 03/09/22] cholecalciferol (vitamin D3) [D3-2000] 2,000 unit PO DAILY 04/29/18 [History Last Taken 03/09/22] duloxetine 60 mg PO DAILY 04/29/18 [History Last Taken 03/09/22] carvedilol 6.25 mg PO BID 01/11/21 [History Last Taken 03/09/22] acetaminophen 650 mg PO Q4H PRN PRN tab 01/14/21 [Rx Last Taken 03/09/22] gabapentin 100 mg PO TID 02/06/22 [History Last Taken 03/07/22] metformin 500 mg PO BID 02/06/22 [History Last Taken 03/09/22] omeprazole 20 mg PO DAILY 02/06/22 [History Last Taken 03/09/22] furosemide [Lasix] 40 mg PO DAILY 03/09/22 [History Last Taken 03/08/22] potassium chloride [Klor-Con M20] 20 meq PO DAILY 03/09/22 [History Last Taken 03/09/22] Allergy/AdvReac Type Severity Reaction Status Date / Time lisinopril [From Zestril] Allergy Swelling Verified 03/09/22 12:49 losartan [From Cozaar] Allergy Swelling Verified 03/09/22 12:49 carbamazepine [From Tegretol] AdvReac MENTAL Verified 03/09/22 12:49 STATUS CHANGE hydrochlorothiazide AdvReac confusion Verified 03/09/22 12:49 Family History (Updated 03/09/22 @ 15:07 by Malou Rutherford NP, P[employer]ING [employer]KER-C) Mother Cancer leukemia Father CVA (cerebral vascular accident) Surgical History S/P cholecystectomy S/P hysterectomy S/P tonsillectomy Social History (Updated 03/09/22 @ 15:11 by Malou Rutherford NP, P[employer]ING [employer]-C) household members: spouse housing: house Smoking Status: Never smoker alcohol intake: current details: a little substance use type: does not use ROS Constitutional Constitutional: Reports fatigue, malaise and weakness; Denies change in weight, chills or fever(s) Cardiovascular Cardiovascular: Denies chest pain, edema, lightheadedness, palpitations or syncope Respiratory/Chest Respiratory/Chest: Denies cough, dyspnea, productive cough, shortness of breath at rest, shortness of breath with exertion or wheezing Gastrointestinal Gastrointestinal: Reports diarrhea, nausea and vomiting; Denies abdominal pain or constipation Genitourinary Genitourinary: Denies burning urination, difficulty urinating, dysuria, hematuria, urinary frequency, urinary incontinence or urinary urgency Musculoskeletal Musculoskeletal: Denies back pain, joint pain or muscle weakness Integumentary Integumentary: Denies erythema, lesions, rash or wounds Neurologic Neurologic: Denies abnormal speech, confusion, dizziness, focal weakness, numbness, paresthesias, seizure-like activity or syncope Psychiatric Psychiatric: Reports anxiety and depression Hematologic/Lymphatic Hematologic/Lymphatic: Denies anemia, easy bleeding or easy bruising Allergic/Immunologic Allergic/Immunologic: Denies hives or asthma Vital Signs Vital Signs Vital Signs: 03/09/22 12:45 03/09/22 12:49 03/09/22 12:51 Temperature 97.8 F 97.8 F Temperature Source Temporal Temporal Pulse Rate 97 97 Respiratory Rate 16 16 Respiratory Effort Normal Non-Labored Respiratory Depth Normal Respiratory Pattern Normal Blood Pressure 115/63 115/63 Blood Pressure Mean 80 80 Pulse Ox 95 95 93 Oxygen Delivery Method Room Air Room Air Room Air 03/09/22 14:01 Temperature 98.4 F Temperature Source Temporal Pulse Rate 88 Respiratory Rate 16 Respiratory Effort Respiratory Depth Respiratory Pattern Blood Pressure 105/64 Blood Pressure Mean 77 Pulse Ox 94 Oxygen Delivery Method Room Air Weight Weight: 147 lb Body Mass Index (BMI) 31.8 Physical Exam Const alert, oriented x3 and no apparent distress Orientation / Consciousness: awake, oriented to person, oriented to place and oriented to time HEENT normocephalic Mouth: dry mucous membranes Eyes PERRL, EOMs intact bilaterally and conjunctivae normal Neck no lymphadenopathy Resp normal respiratory effort and clear to auscultation bilaterally Cardio regular rate, regular rhythm and no murmurs Peripheral Pulses: pulses 2+ throughout GI normal to inspection, nondistended, normoactive bowel sounds, non-tender and non-distended Extremity normal to inspection Skin no rashes or lesions noted Lesions: no lesions Rashes: no rashes Trauma: no lacerations or abrasions Neuro CN's II-XII intact bilaterally, no focal motor deficits, no sensory deficits noted and deep tendon reflexes 2+ bilaterally Psych mental status grossly normal and affect normal Results Lab / Micro Data Result Diagrams: 03/09/22 13:05 03/09/22 13:05 Labs: Laboratory Results - last 24 hr 03/09/22 13:05: WBC 18.1 H, RBC 3.80 L, Hgb 11.2 L, Hct 33.1 L, MCV 87.1, MCH 29.5, MCHC 33.8, RDW Std Deviation 53.1 H, RDW Coeff of Felicia 17.3 H, Plt Count 239, MPV 10.6, Immature Gran % (Auto) 1.100 H, Neut % (Auto) 83.5 H, Lymph % (Auto) 6.8 L, Petroleum % (Auto) 7.9, Eos % (Auto) 0.4, Baso % (Auto) 0.3, Absolute Neuts (auto) 15.1 H, Absolute Lymphs (auto) 1.24, Nucleated RBC % 0 03/09/22 13:05: Sodium 130 L, Potassium 2.2 L*, Chloride 89 L, Carbon Dioxide 32.0, Anion Gap 9, BUN 25 H, Creatinine 1.22 H, Estim Creat Clear Calc 38.07, Est GFR (MDRD) Af Amer 54 L, Est GFR (MDRD) Non-Af 45 L, BUN/Creatinine Ratio 20.5 H, Glucose 172 H, Calcium 10.2 H, Troponin I High Sens 6 03/09/22 14:22: Urine Color Yellow, Urine Clarity Clear, Urine pH 6.0, Ur Specific [place] 1.010, Urine Protein Negative, Urine Glucose (UA) Normal, Urine Ketones Negative, Urine Occult Blood Negative, Urine Nitrite Positive H, Urine Bilirubin Negative, Urine Urobilinogen Normal, Ur Leukocyte Esterase Negative, Urine RBC 0 SEEN, Urine WBC 0-5 SEEN, Ur Squamous Epith Cells 0-5 SEEN, Urine Bacteria 4+, Urine Mucus 0 SEEN Radiology Impression Abdomen/Pelvis CT 03/09/22 12:54 IMPRESSION: No evidence of acute abdominal pathology is seen. Electronically Signed: Wm Hernandez MD at 14:04 EDT Reading Location ID and State: [facility] / [place] Tel , Service support , Brain CT 03/09/22 12:54 IMPRESSION: No evidence of traumatic brain injury is seen. Chronic microvascular disease and chronic atrophic brain changes, Electronically Signed: Wm Hernandez MD at 14:08 EDT Reading Location ID and State: [facility] / [place] Tel , Service support , Cervical Spine CT 03/09/22 12:54 IMPRESSION: Degenerative changes of the cervical spine, no acute osseous abnormality seen. Electronically Signed: Wm Hernandez MD at 14:13 EDT Reading Location ID and State: [facility] / [place] Tel , Service support , Assessment & Plan Assessment/Plan (1) GEORGI (acute kidney injury): (2) Acute hypokalemia: PLAN: 1. Acute kidney injury secondary to suspected viral gastroenteritis- patient presents with nausea, vomiting, diarrhea. IV fluids. Send stool studies. As needed antiemetics. Advance diet as tolerated. Trend BMP. PT/OT. Hold lasix. 2. Hypokalemia-secondary to GI losses per above. Replace per protocol, trend BMP. Check mag, Phos. 3. Leukocytosis- possibly related to dehydration. No evidence of infection. Afebrile. Trend CBC. 4. Hypertension-stable, continue carvedilol, amlodipine. 5.Type 2 diabetes mellitus-continue metformin. Accu-Cheks with sliding scale insulin. 6. GERD-continue PPI. 7. Anxiety/depression-on duloxetine. 8. History of alcohol abuse-states she still drinks a little. Denies heavy use. 9. Asthma- As needed albuterol aerosol. DVT prophylaxis-Heparin subcu This patient was seen by ANAT Ibrahim under the supervision of Dr. Santos. Time spent examining patient, reviewing data and subsequent management of care: 17 minutes Documented by User: Dr. Ignacio Santos DO 03/09/22 20:42 HPI - General General Date of Admission: 03/09/22 [facility] Medical History Congestive heart failure (CHF) Diabetes Hypertension Hypertension Home Medications amlodipine 10 mg PO DAILY 04/29/18 [History Last Taken 03/09/22] cholecalciferol (vitamin D3) [D3-2000] 2,000 unit PO DAILY 04/29/18 [History Last Taken 03/09/22] duloxetine 60 mg PO DAILY 04/29/18 [History Last Taken 03/09/22] carvedilol 6.25 mg PO BID 01/11/21 [History Last Taken 03/09/22] acetaminophen 650 mg PO Q4H PRN PRN tab 01/14/21 [Rx Last Taken 03/09/22] gabapentin 100 mg PO TID 02/06/22 [History Last Taken 03/07/22] metformin 500 mg PO BID 02/06/22 [History Last Taken 03/09/22] omeprazole 20 mg PO DAILY 02/06/22 [History Last Taken 03/09/22] furosemide [Lasix] 40 mg PO DAILY 03/09/22 [History Last Taken 03/08/22] potassium chloride [Klor-Con M20] 20 meq PO DAILY 03/09/22 [History Last Taken 03/09/22] Allergy/AdvReac Type Severity Reaction Status Date / Time lisinopril [From Zestril] Allergy Swelling Verified 03/09/22 12:49 losartan [From Cozaar] Allergy Swelling Verified 03/09/22 12:49 carbamazepine [From Tegretol] AdvReac MENTAL Verified 03/09/22 12:49 STATUS CHANGE hydrochlorothiazide AdvReac confusion Verified 03/09/22 12:49 Family History (Updated 03/09/22 @ 15:07 by Malou Rutherford PAVING BED MAKER, P[employer]ING BED MAKER-C) Mother Cancer leukemia Father CVA (cerebral vascular accident) Surgical History S/P cholecystectomy S/P hysterectomy S/P tonsillectomy Social History (Updated 03/09/22 @ 15:11 by Malou Rutherford PAVING BED MAKER, PAVING BED MAKER-C) household members: spouse housing: house Smoking Status: Never smoker alcohol intake: current details: a little substance use type: does not use Results Lab / Micro Data Result Diagrams: 03/09/22 13:05 03/09/22 13:05 Charges/Coding Addendum Addendum: Patient was seen and examined today independently of Malou Rutherford, she came to the ER today at [facility] with complaints of generalized weakness, nausea, vomiting, and diarrhea. This is been going on for approximately the last 3 days. On examination she appeared in good health and spirits, she does not appear to be in any distress. Vital signs as documented. Skin warm and dry and without overt rashes. Neck without JVD, thyroid appears normal, trachea is midline, neck is supple. Lungs clear, normal air movement was noted. Heart exam notable for regular rhythm, normal sounds and absence of murmurs, rubs or gallops. Abdomen unremarkable and without evidence of organomegaly, masses, or abdominal aortic enlargement, bowel sounds are present in all 4 quadrants, no abdominal tend erness was noted. Extremities nonedematous, no cyanosis was noted, no clubbing was noted. Neuro: Cranial nerves II through XII are grossly intact, no focal motor deficits were noted, sensation to light touch and pinprick is intact, motor exam 5/5 throughout. Psych: Patient is alert and oriented x3, she does not appear anxious or depressed, she does not appear agitated. Patient's labs obtained in the emergency room showed an elevated white blood cell count of 18.1, hemoglobin was 11.2, potassium was 2.2, creatinine was 1.22, BUN was 25. Patient's sodium was low at 130. Patient's urine showed +4 bacteria, positive nitrites, 0-5 WBCs, [address] of the abdomen showed no evidence of acute abdominal pathology. Impression: #1 hypokalemia-secondary to persistent vomiting and diarrhea, ciara ent will be admitted to PCU, IV fluids will be administered, potassium supplementation was given to the patient, labs will be monitored #2 acute cystitis-patient will be given IV Rocephin #3 possible viral gastroenteritis-patient had an enteric stool panel ordered and a C. difficile stool specimen ordered, treatment will be based on these tests. #4 essential hypertension-patient will remain on her blood pressure medications, I will hold her diuretics #5 acute kidney injury-patient will be given IV fluids, labs will be monitored I have reviewed Malou Rutherford's history and physical including her medical assessment and plan of care and with the above additions endorse it. Total clinical time spent by myself addressing the patient's issues, reviewing patient's medical record, and collaborating with the patient's caregivers: 53 minutes Visit Charges Inpatient E&M: 21252 Init Hosp L3
[2022-03-09 15:56] LABS: Magnesium 1.9 mg/dL (1.6-2.6); Phosphorus 1.7 mg/dL (2.5-4.9)
[2022-03-09] MEDS: KCL 20MEQ in 0.9% NS 20 MEQ/1,000 ML IV.SOLN. 125 MEQ IV ×2 (16:19→23:23)
[2022-03-09] MEDS: 0.9% Saline Lock 10 ML Syringe IV ×2 (17:55→23:04)
[2022-03-09] MEDS: Ceftriaxone 1 GM/50 ML BAG IV (22:24)
[2022-03-09] MEDS: Heparin Injection (Vial) 5,000 UNIT/ML VIAL 5000 UNIT SC (22:33)
[2022-03-09] MEDS: Gabapentin 100 MG Capsule PO (22:36)
[2022-03-09] MEDS: Carvedilol 6.25 MG Tablet PO (22:36)
--- NOTE | 2022-03-09 23:48 | NURSING ---
Patient son called in and requested update on patient with verbal permission this RN provided and update. Patient daughter then calls in the unit and another nurse takes call and daughter states patient is a heavy drinker and drinks alot Mikey ordered MANUEL. RN added. Patient complaining of nausea but presents with no other symptoms at this time.
[2022-03-10] VITALS (13 sets, daily range): BP systolic 96–124; BP diastolic 52–85; PULSE 65–75; RESP 16–18; TEMP 36.4–37.2; O2SAT 93–99
--- NOTE | 2022-03-10 02:39 | NURSING ---
Patient SP02 around 88-89% put on 2L of Oxygen sating around 99-100% dropped to 1L 02
[2022-03-10 05:44] LABS: Absolute Lymphocyte Count 1.35 X10^3/uL (0.83-4.51); Absolute Neutrophil Count 10.6 X10^3/uL (2.0-7.7); Basophil# 0.01 X10^3/uL; Basophil% 0.1 % (0-1); Eosinophil# 0.28 X10^3/uL; Hematocrit 27.5 % (37-47); Hemoglobin 8.9 g/dL (12.0-15.0); Lymphocyte # 1.35 X10^3/ul (0.83-4.51); Lymphocyte % 9.8 % (19-41); Mean Corp Hgb Conc 32.4 g/dL (32-36); Mean Corpuscular Hgb 29.4 pg (27.0-32.0); Mean Corpuscular Volume 90.8 fL (81-99); Mean Platelet Vol. 11.1 fl (6.2-12.0); Monocyte# 1.27 X10^3/uL; Monocyte% 9.2 % (0-10); NRBC Flagged by Analyzer 0 % (0-5); Neutrophil # 10.61 X10^3/uL (2.7-7.7); Neutrophil % 77.2 % (47-70); Platelet Count 190 K/mm3 (150-450); RBC Distribution Width CV 17.7 % (11.6-14.6); RBC Distribution Width SD 57.1 fl (35.1-43.9); Red Blood Count 3.03 M/mm3 (4.2-5.4); White Blood Count 13.8 K/mm3 (4.4-11.0)
[2022-03-10 06:18] LABS: Anion Gap 5 (5-15); BUN 21 mg/dL (7-18); BUN/Creat Ratio 22.4 RATIO (10-20); Calcium,Total 8.7 mg/dL (8.5-10.1); Chloride 99 mmol/L (98-107); Creatinine, Serum 0.94 mg/dL (0.55-1.02); EST Glomerular Filtration Rate 61 mL/min (>60); Est Glom Filt Rate - Afr Amer 74 mL/min (>60); Estimated Creatinine Clearance 48.53 ml/min; Glucose 119 mg/dL (74-106); Potassium 3.1 mmol/L (3.5-5.1); Sodium Level 132 mmol/L (136-145)
[2022-03-10] MEDS: Ondansetron 4 MG/2 ML Vial IV ×2 (06:18→11:21)
[2022-03-10] MEDS: Gabapentin 100 MG Capsule PO ×3 (06:18→21:58)
[2022-03-10] MEDS: KCL 20MEQ in 0.9% NS 20 MEQ/1,000 ML IV.SOLN. 125 MEQ IV ×3 (06:27→22:07)
[2022-03-10] MEDS: Pantoprazole Sodium 20 MG Tablet PO (10:00)
[2022-03-10] MEDS: DULoxetine Hcl 60 MG Capsule PO (10:00)
[2022-03-10] MEDS: Carvedilol 6.25 MG Tablet PO ×2 (10:00→21:51)
[2022-03-10] MEDS: Heparin Injection (Vial) 5,000 UNIT/ML VIAL 5000 UNIT SC ×2 (10:00→21:52)
[2022-03-10 10:10] LABS: Alcohol, Blood (Medical)-Serum < 3.0 mg/dL
[2022-03-10 10:19] LABS: Amphetamine Urine VISTA NEGATIVE (<1000 ng/mL); Barbiturate Urine VISTA NEGATIVE (< 200 ng/mL); Benzodiazepine Urine VISTA NEGATIVE (< 200 ng/mL); Cocaine Urine VISTA NEGATIVE (< 300 ng/mL); Ecstacy Urine VISTA NEGATIVE (< 500 ng/mL); Methadone Urine VISTA NEGATIVE (< 300 ng/mL); PCP Urine VISTA NEGATIVE (< 25 ng/mL); THC Urine VISTA NEGATIVE (< 50 ng/mL); Vista UDS pH Range 6
--- NOTE | 2022-03-10 11:18 | PCM.PN.HOSP ---
Documented by User: Malou Rutherford NP, SCIENTIST [employer]LECTRON[employer]-C 03/10/22 11:28 Subjective Subjective Patient seen and examined. Reports feeling fatigued. Denies further diarrhea. Denies nausea, vomiting. Denies fever, chills. Objective Data Objective Data Vital Signs: Vital Signs Temp Pulse Resp BP Pulse Ox 98.1 F 75 18 100/79 94 03/10/22 10:00 03/10/22 10:00 03/10/22 10:00 03/10/22 10:00 03/10/22 10:00 Oxygen Flow Rate (L/min) 1 Oxygen Delivery Method Room Air Weight: 144 lb 6.4 oz Body Mass Index (BMI) 32.3 Intake & Output: Intake and Output for Last 24 Hours 03/08/22 03/09/22 03/10/22 23:59 23:59 23:59 Intake Total 2071.66 / 2071.66 883.33 / 883.33 Balance 2071.66 / 2071.66 883.33 / 883.33 Lab / Micro Data Result Diagrams: 03/10/22 04:35 03/10/22 04:35 Labs: Laboratory Results - last 24 hr 03/09/22 13:03: Ethyl Alcohol < 3.0 03/09/22 13:05: WBC 18.1 H, RBC 3.80 L, Hgb 11.2 L, Hct 33.1 L, MCV 87.1, MCH 29.5, MCHC 33.8, RDW Std Deviation 53.1 H, RDW Coeff of Felicia 17.3 H, Plt Count 239, MPV 10.6, Immature Gran % (Auto) 1.100 H, Neut % (Auto) 83.5 H, Lymph % (Auto) 6.8 L, [place] % (Auto) 7.9, Eos % (Auto) 0.4, Baso % (Auto) 0.3, Absolute Neuts (auto) 15.1 H, Absolute Lymphs (auto) 1.24, Nucleated RBC % 0 03/09/22 13:05: Sodium 130 L, Potassium 2.2 L*, Chloride 89 L, Carbon Dioxide 32.0, Anion Gap 9, BUN 25 H, Creatinine 1.22 H, Estim Creat Clear Calc 38.07, Est GFR (MDRD) Af Amer 54 L, Est GFR (MDRD) Non-Af 45 L, BUN/Creatinine Ratio 20.5 H, Glucose 172 H, Calcium 10.2 H, Troponin I High Sens 6 03/09/22 13:05: Phosphorus 1.7 L, Magnesium 1.9 03/09/22 14:22: Urine Color Yellow, Urine Clarity Clear, Urine pH 6.0, Ur Specific [place] 1.010, Urine Protein Negative, Urine Glucose (UA) Normal, Urine Ketones Negative, Urine Occult Blood Negative, Urine Nitrite Positive H, Urine Bilirubin Negative, Urine Urobilinogen Normal, Ur Leukocyte Esterase Negative, Urine RBC 0 SEEN, Urine WBC 0-5 SEEN, Ur Squamous Epith Cells 0-5 SEEN, Urine Bacteria 4+, Urine Mucus 0 SEEN 03/09/22 14:22: Urine Opiates Screen NEGATIVE, Urine Methadone Screen NEGATIVE, Ur Barbiturates Screen NEGATIVE, Ur Phencyclidine Scrn NEGATIVE, Ur Amphetamines Screen NEGATIVE, MDMA (Ecstasy) Screen NEGATIVE, U Benzodiazepines Scrn NEGATIVE, Urine Cocaine Screen NEGATIVE, U Cannabinoids Screen NEGATIVE, Ur Drug Screen Comment 03/10/22 04:35: WBC 13.8 H, RBC 3.03 L, Hgb 8.9 L, Hct 27.5 L, MCV 90.8, MCH 29.4, MCHC 32.4, RDW Std Deviation 57.1 H, RDW Coeff of Felicia 17.7 H, Plt Count 190, MPV 11.1, Immature Gran % (Auto) 1.700 H, Neut % (Auto) 77.2 H, Lymph % (Auto) 9.8 L, [place] % (Auto) 9.2, Eos % (Auto) 2.0, Baso % (Auto) 0.1, Absolute Neuts (auto) 10.6 H, Absolute Lymphs (auto) 1.35, Nucleated RBC % 0 03/10/22 04:35: Sodium 132 L, Potassium 3.1 L, Chloride 99, Carbon Dioxide 28.0, Anion Gap 5, BUN 21 H, Creatinine 0.94, Estim Creat Clear Calc 48.53, Est GFR (MDRD) Af Amer 74, Est GFR (MDRD) Non-Af 61, BUN/Creatinine Ratio 22.4 H, Glucose 119 H, Calcium 8.7 Radiography Diagnostic Testing: Radiology Impression Abdomen/Pelvis CT 03/09/22 12:54 IMPRESSION: No evidence of acute abdominal pathology is seen. Electronically Signed: Wm Hernandez MD at 14:04 EDT , Brain CT 03/09/22 12:54 IMPRESSION: No evidence of traumatic brain injury is seen. Chronic microvascular disease and chronic atrophic brain changes, Electronically Signed: Wm Hernandez MD at 14:08 EDT , Cervical Spine CT 03/09/22 12:54 IMPRESSION: Degenerative changes of the cervical spine, no acute osseous abnormality seen. Electronically Signed: Wm Hernandez MD at 14:13 EDT Reading Location ID and State: [facility] / [place] Tel , Service support , Physical Exam Const alert, oriented x3 and no apparent distress Orientation / Consciousness: awake, oriented to person, oriented to place and oriented to time HEENT normocephalic and moist oral mucous membranes Eyes PERRL, EOMs intact bilaterally and conjunctivae normal Neck no lymphadenopathy Resp normal respiratory effort and clear to auscultation bilaterally Cardio regular rate, regular rhythm and no murmurs Peripheral Pulses: pulses 2+ throughout GI normal to inspection, nondistended, normoactive bowel sounds, non-tender and non-distended Extremity normal to inspection Skin no rashes or lesions noted Lesions: no lesions Rashes: no rashes Trauma: no lacerations or abrasions Neuro CN's II-XII intact bilaterally, no focal motor deficits, no sensory deficits noted and deep tendon reflexes 2+ bilaterally Psych mental status grossly normal and affect normal Assessment & Plan Assessment/Plan (1) GEORGI (acute kidney injury): (2) Acute hypokalemia: PLAN: 1. Acute kidney injury secondary to suspected viral gastroenteritis-patient presents with nausea, vomiting, diarrhea. IV fluids. Send stool studies. As needed antiemetics. Advance diet as tolerated. Trend BMP. PT/OT. Hold lasix. 2. Hypokalemia/hypophosphatemia-secondary to GI losses per above. Replaced per protocol, trend BMP. 3. Acute cystitis-IV Rocephin pending culture. 4. Hypertension-stable, continue carvedilol, amlodipine. 5.Type 2 diabetes mellitus-continue metformin. Accu-Cheks with sliding scale insulin. 6. GERD-continue PPI. 7. Anxiety/depression-on duloxetine. 8. History of alcohol abuse-states she still drinks a little. Denies heavy use. Serum alcohol level negative on admission. 9. Asthma- As needed albuterol aerosol. DVT prophylaxis-Heparin subcu This patient was seen by ANAT Ibrahim under the supervision of Dr. Sidhu. Time spent examining patient, reviewing data and subsequent management of care: 12 minutes Documented by User: Dr. Jesús Sidhu MD 03/10/22 12:15 Subjective Subjective Patient is admitted with nausea, vomiting and diarrhea for 4 days. She was having liquidy stool mixed with feces every 2 hours. She also had vomiting 10 times yesterday. She had fall about 4 times in last 1 week. As per the social media editor, she also has history of chronic alcoholism Objective Data Lab / Micro Data Result Diagrams: 03/10/22 04:35 03/10/22 04:35 Physical Exam Narrative Denies abdominal pain. She states she has history of IBS. She has intermittent chronic pain but no new abdominal pain. General: Alert, Oriented x3, Cooperative HEENT: Atraumatic, PERRLA, EOMI, Normocephalic Oral: No Gingival or Mucosal Lesions/ Ulcerations Neck: Supple, No JVD, Negative Carotid Bruits Lungs: Air entry diminished in bilateral lung bases. No crepitation/rhonchi Cardiovascular: Regular rate, Regular Rhythm, Normal S1, Normal S2, No murmurs Abdomen: Bowel Sounds Present/hyperactive, Soft, Non Tender, Non-Distended : No renal angle tenderness. No suprapubic tenderness. Extremities: No edema, Capillary Refill Less than 3 Seconds Skin: No rashes, No breakdown Musculoskeletal: No Tenderness to Palpation of Joints or Extremities Neurological: Cranial nerves II-XII grossly intact, DTR 2+/4 and Symmetrical, Neuro grossly intact Psych/Mental Status: Normal Affect, Appropriate Assessment & Plan Assessment/Plan (1) GEORGI (acute kidney injury): PLAN: This patient was seen in conjunction with SCIENTIST ELECTRONICSMalou. I have independently interviewed and examined the patient and reviewed pertinent history, examination findings, laboratory and plan of management. I have reviewed the note and agree with the documented findings with the few additional points. In brief, patient is admitted for nausea, vomiting, diarrhea resulting into acute kidney injury prerenal. Stool for enteric bacteriology panel pending. As per social media editor she also has history of chronic alcoholism. Patient has hyponatremia, hypophosphatemia. Serum magnesium normal. Ethyl alcohol less than 3. Electrolytes are getting replaced. UA positive of nitrite. WBC 0-5 cells. Acute cystitis: On IV Rocephin. Urine culture ordered Patient also has history of IBS. Type 2 diabetes mellitus. Other comorbidities include GERD, anxiety and depression, chronic intermittent asthma I have discussed my assessment with SCIENTIST ELECTRONICSMalou and orders have been reviewed. Total time of the visit includes total time spent in counseling or coordination of care, (more than 50% of the total time, spent in obtaining medical information from nurses and other ancillary care providers,explaining to the patient about labs, imaging, diagnosis and management), discussion with information security consultant, review of labs and imaging is 30 minutes; I spent 18 minutes, more than half time and SCI[employer]RON[employer] spent 12 minutes Charges/Coding Visit Charges Inpatient E&M: 02488 Subs Hosp L2
[2022-03-10] MEDS: Potassium Chloride Oral Tablet 20 MEQ PO (12:25)
--- NOTE | 2022-03-10 13:57 | CASEMGMT ---
Social Work SW met with pt and introduced self and role of pt. Discussed pt alcohol use and pt admits to drinking Gin and Tonic but states it is not everyday. Pt also stating that she has been told she should stop but she is not able to do that. SW spoke to pt about [employer] or other cessation programs. Pt stating I need a program to help me stop. [facility] and pt declines stating she will call them. SW provided pt with written information on [employer] and other substance use programs. Pt stating that she plans to return home at time of discharge and has no further needs. WALESKA Giron
[2022-03-10] MEDS: Na Biphos/Potassium Phosphate PACKET 1 PACKET PO ×2 (15:03→22:11)
--- NOTE | 2022-03-10 15:05 | CASEMGMT ---
ALEXANDER TAVARES Face to Face with patient for initial transition planning/care coordination assessment. ALEXANDER TAVARES introduced self and role at [facility]. Patient sitting in chair, alert and oriented. Patient willing to participate in assessment and is able to answer all questions appropriately. Care providers, pharmacy, and demographics verified. Patient wishes to discharge home, denies need for home health at this time. Patient states she has no further needs or concerns at this time. CM to follow for discharge planning needs that may arise. PCP: Martin Specialists: none Preferred Pharmacy:[facility] Insurance: [employer] [facility] Prescription Benefit: yes Living Will/HPOA: yes, son Fili Tiwari LNOK: , daughter, son Living Arrangements: Patient lives with in a single story home with no steps to enter. Patient states she is independent at home. Transportation: self, daughter DME/HHC: Patient states she has shower chair, cane, walker, rollator, and grab bars at home. Patient states she has had [facility] HHC in the past. No previous SNF. ALEXANDER TAVARES inquired if patient would be interested in HHC at discharge, patient declined need for HHC. Disposition Plan: Patient to discharge home with family support and follow-up plans in place. Lora NEIL, RN, CM
[2022-03-10] MEDS: Insulin Lispro 100 UNIT/ML INSULN.PEN SC (16:20)
[2022-03-10 16:21] LABS: Bedside Glucose 152 mg/dL (74-106)
[2022-03-10] MEDS: Ceftriaxone 1 GM/50 ML BAG IV (22:07)
[2022-03-11] VITALS (9 sets, daily range): BP systolic 100–119; BP diastolic 56–73; PULSE 63–93; RESP 16–20; TEMP 36.4–37; O2SAT 92–99
[2022-03-11 00:46] LABS: Bedside Glucose 101 mg/dL (74-106)
[2022-03-11] MEDS: Acetaminophen 325 MG Tablet 650 MG PO (04:30)
--- NOTE | 2022-03-11 04:42 | NURSING ---
pt was bladder scanned w/ 3ml urine, had 150ml urine output prior to this. Pt states that she empties her bladder appropriately.
[2022-03-11 06:19] LABS: Absolute Lymphocyte Count 1.36 X10^3/uL (0.83-4.51); Basophil# 0.04 X10^3/uL; Basophil% 0.3 % (0-1); Eosinophils% 3.6 % (0-5); Hematocrit 28.5 % (37-47); Hemoglobin 9.1 g/dL (12.0-15.0); Lymphocyte # 1.36 X10^3/ul (0.83-4.51); Lymphocyte % 9.8 % (19-41); Mean Corp Hgb Conc 31.9 g/dL (32-36); Mean Corpuscular Hgb 30.1 pg (27.0-32.0); Mean Corpuscular Volume 94.4 fL (81-99); Mean Platelet Vol. 10.9 fl (6.2-12.0); Monocyte# 1.65 X10^3/uL; Monocyte% 11.9 % (0-10); NRBC Flagged by Analyzer 0.1 % (0-5); Neutrophil # 9.97 X10^3/uL (2.7-7.7); Neutrophil % 71.7 % (47-70); POSITIVE DIFFERENTIAL YES; Platelet Count 174 K/mm3 (150-450); RBC Distribution Width CV 18.4 % (11.6-14.6); Red Blood Count 3.02 M/mm3 (4.2-5.4); White Blood Count 13.9 K/mm3 (4.4-11.0)
[2022-03-11 06:24] LABS: Differential Indicated SCAN CRITERIA MET
[2022-03-11] MEDS: KCL 20MEQ in 0.9% NS 20 MEQ/1,000 ML IV.SOLN. 125 MEQ IV (06:35)
[2022-03-11] MEDS: Na Biphos/Potassium Phosphate PACKET 1 PACKET PO (06:35)
[2022-03-11] MEDS: Gabapentin 100 MG Capsule PO (06:35)
[2022-03-11 06:45] LABS: Bedside Glucose 104 mg/dL (74-106)
[2022-03-11 06:58] LABS: Differential Comment SCANNED
[2022-03-11 07:00] LABS: Anion Gap 7 (5-15); BUN 17 mg/dL (7-18); Calcium,Total 9.2 mg/dL (8.5-10.1); Chloride 103 mmol/L (98-107); Creatinine, Serum 0.85 mg/dL (0.55-1.02); EST Glomerular Filtration Rate 68 mL/min (>60); Est Glom Filt Rate - Afr Amer 82 mL/min (>60); Estimated Creatinine Clearance 53.67 ml/min; Glucose 102 mg/dL (74-106); Phosphorus 2.3 mg/dL (2.5-4.9); Potassium 4.2 mmol/L (3.5-5.1); Sodium Level 132 mmol/L (136-145)
[2022-03-11] MEDS: Ipratropium/Albuterol Sulfate 3 ML AMPUL.NEB INHALATION (10:07)
[2022-03-11] MEDS: Carvedilol 6.25 MG Tablet PO (10:34)
[2022-03-11] MEDS: Pantoprazole Sodium 20 MG Tablet PO (10:34)
[2022-03-11] MEDS: amLODIPine 10 MG Tablet PO (10:34)
[2022-03-11] MEDS: Heparin Injection (Vial) 5,000 UNIT/ML VIAL 5000 UNIT SC (10:34)
[2022-03-11] MEDS: DULoxetine Hcl 60 MG Capsule PO (10:34)
--- NOTE | 2022-03-11 10:47 | PCM.PN.HOSP ---
Documented by User: Malou Rutherford NP, CONTROL CLERK SUBASSEMBLY-C 03/11/22 11:00 Subjective Subjective Patient seen and examined. States she does not feel well. Reports anxiety and feels this is causing her to feel short of breath. She reports generalized weakness. Denies fever, chills. Denies further diarrhea. Objective Data Objective Data Vital Signs: Vital Signs Temp Pulse Resp BP Pulse Ox 97.6 F L 79 16 103/61 94 03/11/22 08:15 03/11/22 10:07 03/11/22 10:07 03/11/22 08:15 03/11/22 09:09 Oxygen Flow Rate (L/min) 1 Oxygen Delivery Method Room Air Weight: 144 lb 6.444 oz Body Mass Index (BMI) 32.3 Intake & Output: Intake and Output for Last 24 Hours 03/09/22 03/10/22 03/11/22 23:59 23:59 23:59 Intake Total 2071.66 / 2071.66 3296.25 / 3296.25 1000 / 1000 Output Total 250 / 250 Balance 2071.66 / 2071.66 3296.25 / 3196.25 750 / 750 Lab / Micro Data Result Diagrams: 03/11/22 05:14 03/11/22 05:14 Labs: Laboratory Results - last 24 hr 03/10/22 16:14: POC Glucose 152 H 03/10/22 21:47: POC Glucose 101 03/11/22 05:14: WBC 13.9 H, RBC 3.02 L, Hgb 9.1 L, Hct 28.5 L, MCV 94.4, MCH 30.1, MCHC 31.9 L, RDW Std Deviation 62.0 H, RDW Coeff of Felicia 18.4 H, Plt Count 174, MPV 10.9, Immature Gran % (Auto) 2.700 H, Neut % (Auto) 71.7 H, Lymph % (Auto) 9.8 L, [place] % (Auto) 11.9 H, Eos % (Auto) 3.6, Baso % (Auto) 0.3, Absolute Neuts (auto) 10.0 H, Absolute Lymphs (auto) 1.36, Nucleated RBC % 0.1, Differential Comment SCANNED, Diff Path Review March03/11/22 05:14: Sodium 132 L, Potassium 4.2, Chloride 103, Carbon Dioxide 22.0, Anion Gap 7, BUN 17, Creatinine 0.85, Estim Creat Clear Calc 53.67, Est GFR (MDRD) Af Amer 82, Est GFR (MDRD) Non-Af 68, BUN/Creatinine Ratio 20.0, Glucose 102, Calcium 9.2, Phosphorus 2.3 L 03/11/22 06:32: POC Glucose 104 Physical Exam Const alert, oriented x3 and no apparent distress Orientation / Consciousness: awake, oriented to person, oriented to place and oriented to time HEENT normocephalic Mouth: dry mucous membranes Eyes PERRL, EOMs intact bilaterally and conjunctivae normal Neck no lymphadenopathy Resp Auscultation: wheezes expiratory wheezes and diminished lung sounds Cardio regular rate, regular rhythm and no murmurs Peripheral Pulses: pulses 2+ throughout GI normal to inspection, nondistended, normoactive bowel sounds, non-tender and non-distended Extremity normal to inspection Skin no rashes or lesions noted Lesions: no lesions Rashes: no rashes Trauma: no lacerations or abrasions Neuro CN's II-XII intact bilaterally, no focal motor deficits, no sensory deficits noted and deep tendon reflexes 2+ bilaterally Psych mental status grossly normal Mood & Affect: anxious Assessment & Plan Assessment/Plan (1) GEORGI (acute kidney injury): PLAN: 1. Acute kidney injury secondary to suspected viral gastroenteritis-patient presented with nausea, vomiting, diarrhea which have since resolved. No further diarrhea since admission, unable to send stool sample. Tolerating diet. Acute kidney injury resolved. 2. Hypokalemia/hypophosphatemia-secondary to GI losses per above. Replaced per protocol, trend BMP. 3. Acute cystitis-IV Rocephin pending culture. 4. History of alcohol abuse-states she still drinks a little. Denies heavy use. Serum alcohol level negative on admission. Social work discussed with patient and she stated that she is not able to stop drinking however declined appointment at addiction medicine. She states she will contact them herself. 5.Type 2 diabetes mellitus-continue metformin. Accu-Cheks with sliding scale insulin. 6. GERD-continue PPI. 7. Anxiety/depression-on duloxetine. 8. Hypertension-stable, continue carvedilol, amlodipine. 9. Asthma- As needed albuterol aerosol. 10. Debility with falls-follow PT recommendations. DVT prophylaxis-Heparin subcu This patient was seen by ANAT Ibrahim under the supervision of Dr. Sidhu. Time spent examining patient, reviewing data and subsequent management of care: 12 minutes Documented by User: Dr. Jesús Sidhu MD 03/11/22 14:13 Objective Data Lab / Micro Data Result Diagrams: 03/11/22 05:14 03/11/22 05:14 Assessment & Plan Assessment/Plan (1) Vomiting: QUALIFIERS: Vomiting type: unspecified PLAN: Please see discharge summary for details. Discharge summary includes physical exam .
--- NOTE | 2022-03-11 11:18 | PCM.DC ---
Discharge Instructions Diet Discharge Diet: Light diet - advance as tolerated Activity Discharge Activity: Return to Normal Activity Dressing / Incision Call your doctor if you observe: Shortness of breath, Dizziness and Chest pain Follow Up Care Test Results: Test results from this visit will be discussed in further detail at your follow-up appointment, if applicable. Discharge Plan Admission Admit Date/Time: 03/09/22 14:56 Primary Reason for Your Visit: Acute kidney injury, UTI Attending Provider: Jesús Sidhu Primary Care Provider: Aleksandr Salazar Discharge Orders/Prescriptions Prescriptions: New cephalexin 500 mg capsule 500 mg PO TID 6 Days Qty: 18 RF: 0 Continued amlodipine 10 MG tablet 10 mg PO DAILY RF: 0 duloxetine 60 MG capsule,delayed release(DR/EC) 60 mg PO DAILY RF: 0 cholecalciferol (vitamin D3) [D3-2000] 2,000 UNIT capsule 2,000 unit PO DAILY RF: 0 carvedilol 6.25 MG tablet 6.25 mg PO BID RF: 0 acetaminophen 500 MG tablet 650 mg PO Q4H PRN PRN (Reason: Temp > 100.4 F) RF: 0 metformin 500 mg tablet 500 mg PO BID RF: 0 omeprazole 20 mg capsule,delayed release(DR/EC) 20 mg PO DAILY RF: 0 gabapentin 100 mg capsule 100 mg PO TID RF: 0 furosemide [Lasix] 40 mg tablet 40 mg PO DAILY RF: 0 potassium chloride [Klor-Con M20] 20 mEq tablet,ER particles/crystals 20 meq PO DAILY RF: 0 Referrals / Follow Up: Aleksadnr Salazar MD [Primary Care Provider] - In 1 Week Disposition Disposition (needs filled in before D/C Order can be placed): Home, Self Care
[2022-03-11] MEDS: Insulin Lispro 100 UNIT/ML INSULN.PEN SC (11:28)
--- NOTE | 2022-03-11 11:31 | PCM.DC.SUM ---
Documented by User: Malou Rutherford NP, BUSINESS ANALYST-C 03/11/22 11:35 Providers Date of Admission: 03/09/22 Date of Discharge: 03/11/22 Primary Care Physician: Dr. Aleksandr Salazar MD Reason For Visit: HYPOKALEMIA / GEORGI Diagnosis Discharge Diagnosis (1) GEORGI (acute kidney injury): Status: Acute Code(s): N17.9 - Acute kidney failure, unspecified Medications at Discharge Home Medications amlodipine 10 mg PO DAILY 04/29/18 cholecalciferol (vitamin D3) [D3-2000] 2,000 unit PO DAILY 04/29/18 duloxetine 60 mg PO DAILY 04/29/18 carvedilol 6.25 mg PO BID 01/11/21 acetaminophen 650 mg PO Q4H PRN PRN tab 01/14/21 gabapentin 100 mg PO TID 02/06/22 metformin 500 mg PO BID 02/06/22 omeprazole 20 mg PO DAILY 02/06/22 furosemide [Lasix] 40 mg PO DAILY 03/09/22 potassium chloride [Klor-Con M20] 20 meq PO DAILY 03/09/22 cephalexin 500 mg PO TID 6 Days #18 cap 03/11/22 Hospital Course Operations None Procedures None Summary of Care Provided Hospital Course: Patient is an 81-year-old female admitted 03/09/21 due to UTI symptoms and weakness with falls. 1. Acute kidney injury secondary to suspected viral gastroenteritis-patient presented with nausea, vomiting, diarrhea which have since resolved. No further diarrhea since admission, unable to send stool sample. Tolerating diet. Acute kidney injury resolved. Follow-up with PCP within 1 week. 2. Hypokalemia/hypophosphatemia-secondary to GI losses per above. Replaced per protocol. 3. Acute cystitis-IV Rocephin during admission. Keflex ordered at discharge to complete course. We will follow-up urine culture. 4. History of alcohol abuse-states she still drinks a little. Denies heavy use. Serum alcohol level negative on admission. Social work discussed with patient and she stated that she is not able to stop drinking however declined appointment at addiction medicine. She states she will contact them herself. 5.Type 2 diabetes mellitus-continue metformin. 6. GERD-continue PPI. 7. Anxiety/depression-on duloxetine. 8. Hypertension-stable, continue carvedilol, amlodipine. 9. Asthma- As needed albuterol aerosol. 10. Debility with falls-patient declines SNF or home health/therapies. Advised to use walker at home. Physical Exam Const alert, oriented x3 and no apparent distress Orientation / Consciousness: awake, oriented to person, oriented to place and oriented to time HEENT normocephalic Mouth: dry mucous membranes Eyes PERRL, EOMs intact bilaterally and conjunctivae normal Neck no lymphadenopathy Resp Auscultation: wheezes expiratory wheezes and diminished lung sounds Cardio regular rate, regular rhythm and no murmurs Peripheral Pulses: pulses 2+ throughout GI normal to inspection, nondistended, normoactive bowel sounds, non-tender and non-distended Extremity normal to inspection Skin no rashes or lesions noted Lesions: no lesions Rashes: no rashes Trauma: no lacerations or abrasions Neuro CN's II-XII intact bilaterally, no focal motor deficits, no sensory deficits noted and deep tendon reflexes 2+ bilaterally Psych mental status grossly normal Mood & Affect: anxious Patient seen and examined prior to discharge. Physical assessment as noted above. Patient is stable for discharge with follow up recommendations as noted above. This patient was seen by ANAT Ibrahim under the supervision of Dr. Sidhu. Time spent examining patient, reviewing data and subsequent management of care: 17 minutes Weight / BMI Weight Weight: 144 lb 6.444 oz Body Mass Index (BMI) 32.3 ABG / Lab / Microbiology Data Result Diagrams: 03/11/22 05:14 03/11/22 05:14 Laboratory: Laboratory Results - last 24 hr 03/10/22 16:14: POC Glucose 152 H 03/10/22 21:47: POC Glucose 101 03/11/22 05:14: WBC 13.9 H, RBC 3.02 L, Hgb 9.1 L, Hct 28.5 L, MCV 94.4, MCH 30.1, MCHC 31.9 L, RDW Std Deviation 62.0 H, RDW Coeff of Felicia 18.4 H, Plt Count 174, MPV 10.9, Immature Gran % (Auto) 2.700 H, Neut % (Auto) 71.7 H, Lymph % (Auto) 9.8 L, [place] % (Auto) 11.9 H, Eos % (Auto) 3.6, Baso % (Auto) 0.3, Absolute Neuts (auto) 10.0 H, Absolute Lymphs (auto) 1.36, Nucleated RBC % 0.1, Differential Comment SCANNED, Diff Path Review March03/11/22 05:14: Sodium 132 L, Potassium 4.2, Chloride 103, Carbon Dioxide 22.0, Anion Gap 7, BUN 17, Creatinine 0.85, Estim Creat Clear Calc 53.67, Est GFR (MDRD) Af Amer 82, Est GFR (MDRD) Non-Af 68, BUN/Creatinine Ratio 20.0, Glucose 102, Calcium 9.2, Phosphorus 2.3 L 03/11/22 06:32: POC Glucose 104 D/C Instructions Discharge Diet: Light diet - advance as tolerated Call your doctor if you observe: Shortness of breath, Dizziness and Chest pain Meaningful Use Info Meaningful Use Diagnoses (Choose all that apply): None applicable Discharge Plan Admission Admit Date/Time: 03/09/22 14:56 Primary Reason for Your Visit: Acute kidney injury, UTI Attending Provider: Jesús Sidhu Primary Care Provider: Aleksandr Salazar Discharge Orders/Prescriptions Prescriptions: New cephalexin 500 mg capsule 500 mg PO TID 6 Days Qty: 18 RF: 0 Continued amlodipine 10 MG tablet 10 mg PO DAILY RF: 0 duloxetine 60 MG capsule,delayed release(DR/EC) 60 mg PO DAILY RF: 0 cholecalciferol (vitamin D3) [D3-2000] 2,000 UNIT capsule 2,000 unit PO DAILY RF: 0 carvedilol 6.25 MG tablet 6.25 mg PO BID RF: 0 acetaminophen 500 MG tablet 650 mg PO Q4H PRN PRN (Reason: Temp > 100.4 F) RF: 0 metformin 500 mg tablet 500 mg PO BID RF: 0 omeprazole 20 mg capsule,delayed release(DR/EC) 20 mg PO DAILY RF: 0 gabapentin 100 mg capsule 100 mg PO TID RF: 0 furosemide [Lasix] 40 mg tablet 40 mg PO DAILY RF: 0 potassium chloride [Klor-Con M20] 20 mEq tablet,ER particles/crystals 20 meq PO DAILY RF: 0 Referrals / Follow Up: Aleksandr Salazar MD [Primary Care Provider] - In 1 Week Disposition Disposition (needs filled in before D/C Order can be placed): Home, Self Care Documented by User: Dr. Jesús Sidhu MD 03/11/22 13:19 Providers Date of Admission: 03/09/22 Reason For Visit: HYPOKALEMIA / GEORGI Medications at Discharge Home Medications amlodipine 10 mg PO DAILY 04/29/18 cholecalciferol (vitamin D3) [D3-2000] 2,000 unit PO DAILY 04/29/18 duloxetine 60 mg PO DAILY 04/29/18 carvedilol 6.25 mg PO BID 01/11/21 acetaminophen 650 mg PO Q4H PRN PRN tab 01/14/21 gabapentin 100 mg PO TID 02/06/22 metformin 500 mg PO BID 02/06/22 omeprazole 20 mg PO DAILY 02/06/22 furosemide [Lasix] 40 mg PO DAILY 03/09/22 potassium chloride [Klor-Con M20] 20 meq PO DAILY 03/09/22 cephalexin 500 mg PO TID 6 Days #18 cap 03/11/22 Hospital Course Summary of Care Provided Hospital Course: This patient was seen in conjunction with Malou SANTACRUZ. I have independently interviewed and examined the patient and reviewed pertinent history, examination findings, laboratory and plan of management. I have reviewed the note and agree with the documented findings with the few additional points. In brief, patient was admitted in PCU for nausea, vomiting, diarrhea resulting into acute kidney injury prerenal. Patient diarrhea is stopped and did not help sample for enteric bacteriology panel. As per director social welfare she also has history of chronic alcoholism. Patient has hyponatremia, hypophosphatemia. Serum magnesium normal. Ethyl alcohol less than 3. Electrolytes were replaced. GEORGI resolved. Creatinine improved from 1.2 to?two 0.85. Acute cystitis: On IV Rocephin. UA positive of nitrite. WBC 0-5 cells. Urine culture pending. Discharged on Keflex. Patient also has history of IBS. Type 2 diabetes mellitus. Glucose is controlled. It is labile ranges from 100 to 168 mg/dL. Other comorbidities include GERD, anxiety and depression, chronic intermittent asthma I have discussed my assessment with BUSINESS ANALYSTMalou and orders have been reviewed. Discharge medication reconciliation done. Discharge follow-up instructions completed. Discharge process discussed with the patient and all questions were answered to patient's satisfaction. Total time spent, exact 40 minutes on discharge meds reconciliation, examination, coordination of care with nurses and ancillary staff, review of imaging and blood test and discussion with the patient on follow-up instructions. I spent 25 minutes, more than half time and BUSINESS ANALYST spent 15 minutes Physical Exam Narrative Seen and examined. Patient has mild and expiratory wheezing. Patient states she is never a smoker. She still drinks alcohol. She feels fatigued. Does not want to go senior care. Physical exam General: Alert, Oriented x3, Cooperative HEENT: Atraumatic, PERRLA, EOMI, Normocephalic Oral: No Gingival or Mucosal Lesions/ Ulcerations Neck: Supple, No JVD, Negative Carotid Bruits Lungs: Air entry diminished in bilateral lung bases. Bilateral end expiratory wheezing. She also has wheezing at bronchial level Cardiovascular: Regular rate, Regular Rhythm, Normal S1, Normal S2, No murmurs Abdomen: Bowel Sounds Present, Soft, Non Tender, Non-Distended : No renal angle tenderness. No suprapubic tenderness. Extremities: No edema, Capillary Refill Less than 3 Seconds Skin: No rashes, No breakdown Musculoskeletal: Mild bilateral knee joint arthritis. Neurological: Cranial nerves II-XII grossly intact, DTR 2+/4 and Symmetrical. Muscle strength 4/5 at major joints of lower extremities. Psych/Mental Status: Normal Affect, Appropriate ABG / Lab / Microbiology Data Result Diagrams: 03/11/22 05:14 03/11/22 05:14 Discharge Plan Admission Admit Date/Time: 03/09/22 14:56 Primary Reason for Your Visit: Acute kidney injury, UTI Attending Provider: Jesús Sidhu Primary Care Provider: Aleksandr Salazar Discharge Orders/Prescriptions Prescriptions: New cephalexin 500 mg capsule 500 mg PO TID 6 Days Qty: 18 RF: 0 Continued amlodipine 10 MG tablet 10 mg PO DAILY RF: 0 duloxetine 60 MG capsule,delayed release(DR/EC) 60 mg PO DAILY RF: 0 cholecalciferol (vitamin D3) [D3-2000] 2,000 UNIT capsule 2,000 unit PO DAILY RF: 0 carvedilol 6.25 MG tablet 6.25 mg PO BID RF: 0 acetaminophen 500 MG tablet 650 mg PO Q4H PRN PRN (Reason: Temp > 100.4 F) RF: 0 metformin 500 mg tablet 500 mg PO BID RF: 0 omeprazole 20 mg capsule,delayed release(DR/EC) 20 mg PO DAILY RF: 0 gabapentin 100 mg capsule 100 mg PO TID RF: 0 furosemide [Lasix] 40 mg tablet 40 mg PO DAILY RF: 0 potassium chloride [Klor-Con M20] 20 mEq tablet,ER particles/crystals 20 meq PO DAILY RF: 0 Referrals / Follow Up: Aleksandr Salazar MD [Primary Care Provider] - In 1 Week Disposition Disposition (needs filled in before D/C Order can be placed): Home, Self Care Charges/Coding Visit Charges Inpatient E&M: 42957 Disch Hosp
[2022-03-11 11:35] LABS: Bedside Glucose 168 mg/dL (74-106)
--- NOTE | 2022-03-11 13:05 | CM.ED ---
SW Note SW was update by ALEXANDER Whaley that patient walked 500 feet yesterday and walked 150 feet today. Patient is refusing SNF or home health card. Yariel spoke to AUDIT REVIEWER Malou Rutherford who advised no social work needs on this date. Светлана IBARRA
--- NOTE | 2022-03-11 14:16 | NURSING ---
Reviewed charting with Baldo Parker RN
[2022-03-13 10:15] LABS: Pathologist Review Reviewed
== END 2022-03-11 13:46 | disposition home or self-care (01) | DRG 392 ==
LOC: ED 14:57 → PCU 15:35
PROVIDERS: Nurse Practitioner Family; Admitting Provider Internal Medicine; Emergency Provider Emergency Medicine; PCP Family Medicine; Visit Provider Internal Medicine
DX: A08.4 Viral intestinal infection, unspecified (principal); N17.9 Acute kidney failure, unspecified; E87.1 Hypo-osmolality and hyponatremia; N30.00 Acute cystitis without hematuria; E83.39 Other disorders of phosphorus metabolism; S01.01XA Laceration without foreign body of scalp, initial encounter; J45.909 Unspecified asthma, uncomplicated; Z79.4 Long term (current) use of insulin; E11.9 Type 2 diabetes mellitus without complications; K21.9 Gastro-esophageal reflux disease without esophagitis; E87.6 Hypokalemia; F41.9 Anxiety disorder, unspecified; I10 Essential (primary) hypertension; W19.XXXA Unspecified fall, initial encounter; E86.0 Dehydration; F32.A Depression, unspecified; R53.81 Other malaise; R29.6 Repeated falls
CPT/HCPCS: 36415; 70450; 72125; 74176; 80048; 80307; 81001; 82077; 82962; 83735; 84100; 84484; 85025; 87086; 93005; 94640; 97162; 97166; 99285; A4216; J2405

== ENCOUNTER 2022-05-17 21:42 | Emergency (ER) | payer MEDICARE, SELFPAY ==
[2022-05-17 21:43] VITALS: BP 159/104; PULSE 156; RESP 16; TEMP 36.8; O2SAT 96; BMI 29.2
[2022-05-17 21:48] VITALS: BP 119/87; PULSE 147; RESP 21; O2SAT 94
--- NOTE | 2022-05-17 21:50 | EKG12_ITS ---
Test Reason : DYSRHYTHMIA Blood Pressure : / mmHG Vent. Rate : 137 BPM Atrial Rate : 137 BPM P-R Int : 126 ms QRS Dur : 082 ms QT Int : 294 ms P-R-T Axes : 026 032 087 degrees QTc Int : 443 ms Sinus tachycardia with occasional Premature ventricular complexes ST & T wave abnormality, consider inferior ischemia Abnormal ECG Confirmed by MILDRED HYATT, MANOLO ([id number]), editor department FIDELIA VEGA ([id number]) on 05/18/2022 11:26:46 A M Referred By: IDALMIS Confirmed By:HOMER LEVY MD
--- NOTE | 2022-05-17 22:04 | CT_ITS ---
STUDY: CT ABDOMEN AND PELVIS WITH CONTRAST ENHANCEMENT OF 2302 HOURS ON 05/17/2022 REASON FOR EXAM: 81-year-old female with epigastric pain. RADIATION DOSAGE (If Supplied By Facility): CTDIvol = ( 22.83 ) mGy, DLP = ( 939.45 ) mGycm TECHNIQUE: Transaxial images were obtained from the dome of the diaphragm to the symphysis pubis without oral contrast. IV 100mL Isovue-370 was administered. Sagittal and coronal images were reconstructed. Individualized dose optimization techniques were used for this CT. COMPARISON: 03/09/2022, which was reported as having no acute pathology. FINDINGS: The visualized lung bases are unremarkable. Mild cardiomegaly. Elevated left hemidiaphragm. Mild hepatomegaly with diffuse fatty infiltration. Normal partially contracted gallbladder without gallstones and normal extrahepatic biliary system. Normal spleen without infarcts.. Normal atrophic pancreas. Normal bilateral adrenal glands. Atrophic right kidney without cystic or solid mass lesions or obstructive uropathy. Normal size left kidney with a 1.5 cm diameter simple cyst in the lateral aspect of the lower pole. There is also a 9 mm simple cyst in the superior pole of the left kidney. There is no left obstructive uropathy or left renal solid mass lesions. Mild thickening of the gastric fundal wall that could represent early gastritis. There is no evidence of a duodenitis. Normal small intestine. No diverticulitis, colitis, intestinal obstruction.. Normal appendix without evidence of an appendicitis. Normal abdominal aorta without dissection or aneurysm. Normal inferior vena cava. Normal retroperitoneum. Normal urinary bladder. Normal abdominal wall. Marked narrowing of the L4-5 and L5-S1 intervertebral disc spaces. No lumbar vertebral body fractures. Normal hips and pelvis. Mild demineralization. CT/Abdomen/Pelvis W IV Cont ONLY IMPRESSION: 1. Mild thickening of the gastric fundal wall that could represent mild gastritis. 2. No duodenitis. 3. Mild hepatomegaly with diffuse fatty infiltration. 4. Normal spleen with an infarct. 5. Elevated left hemidiaphragm, normal variant. 6. Atrophic right kidney. Normal size left kidney with 2 simple cysts and no obstructive uropathy. 7. No appendicitis, diverticulitis, colitis, or intestinal obstruction. 8. Normal small anteverted uterus. No ovarian cystic or solid masses. 9. No abdominal aortic dissection or aneurysm. 10. Marked narrowing of the L4-5 and L5-S1 intervertebral disc spaces. No lumbar vertebral body fractures or subluxations. Normal hips and pelvis. Mild demineralization. Electronically Signed: Ja Whiting MD at 23:54 EDT ,
--- NOTE | 2022-05-17 22:05 | EDS_ITS ---
HPI History of Present Illness Chief Complaint: Nausea/Vomiting/Diarrhea Narrative Narrative: 81-year-old female presenting with epigastric pain, nausea, vomiting, diarrhea. She is also having epigastric pain which does not radiate. She states that it feels like pressure. She states it does not radiate into her chest. She does not have shortness of breath. She does admit to some diaphoresis with her vomiting episodes. She states she only vomited once today but has had multiple episodes of diarrhea. She denies black or bloody stool. She denies fever, chills. She has no known sick contacts. She states she has not eaten anything out of the ordinary. She states she did have 1 drink yesterday. She has no history of pancreatitis. States she is an occasional drinker. [facility] Medical History (Updated 05/17/22 @ 23:[address] Shruti Pond MD) Alcohol abuse Anxiety and depression Asthma GERD (gastroesophageal reflux disease) Hypertension Polysubstance (excluding opioids) dependence Type 2 diabetes mellitus Home Medications amlodipine 10 mg tablet 10 mg PO DAILY bp 04/29/18 [History Last Taken 03/09/22] cholecalciferol (vitamin D3) 50 mcg (2,000 unit) capsule (D3-2000) 2,000 unit PO DAILY supplement 04/29/18 [History Last Taken 03/09/22] duloxetine 60 mg capsule,delayed release 60 mg PO DAILY mental health 04/29/18 [History Last Taken 03/09/22] carvedilol 6.25 mg tablet 6.25 mg PO BID blood pessure 01/11/21 [History Last Taken 03/09/22] acetaminophen 500 mg tablet 650 mg PO Q4H PRN PRN Temp > 100.4 F 01/14/21 [Rx Last Taken 03/09/22] metformin 500 mg tablet 500 mg PO BID diabetes 02/06/22 [History Last Taken 03/09/22] omeprazole 20 mg capsule,delayed release 20 mg PO DAILY reflux 02/06/22 [History Last Taken 03/09/22] cephalexin 500 mg capsule 500 mg PO TID 6 days #18 caps 03/11/22 [Rx Last Taken Unknown] famotidine 20 mg tablet (Pepcid) 20 mg PO BID PRN acid reflux #14 tabs 05/18/22 [Rx Last Taken Unknown] ondansetron 4 mg disintegrating tablet 4 mg PO Q8H PRN nausea and vomiting #10 tabs 05/18/22 [Rx Last Taken Unknown] Allergy/AdvReac Type Severity Reaction Status Date / Time lisinopril [From Zestril] Allergy Swelling Verified 05/17/22 21:45 losartan [From Cozaar] Allergy Swelling Verified 05/17/22 21:45 carbamazepine [From Tegretol] AdvReac MENTAL Verified 05/17/22 21:45 STATUS CHANGE hydrochlorothiazide AdvReac confusion Verified 05/17/22 21:45 Family History Mother Cancer leukemia Father CVA (cerebral vascular accident) Surgical History S/P cholecystectomy S/P hysterectomy S/P tonsillectomy Social History (Updated 05/18/22 @ 00:[address] Shruti Pond MD) household members: spouse housing: house Smoking Status: Never smoker Electronic Cigarette Use: not used second hand exposure: Yes (Family smokes ) details: Reports occasional, Hx of abuse (cocktails, double, at least 2-4 daily) substance use type: other details: Prior history of abusing NyQuil and also taking her husbands BZD regimen. ROS ROS ED Constitutional Constitutional ED: Denies chills or fever(s) Eyes Eyes: Denies change in vision or diplopia ENT ENT ED: Denies rhinorrhea or sore throat Cardiovascular Cardiovascular: Denies chest pain Respiratory/Chest Respiratory/Chest: Denies cough or dyspnea Gastrointestinal Gastrointestinal: Reports abdominal pain, diarrhea, nausea and vomiting; Denies melena Genitourinary Genitourinary ED: Denies dysuria or hematuria Musculoskeletal Musculoskeletal: Denies arthralgias Integumentary Denies abscess or Abrasions Neurologic Neurologic: Denies headache(s) or paresthesias Psychiatric Psychiatric: Denies anxiety or depression EXAM Physical Exam Const Vital Signs: 05/17/22 21:43 05/17/22 21:48 05/17/22 23:31 Temperature 98.3 F Temperature Source Temporal Pulse Rate 156 H 147 H 127 H Respiratory Rate 16 21 H 16 Blood Pressure 159/104 H 119/87 H 169/88 H Blood Pressure Mean 122 97 115 Pulse Ox 96 94 94 Oxygen Delivery Method Room Air Room Air Room Air Positive well nourished General Appearance ED: NAD; Negative for pallor HEENT Reports dry mucous membranes Negative for trauma Mouth ED: Yes dry mucous membranes Mouth: dry mucous membranes Eyes PERRL and EOMs intact bilaterally General Eye ED: Negative for pale conjunctiva or scleral icterus Chest Wall inspection of chest normal Resp normal respiratory effort and clear to auscultation bilaterally Cardio regular rhythm Rate: tachycardic GI Inspection: Negative for abdominal distention Palpation: tender epigastric Neuro oriented x3 and CN's II-XII intact bilaterally Sensorium / Orientation: alert Motor Exam: strength 5/5 throughout Psych mental status grossly normal Skin no rashes or lesions noted General Skin Exam: Negative for jaundice or pallor MDM MDM MDM Narrative Medical decision making narrative: Presenting with epigastric pain which feels like pressure. It is nonradiating. She specifically notes is not in her chest. I did obtain an EKG which shows a sinus rhythm with a ventricular rate of 97 bpm without sign of ischemic change on my interpretation. There are some PACs. Patient given IV fluids, morphine, Zofran. Blood work is obtained and her CBC shows a leukocytosis of 11.9. Hemoglobin stable 11.9 as well. Hematocrit 36.8. Platelets 420. Renal function and electrolytes are normal with exception of a potassium of 3.4. Glucose 159. No anion gap. AST is slightly elevated at 52. Alkaline phosphatase is slightly elevated 124. Lipase negative. High-sensitivity troponin is 16. Patient's urinalysis is negative. I found no source of infection. CT of the abdomen pelvis with IV contrast is performed which shows thickening the gastric fundus otherwise normal. She does not appear to be dehydrated. Patient be discharged home with Pepcid and Zofran. She is given return precautions. Impression: 1. Nausea/vomiting 2. Diarrhea 3. Abdominal pain Lab Data Attestation: I reviewed the patient's lab results. Labs: Laboratory Results - last 24 hr 05/17/22 05/17/22 05/17/22 22:15 22:15 22:15 WBC 11.9 H RBC 4.10 L Hgb 11.9 L Hct 36.8 L MCV 89.8 MCH 29.0 MCHC 32.3 RDW Std Deviation 53.9 H RDW Coeff of Felicia 17.6 H Plt Count 420 MPV 9.4 Immature Gran % (Auto) 0.400 Neut % (Auto) 84.6 H Lymph % (Auto) 9.1 L Waller % (Auto) 5.3 Eos % (Auto) 0.0 Baso % (Auto) 0.6 Absolute Neuts (auto) 10.1 H Absolute Lymphs (auto) 1.09 Nucleated RBC % 0 Sodium 139 Potassium 3.4 L Chloride 103 Carbon Dioxide 23.0 Anion Gap 13 BUN 14 Creatinine 0.90 Estim Creat Clear Calc 49.15 Est GFR (MDRD) Af Amer 77 Est GFR (MDRD) Non-Af 64 BUN/Creatinine Ratio 15.6 Glucose 159 H Calcium 9.6 Total Bilirubin 0.80 Direct Bilirubin 0.28 AST 52 H ALT 38 Alkaline Phosphatase 124 H Troponin I High Sens 16 Total Protein 7.2 Albumin 3.4 Globulin 3.8 Lipase 15 L Urine Color Urine Clarity Urine pH Ur Specific [place] Urine Protein Urine Glucose (UA) Urine Ketones Urine Occult Blood Urine Nitrite Urine Bilirubin Urine Urobilinogen Ur Leukocyte Esterase Urine RBC Urine WBC Ur Squamous Epith Cells Urine Bacteria Urine Mucus Ethyl Alcohol < 3.0 05/18/22 00:02 WBC RBC Hgb Hct MCV MCH MCHC RDW Std Deviation RDW Coeff of Felicia Plt Count MPV Immature Gran % (Auto) Neut % (Auto) Lymph % (Auto) Waller % (Auto) Eos % (Auto) Baso % (Auto) Absolute Neuts (auto) Absolute Lymphs (auto) Nucleated RBC % Sodium Potassium Chloride Carbon Dioxide Anion Gap BUN Creatinine Estim Creat Clear Calc Est GFR (MDRD) Af Amer Est GFR (MDRD) Non-Af BUN/Creatinine Ratio Glucose Calcium Total Bilirubin Direct Bilirubin AST ALT Alkaline Phosphatase Troponin I High Sens Total Protein Albumin Globulin Lipase Urine Color Yellow Urine Clarity Clear Urine pH 7.0 Ur Specific [place] 1.005 Urine Protein 30 H Urine Glucose (UA) Normal Urine Ketones 5 H Urine Occult Blood Negative Urine Nitrite Negative Urine Bilirubin Negative Urine Urobilinogen Normal Ur Leukocyte Esterase Negative Urine RBC 0 SEEN Urine WBC 0 SEEN Ur Squamous Epith Cells 0 SEEN Urine Bacteria 0 SEEN Urine Mucus 0 SEEN Ethyl Alcohol Radiography Diagnostic Testing: Clinical Impression(s) from Imaging Studies Abdomen/Pelvis CT 05/17/22 22:04 IMPRESSION: 1. Mild thickening of the gastric fundal wall that could represent mild gastritis. 2. No duodenitis. 3. Mild hepatomegaly with diffuse fatty infiltration. 4. Normal spleen with an infarct. 5. Elevated left hemidiaphragm, normal variant. 6. Atrophic right kidney. Normal size left kidney with 2 simple cysts and no obstructive uropathy. 7. No appendicitis, diverticulitis, colitis, or intestinal obstruction. 8. Normal small anteverted uterus. No ovarian cystic or solid masses. 9. No abdominal aortic dissection or aneurysm. 10. Marked narrowing of the L4-5 and L5-S1 intervertebral disc spaces. No lumbar vertebral body fractures or subluxations. Normal hips and pelvis. Mild demineralization. Electronically Signed: Ja Whiting MD at 23:54 EDT , Discharge Plan Triage Chief Complaint: Nausea/Vomiting/Diarrhea ED Provider: Mal Epperson Dx/Rx/DC Orders Instructions: ED Vomiting and Diarrhea ... Prescriptions: New ondansetron 4 mg tablet,disintegrating 4 mg PO Q8H PRN (Reason: nausea and vomiting) Qty: 10 0RF famotidine [Pepcid] 20 mg tablet 20 mg PO BID PRN (Reason: acid reflux) Qty: 14 0RF No Action amlodipine 10 MG tablet 10 mg PO DAILY duloxetine 60 MG capsule,delayed release(DR/EC) 60 mg PO DAILY cholecalciferol (vitamin D3) [D3-2000] 2,000 UNIT capsule 2,000 unit PO DAILY carvedilol 6.25 MG tablet 6.25 mg PO BID acetaminophen 500 MG tablet 650 mg PO Q4H PRN PRN (Reason: Temp > 100.4 F) 0RF metformin 500 mg tablet 500 mg PO BID Label Comments: TAKE 1 TABLET BY MOUTH TWICE DAILY WITH MEALS omeprazole 20 mg capsule,delayed release(DR/EC) 20 mg PO DAILY Label Comments: TAKE 1 CAPSULE BY MOUTH ONCE DAILY 1/2 HOUR BEFORE BREAKFAST cephalexin 500 mg capsule 500 mg PO TID 6 Days Qty: 18 0RF Primary Care Provider: Aleksandr Salazar Referrals: Aleksandr Salazar MD [Primary Care Provider] - Disposition Disposition: Home, Self Care
[2022-05-17] MEDS: Ondansetron 4 MG/2 ML Vial IV (22:22)
[2022-05-17] MEDS: Morphine 4 MG/ML Syringe IV (22:22)
[2022-05-17] MEDS: 0.9% Normal Saline 1,000 ML 1000 ML IV (22:23)
[2022-05-17 22:27] LABS: Absolute Lymphocyte Count 1.09 X10^3/uL (0.83-4.51); Absolute Neutrophil Count 10.1 X10^3/uL (2.0-7.7); Basophil# 0.07 X10^3/uL; Basophil% 0.6 % (0-1); Hematocrit 36.8 % (37-47); Hemoglobin 11.9 g/dL (12.0-15.0); Lymphocyte # 1.09 X10^3/ul (0.83-4.51); Lymphocyte % 9.1 % (19-41); Mean Corp Hgb Conc 32.3 g/dL (32-36); Mean Corpuscular Volume 89.8 fL (81-99); Mean Platelet Vol. 9.4 fl (6.2-12.0); Monocyte# 0.63 X10^3/uL; Monocyte% 5.3 % (0-10); NRBC Flagged by Analyzer 0 % (0-5); Neutrophil # 10.09 X10^3/uL (2.7-7.7); Neutrophil % 84.6 % (47-70); Platelet Count 420 K/mm3 (150-450); RBC Distribution Width CV 17.6 % (11.6-14.6); RBC Distribution Width SD 53.9 fl (35.1-43.9); White Blood Count 11.9 K/mm3 (4.4-11.0)
[2022-05-17 22:46] LABS: AST(SGOT) 52 U/L (15-37); Alanine Aminotransfer ALT/SGPT 38 U/L (13-56); Albumin, Serum 3.4 g/dL (3.2-5.0); Alkaline Phosphatase 124 U/L (45-117); Anion Gap 13 (5-15); BUN 14 mg/dL (7-18); BUN/Creat Ratio 15.6 RATIO (10-20); Bilirubin, Direct 0.28 mg/dL (0.00-0.30); Calcium,Total 9.6 mg/dL (8.5-10.1); Chloride 103 mmol/L (98-107); EST Glomerular Filtration Rate 64 mL/min (>60); Est Glom Filt Rate - Afr Amer 77 mL/min (>60); Estimated Creatinine Clearance 49.15 ml/min; Globulin 3.8 g/dL (2.2-4.2); Glucose 159 mg/dL (74-106); Lipase 15 U/L (73-393); Potassium 3.4 mmol/L (3.5-5.1); Protein, Total 7.2 g/dL (6.4-8.2); Sodium Level 139 mmol/L (136-145); Troponin-I HS 16 pg/mL (3.0-54.0)
[2022-05-17 23:14] LABS: Alcohol, Blood (Medical)-Serum < 3.0 mg/dL
[2022-05-17 23:31] VITALS: BP 169/88; PULSE 127; RESP 16; O2SAT 94
[2022-05-18 00:06] LABS: Bacteria 0 SEEN /hpf (None Seen); Mucous, Urine 0 SEEN /hpf (<or=2+); Red Blood Cells-Urine 0 SEEN /hpf (0-5); Squamous Epithelial Cells - UA 0 SEEN /hpf (5-10); White Blood Cells 0 SEEN /hpf (0-5)
[2022-05-18 00:07] LABS: Color, Urine Yellow (Yellow); Glucose, Dipstick Normal (Normal); Ketone-Dipstick 5 mg/dl (Negative); Leukocyte Esterase-Dipstick Negative /ul (Negative); Nitrite-Dipstick Negative (Negative); Occult Blood-Urine Negative /ul (Negative); Protein-Dipstick 30 mg/dl (Negative); Specific Gravity, Urine 1.005 (1.002-1.030); Urine Bilirubin Dipstick Negative (Negative); Urine Clarity Clear (Clear); Urine Urobilinogen Normal (Normal)
[2022-05-18 00:17] VITALS: BP 160/91; PULSE 120; RESP 15; O2SAT 97
[2022-05-18 00:37] LABS: Amphetamine Urine VISTA NEGATIVE (<1000 ng/mL); Barbiturate Urine VISTA NEGATIVE (< 200 ng/mL); Benzodiazepine Urine VISTA NEGATIVE (< 200 ng/mL); Cocaine Urine VISTA NEGATIVE (< 300 ng/mL); Ecstacy Urine VISTA NEGATIVE (< 500 ng/mL); Methadone Urine VISTA NEGATIVE (< 300 ng/mL); PCP Urine VISTA NEGATIVE (< 25 ng/mL); THC Urine VISTA NEGATIVE (< 50 ng/mL); Vista UDS pH Range 7
[2022-05-18 01:10] VITALS: BP 168/92; PULSE 123; RESP 15; O2SAT 98
== END 2022-05-18 01:11 | disposition home or self-care (01) ==
PROVIDERS: Emergency Provider Student in an Organized Health Care Education/Training Program; PCP Family Medicine; Visit Provider Student in an Organized Health Care Education/Training Program
DX: R11.2 Nausea with vomiting, unspecified (principal); E11.9 Type 2 diabetes mellitus without complications; R19.7 Diarrhea, unspecified; I10 Essential (primary) hypertension; K21.9 Gastro-esophageal reflux disease without esophagitis; F41.9 Anxiety disorder, unspecified; F32.A Depression, unspecified; R94.31 Abnormal electrocardiogram [ECG] [EKG]; R10.13 Epigastric pain; Z79.899 Other long term (current) drug therapy
CPT/HCPCS: 74177; 80048; 80076; 80307; 81001; 82077; 83690; 84484; 85025; 93005; 99283; J7030; Q9967; A4216; J2405

== ENCOUNTER 2022-05-23 02:09 | Emergency (ER) | payer MEDICARE, SELFPAY ==
[2022-05-23] VITALS (14 sets, daily range): BP systolic 144–181; BP diastolic 70–88; PULSE 90–129; RESP 14–20; TEMP 37.4; O2SAT 86–114; BMI 31.7
--- NOTE | 2022-05-23 02:19 | EKG12_ITS ---
Test Reason : DYSRHYTHMIA Blood Pressure : / mmHG Vent. Rate : 110 BPM Atrial Rate : 110 BPM P-R Int : 138 ms QRS Dur : 090 ms QT Int : 336 ms P-R-T Axes : 020 020 043 degrees QTc Int : 454 ms Sinus tachycardia Otherwise normal ECG Confirmed by NICK HYATT, JOE ([id number]), telegraph editor FIDELIA VEGA ([id number]) on 05/27/2022 9:43:26 AM Referred By: PL Confirmed By:JOE ROMERO MD
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
[2022-05-23 02:47] LABS: Absolute Lymphocyte Count 1.51 X10^3/uL (0.83-4.51); Absolute Neutrophil Count 6.7 X10^3/uL (2.0-7.7); Basophil# 0.09 X10^3/uL; Eosinophil# 0.04 X10^3/uL; Eosinophils% 0.4 % (0-5); Hematocrit 35.9 % (37-47); Hemoglobin 11.3 g/dL (12.0-15.0); Lymphocyte # 1.51 X10^3/ul (0.83-4.51); Lymphocyte % 16.5 % (19-41); Mean Corp Hgb Conc 31.5 g/dL (32-36); Mean Corpuscular Hgb 29.1 pg (27.0-32.0); Mean Corpuscular Volume 92.5 fL (81-99); Mean Platelet Vol. 9.2 fl (6.2-12.0); Monocyte# 0.82 X10^3/uL; Monocyte% 8.9 % (0-10); NRBC Flagged by Analyzer 0 % (0-5); Neutrophil # 6.67 X10^3/uL (2.7-7.7); Neutrophil % 72.8 % (47-70); Platelet Count 403 K/mm3 (150-450); RBC Distribution Width CV 18.6 % (11.6-14.6); RBC Distribution Width SD 59.7 fl (35.1-43.9); Red Blood Count 3.88 M/mm3 (4.2-5.4); White Blood Count 9.2 K/mm3 (4.4-11.0)
[2022-05-23 03:06] LABS: ALB/GLOB Ratio 0.9 RATIO (0.9-2.4); AST(SGOT) 48 U/L (15-37); Alanine Aminotransfer ALT/SGPT 34 U/L (13-56); Albumin, Serum 3.2 g/dL (3.2-5.0); Alkaline Phosphatase 105 U/L (45-117); Anion Gap 13 (5-15); BUN 17 mg/dL (7-18); BUN/Creat Ratio 14.7 RATIO (10-20); Calcium,Total 8.5 mg/dL (8.5-10.1); Chloride 106 mmol/L (98-107); Creatinine, Serum 1.16 mg/dL (0.55-1.02); EST Glomerular Filtration Rate 48 mL/min (>60); Est Glom Filt Rate - Afr Amer 58 mL/min (>60); Estimated Creatinine Clearance 39.99 ml/min; Globulin 3.6 g/dL (2.2-4.2); Glucose 104 mg/dL (74-106); Potassium 3.3 mmol/L (3.5-5.1); Protein, Total 6.8 g/dL (6.4-8.2); Sodium Level 142 mmol/L (136-145)
[2022-05-23 03:15] LABS: Bacteria 0 SEEN /hpf (None Seen); Mucous, Urine 0 SEEN /hpf (<or=2+); Red Blood Cells-Urine 0 SEEN /hpf (0-5); Squamous Epithelial Cells - UA 0 SEEN /hpf (5-10); White Blood Cells 0 SEEN /hpf (0-5)
[2022-05-23 03:16] LABS: Color, Urine Yellow (Yellow); Glucose, Dipstick Normal (Normal); Ketone-Dipstick Negative (Negative); Leukocyte Esterase-Dipstick Negative /ul (Negative); Nitrite-Dipstick Negative (Negative); Occult Blood-Urine Negative /ul (Negative); Protein-Dipstick 15 mg/dl (Negative); Urine Bilirubin Dipstick Negative (Negative); Urine Clarity Clear (Clear); Urine Urobilinogen Normal (Normal); Urine pH 6.5 (5.0 - 8.0)
[2022-05-23 03:27] LABS: Amphetamine Urine VISTA NEGATIVE (<1000 ng/mL); Barbiturate Urine VISTA NEGATIVE (< 200 ng/mL); Benzodiazepine Urine VISTA NEGATIVE (< 200 ng/mL); Cocaine Urine VISTA NEGATIVE (< 300 ng/mL); Ecstacy Urine VISTA NEGATIVE (< 500 ng/mL); Methadone Urine VISTA NEGATIVE (< 300 ng/mL); PCP Urine VISTA NEGATIVE (< 25 ng/mL); THC Urine VISTA NEGATIVE (< 50 ng/mL); Vista UDS pH Range 6
[2022-05-23] MEDS: LORazepam 2 MG/ML Syringe 1 MG IV (03:40)
[2022-05-23] MEDS: Multivitamins,Therapeutic Tablet 1 TABLET PO (08:53)
[2022-05-23] MEDS: DULoxetine Hcl 60 MG Capsule PO ×2 (08:53→22:03)
[2022-05-23] MEDS: metFORMIN HCl 500 MG Tablet PO ×2 (08:53→22:03)
[2022-05-23] MEDS: amLODIPine 10 MG Tablet PO (08:53)
[2022-05-23] MEDS: Carvedilol 6.25 MG Tablet PO ×2 (08:53→22:03)
[2022-05-23] MEDS: Cholecalciferol (VIT D3) 25 MCG TABLET (1,000 UNITS) 50 MCG PO (08:53)
[2022-05-23] MEDS: Pantoprazole Sodium 20 MG Tablet PO (08:54)
[2022-05-23] MEDS: Cyanocobalamin 500 MCG Tablet 1000 MCG PO (08:54)
[2022-05-23] MEDS: Loperamide 2 MG Capsule PO (12:28)
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
--- NOTE | 2022-05-23 18:27 | CM.ED ---
Addendum entered by Lora Guevara 05/23/22 20:56: JAYSHREE placed a call to [facility] and spoke with Renato. Renato states he has referral in his hang to review. Renato states that in the notes it mentioned that pt had a virus a few weeks ago. JAYSHREE informed Renato that pt was recently admitted for Nausea, Vomiting, Diarrhea and per pt's daughter Mariaelena, pt told the officer that she had the flu a few weeks back. Renato asked if pt was tested for COVID and JAYSHREE informed Renato that pt was tested for COVID and her test is negative. Renato asked where pt will go once she leaves psych hospital as they cannot really assist pt with getting to next level of care. JAYSHREE informed Renato that pt's family is hoping to eventually get pt to Assisted Living but this worker can check with pt's family to confirm plans. Renato states that if he can have in writing where pt will go once she leaves Psych Hospital that would be helpful in reviewing pt's referral. JAYSHREE faxed referral to [facility]. JAYSHREE placed a call to pt's daughter Princess and left message. JAYSHREE placed a call to pt's daughter Mariaelena and updated her that SW is working on Psych Placement for pt and referral has been made to [facility] in [place]. JAYSHREE informed Mariaelena that [facility] is requesting in writing where pt will discharge to one pt leaves the Psych Hospital. JAYSHREE informed Mariaelena that a referral has also been made to [facility] but it may come down to needing the document that states where pt will go to once pt is released from the Psych Hospital. Mariaelena states that she will get with her siblings and talk about this. Mariaelena states that the officer called her back today and told Mariaelena that the threat for suicide for pt was real and that pt stated that she didn't want to live anymore and wanted to go to sleep and not wake up. Mariaelena states that pt told that to four people - 2 officers and 2 ambulance workers. JAYSHREE informed Mariaelena that this worker will make note of that. JAYSHREE placed a call to [facility] and updated staff on pt's referral. Crisis to continue to work on placement for pt. Lora Guveara LIFE AGENT, DOFFER Original Note: Social Work Note JAYSHREE faxed referral to [facility]. Lora Guevara MSW, DOFFER
[2022-05-23 21:15] LABS: Bedside Glucose 136 mg/dL (74-106)
[2022-05-23] MEDS: Acetaminophen 500 MG Tablet 1000 MG PO (22:03)
--- NOTE | 2022-05-23 22:16 | CM.ED ---
Social Work Note SW placed a call to Alphonso with [facility] and provided [facility]PS regarding pt. Lora Guevara 3RD MATE, HOT BLASTER
[2022-05-23] MEDS: hydrOXYzine PAM 25 MG Capsule PO (22:35)
[2022-05-24] VITALS (7 sets, daily range): BP systolic 145–153; BP diastolic 71–85; PULSE 97–105; RESP 14–18; TEMP 36.4; O2SAT 92–93
[2022-05-24] MEDS: Acetaminophen 325 MG Tablet 650 MG PO (04:55)
--- NOTE | 2022-05-24 06:18 | ED.RN ---
[facility] CALLED AND PATIENT IS ACCEPTED
[2022-05-24] MEDS: Loperamide 2 MG Capsule PO (08:09)
[2022-05-24] MEDS: LORazepam 1 MG Tablet PO (08:24)
--- NOTE | 2022-05-24 08:24 | NURSING ---
FAXED PINK SLIP, EKG, COVID TO [facility]
--- NOTE | 2022-05-24 08:47 | NURSING ---
[facility] UNIT 300-A NURSE TO NURSE [phone]
--- NOTE | 2022-05-24 08:54 | NURSING ---
CALLED [facility], ETA IS 3 TO 4 HOURS
[2022-05-24] MEDS: Multivitamins,Therapeutic Tablet 1 TABLET PO (09:08)
[2022-05-24] MEDS: Pantoprazole Sodium 20 MG Tablet PO (09:08)
[2022-05-24] MEDS: amLODIPine 10 MG Tablet PO (09:08)
[2022-05-24] MEDS: Carvedilol 6.25 MG Tablet PO (09:08)
[2022-05-24] MEDS: metFORMIN HCl 500 MG Tablet PO (09:08)
[2022-05-24] MEDS: Cyanocobalamin 500 MCG Tablet 1000 MCG PO (09:08)
[2022-05-24] MEDS: DULoxetine Hcl 60 MG Capsule PO (09:08)
[2022-05-24] MEDS: Cholecalciferol (VIT D3) 25 MCG TABLET (1,000 UNITS) 50 MCG PO (09:25)
[2022-05-24] MEDS: LORazepam 0.5 MG Tablet PO (10:19)
--- NOTE | 2022-05-24 17:27 | ED.RN ---
PT SON ARRIVED AT 1140 TO VISIT WITH PT. PT TRANSPORTING [facility] ARRIVED AT 1140. SON BACK TO VISIT WITH PT. THIS RN INFORMED THE PT SON OF PT TRANSFERRING FACILITY, [facility]. PT LOADED UP ON COT AND TAKEN TO [facility] [place]. THIS RN INFORMED SON OF ADDRESS AND PHONE NUMBER OF FACILITY. SON EDUCATED THAT PT LENGTH OF STAY TO BE DETERMINED BY THE DOCTORS AT [facility]. THIS RN OFFERS TO INFORM HIS SISTERS. PT SON REPLIES THAT HE WILL INFORM HIS SISTERS OF PT TRANSFER. REPORTS NO OTHER QUESTIONS.
--- NOTE | 2022-05-25 19:59 | CM.ED ---
Addendum entered by Lora Guevara 05/25/22 20:05: SW placed a call to Alphonso with [facility] and left message updating her that pt discharged to [facility]. Original Note: Social Work Note SW received two messages from pt's daughter Princess yesterday requesting call back. SW placed a call to Princess, no answer, SW left voicemail. Lora Guevara HAND BRIM IRONER, MARINE EQUIPMENT ENGINEER
--- NOTE | 2022-05-25 20:23 | CM.ED ---
Social Work Note SW received call from pt's daughter Princess stating that when pt left, she was not informed that pt was being discharged. Tatokassie states that no one called her. LiamKeonkassie states that the only reason that they knew pt was leaving was when her brother made his way to the hospital from [place] and happened to be at [facility] when pt was being transferred. Princess states she spoke with the patient advocate and the nursing staff but also wanted to let this worker know. JAYSHREE thanked Princess for letting this worker know, informed Princess that this worker was not here yesterday. Lora Guevara SIGNAL OPERATOR TECHNICAL, PHOTO BOOTH OPERATOR
== END 2022-05-24 11:52 ==
LOC: ED 02:21
PROVIDERS: Emergency Medicine; Emergency Provider Emergency Medicine; PCP Family Medicine; Visit Provider Emergency Medicine
DX: F10.129 Alcohol abuse with intoxication, unspecified (principal); E11.9 Type 2 diabetes mellitus without complications; R45.851 Suicidal ideations; D64.9 Anemia, unspecified; I10 Essential (primary) hypertension; Y90.8 Blood alcohol level of 240 mg/100 ml or more; Z79.899 Other long term (current) drug therapy
CPT/HCPCS: 36415; 80053; 80307; 81001; 82077; 82962; 85025; 87811; 93005; 99285

== ENCOUNTER → 2022-08-28 | Outpatient (REF) | payer MEDICARE, SELFPAY ==
[2022-08-28 09:29] LABS: Absolute Lymphocyte Count 2.03 X10^3/uL (0.83-4.51); Absolute Neutrophil Count 5.2 X10^3/uL (2.0-7.7); Basophil% 1.2 % (0-1); Eosinophil# 0.47 X10^3/uL; Eosinophils% 5.5 % (0-5); Hematocrit 34.5 % (37-47); Hemoglobin 10.6 g/dL (12.0-15.0); Lymphocyte # 2.03 X10^3/ul (0.83-4.51); Lymphocyte % 23.6 % (19-41); Mean Corp Hgb Conc 30.7 g/dL (32-36); Mean Corpuscular Volume 97.7 fL (81-99); Mean Platelet Vol. 10.4 fl (6.2-12.0); Monocyte# 0.78 X10^3/uL; Monocyte% 9.1 % (0-10); NRBC Flagged by Analyzer 0 % (0-5); Neutrophil # 5.21 X10^3/uL (2.7-7.7); Neutrophil % 60.4 % (47-70); Platelet Count 331 K/mm3 (150-450); RBC Distribution Width CV 14.7 % (11.6-14.6); Red Blood Count 3.53 M/mm3 (4.2-5.4); White Blood Count 8.6 K/mm3 (4.4-11.0)
[2022-08-28 10:04] LABS: Vitamin B12 > 2000 pg/mL (211-911); Vitamin D,25 Hydroxy 34.1 ng/mL
[2022-08-28 10:13] LABS: ALB/GLOB Ratio 0.9 RATIO (0.9-2.4); AST(SGOT) 15 U/L (15-37); Alanine Aminotransfer ALT/SGPT 13 U/L (13-56); Albumin, Serum 3.1 g/dL (3.2-5.0); Alkaline Phosphatase 75 U/L (45-117); Anion Gap 9 (5-15); BUN 18 mg/dL (7-18); BUN/Creat Ratio 20.9 RATIO (10-20); Calcium,Total 9.3 mg/dL (8.5-10.1); Chloride 107 mmol/L (98-107); Cholesterol 166 mg/dL (200); Creatinine, Serum 0.86 mg/dL (0.55-1.02); EST Glomerular Filtration Rate 67 mL/min (>60); Est Glom Filt Rate - Afr Amer 81 mL/min (>60); Globulin 3.5 g/dL (2.2-4.2); Glucose 94 mg/dL (74-106); High Density Lipoprotein 77 mg/dL; Potassium 3.4 mmol/L (3.5-5.1); Protein, Total 6.6 g/dL (6.4-8.2); Sodium Level 142 mmol/L (136-145); Thyroid Stim Hormone (TSH) 1.38 uIU/mL (0.358-3.74); Triglycerides 61 mg/dL; Very Low Density Lipoprotein 12 mg/dL (5-40)
[2022-08-28 11:13] LABS: Hemoglobin A1c 6.2 % (3.8-5.6)
== END ==
LOC: OLS.SWAL 05:00
PROVIDERS: PCP Family Medicine; Visit Provider Internal Medicine
DX: E11.9 Type 2 diabetes mellitus without complications (principal); E55.9 Vitamin D deficiency, unspecified; I10 Essential (primary) hypertension
CPT/HCPCS: 36415; 80053; 80061; 82306; 82607; 83036; 84443; 85025

== ENCOUNTER → 2022-12-25 | Outpatient (REF) | payer MEDICARE, MEDICAID, SELFPAY ==
[2022-12-25 08:37] LABS: Hematocrit 35.6 % (37-47); Hemoglobin 10.6 g/dL (12.0-15.0); Mean Corp Hgb Conc 29.8 g/dL (32-36); Mean Corpuscular Hgb 28.3 pg (27.0-32.0); Mean Corpuscular Volume 95.2 fL (81-99); Platelet Count 389 K/mm3 (150-450); RBC Distribution Width CV 14.3 % (11.6-14.6); RBC Distribution Width SD 49.8 fl (35.1-43.9); Red Blood Count 3.74 M/mm3 (4.2-5.4); White Blood Count 9.4 K/mm3 (4.4-11.0)
[2022-12-25 08:53] LABS: Anion Gap 5 (5-15); BUN 19 mg/dL (7-18); BUN/Creat Ratio 22.1 RATIO (10-20); Calcium,Total 9.5 mg/dL (8.5-10.1); Chloride 108 mmol/L (98-107); Creatinine, Serum 0.86 mg/dL (0.55-1.02); EST Glomerular Filtration Rate 67 mL/min (>60); Est Glom Filt Rate - Afr Amer 81 mL/min (>60); Glucose 105 mg/dL (74-106); Magnesium 1.6 mg/dL (1.6-2.6); Potassium 4.1 mmol/L (3.5-5.1); Sodium Level 140 mmol/L (136-145)
== END ==
LOC: OLS.SWAL 04:00
PROVIDERS: PCP Family Medicine; Referring Provider Internal Medicine; Visit Provider Internal Medicine
DX: I10 Essential (primary) hypertension (principal); E78.2 Mixed hyperlipidemia
CPT/HCPCS: 36415; 80048; 83735; 85027

== ENCOUNTER → 2023-02-12 | Outpatient (REF) | payer MEDICARE, MEDICAID, SELFPAY ==
[2023-02-12 09:34] LABS: Hemoglobin A1c 6.2 % (3.8-5.6)
== END ==
LOC: OLS.SWAL 05:00
PROVIDERS: PCP Family Medicine; Visit Provider Internal Medicine
DX: E11.9 Type 2 diabetes mellitus without complications (principal)
CPT/HCPCS: 36415; 83036

== ENCOUNTER → 2023-04-11 | Outpatient (REF) | payer MEDICARE, MEDICAID, SELFPAY ==
[2023-04-11 09:11] LABS: Absolute Lymphocyte Count 2.49 X10^3/uL (0.83-4.51); Absolute Neutrophil Count 4.9 X10^3/uL (2.0-7.7); Basophil% 1.1 % (0-1); Eosinophil# 0.43 X10^3/uL; Eosinophils% 4.9 % (0-5); Hematocrit 35.1 % (37-47); Hemoglobin 10.5 g/dL (12.0-15.0); Lymphocyte # 2.49 X10^3/ul (0.83-4.51); Lymphocyte % 28.4 % (19-41); Mean Corp Hgb Conc 29.9 g/dL (32-36); Mean Corpuscular Hgb 29.2 pg (27.0-32.0); Mean Corpuscular Volume 97.5 fL (81-99); Mean Platelet Vol. 9.7 fl (6.2-12.0); Monocyte# 0.82 X10^3/uL; Monocyte% 9.4 % (0-10); NRBC Flagged by Analyzer 0 % (0-5); Platelet Count 339 K/mm3 (150-450); RBC Distribution Width CV 14.7 % (11.6-14.6); RBC Distribution Width SD 52.8 fl (35.1-43.9); White Blood Count 8.8 K/mm3 (4.4-11.0)
[2023-04-11 09:26] LABS: Anion Gap 6 (5-15); BUN 19 mg/dL (7-18); BUN/Creat Ratio 18.3 RATIO (10-20); Calcium,Total 9.6 mg/dL (8.5-10.1); Chloride 106 mmol/L (98-107); Creatinine, Serum 1.04 mg/dL (0.55-1.02); EST Glomerular Filtration Rate 54 mL/min (>60); Est Glom Filt Rate - Afr Amer 65 mL/min (>60); Glucose 108 mg/dL (74-106); Potassium 4.6 mmol/L (3.5-5.1); Sodium Level 137 mmol/L (136-145)
== END ==
LOC: OLS.SWAL 05:00
PROVIDERS: PCP Family Medicine; Visit Provider Internal Medicine
DX: D64.9 Anemia, unspecified (principal); E87.6 Hypokalemia
CPT/HCPCS: 36415; 80048; 85025

== ENCOUNTER → 2023-05-03 05:00 | Outpatient (REF) | payer MEDICARE, MEDICAID, SELFPAY ==
[2023-05-03 10:35] LABS: Anion Gap 5 (5-15); BUN 26 mg/dL (7-18); BUN/Creat Ratio 21.1 RATIO (10-20); Calcium,Total 9.5 mg/dL (8.5-10.1); Chloride 104 mmol/L (98-107); Creatinine, Serum 1.23 mg/dL (0.55-1.02); EST Glomerular Filtration Rate 44 mL/min (>60); Est Glom Filt Rate - Afr Amer 54 mL/min (>60); Glucose 132 mg/dL (74-106); Magnesium 1.5 mg/dL (1.6-2.6); Potassium 3.5 mmol/L (3.5-5.1); Sodium Level 138 mmol/L (136-145)
== END ==
LOC: OLS.SWAL 05:00
PROVIDERS: PCP Family Medicine; Visit Provider Internal Medicine
DX: I10 Essential (primary) hypertension (principal); E11.29 Type 2 diabetes mellitus with other diabetic kidney complication; E78.2 Mixed hyperlipidemia
CPT/HCPCS: 36415; 80048; 83735

== ENCOUNTER → 2023-08-16 | Outpatient (REF) | payer MEDICARE, MEDICAID, SELFPAY ==
[2023-08-16 08:08] LABS: Magnesium 1.9 mg/dL (1.6-2.6)
[2023-08-16 13:25] LABS: Hemoglobin A1c 6.4 % (3.8-5.6)
== END ==
LOC: OLS.SWAL 05:00
PROVIDERS: PCP Family Medicine; Visit Provider Internal Medicine
DX: E11.9 Type 2 diabetes mellitus without complications (principal)
CPT/HCPCS: 36415; 83036; 83735

== ENCOUNTER → 2023-09-17 | Outpatient (REF) | payer MEDICARE, MEDICAID, SELFPAY ==
[2023-09-17 08:24] LABS: Absolute Lymphocyte Count 2.63 X10^3/uL (0.83-4.51); Absolute Neutrophil Count 6.1 X10^3/uL (2.0-7.7); Basophil# 0.13 X10^3/uL; Basophil% 1.2 % (0-1); Eosinophil# 0.67 X10^3/uL; Eosinophils% 6.3 % (0-5); Hematocrit 38.5 % (37-47); Hemoglobin 11.5 g/dL (12.0-15.0); Lymphocyte # 2.63 X10^3/ul (0.83-4.51); Lymphocyte % 24.9 % (19-41); Mean Corp Hgb Conc 29.9 g/dL (32-36); Mean Corpuscular Hgb 28.3 pg (27.0-32.0); Mean Corpuscular Volume 94.8 fL (81-99); Mean Platelet Vol. 10.2 fl (6.2-12.0); Monocyte# 0.97 X10^3/uL; Monocyte% 9.2 % (0-10); NRBC Flagged by Analyzer 0 % (0-5); Neutrophil # 6.14 X10^3/uL (2.7-7.7); Platelet Count 374 K/mm3 (150-450); RBC Distribution Width CV 14.8 % (11.6-14.6); RBC Distribution Width SD 51.8 fl (35.1-43.9); Red Blood Count 4.06 M/mm3 (4.2-5.4); White Blood Count 10.6 K/mm3 (4.4-11.0)
[2023-09-17 08:37] LABS: Anion Gap 5 (5-15); BUN 19 mg/dL (7-18); BUN/Creat Ratio 16.7 RATIO (10-20); Calcium,Total 9.8 mg/dL (8.5-10.1); Chloride 107 mmol/L (98-107); Cholesterol 193 mg/dL (200); Creatinine, Serum 1.14 mg/dL (0.55-1.02); EST Glomerular Filtration Rate 48 mL/min (>60); Est Glom Filt Rate - Afr Amer 59 mL/min (>60); Glucose 116 mg/dL (74-106); High Density Lipoprotein 73 mg/dL; Potassium 3.8 mmol/L (3.5-5.1); Sodium Level 135 mmol/L (136-145); Triglycerides 114 mg/dL; Very Low Density Lipoprotein 23 mg/dL (5-40)
== END ==
LOC: OLS.SWAL 04:00
PROVIDERS: PCP Family Medicine; Referring Provider Internal Medicine; Visit Provider Internal Medicine
DX: I10 Essential (primary) hypertension (principal)
CPT/HCPCS: 36415; 80048; 80061; 83735; 85025

== ENCOUNTER → 2023-09-21 | Outpatient (REF) | payer MEDICARE, MEDICAID, SELFPAY ==
[2023-09-21 09:57] LABS: Anion Gap 7 (5-15); BUN 18 mg/dL (7-18); BUN/Creat Ratio 17.6 RATIO (10-20); Calcium,Total 9.6 mg/dL (8.5-10.1); Chloride 106 mmol/L (98-107); Creatinine, Serum 1.02 mg/dL (0.55-1.02); EST Glomerular Filtration Rate 55 mL/min (>60); Est Glom Filt Rate - Afr Amer 67 mL/min (>60); Glucose 96 mg/dL (74-106); Potassium 4.4 mmol/L (3.5-5.1); Sodium Level 136 mmol/L (136-145)
== END ==
LOC: OLS.SWAL 05:00
PROVIDERS: PCP Family Medicine; Visit Provider Internal Medicine
DX: E78.2 Mixed hyperlipidemia (principal)
CPT/HCPCS: 36415; 80048

== ENCOUNTER → 2023-10-01 | Outpatient (REF) | payer MEDICARE, MEDICAID, SELFPAY ==
[2023-10-01 09:11] LABS: Troponin-I HS 8 pg/mL (3.0-54.0)
== END ==
LOC: OLS.SWAL 05:00
PROVIDERS: PCP Family Medicine; Visit Provider Internal Medicine
DX: I50.9 Heart failure, unspecified (principal)
CPT/HCPCS: 36415; 84484

== ENCOUNTER → 2023-10-08 | Outpatient (REF) | payer MEDICARE, MEDICAID, SELFPAY ==
[2023-10-08 08:28] LABS: Anion Gap 8 (5-15); BUN 19 mg/dL (7-18); BUN/Creat Ratio 19.8 RATIO (10-20); Calcium,Total 9.6 mg/dL (8.5-10.1); Chloride 106 mmol/L (98-107); Creatinine, Serum 0.96 mg/dL (0.55-1.02); EST Glomerular Filtration Rate 59 mL/min (>60); Est Glom Filt Rate - Afr Amer 72 mL/min (>60); Glucose 109 mg/dL (74-106); Potassium 4.1 mmol/L (3.5-5.1); Sodium Level 141 mmol/L (136-145)
== END ==
LOC: OLS.SWAL 04:00
PROVIDERS: PCP Family Medicine; Visit Provider Internal Medicine
DX: I50.9 Heart failure, unspecified (principal)
CPT/HCPCS: 36415; 80048; 83735

== ENCOUNTER → 2023-10-18 | Outpatient (REF) | payer MEDICARE, MEDICAID, SELFPAY | LOC: OLS.SWAL 18:20 | PROVIDERS: PCP Family Medicine; Visit Provider Internal Medicine | DX: J02.9 Acute pharyngitis, unspecified (principal) | CPT/HCPCS: 87070; 87077; 87186 ==

== ENCOUNTER → 2023-10-24 | Outpatient (REF) | payer MEDICARE, MEDICAID, SELFPAY ==
[2023-10-24 09:35] LABS: ALB/GLOB Ratio 0.7 RATIO (0.9-2.4); AST(SGOT) 6 U/L (15-37); Alanine Aminotransfer ALT/SGPT 12 U/L (13-56); Alkaline Phosphatase 121 U/L (45-117); Anion Gap 7 (5-15); BUN 15 mg/dL (7-18); BUN/Creat Ratio 12.8 RATIO (10-20); Chloride 107 mmol/L (98-107); Creatinine, Serum 1.17 mg/dL (0.55-1.02); EST Glomerular Filtration Rate 47 mL/min (>60); Est Glom Filt Rate - Afr Amer 57 mL/min (>60); Globulin 4.3 g/dL (2.2-4.2); Glucose 110 mg/dL (74-106); Protein, Total 7.3 g/dL (6.4-8.2); Sodium Level 136 mmol/L (136-145)
== END ==
LOC: OLS.SWAL 04:00
PROVIDERS: PCP Family Medicine; Referring Provider Internal Medicine; Visit Provider Internal Medicine
DX: I10 Essential (primary) hypertension (principal); E55.9 Vitamin D deficiency, unspecified; E78.2 Mixed hyperlipidemia; F32.A Depression, unspecified
CPT/HCPCS: 36415; 80053; 82306; 83735

== ENCOUNTER → 2023-12-10 | Outpatient (REF) | payer MEDICARE, MEDICAID, SELFPAY ==
--- OUTSIDE RECORDS SUMMARY | 2023-12-10 04:33 | XMS RPT_ITS | CCD ---
Author Name Unknown Address [address] [place] [address] Organization [facility] Care Team Providers Care Uniformer Name Role Phone NOMI TEJEDA Unavailable Unavail able MARAL TAPIA Unavailable Unavailable NIKHIL, NOMI Unavailable Unavail able NIKHIL, NOMI Unavailable Unavail able MARAL TAPIA Unavailable Unavailable MARAL TAPIA Unavailable Unavailable MARAL TAPIA Unavailable Unavailable MARAL TAPIA Unavailable Maral Tapia Primary Care Provider CONNIE MUNOZ Admitting Unavailable CONNIE MUNOZ Attending Unavailable CONNIE MUNOZ Referring Unavailable MARAL TAPIA Primary Care Unavailable MARAL TAPIA Referring Unavailable MARAL TAPIA Primary Care Unavailable MARAL TAPIA Referring Unavailable MARAL TAPIA Primary Care Unavailable Isauro Terry MD Primary Care Provider [phone] Isauro Terry MD Primary Care Provider [phone] ISAURO TERRY Primary Care Unavailable ISAURO TERRY Referring Unavailable ISAURO TERRY Primary Care Unavailable RICARDA GRAVES Attending Unavailable ISAURO TERRY Primary Care Unavailable ISAURO TERRY Referring Unavailable ISAURO TERRY Attending Unavailable ISAURO TERRY Primary Care Unavailable Paul Campbell Jr Attending Unavailable Potestmary Stephens, Paul Attending Unavailable Potesta , Paul Attending Unavailable Potesta , Paul Attending Unavailable Potestmary Stephens, Paul Attending Unavailable Allergies Allergy Classification Reported Allergen(s) Allergy Type Date of Onset Reaction(s) Facility (3 sources) busPIRone Drug Allergy 03-14-20 16 Other (See Comments) [facility] [place] (1 source) Adhesive Tape Propensity to adverse reactions to drug 11-03-20 19 Dermatitis [facility] Work Phone: (1 source) Latex Propensity to adverse reactions to drug 10-02-20 19 [facility] Work Phone: (5 sources) Benzodiazepine; Translations: [BENZODIAZEPINES] Propensity to adverse reactions to drug 01-13-20 21 Other: See Comments [facility] Work Phone: (13 sources) carBAMazepine; Translations: [CARBAMAZEPINE] Drug Allergy 08-16-20 17 Mental Status Change [facility] Work Phone: (13 sources) Lisinopril; Translations: [LISINOPRIL] Drug Allergy 09-28-20 20 Cough [facility] Work Phone: (13 sources) Losartan; Translations: [LOSARTAN POTASSIUM] Drug Allergy 12-07-19 12 Swelling [facility] Work Phone: [phone] (13 sources) Morphinan opioid; Translations: [OPIOIDS - MORPHINE ANALOGUES] Propensity to adverse reactions to drug 01-13-20 21 Other: See Comments [facility] Work Phone: (5 sources) Thiazides; Translations: [THIAZIDES] Drug Intolerance 08-23-20 07 Other: See Comments [facility] Work Phone: (8 sources) Benzodiazepine Propensity to adverse reactions to drug 01-13-20 Other: See Comments [facility] Work Phone: (8 sources) Thiazides Drug Intolerance 08-23-20 07 Other: See Comments [facility] Work Phone: (1 source) erythromycin base Allergy to substance 03-14-20 16 Nausea/Vomitin g [facility] Medications Current Medications Medication Drug Class(es) Dates Sig (Normalized) Sig (Original) aspirin 81 mg delayed release oral tablet (3 sources) Platelet Aggregation Inhibitor, Nonsteroidal Anti-inflammatory Drug Start: 03-14-2016 take 81 mg by mouth once daily in the morning Aspirin Active 81 MG PO Every Morning March 13, 2016 11:00pm Completed/Discontinued Medications Medication Drug Class(es) Dates Sig (Normalized) Sig (Original) amLODIPine 10 mg oral tablet (12 sources) Dihydropyridine Calcium Channel Augie Start: 12-28-2021 take 1 tablet by mouth once daily amLODIPine (NORVASC) 10 mg tablet Indications: Essential hypertension, benign Take 1 tablet by mouth once daily. 90 tablet 3 12/28/2021 Active Problems Active Problems Problem Classification Problem Date Documented Da te Episodic/Chronic Alcohol-related disorders (12 sources) Alcoholism; Translations: [Alcohol dependence, uncomplicated] Onset: 1 12-28-2021 Chronic Anxiety disorders (20 sources) Panic disorder without agoraphobia; Translations: [Panic disorder [episodic paroxysmal anxiety]] Onset: 7 12-28-2021 Chronic Diabetes mellitus with complications (20 sources) Type 2 diabetes mellitus; Translations: [Type 2 diabetes mellitus with other diabetic neurological complication] Onset: 6 12-28-2021 Chronic Diabetes mellitus without complication (2 sources) Impaired fasting glycaemia; Translations: [Impaired fasting glucose] Episodic Diseases of white blood cells (13 sources) Leukocytosis; Translations: [Elevated white blood cell count, unspecified] Onset: 2 01-01-2022 Chronic Disorders of lipid metabolism (15 sources) Hypercholesterolemia; Translations: [Mixed hyperlipidemia] Onset: 3 12-28-2021 Chronic Esophageal disorders (13 sources) Gastroesophageal reflux disease; Translations: [Gastro-esophageal reflux disease without esophagitis] Onset: 6 12-28-2021 Chronic Essential hypertension (15 sources) Essential hypertension; Translations: [Benign essential hypertension] Onset: 5 03-13-2018 Chronic Genitourinary symptoms and ill-defined conditions (12 sources) Urinary incontinence; Translations: [Unspecified urinary incontinence] Onset: 7 12-28-2021 Chronic Miscellaneous mental health disorders (12 sources) Chronic insomnia; Translations: [Psychophysiologic insomnia] Onset: 8 12-28-2021 Chronic Mood disorders (14 sources) Recurrent major depression in full remission; Translations: [Depressive disorder] Onset: 1 03-13-2018 Chronic Nutritional deficiencies (13 sources) Vitamin D deficiency; Translations: [Vitamin D deficiency, unspecified] Onset: 1 12-28-2021 Chronic Osteoarthritis (12 sources) Osteoarthritis; Translations: [Unspecified osteoarthritis, unspecified site] Onset: 1 12-28-2021 Chronic Osteoporosis (12 sources) Osteoporosis; Translations: [Age-related osteoporosis without current pathological fracture] Onset: 7 12-28-2021 Chronic Other and ill-defined heart disease (10 sources) Diastolic dysfunction; Translations: [Other ill-defined heart diseases] Onset: 2 03-30-2022 Chronic Other gastrointestinal disorders (12 sources) Irritable bowel syndrome; Translations: [Irritable bowel syndrome without diarrhea] Onset: 3 12-28-2021 Chronic Other gastrointestinal disorders (12 sources) Irritable bowel syndrome with diarrhea; Translations: [Irritable bowel syndrome with diarrhea] Onset: 1 12-28-2021 Chronic Other nutritional; endocrine; and metabolic disorders (12 sources) Morbid obesity; Translations: [Morbid (severe) obesity due to excess calories] Onset: 1 12-28-2021 Chronic Other nutritional; endocrine; and metabolic disorders (1 source) Hypercalcemia; Translations: [Hypercalcemia] Onset: 2 Chronic Pulmonary heart disease (10 sources) Pulmonary hypertension; Translations: [Pulmonary hypertension, unspecified] Onset: 2 03-30-2022 Chronic Spondylosis; intervertebral disc disorders; other back problems (13 sources) Other spondylosis, lumbar region; Translations: [Lumbar spondylosis] Onset: 4 12-28-2021 Chronic Unclassified (1 source) LUMBAR RADICULOPATHY / LUMBAR RADICULOPATHY() Onset: 8 Unclassified (1 source) Patient encounter status Past or Other Problems Problem Classification Problem Date Documented Date Episodic/Chronic Acute and unspecified renal failure (1 source) Acute kidney failure, unspecified; Translations: [GEORGI (acute kidney injury) (HCC)] Onset: 03-30-2022 Episodic Deficiency and other anemia (13 sources) Anemia; Translations: [Anemia, unspecified] Onset: 01-01-2022 01-01-2022 Episodic Deficiency and other anemia (1 source) Anemia, unspecified; Translations: [Anemia, unspecified type] Onset: 01-01-2022 Episodic Fluid and electrolyte disorders (5 sources) Hypokalemia; Translations: [Hyperkalemia] Onset: 01-16-2018 Episodic Genitourinary symptoms and ill-defined conditions (1 source) Proteinuria, unspecified; Translations: [Controlled type 2 diabetes mellitus with microalbuminuria, without long-term current use of insulin (HCC)] Onset: 12-28-2021 Episodic Headache; including migraine (12 sources) Chronic daily headache; Translations: [Chronic daily headache] Onset: 12-16-2014 12-28-2021 Episodic Nutritional deficiencies (12 sources) Serum vitamin B12 low; Translations: [Deficiency of other specified B group vitamins] Onset: 01-01-2022 01-01-2022 Episodic Other aftercare (12 sources) Patient encounter status; Translations: [Other vehicle damage appraiser (current) drug therapy] Onset: 12-28-2021 12-28-2021 Episodic Other aftercare (1 source) Other vehicle damage appraiser (current) drug therapy; Translations: [Medication management] Onset: 12-28-2021 Episodic Other connective tissue disease (12 sources) Fibromyalgia; Translations: [Fibromyalgia] Onset: 11-21-2011 12-28-2021 Episodic Other diseases of veins and lymphatics (12 sources) Peripheral venous insufficiency; Translations: [Venous insufficiency (chronic) (peripheral)] Onset: 05-04-2014 12-28-2021 Episodic Other diseases of veins and lymphatics (12 sources) Stasis dermatitis; Translations: [Venous insufficiency (chronic) (peripheral)] Onset: 04-03-2018 12-28-2021 Episodic Other inflammatory condition of skin (12 sources) Prurigo nodularis; 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] Onset: 12-28-2021 12-28-2021 Episodic Other injuries and conditions due to external causes (2 sources) H/O: hip fracture; Translations: [History of hip fracture] Onset: 01-16-2018 01-16-2018 Episodic Other lower respiratory disease (12 sources) H/O: asthma; Translations: [Personal history of other diseases of the respiratory system] Onset: 02-19-2018 12-28-2021 Episodic Other nervous system disorders (12 sources) H/O: trigeminal neuralgia; Translations: [Personal history of other diseases of the nervous system and sense organs] Onset: 06-29-2017 12-28-2021 Episodic Other non-traumatic joint disorders (2 sources) Hip pain; Translations: [Hip pain] Onset: 01-16-2018 01-16-2018 Episodic Residual codes; unclassified (2 sources) H/O Spinal surgery; Translations: [H/O kyphoplasty] Onset: 01-16-2018 01-16-2018 Episodic Residual codes; unclassified (12 sources) Active living will ; Translations: [Other specified health status] Onset: 12-28-2021 12-28-2021 Episodic Spondylosis; intervertebral disc disorders; other back problems (19 sources) Lumbar radiculopathy; Translations: [Low back pain] Onset: 10-25-2017 10-25-2017 Episodic Urinary tract infections (1 source) Acute cystitis with hematuria; Translations: [Acute cystitis with hematuria] Onset: 03-30-2022 Episodic Results Test Name Value Interpretation Reference Range Facil ity Encounters Encounter Date Encounter Type Care Provider Facility Start: 11-06-2023 End: 11-07-2023 ambulatory Paul Campbell Jr Facility:[facility] Start: 11-06-2023 End: 11-06-2023 ambulatory [facility] Work Phone: Start: 11-06-2023 End: 11-06-2023 Patient encounter procedure [facility] [address] [facility] [address] Work Phone: Start: 05-07-2023 ambulatory Paul Campbell Jr Facil ity:[facility] Start: 11-06-2022 ambulatory Paul Campbell Jr Facil ity:[facility] Start: 08-04-2022 Telephone encounter Candice Saunders MA Family Medicine [facility] Procedures Date Procedure Procedure Detail Performing Clinician Start: 09-16-2020 Blood count complete automated MARAL TAPIA Start: 09-16-2020 Comprehensive metabo lic panel MARAL TAPIA Start: 09-16-2020 Lipid panel MRAAL MCKEON Start: 12-24-2019 Comprehensive metabo lic panel MARAL TAPIA Start: 12-24-2019 Lipid panel MARAL MCKEON Start: 12-24-2019 Comprehensive metabo lic panel Maral Tapia Work Phone: Start: 12-24-2019 Lipid panel Maral laguerre Work Phone: Start: 11-04-2019 DISCHARGE PATIENT CONNIE MUNOZ Start: 11-04-2019 Level iv surg pathol ogy gross&microscopic exam CONNIE MUNOZ Start: 11-04-2019 BEDREST CONNIE LEON Start: 11-04-2019 Continuous pulse oximetry CONNIE MUNOZ Start: 11-04-2019 ENCOURAGE DEEP BREAT ARMANDO AND COUGHING CONNIE MUNOZ Start: 11-04-2019 NOTIFY PHYSICIAN (SPECIFY) CONNIE MUNOZ Start: 11-04-2019 NURSING COMMUNICATION D YOON MUNOZ Start: 11-04-2019 VITAL SIGNS CONNIE LEON Start: 11-04-2019 INITIATE OXYGEN THER APY PROTOCOL CONNIE MUNOZ Start: 11-04-2019 DIET NPO, NOW CONNIE MADDOX Start: 11-04-2019 FULL CODE CONNIE LEON Start: 11-04-2019 INITIATE OXYGEN THER APY PROTOCOL CONNIE MUNOZ Start: 11-04-2019 NURSING COMMUNICATION D YOON MUNOZ Start: 11-04-2019 PLACE INTERMITTENT PNEUMATIC COMPRESSION DEVICE CONNIE MUNOZ Start: 11-04-2019 TREATMENT CONSENT CONNIE MUNOZ Start: 11-04-2019 VERIFY INFORMED CONSENT CONNIE MUNOZ Start: 11-04-2019 VOID FIBERGLASS FINISHER TO OR FABIAN MUNOZ Start: 09-17-2019 Blood count complete automated Maral Tapia Work Phone: Start: 09-17-2019 Comprehensive metabo lic panel Maral Tapia Work Phone: Start: 09-17-2019 Hemoglobin glycosylated a1c Maral Tapia Work Phone: Start: 09-17-2019 Lipid panel Maral laguerre Work Phone: Start: 04-11-2018 DISCHARGE PATIENT ROSE MARIE TEJEDA Start: 04-11-2018 FLUORO FOR SURGICAL PROCEDURES NOMI TEJEDA Start: 04-11-2018 TREATMENT CONSENT ROSE MARIE TEJEDA Plan of Treatment Date Care Activity Detail Author Start: 12-21-2026 Urine microalbumin profile [facility] Start: 05-16-2026 DTaP/Tdap/Td vaccine (3 - Td) DTaP/Tdap/Td vaccine (3 - Td) [facility] [place] Start: 12-30-2022 Hepatitis B surface antibody level LDL CHOLESTEROL [facility] Start: 12-28-2022 3 comp foot exam completed DIABETIC FOOT EXAM [facility] Start: 12-28-2022 Hepatitis B screening URINE ALBUMIN:CREATININE RATIO [facility] Start: 12-28-2022 SHINGRIX VACCINE (2 of 3) SHINGRIX VACCINE (2 of 3) [facility] Immunizations Immunization Date Immunization Notes Care Provider Emma peña 12-28-2021 pneumococcal polysaccharide vaccine, 23 valent Isauro Terry MD Work Phone: [facility] 10-17-2021 influenza, high dose seasonal, preservative-free Isauro Terry MD Work Phone: [facility] 09-08-2021 influenza (aIIV4) vaccine, age 65+ yr, quadrivalent, PF (FLUAD QUADRIVALENT) Ricarda Graves PA-C Work Phone: [facility] 12-17-2020 COVID-19 vaccine, fu ll dose (MODERNA) Ricarda Graves PA-C Work Phone: [facility] 09-16-2020 pneumococcal polysaccharide vaccine, 23 valent Ricarda Graves PA-C Work Phone: [facility] 09-01-2020 influenza (aIIV4) vaccine, age 65+ yr, quadrivalent, PF (FLUAD QUADRIVALENT) Ricarda Graves PA-C Work Phone: [facility] 07-28-2020 influenza, high-dose , quadrivalent vaccine (FLUZONE HIGH DOSE QUADRIVALENT) Isauro Terry MD Work Phone: [facility] 09-02-2019 influenza, high dose seasonal, preservative-free Isauro Terry MD Work Phone: [facility] 08-14-2018 influenza, high dose seasonal, preservative-free Isauro Terry MD Work Phone: [facility] 08-16-2017 influenza, high dose seasonal, preservative-free Isauro Terry MD Work Phone: [facility] 12-21-2016 tetanus toxoid, redu fortino diphtheria toxoid, and acellular pertussis vaccine, adsorbed Isauro Terry MD Work Phone: [facility] Work Phone: 08-08-2016 influenza, high dose seasonal, preservative-free Isauro Terry MD Work Phone: [facility] 09-13-2015 influenza, high dose seasonal, preservative-free Isauro Terry MD Work Phone: [facility] Work Phone: 09-09-2015 pneumococcal conjuga te vaccine, 13 valent [place] 09-09-2015 pneumococcal polysaccharide vaccine, 23 valent Ricarda Graves PA-C Work Phone: [facility] 05-10-2015 pneumococcal conjuga te vaccine, 13 valent Isauro Terry MD Work Phone: [facility] 02-04-2015 zoster vaccine, live Maral [facility] 01-12-2015 tetanus toxoid, redu fortino diphtheria toxoid, and acellular pertussis vaccine, adsorbed [facility] 09-12-2013 influenza virus vacc ine, unspecified formulation Isauro Terry MD Work Phone: [facility] Work Phone: 09-17-2012 influenza virus vacc ine, unspecified formulation Isauro Terry MD Work Phone: [facility] 05-03-2010 zoster vaccine, live Isauro Terry MD Work Phone: [facility] Work Phone: 12-13-2006 pneumococcal polysaccharide vaccine, 23 valent Isauro Terry MD Work Phone: [facility] 12-13-2006 tetanus and diphther ia toxoids, adsorbed, preservative free, for adult use (2 Lf of tetanus toxoid and 2 Lf of diphtheria toxoid) Isauro Terry MD Work Phone: [facility] Payers Date Payer Category Payer Medicare AETNA MEDICARE A ETNA MEDICARE-ADVANTAGE PPO xxxxxxxx 2017-Present [address] [place] [address] Medicare [id number] 2016 Unknown [place] [facility] Commercial [id number] 2015 [place] [id number] 2015-Present [phone] [address] [place] [address] O [id number] 2015 Medicare [place] [id number] 2015-Present [phone] [address] [place] [address] [facility] [id number] 2015 Medicare [id number] 2009 Medicare [id number] 1940 Unknown [id number] 1940 Unknown [id number] 1940 Unknown [id number] Medicare Aetna Medicare PPO [id number] Medicare [id number] Medicare UHC AARP MEDICARE [id number] Self-pay Self Pay [id number] Social History Date Type Detail Facility Start: 09-17-2019 End: 11-20-2019 Tobacco smoking status NHIS Former smoker [facility] Arriola [facility] Start: 11-19-1959 End: 11-19-1994 History of tobacco use Current smoker [facility] Start: 09-17-2019 End: 11-20-2019 Cigarettes smoked current (pack per day) - Reported [facility] Start: 09-17-2019 Alcohol intake No [facility] Sex Assigned At Not on file [facility] Start: 11-20-2019 Alcohol intake Current non-dr caterpillar operator of alcohol (finding) [facility] Work Phone: Start: 06-26-2011 Tobacco smoking stat us NHIS Never smoked tobacco [facility] Start: 01-01-2022 End: 03-30-2022 Alcohol intake Current drinker of alcohol (finding) [facility] Start: 1940 Sex Assigned At Female [facility] Start: 03-20-2022 End: 03-30-2022 Exposure to SARS-CoV-2 (event) Yes [facility] Start: 06-26-2011 Tobacco use and exposure Smokeless tobacco non-user [facility] Start: 03-14-2016 Former Smoker [facility] Start: 03-14-2016 2015 [facility] Start: 03-14-2016 current [facility] Medical Equipment Procedure Code Equipment Code Equipment Origin al Text Equipment Identifier Dates Start: 08-30-2018 Clinical Notes 12-28-2021 to 08-04-2022 Telephone Encounter - Candice Saunders MA - 08/04/2022 12:51 PM EDTTelephone Encounter - Candice Saunders MA - 07/31/2022 9:37 AM EDTTelephone Encounter - Isauro Terry MD - 07/31/2022 8:18 AM EDT Note Date & Type Note Facility 08-04-2022 Miscellaneous Notes Faxed and mailed copy to daughter. Scanned into chart. 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 She indicated that they had no idea what they are suppose to do with the form next. It appears on the back of the form there is an address to [facility]. I offered to mail her a copy; a copy for our records and send originals. After looking at this forms. Need to obtain further information. Candice Saunders MA Form completed. Please make copy to scan into chart. Received paperwork in Dr. Terry's mail box from a [place] for a Request for Statement of Physician. Note state attached states: Request to revoke or suspend Maria Fernanda Tiwari's driving privileges. Paperwork given to PCP. Candice Saunders MA documented in this encounter [facility] 08-04-2022 Miscellaneous Notes Noted. Spoke with daughter and let her know provider was not available due to illness. Daughter did mention that her parents thought about just seeing the physician at the Assisted Living that it would be easier but she said the her mom felt bad about leaving Dr. Terry. I assured her that Dr. Terry would be fine with the patient's decision to see the physician at the facility and if they all felt that was best. She said she would talk to her mom. I told her just reach out and let us know. Candice Saunders MA documented in this encounter [facility] 06-12-2022 Miscellaneous Notes Please see son's message. George Smith LPN Please see message regarding pt's medications. George Smith LPN documented in this encounter [facility] 06-08-2022 Miscellaneous Notes Patient has been identified by name and date of : Yes Patient phones for refill(s): Pending Prescriptions Disp Refills OMEPRAZOLE 20 MG CAPSULE,DELAYED RELEASE 90 capsule 1 Sig: Take 1 capsule by mouth daily 1/2 hr before breakfast. DO: No Date of last office visit in primary care: 03/30/22 Please advise. Thank you. Lois Weinberg LPN documented in this encounter [facility] 05-25-2022 Miscellaneous Notes Daughter calls to request the most recent medication list for patient be faxed to [facility] where patient is currently seeking treatment. Faxed to [phone] Quinton Meyer per request. Bre Rodrigues RN documented in this encounter [facility] 05-24-2022 Note HNO ID: [id number] Author: George Smith LPN Service: ? Author Type: ? Type: Progress Notes Filed: 05/24/2022 1:07 PM Note Text: FYI ER Summary from [facility] George Smith LPN Scan on 05/24/2022 ?6:14 AM by External Provider: Consultation - Emergency Medicine [facility] 05-24-2022 History of Present illness Narrative FYI ER Summary from [facility] George Smith LPN Scan on 05/24/2022 6:14 AM by External Provider: Consultation - Emergency Medicine documented in this encounter [facility] 05-24-2022 Miscellaneous Notes Daughter was notified and aware of provider message below. Daughter advised that its not that easy to place parents in assisted living or senior care against there will and could severe relationship. Advised he understands but on his end not able to make that call either. Went over part of driving and they understand that letter in past has been submitted but [facility] does make patients take driving test an if pass they are able to keep DL Kendra Carter Ma Sounds like both parents should be admitted for inpatient alcohol detox and then go from there. If neither parent can care for themselves and family not able to provide extensive care then being in assisted living or senior care home permanently would be the best options and the hospital forensic social worker can assist. I don't do detox. Doctors don't take away driving privileges. Family can discuss with [facility] about concerns or just remove car keys and vehicles from patient's home. See TE for , Rasheed as well. Patient daughter Zayda Sal calling mother is currently in [facility] for alcohol abuse and threat of suicide. Daughter said forensic social worker wants to have her sent to [facility] where there is a [facility]. Family members want to have her driving privileges taken away, daughter asking for any help she can get for parents. Daughter wanted to set up an appt for parents. Please advise documented in this encounter [facility] 04-03-2022 Miscellaneous Notes Patient notified via [employer]. TC to Pt. Unable to LM due to there is no mailbox. Will try again later. Carolina Acharya LPN Urine culture is negative. documented in this encounter [facility] 03-31-2022 Miscellaneous Notes Patient notified of results and provider's instructions. Patient verbalizes understanding. George Smith LPN Potassium level is high. Have her stop the potassium supplement and the we will recheck levels in 2 weeks. She is still slightly anemic but improved. Her platelet count is elevated too. Her other labs are okay though. Let's recheck cbc in 2 weeks as well to trend the numbers. Ricarda Graves PA-C documented in this encounter [facility] 03-30-2022 Note HNO ID: [id number] Author: Ricarda Graves PA-C Service: ? Author Type: Physician Ergonomic Specialist Type: Progress Notes Filed: 03/30/2022 11:05 AM Note Text: Chief Complaint Patient presents with: Hospital Follow Up HPI Maria Fernanda Tiwari is a 81 year old female who presents here today for Hospital Discharge Follow up.. Patient was admitted to [facility] on 03/09/22 due to GEORGI secondary to suspected gastroenteritis and cystitis. While in hospital she also had low potassium and sodium levels. She was d/c on 03/11 with keflex and potassium supplement. She has finished the atb and is still on potassium. Per outside med rec it apperas she is on 20meq once daily. She is still feeling a little weak but improving. No other concerns today. As patient and I were talking, it was brought to my attention she was also in hospital in january and she missed her f/u appointment with us. She was in hospital from 02/06-02/07 for chest pain. She had CTA chest which was neg for PE so worked up with stress test and ECHO. Stress test was normal Echo showed diastolic dysfunction, moderately enlarged left atrium and increase pulm artery pressure. Patient's symptoms were then suspected to be related to pulmonary HTN. She was given increased dosing of lasix and felt like she was improving. States she saw pulm- Dr. Alexander, yesterday (reports not avail for review at this time). Past medical history, appointments, medications, allergies reviewed. 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 - Hyperlipidemia, mixed 10/29/2013 - Hypertensive heart disease with heart failure ([facility]) - Impaired fasting glucose 02/22/2012 - Irritable bowel syndrome 05/14/2013 - Irritable bowel syndrome with diarrhea 05/30/2021 - Living will in place 12/28/2021 Son: Fili and Daughter's: Hermann and Radha are DPA - Lumbar radiculopathy 04/25/2018 - Lumbar spondylosis 09/18/2014 - Medicare annual wellness visit, subsequent 12/28/2021 Medicare Part B: 11/19/2005, Last done: 12/28/2021 - Myalgia and myositis, unspecified - Neuropathy due to type 2 diabetes mellitus (HCC) 12/28/2021 - Nonalcoholic fatty liver 02/15/2011 - Obesity, morbid (HCC) 05/10/2011 - Osteoarthrosis, unspecified whether generalized or localized, unspecified site - Osteoporosis 08/23/2007 - Panic disorder without agoraphobia 02/27/2007 - Peripheral venous insufficiency 05/04/2014 - Media Marketing Coordinator's nodules 12/28/2021 - Small kidney, unspecified NON FUCTIONING - Stasis dermatitis of both legs 04/03/2018 - Trochanteric bursitis of both hips 03/04/2013 - Unspecified constipation - Urinary incontinence 12/13/2006 - Vitamin D deficiency 02/15/2011 - Well controlled type 2 diabetes mellitus with neurological manifestations (HCC) 12/21/2015 Previous Surgical History PAST SURGICAL HISTORY Procedure Laterality Date - DENNISE PSEUDO ABS. IFA 1972 - COLONOSCOPY FLX DX W/COLLJ SPEC WHEN PFRMD - COLONOSCOPY FLX DX W/COLLJ SPEC WHEN PFRMD 04/23/2007 Colonoscopy=repeat in - COLONOSCOPY FLX DX W/COLLJ SPEC WHEN PFRMD 08/25/2016 Colonoscopy - EGD TRANSORAL BIOPSY SINGLE/MULTIPLE - ESOPHAGOGASTRODUODENOSCOPY TRANSORAL DIAGNOSTIC 04/23/2007 EGD - ESOPHAGOGASTRODUODENOSCOPY TRANSORAL DIAGNOSTIC EGD - ESOPHAGOGASTRODUODENOSCOPY TRANSORAL DIAGNOSTIC 11/15/2016 EGD mac - LAPAROSCOPY SURG CHOLECYSTECTOMY 12-12-11 - LEFT HEART CATH,PERCUTANEOUS - LIG/TRNSXJ FLP TUBE ABDL/VAG APPR UNI/BI Tubal ligation - PAST SURGICAL HISTORY OF 1997 left 2nd toe - STRESS TEST W/PHY SUPERVISION - TONSILLECTOMY AND ADENOIDECTOMY AGE 12/> 1954 - TONSILLECTOMY HX - TOTAL ABDOMINAL HYSTERECT W/WO RMVL TUBE OVARY 1984 Family History FAMILY HISTORY Problem Relation Age of Onset - Cancer Mother LEUKEMIA - Stroke Father - Arthritis Sister - COPD Brother - Coronary Artery Disease Brother - other (lung cancer) Brother Patient Allergies ALLERGIES Allergen Reactions - Benzodiazepines Other: See Comments known alcoholism--avoid all controlled substances - Cozaar [Losartan Po* Swell (more content not included)... [facility] 03-23-2022 Miscellaneous Notes Reason for call: Patient calling requesting to reschedule her appointment with Dr. Terry, as she missed it yesterday. Patient denies any new or worsening symptoms of which a provider is not aware: Yes. Outcome: Patient conferenced to the appointment center for assistance with scheduling. documented in this encounter [facility] 03-14-2022 Note Patient Outreach (EMMA MPWS) ---- MARIA FERNANDA TIWARI ([id number]) 1940 F Date Time Provider Department 03/14/22 ISAURO TERRY During your visit today, we recorded the following information about you: Kendra Carter Ma 03/14/2022 10:24 AM Signed TRANSITION CARE MANAGEMENT (TCM) INITIAL CONTACT Nanotechnology Engineering Technologist Outreach Provider Action/FYI: Patient is still not feeling well but aware to take antibiotic for kidney infection. Patient was directed if after completion still having symptoms and its before follow up appointment to let office know. Initial contact with patient post discharge, spoke to patient. Patient identified by name and . TRANSITION CARE MANAGEMENT INITIAL OUTREACH DOCUMENTATION: No flowsheet data found. SUMMARY: -Pt discharged from [facility] on 03/11. -Admitted for: hypokalemia Do you have a hospital follow up appointment with your PCP? Appointment on 03/22/[address] Terry. Yes. Remind patient of appointment date, time, and location. If not within 14 calendar days of discharge - please reschedule accordingly. MEDICATIONS: Many patients have questions or concerns about their medications once they are home. Were you prescribed any new medications? Yes Were you told to hold any medications? No Were any of your medications discontinued? No Do you have any questions about getting or taking your medications? No Your discharge instructions/After visit Summary (AVS) are important in guiding you through the recovery process. Is there anything I might help you understand? No Do you have all the necessary equipment and supplies at home? Yes Medical records from recent hospitalization: Placed for provider to review Allergies As of Date: 03/14/2022 Noted Allergy Reaction BENZODIAZEPINES 01/13/2021 14 - Other: See Comments Comments: known alcoholism--avoid all controlled substances COZAAR (LOSARTAN POTASSIUM) 12/07/2011 7 - Swelling Comments: Swelling tongue HCTZ (THIAZIDES) 08/23/2007 14 - Other: See Comments Comments: hypercalcemia and hypokalemia LISINOPRIL 09/28/2020 3 - Cough OPIOIDS - MORPHINE ANALOGUES 01/13/2021 14 - Other: See Comments Comments: known alcoholism--avoid all controlled substances TEGRETOL (CARBAMAZEPINE) 08/16/2017 1 - Mental Status Change Comments: ataxia, dysphasia, incoherence Date Reviewed: 12/28/2021 Reviewed by: Isauro Terry MD - Fully Assessed Reason for Visit: Transition Of Care [4074] Cmt: Hypokalemia Prescriptions as of 03/14/2022 - cyanocobalamin (VITAMIN B-12) 1,000 mcg tab Take 1 tablet by mouth once daily. - ammonium lactate (LAC-HYDRIN) 12 % lotion Apply to affected area as needed for Dry Skin. - amLODIPine (NORVASC) 10 mg tablet Take 1 tablet by mouth once daily. - metFORMIN (GLUCOPHAGE) 500 mg tablet Take 1 tablet by mouth twice daily with meals. - gabapentin (NEURONTIN) 100 mg capsule Take one capsule three times a day for a week then 2 capsules three times a day for a week then 3 capsules three times a day - DULoxetine (CYMBALTA) 60 mg capsule Take 1 capsule by mouth twice daily. - carvedilol (COREG) 6.25 mg tablet Take 1 tablet by mouth twice daily. - hydrOXYzine HCl (ATARAX) 25 mg tablet Take 1 tablet by mouth twice daily as needed for anxiety. - omeprazole (PRILOSEC) 20 mg capsule Take 1 capsule by mouth daily 1/2 hr before breakfast. - Cholecalciferol, Vitamin D3, 25 mcg (1,000 unit) cap Take 2 capsules by mouth once daily. - furosemide (LASIX) 20 mg tablet Take 1 tablet by mouth once daily. if needed for edema - benzonatate (TESSALON PERLES) 100 mg capsule Take 1 capsule by mouth twice daily as needed for Cough. - blood sugar diagnostic (ACCU-CHEK STACIE) test strip Test blood sugar(s) one times daily. Dx: 250.00. Insulin: No - Lancets (ACCU-CHEK MULTICLIX LANCET) lancets Use as instructed once/day Meds Comments as of 11/08/2018: Problem List As Of Date 03/14/2022 Noted Resolved Essential hypertension, benign [I10] 08/15/2005 Myalgia and myositis, unspecified [[id number]] 08/15/2005 02/22/2012 Acute gastritis without mention of hemorrhage [*03/27/2006 05/10/2015 Urinary incontinence [R32] 12/13/2006 Panic disorder without agoraphobia [F41.0] 02/27/2007 Abdominal pain, left lower quadrant [R10.32] 04/23/2007 05/10/2015 Osteoporosis [M81.0] 08/23/2007 Nonalcoholic fatty liver 02/15/2011 10/29/2013 Depression [F32.A] 02/15/2011 Vitamin D deficiency [E55.9] 02/15/2011 Obesity, morbid (HCC) [E66.01] 05/10/2011 Sprain of foot, unspecified site [S93.609A] 10/24/2011 05/10/2015 DJD (degenerative joint disease) [M19.90] 10/24/2011 Fibromyalgia [M79.7] 11/21/2011 Impaired fasting glucose [R73.01] 02/22/2012 02/26/2012 Trochanteric bursitis of both hips [M70.61, M70*03/04/2013 05/10/2015 Irritable bowel syndrome [K58.9] 05/14/2013 Hyperlipidemia, mixed [E78.2] 10/29/2013 Perip (more content not included)... [facility] 03-14-2022 Note HNO ID: [id number] Author: Kendra Carter Ma Service: ? Author Type: ? Type: Progress Notes Filed: 03/14/2022 10:24 AM Note Text: TRANSITION CARE MANAGEMENT (TCM) INITIAL CONTACT Nanotechnology Engineering Technologist Outreach Provider Action/FYI: Patient is still not feeling well but aware to take antibiotic for kidney infection. Patient was directed if after completion still having symptoms and its before follow up appointment to let office know. Initial contact with patient post discharge, spoke to patient. Patient identified by name and . TRANSITION CARE MANAGEMENT INITIAL OUTREACH DOCUMENTATION: No flowsheet data found. SUMMARY: -Pt discharged from [facility] on 03/11. -Admitted for: hypokalemia Do you have a hospital follow up appointment with your PCP? Appointment on 03/22/[address] Terry. Yes. Remind patient of appointment date, time, and location. If not within 14 calendar days of discharge - please reschedule accordingly. MEDICATIONS: Many patients have questions or concerns about their medications once they are home. Were you prescribed any new medications? Yes Were you told to hold any medications? No Were any of your medications discontinued? No Do you have any questions about getting or taking your medications? No Your discharge instructions/After visit Summary (AVS) are important in guiding you through the recovery process. Is there anything I might help you understand? No Do you have all the necessary equipment and supplies at home? Yes Medical records from recent hospitalization: Placed for provider to review [facility] 03-14-2022 History of Present illness Narrative TRANSITION CARE MANAGEMENT (TCM) INITIAL CONTACT Nanotechnology Engineering Technologist Outreach Provider Action/FYI: Patient is still not feeling well but aware to take antibiotic for kidney infection. Patient was directed if after completion still having symptoms and its before follow up appointment to let office know. Initial contact with patient post discharge, spoke to patient. Patient identified by name and . TRANSITION CARE MANAGEMENT INITIAL OUTREACH DOCUMENTATION: No flowsheet data found. SUMMARY: -Pt discharged from [facility] on 03/11. -Admitted for: hypokalemia Do you have a hospital follow up appointment with your PCP? Appointment on 03/22/[address] Terry. Yes. Remind patient of appointment date, time, and location. If not within 14 calendar days of discharge - please reschedule accordingly. MEDICATIONS: Many patients have questions or concerns about their medications once they are home. Were you prescribed any new medications? Yes Were you told to hold any medications? No Were any of your medications discontinued? No Do you have any questions about getting or taking your medications? No Your discharge instructions/After visit Summary (AVS) are important in guiding you through the recovery process. Is there anything I might help you understand? No Do you have all the necessary equipment and supplies at home? Yes Medical records from recent hospitalization: Placed for provider to review documented in this encounter [facility] documented as of this encounter (statuses as of 03/14/2022) [facility] History of Past illness Narrative* Problem Noted Date Resolved Date Hypercalcemia 12/28/2021 01/01/2022 Overview: Repeat labs 12/2021 within normal limits. 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 12/28/2021 Overview: After illness Polysubstance dependence 10/01/2018 019 Acute respiratory failure with hypoxemia 018 10/08/2018 Skin ulcer, limited to breakdown of skin 018 10/08/2018 Moderate episode of recurrent major depressive d isorder 08/16/2017 01/13/2021 Opioid withdrawal 06/26/2017 06/29/2017 Dysphagia 08/25/2016 08/25/2016 Severe episode of recurrent major depressive disorder, without psychotic features 06/26/2016 04/26/2017 Trochanteric bursitis of both hips 03/04/2013 05/10/2015 Impaired fasting glucose 02/22/2012 012 Sprain of foot, unspecified site 10/24/2011 05/10/2015 Nonalcoholic fatty liver 02/15/2011 013 Abdominal pain, left lower quadrant 04/23/2007 05/10/2015 Acute gastritis without mention of hemorrhage 05/10/2015 Myalgia and myositis, unspecified 08/15/2005 02/22/2012 documented as of this encounter (statuses as of 03/23/2022) [facility] History of Past illness Narrative* Problem Noted Date Resolved Date Hypercalcemia 12/28/2021 01/01/2022 Overview: Repeat labs 12/2021 within normal limits. 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 12/28/2021 Overview: After illness Polysubstance dependence 10/01/2018 019 Acute respiratory failure with hypoxemia 018 10/08/2018 Skin ulcer, limited to breakdown of skin 018 10/08/2018 Moderate episode of recurrent major depressive d isorder 08/16/2017 01/13/2021 Opioid withdrawal 06/26/2017 06/29/2017 Dysphagia 08/25/2016 08/25/2016 Severe episode of recurrent major depressive disorder, without psychotic features 06/26/2016 04/26/2017 Trochanteric bursitis of both hips 03/04/2013 05/10/2015 Impaired fasting glucose 02/22/2012 012 Sprain of foot, unspecified site 10/24/2011 05/10/2015 Nonalcoholic fatty liver 02/15/2011 013 Abdominal pain, left lower quadrant 04/23/2007 05/10/2015 Acute gastritis without mention of hemorrhage 05/10/2015 Myalgia and myositis, unspecified 08/15/2005 02/22/2012 documented as of this encounter (statuses as of 03/31/2022) [facility] History of Past illness Narrative* Problem Noted Date Resolved Date Hypercalcemia 12/28/2021 01/01/2022 Overview: Repeat labs 12/2021 within normal limits. 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 12/28/2021 Overview: After illness Polysubstance dependence 10/01/2018 019 Acute respiratory failure with hypoxemia 018 10/08/2018 Skin ulcer, limited to breakdown of skin 018 10/08/2018 Moderate episode of recurrent major depressive d isorder 08/16/2017 01/13/2021 Opioid withdrawal 06/26/2017 06/29/2017 Dysphagia 08/25/2016 08/25/2016 Severe episode of recurrent major depressive disorder, without psychotic features 06/26/2016 04/26/2017 Trochanteric bursitis of both hips 03/04/2013 05/10/2015 Impaired fasting glucose 02/22/2012 012 Sprain of foot, unspecified site 10/24/2011 05/10/2015 Nonalcoholic fatty liver 02/15/2011 013 Abdominal pain, left lower quadrant 04/23/2007 05/10/2015 Acute gastritis without mention of hemorrhage 05/10/2015 Myalgia and myositis, unspecified 08/15/2005 02/22/2012 documented as of this encounter (statuses as of 04/03/2022) [facility] History of Past illness Narrative* Problem Noted Date Resolved Date Hypercalcemia 12/28/2021 01/01/2022 Overview: Repeat labs 12/2021 within normal limits. 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 12/28/2021 Overview: After illness Polysubstance dependence 10/01/2018 019 Acute respiratory failure with hypoxemia 018 10/08/2018 Skin ulcer, limited to breakdown of skin 018 10/08/2018 Moderate episode of recurrent major depressive d isorder 08/16/2017 01/13/2021 Opioid withdrawal 06/26/2017 06/29/2017 Dysphagia 08/25/2016 08/25/2016 Severe episode of recurrent major depressive disorder, without psychotic features 06/26/2016 04/26/2017 Trochanteric bursitis of both hips 03/04/2013 05/10/2015 Impaired fasting glucose 02/22/2012 012 Sprain of foot, unspecified site 10/24/2011 05/10/2015 Nonalcoholic fatty liver 02/15/2011 013 Abdominal pain, left lower quadrant 04/23/2007 05/10/2015 Acute gastritis without mention of hemorrhage 05/10/2015 Myalgia and myositis, unspecified 08/15/2005 02/22/2012 documented as of this encounter (statuses as of 05/24/2022) [facility] History of Past illness Narrative* Problem Noted Date Resolved Date Hypercalcemia 12/28/2021 01/01/2022 Overview: Repeat labs 12/2021 within normal limits. 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 12/28/2021 Overview: After illness Polysubstance dependence 10/01/2018 019 Acute respiratory failure with hypoxemia 018 10/08/2018 Skin ulcer, limited to breakdown of skin 018 10/08/2018 Moderate episode of recurrent major depressive d isorder 08/16/2017 01/13/2021 Opioid withdrawal 06/26/2017 06/29/2017 Dysphagia 08/25/2016 08/25/2016 Severe episode of recurrent major depressive disorder, without psychotic features 06/26/2016 04/26/2017 Trochanteric bursitis of both hips 03/04/2013 05/10/2015 Impaired fasting glucose 02/22/2012 012 Sprain of foot, unspecified site 10/24/2011 05/10/2015 Nonalcoholic fatty liver 02/15/2011 013 Abdominal pain, left lower quadrant 04/23/2007 05/10/2015 Acute gastritis without mention of hemorrhage 05/10/2015 Myalgia and myositis, unspecified 08/15/2005 02/22/2012 documented as of this encounter (statuses as of 05/25/2022) [facility] History of Past illness Narrative* Problem Noted Date Resolved Date Hypercalcemia 12/28/2021 01/01/2022 Overview: Repeat labs 12/2021 within normal limits. 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 12/28/2021 Overview: After illness Polysubstance dependence 10/01/2018 019 Acute respiratory failure with hypoxemia 018 10/08/2018 Skin ulcer, limited to breakdown of skin 018 10/08/2018 Moderate episode of recurrent major depressive d isorder 08/16/2017 01/13/2021 Opioid withdrawal 06/26/2017 06/29/2017 Dysphagia 08/25/2016 08/25/2016 Severe episode of recurrent major depressive disorder, without psychotic features 06/26/2016 04/26/2017 Trochanteric bursitis of both hips 03/04/2013 05/10/2015 Impaired fasting glucose 02/22/2012 012 Sprain of foot, unspecified site 10/24/2011 05/10/2015 Nonalcoholic fatty liver 02/15/2011 013 Abdominal pain, left lower quadrant 04/23/2007 05/10/2015 Acute gastritis without mention of hemorrhage 05/10/2015 Myalgia and myositis, unspecified 08/15/2005 02/22/2012 documented as of this encounter (statuses as of 06/08/2022) [facility] History of Past illness Narrative* Problem Noted Date Resolved Date Hypercalcemia 12/28/2021 01/01/2022 Overview: Repeat labs 12/2021 within normal limits. 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 12/28/2021 Overview: After illness Polysubstance dependence 10/01/2018 019 Acute respiratory failure with hypoxemia 018 10/08/2018 Skin ulcer, limited to breakdown of skin 018 10/08/2018 Moderate episode of recurrent major depressive d isorder 08/16/2017 01/13/2021 Opioid withdrawal 06/26/2017 06/29/2017 Dysphagia 08/25/2016 08/25/2016 Severe episode of recurrent major depressive disorder, without psychotic features 06/26/2016 04/26/2017 Trochanteric bursitis of both hips 03/04/2013 05/10/2015 Impaired fasting glucose 02/22/2012 012 Sprain of foot, unspecified site 10/24/2011 05/10/2015 Nonalcoholic fatty liver 02/15/2011 013 Abdominal pain, left lower quadrant 04/23/2007 05/10/2015 Acute gastritis without mention of hemorrhage 05/10/2015 Myalgia and myositis, unspecified 08/15/2005 02/22/2012 documented as of this encounter (statuses as of 06/21/2022) [facility] History of Past illness Narrative* Problem Noted Date Resolved Date Hypercalcemia 12/28/2021 01/01/2022 Overview: Repeat labs 12/2021 within normal limits. 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 12/28/2021 Overview: After illness Polysubstance dependence 10/01/2018 019 Acute respiratory failure with hypoxemia 018 10/08/2018 Skin ulcer, limited to breakdown of skin 018 10/08/2018 Moderate episode of recurrent major depressive d isorder 08/16/2017 01/13/2021 Opioid withdrawal 06/26/2017 06/29/2017 Dysphagia 08/25/2016 08/25/2016 Severe episode of recurrent major depressive disorder, without psychotic features 06/26/2016 04/26/2017 Trochanteric bursitis of both hips 03/04/2013 05/10/2015 Impaired fasting glucose 02/22/2012 012 Sprain of foot, unspecified site 10/24/2011 05/10/2015 Nonalcoholic fatty liver 02/15/2011 013 Abdominal pain, left lower quadrant 04/23/2007 05/10/2015 Acute gastritis without mention of hemorrhage 05/10/2015 Myalgia and myositis, unspecified 08/15/2005 02/22/2012 documented as of this encounter (statuses as of 06/21/2022) [facility] History of Past illness Narrative* Problem Noted Date Resolved Date Hypercalcemia 12/28/2021 01/01/2022 Overview: Repeat labs 12/2021 within normal limits. 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 12/28/2021 Overview: After illness Polysubstance dependence 10/01/2018 019 Acute respiratory failure with hypoxemia 018 10/08/2018 Skin ulcer, limited to breakdown of skin 018 10/08/2018 Moderate episode of recurrent major depressive d isorder 08/16/2017 01/13/2021 Opioid withdrawal 06/26/2017 06/29/2017 Dysphagia 08/25/2016 08/25/2016 Severe episode of recurrent major depressive disorder, without psychotic features 06/26/2016 04/26/2017 Trochanteric bursitis of both hips 03/04/2013 05/10/2015 Impaired fasting glucose 02/22/2012 012 Sprain of foot, unspecified site 10/24/2011 05/10/2015 Nonalcoholic fatty liver 02/15/2011 013 Abdominal pain, left lower quadrant 04/23/2007 05/10/2015 Acute gastritis without mention of hemorrhage 05/10/2015 Myalgia and myositis, unspecified 08/15/2005 02/22/2012 documented as of this encounter (statuses as of 08/04/2022) [facility]02-09-2022 NoteHNO ID: [id number] Author: Isauro Terry MD Service: ? Author Type: Physician Type: Progress Notes Filed: 12/28/2021 8:59 PM Note Text: Medicare Yearly Visit Medical B eligibilty date 11/19/2005 Date of last exam NA PAST MEDICAL HISTORY Diagnosis Date - Abdominal pain, left lower quadrant - Acute gastritis without mention of hemorrhage - Alcoholism (HCC) 01/13/2021 - Chronic anxiety 12/21/2015 - Chronic daily headache 12/16/2014 - Chronic insomnia 12/10/2017 - Controlled type 2 diabetes mellitus with microalbuminuria, without long-term current use of insulin ([facility]) 10/08/2018 - COPD with hypoxia ([facility]) 12/14/2020 After illness - Depression 02/15/2011 - Disorder of kidney and ureter, unspecified - DJD (degenerative joint disease) 10/24/2011 - Essential hypertension, benign 08/15/2005 - Fatty liver disease, nonalcoholic 10/29/2013 - Fibromyalgia - GERD (gastroesophageal reflux disease) 10/31/2016 - Heart failure, unspecified ([facility]) - Hemorrhage of gastrointestinal tract, unspecified - History of asthma 02/19/2018 - Hyperlipidemia, mixed 10/29/2013 - Hypertensive heart disease with heart failure ([facility]) - Impaired fasting glucose 02/22/2012 - Irritable bowel syndrome 05/14/2013 - Irritable bowel syndrome with diarrhea 05/30/2021 - Lumbar radiculopathy 04/25/2018 - Lumbar spondylosis 09/18/2014 - Myalgia and myositis, unspecified - Nonalcoholic fatty liver 02/15/2011 - Obesity, morbid (HCC) 05/10/2011 - Osteoarthrosis, unspecified whether generalized or localized, unspecified site - Osteoporosis 08/23/2007 - Panic disorder without agoraphobia 02/27/2007 - Peripheral venous insufficiency 05/04/2014 - Small kidney, unspecified NON FUCTIONING - Stasis dermatitis of both legs 04/03/2018 - Trigeminal neuralgia 06/29/2017 After root canal - Trochanteric bursitis of both hips 03/04/2013 - Unspecified constipation - Urinary incontinence 12/13/2006 - Vitamin D deficiency 02/15/2011 - Well controlled type 2 diabetes mellitus with neurological manifestations (HCC) 12/21/2015 PAST SURGICAL HISTORY Procedure Laterality Date - DENNISE PSEUDO ABS. IFA 1972 - COLONOSCOPY FLX DX W/COLLJ SPEC WHEN PFRMD - COLONOSCOPY FLX DX W/COLLJ SPEC WHEN PFRMD 04/23/2007 Colonoscopy=repeat in - COLONOSCOPY FLX DX W/COLLJ SPEC WHEN PFRMD 08/25/2016 Colonoscopy - EGD TRANSORAL BIOPSY SINGLE/MULTIPLE - ESOPHAGOGASTRODUODENOSCOPY TRANSORAL DIAGNOSTIC 04/23/2007 EGD - ESOPHAGOGASTRODUODENOSCOPY TRANSORAL DIAGNOSTIC EGD - ESOPHAGOGASTRODUODENOSCOPY TRANSORAL DIAGNOSTIC 11/15/2016 EGD mac - LAPAROSCOPY SURG CHOLECYSTECTOMY 12-12-11 - LEFT HEART CATH,PERCUTANEOUS - LIG/TRNSXJ FLP TUBE ABDL/VAG APPR UNI/BI Tubal ligation - PAST SURGICAL HISTORY OF 1997 left 2nd toe - STRESS TEST W/PHY SUPERVISION - TONSILLECTOMY AND ADENOIDECTOMY AGE 12/> 1954 - TONSILLECTOMY HX - TOTAL ABDOMINAL HYSTERECT W/WO RMVL TUBE OVARY 1984 ALLERGIES: Benzodiazepines, Cozaar [Losartan Potassium], Hctz [Thiazides], Lisinopril, Opioids - Morphine Analogues, and Tegretol [Carbamazepine] Medications reviewed: Yes FAMILY HISTORY Problem Relation Age of Onset - Cancer Mother LEUKEMIA - Stroke Father - Arthritis Sister - COPD Brother - Coronary Artery Disease Brother - other (lung cancer) Brother SOCIAL HISTORY: Social History Tobacco Use - Smoking status: Never Smoker - Smokeless tobacco: Never Used Vaping Use - Vaping Use: Never used Substance Use Topics - Alcohol use: Yes Comment: occasionally - Drug use: No Maria Fernanda denies regular aerobic exercise. She watches her diet for sodium, low fat and low cholesterol all of the time. List of current specialists seen: optho End of Live Planning discussed including patients advanced directive wishes: Yes I am willing to follow Maria Fernanda's advanced directives. PHQ-2 / Depression screen She in the past two weeks admits to having felt down, depressed or with little interest or pleasure in doing things. Is not stable with the meds she is currently on. Functional Ability/Safety Screen 1. Was the patient's timed Up and Go test unsteady or longer than 30 seconds? No 2. Does the patient need help with the phone, transportation, shopping,preparing meals, housework, laundry, medications or managing money? No 3. Does your home have rugs in the hallway, lack of grab bars in the bathroom(Y), lack of handrails on the stairs or have poor lighting? No Hearing Evaluation: within normal limits PHYSICAL EXAM BP 164/82 Pulse 72 Resp 12 Ht 139.7 cm (4' 7 ) Wt 69.9 kg (154 lb) BMI 35.79 kg/m? Alert and oriented X 3: YES Body mass index is 35.79 kg/m?. Visual acuity: seeing Optho See below ASSESSMENT/PLAN: 81 year old female The following prevention plan was discussed during the office visit and provided to the patient: see below Isauro Terry MD Chief Complaint Patient (more content not included)...[facility] [place] [facility] * Diagnosis Anemia, unspecified type- Primary Hyperkalemia Hyperpotassemia documented in this encounter [facility] noteNo assessment information availableSaint [facility] Work Phone: Summary Purpose Family History No Family History Records FoundNo Family History Records FoundNo Family History Records FoundNo Family History Records FoundNo Family History Records FoundNo Family History Records FoundNo Family History Records FoundNo Family History Records FoundNo Family History Records Found Advance Directives No Advanced Directives Records FoundDocuments on File Type Date Recorded 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 Advance Directives and Living Will 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 Latest Code Status on File Code Status Date Activated Date Inactivated Comments Full Code 11/30/2017 10:38 AM 12/01/2017 2:43 AM Latest Code Status on File Code Status Date Activated Date Inactivated Comments Full Code 11/04/2019 6:53 AM 11/04/2019 12:26 PM Full Code 11/30/2017 10:38 AM 12/01/2017 2:43 AM Documents on File Type Date Recorded 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 Advance Directive(s) 09/16/2018 9:55 AM Advance Directive(s) 11/15/2016 3:31 PM Advance Directive(s) 10/02/2016 2:15 PM Advance Directive(s) 08/25/2016 11:23 AM Advance Directive(s) 08/25/2016 11:14 AM Advance Directive(s) 08/22/2016 5:14 PM Documents on File Type Date Recorded 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 Advance Directive(s) 09/16/2018 9:55 AM Advance Directive(s) 08/25/2016 11:14 AM Advance Directive Response Recorded Date/ Time Advance Directives Yes March 14, 2 016 1:17pm Assessments Diagnosis Hypercholesterolemia Pure hypercholesterolemia Impaired fasting glucose Diagnosis Hypercholesterolemia Pure hypercholesterolemia Screening cholesterol level Screening for lipoid disorders Impaired fasting glucose Chief Complaint and Reason for Visit Chief Complaint Other Additional Source Comments INFORMATION SOURCE (unrecogn ized section and content) DATE CREATED AUTHOR AUTHOR'S ORGANIZ ATION 05/10/2018 [facility] DATE CREATED AUTHOR AUTHOR'S ORGANIZ ATION 11/10/2019 [facility] DATE CREATED AUTHOR AUTHOR'S ORGANIZ ATION 09/18/2020 [facility] DATE CREATED AUTHOR AUTHOR'S ORGANIZ ATION 06/07/2022 [facility] DATE CREATED AUTHOR AUTHOR'S ORGANIZ ATION 08/19/2022 [facility] DATE CREATED AUTHOR AUTHOR'S ORGANIZ ATION 05/07/2023 [facility] DATE CREATED AUTHOR AUTHOR'S ORGANIZ ATION 07/05/2023 [facility] DATE CREATED AUTHOR AUTHOR'S ORGANIZ ATION 11/10/2023 [facility] Source Comments (unrecognize d section and content) In the event this informatio n is protected by the Federal Confidentiality of Alcohol and Drug Abuse Patient Records regulations: The Federal rules restrict any use of the information to criminally investigate or prosecute any alcohol or drug abuse patient.[facility] the event this information is protected by the Federal Confidentiality of Alcohol and Drug Abuse Patient Records regulations: The Federal rules restrict any use of the information to criminally investigate or prosecute any alcohol or drug abuse patient.[facility] Hospital[facility] the event this information is protected by the Federal Confidentiality of Alcohol and Drug Abuse Patient Records regulations: The Federal rules restrict any use of the information to criminally investigate or prosecute any alcohol or drug abuse patient.[facility] the event this information is protected by the Federal Confidentiality of Alcohol and Drug Abuse Patient Records regulations: The Federal rules restrict any use of the information to criminally investigate or prosecute any alcohol or drug abuse patient.[facility] the event this information is protected by the Federal Confidentiality of Alcohol and Drug Abuse Patient Records regulations: The Federal rules restrict any use of the information to criminally investigate or prosecute any alcohol or drug abuse patient.[facility] HospitalIn the event this information is protected by the Federal Confidentiality of Alcohol and Drug Abuse Patient Records regulations: The Federal rules restrict any use of the information to criminally investigate or prosecute any alcohol or drug abuse patient.[facility] the event this information is protected by the Federal Confidentiality of Alcohol and Drug Abuse Patient Records regulations: The Federal rules restrict any use of the information to criminally investigate or prosecute any alcohol or drug abuse patient.[facility] the event this information is protected by the Federal Confidentiality of Alcohol and Drug Abuse Patient Records regulations: The Federal rules restrict any use of the information to criminally investigate or prosecute any alcohol or drug abuse patient.[facility] Hospital[facility] the event this information is protected by the Federal Confidentiality of Alcohol and Drug Abuse Patient Records regulations: The Federal rules restrict any use of the information to criminally investigate or prosecute any alcohol or drug abuse patient.[facility] HospitalIn the event this information is protected by the Federal Confidentiality of Alcohol and Drug Abuse Patient Records regulations: The Federal rules restrict any use of the information to criminally investigate or prosecute any alcohol or drug abuse patient.[facility] HospitalIn the event this information is protected by the Federal Confidentiality of Alcohol and Drug Abuse Patient Records regulations: The Federal rules restrict any use of the information to criminally investigate or prosecute any alcohol or drug abuse patient.[facility] HospitalIn the event this information is protected by the Federal Confidentiality of Alcohol and Drug Abuse Patient Records regulations: The Federal rules restrict any use of the information to criminally investigate or prosecute any alcohol or drug abuse patient.[facility] Reason for Visit (unrecogniz ed section and content) Reason Comments Appointment Rescheduled Reason Comments Results Reason Comments Patient Question Reason Comments ER Summary Reason Comments Fax requested Reason Onset Date Comments Refill Request 06/08/2022 Reason Comments Appointment Reason Comments Forms Care Teams (unrecognized sec tion and content) Uniformer Relationship Specialty Start Date End Date Isauro Terry MD [address] [place] [address] PCP - General Family Practice 05/30/21 Uniformer Relationship Specialty Start Date End Date Isauro Terry MD [address] [place] [address] PCP - General Family Practice 05/30/21 Uniformer Relationship Specialty Start Date End Date Isauro Terry MD [address] [place] [address] PCP - General Family Practice 05/30/21 Uniformer Relationship Specialty Start Date End Date Isauro Terry MD [address] [place] [address] PCP - General Family Practice 05/30/21 Uniformer Relationship Specialty Start Date End Date Isauro Terry MD [address] [place] [address] PCP - General Family Practice 05/30/21 Uniformer Relationship Specialty Start Date End Date Isauro Terry MD [address] [place] [address] PCP - General Family Practice 05/30/21 Uniformer Relationship Specialty Start Date End Date Isauro Terry MD [address] [place] [address] PCP - General Family Practice 05/30/21 Team Status: Active Member Role Status Dates Maral Tapia DO Primary Care Provider Active Team Status: Inactive Member Role Status Dates Maral Tapia DO Primary Care Provider Active Start: November 06, 2023 End: November 06, 2023 Paul Campbell Jr, MD Attending Provider Active Start: November 06, 2023 End: November 06, 2023 Goals (unrecognized section and content) Goals may be documented in a n alternate section FOR RECORDS PERTAINING TO PATIENTS WHO ARE OR HAVE BEEN ENROLLED IN A CHEMICAL DEPENDENCY/SUBSTANCEABUSE PROGRAM, SOME INFORMATION MAY BE OMITTED. This clinical summary was aggregated from multiple sources. Caution should be exercised in using it in the provision of clinical care. This summary normalizes information from multiple sources, and as a consequence, information in this document may materially change the coding, format and clinical context of patient data. In addition, data may be omitted in some cases. CLINICAL DECISIONS SHOULD BE BASED ON THE PRIMARY CLINICAL RECORDS. [facility]. provides no warranty or guarantee of the accuracy or completeness of information in this document.
[2023-12-10 10:31] LABS: Anion Gap 7 (5-15); BUN 23 mg/dL (7-18); BUN/Creat Ratio 20.2 RATIO (10-20); Chloride 108 mmol/L (98-107); Creatinine, Serum 1.14 mg/dL (0.55-1.02); EST Glomerular Filtration Rate 48 mL/min (>60); Est Glom Filt Rate - Afr Amer 59 mL/min (>60); Glucose 105 mg/dL (74-106); Potassium 3.9 mmol/L (3.5-5.1); Sodium Level 139 mmol/L (136-145)
== END ==
LOC: OLS.SWAL 05:00
PROVIDERS: PCP Family Medicine; Visit Provider Internal Medicine
DX: I10 Essential (primary) hypertension (principal)
CPT/HCPCS: 36415; 80048

== ENCOUNTER → 2023-12-11 | Outpatient (CLI) | payer MEDICARE, MEDICAID, SELFPAY ==
--- OUTSIDE RECORDS SUMMARY | 2023-12-11 10:33 | XMS RPT_ITS | CCD ---
Author Name Unknown Address [address] [place] [address] Organization [facility] Care Team Providers Care Motor Equipment Sergeant Name Role Phone NOMI TEJEDA Unavailable Unavail able MRAAL TAPIA Unavailable Unavailable NOMI TEJEDA Unavailable Unavail able NIKHIL, NOMI Unavailable Unavail able MARAL TAPIA Unavailable Unavailable MARAL TAPIA Unavailable Unavailable MARAL TAPIA Unavailable Unavailable MARAL TAPIA Unavailable Maral Tapia Primary Care Provider CONNIE MUNOZ Admitting Unavailable CONNIE MUNOZ Attending Unavailable CONNIE MUNOZ Referring Unavailable MARAL TAPIA Primary Care Unavailable MARAL TAPIA Referring Unavailable MARAL TAPIA Primary Care Unavailable MRAAL TAPIA Referring Unavailable MARAL TAPIA Primary Care Unavailable Isauro Terry MD Primary Care Provider Isauro Terry MD Primary Care Provider ISAURO TERRY Primary Care Unavailable ISAURO TERRY [...] 03-14-20 16 Other (See Comments) [facility] (1 source) Adhesive Tape Propensity to adverse reactions to drug 11-03-20 19 Dermatitis [facility] Work Phone: (1 source) Latex Propensity to adverse reactions to drug 10-02-20 19 [facility] Work Phone: (5 sources) Benzodiazepine; Translations: [BENZODIAZEPINES] Propensity to adverse reactions to drug 01-13-20 21 Other: See Comments [facility] Work Phone: (13 sources) carBAMazepine; Translations: [CARBAMAZEPINE] Drug Allergy 08-16-20 17 Mental Status Change [facility] Work Phone: (13 sources) Lisinopril; Translations: [LISINOPRIL] Drug Allergy 09-28-20 20 Cough [facility] Work Phone: (13 sources) Losartan; Translations: [LOSARTAN POTASSIUM] Drug Allergy 12-07-19 12 Swelling [facility] Work Phone: [phone] (13 sources) Morphinan opioid; Translations: [OPIOIDS - MORPHINE ANALOGUES] Propensity to adverse reactions to drug 01-13-20 21 Other: See Comments [facility] Work Phone: (5 sources) Thiazides; Translations: [THIAZIDES] Drug Intolerance 08-23-20 07 Other: See Comments [facility] Work Phone: (8 sources) Benzodiazepine Propensity to adverse reactions to drug 01-13-20 Other: See Comments [facility] Work Phone: (8 sources) Thiazides Drug Intolerance 08-23-20 07 Other: See Comments [facility] Work Phone: (1 source) erythromycin base Allergy to substance 03-14-20 16 Nausea/Vomitin g [facility] Medications Current Medications Medication Drug Class(es) Dates [...] (12 sources) Patient encounter status; Translations: [Other storage worker (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) drug therapy] Onset: 12-28-2021 12-28-2021 Episodic Other aftercare (1 source) Other storage worker (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) drug 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; Translations: [Medication management] Onset: [...] 11-06-2023 End: 11-07-2023 ambulatory Paul Campbell Jr Facility:[facility] Start: 11-06-2023 End: 11-06-2023 ambulatory [facility] Work Phone: Start: 11-06-2023 End: 11-06-2023 Patient encounter procedure [facility] [address] [facility] [address] Work Phone: Start: 05-07-2023 ambulatory Paul Campbell Jr Facil ity:[facility] Start: 11-06-2022 ambulatory Paul Campbell Jr Facil ity:[facility] Start: 08-04-2022 Telephone encounter Candice Saunders MA Family Medicine De[place] Procedures Date Procedure Procedure Detail Performing Clinician Start: 09-16-2020 Blood count complete automated MARAL TAPIA Start: 09-16-2020 Comprehensive metabo lic panel MARAL TAPIA Start: 09-16-2020 Lipid panel MARAL MCKEON Start: 12-24-2019 Comprehensive [...] INFORMED CONSENT CONNIE MUNOZ Start: 11-04-2019 VOID VEHICLE INSPECTOR TO OR FABIAN MUNOZ Start: 09-17-2019 Blood [...] Detail Author Start: 12-21-2026 Urine microalbumin profile [facility] Start: 05-16-2026 DTaP/Tdap/Td vaccine (3 - Td) DTaP/Tdap/Td vaccine (3 - Td) [facility] Start: 12-30-2022 Hepatitis B surface antibody level LDL CHOLESTEROL [facility] Start: 12-28-2022 3 comp foot exam completed DIABETIC FOOT EXAM [facility] Start: 12-28-2022 Hepatitis B screening URINE ALBUMIN:CREATININE RATIO [facility] Start: 12-28-2022 SHINGRIX VACCINE (2 of 3) SHINGRIX VACCINE (2 of 3) [facility] Immunizations Immunization Date Immunization Notes Care Provider Emma peña 12-28-2021 pneumococcal polysaccharide vaccine, 23 valent Isauro Terry MD Work Phone: [facility] 10-17-2021 influenza, high dose seasonal, preservative-free Isauro Terry MD Work Phone: [facility] 09-08-2021 influenza (aIIV4) vaccine, age 65+ yr, quadrivalent, PF (FLUAD QUADRIVALENT) Ricarda Graves PA-C Work Phone: [facility] 12-17-2020 COVID-19 vaccine, fu ll dose (MODERNA) Ricarda Graves PA-C Work Phone: [facility] 09-16-2020 pneumococcal polysaccharide vaccine, 23 valent Ricarda Graves PA-C Work Phone: [facility] 09-01-2020 influenza (aIIV4) vaccine, age 65+ yr, quadrivalent, PF (FLUAD QUADRIVALENT) Ricarda Graves PA-C Work Phone: [facility] 07-28-2020 influenza, high-dose , quadrivalent vaccine (FLUZONE HIGH DOSE QUADRIVALENT) Isauro Terry MD Work Phone: [facility] 09-02-2019 influenza, high dose seasonal, preservative-free Isauro Terry MD Work Phone: [facility] 08-14-2018 influenza, high dose seasonal, preservative-free Isauro Terry MD Work Phone: [facility] 08-16-2017 influenza, high dose seasonal, preservative-free Isauro Terry MD Work Phone: [facility] 12-21-2016 tetanus toxoid, redu fortino diphtheria toxoid, and acellular pertussis vaccine, adsorbed Isauro Terry MD Work Phone: [facility] Work Phone: 08-08-2016 influenza, high dose seasonal, preservative-free Isauro Terry MD Work Phone: [facility] 09-13-2015 influenza, high dose seasonal, preservative-free Isauro Terry MD Work Phone: [facility] Work Phone: 09-09-2015 pneumococcal conjuga te vaccine, 13 valent [facility] [place], [place] 09-09-2015 pneumococcal polysaccharide vaccine, 23 valent Ricarda Graves PA-C Work Phone: [facility] 05-10-2015 pneumococcal conjuga te vaccine, 13 valent Isauro Terry MD Work Phone: [facility] 02-04-2015 zoster vaccine, live [facility] 01-12-2015 tetanus toxoid, redu fortino diphtheria toxoid, and acellular pertussis vaccine, adsorbed [facility] 09-12-2013 influenza virus vacc ine, unspecified formulation Isauro Terry MD Work Phone: [facility] Work Phone: 09-17-2012 influenza virus vacc ine, unspecified formulation Isauro Terry MD Work Phone: [facility] 05-03-2010 zoster vaccine, live Isauro Terry MD Work Phone: [facility] Work Phone: 12-13-2006 pneumococcal polysaccharide vaccine, 23 valent Isauro Terry MD Work Phone: [facility] 12-13-2006 tetanus and diphther ia toxoids, adsorbed, preservative free, for adult use (2 Lf of tetanus toxoid and 2 Lf of diphtheria toxoid) Isauro Terry MD Work Phone: [facility] Payers Date Payer Category Payer Medicare AETNA MEDICARE A ETNA MEDICARE-ADVANTAGE PPO xxxxxxxx 2017-Present [address] [place] [address] Medicare [id number] 2016 Unknown [facility] Commercial [id number] 2015 [place] [id number] 2015-Present [phone] [address] [place] [address] O [id number] 2015 Medicare [place] [id number] 2015-Present [phone] [address] [place] [address] [facility] [id number] 2015 Medicare [id number] 2009 Medicare [id number] 1940 Unknown [id number] 1940 Unknown [id number] 1940 Unknown [id number] Medicare Aetna Medicare PPO [id number] Medicare [id number] Medicare UHC AARP MEDICARE [id number] Self-pay Self Pay [id number] Social History Date Type Detail Facility Start: 09-17-2019 End: 11-20-2019 Tobacco smoking status NHIS Former smoker Demetrice Arriola [facility] Start: [birth year]-19-1959 End: 11-19-1994 History of tobacco use Current smoker [facility] Start: 09-17-2019 End: 11-20-2019 Cigarettes smoked current (pack per day) - Reported [facility] Start: 09-17-2019 Alcohol intake No Demetrice [facility] Sex Assigned At Not on file [facility] Start: 11-20-2019 Alcohol intake Current non-dr laboratory immunologist of alcohol (finding) [employer] Work Phone: Start: 06-26-2011 Tobacco smoking stat us NHIS Never smoked tobacco [facility] Start: 01-01-2022 End: 03-30-2022 Alcohol intake Current drinker of alcohol (finding) [facility] Start: 1940 Sex Assigned At Female [facility] Start: 03-20-2022 End: 03-30-2022 Exposure to SARS-CoV-2 (event) Yes [facility] Start: 06-26-2011 Tobacco use and exposure Smokeless tobacco non-user [facility] Start: 03-14-2016 Former Smoker [facility] Start: 03-14-2016 2015 [facility] Start: 03-14-2016 current [facility] Medical Equipment Procedure Code Equipment Code Equipment [...] was completed if she wanted to come 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 She indicated that they had no idea what they are suppose to do with the form next. It appears on the back of the form there is an address to [facility]. I offered to mail her [...] Candice Saunders MA documented in this encounter [facility] 08-04-2022 Miscellaneous Notes Noted. Spoke with [...] Candice Saunders MA documented in this encounter [facility] 06-12-2022 Miscellaneous Notes Please see son's message. George Smith LPN Please see message regarding pt's medications. George Smith LPN documented in this encounter [facility] 06-08-2022 Miscellaneous Notes Patient has been [...] Lois Weinberg LPN documented in this encounter [facility] 05-25-2022 Miscellaneous Notes Daughter calls to request the most recent medication list for patient be faxed to [facility] where patient is currently seeking treatment. Faxed to [phone] Quinton Meyer per request. Bre Rodrigues RN documented in this encounter [facility] 05-24-2022 Note HNO ID: [id number] Author: George Smith LPN Service: ? Author Type: ? Type: Progress Notes Filed: 05/24/2022 1:07 PM Note Text: FYI ER Summary from [facility] George Smith LPN Scan on 05/24/2022 ?6:14 AM by External Provider: Consultation - Emergency Medicine [facility] 05-24-2022 History of Present illness Narrative FYI ER Summary from [facility] George Smith LPN Scan on 05/24/2022 6:14 AM by External Provider: Consultation - Emergency Medicine documented in this encounter [facility] 05-24-2022 Miscellaneous Notes Daughter was notified and aware of provider message below. Daughter advised that its not that easy to place parents in assisted living or care home against there will and could severe relationship. Advised he understands but on his end not able to make that call either. Went over part of driving and they understand that letter in past has been submitted but [facility] does make patients take driving test an if pass they are able to keep DL Kendra Carter Ma Sounds like both parents should be admitted for inpatient alcohol detox and then go from there. If neither parent can care for themselves and family not able to provide extensive care then being in assisted living or care home home permanently would be the best options and the hospital social services specialist can assist. I don't do detox. Doctors don't take away driving privileges. Family can discuss with [facility] about concerns or just remove car keys and vehicles from patient's home. See TE for , Rasheed as well. Patient daughter Zayda Sal calling mother is currently in [facility] for alcohol abuse and threat of suicide. Daughter said social services specialist wants to have her sent to [facility] where there is a [facility] substance abuse facility. Family members want to have her driving privileges taken away, daughter asking for any help she can get for parents. Daughter wanted to set up an appt for parents. Please advise documented in this encounter [facility] 04-03-2022 Miscellaneous Notes Patient notified via [employer]. TC to Pt. Unable to LM due to there is no mailbox. Will try again later. Carolina Acharya LPN Urine culture is negative. documented in this encounter [facility] 03-31-2022 Miscellaneous Notes Patient notified of [...] Ricarda Graves PA-C documented in this encounter [facility] 03-30-2022 Note HNO ID: [id number] Author: Ricarda Graves PA-C Service: ? Author Type: Physician Motor Vehicle Operator Road Supervisor Type: Progress Notes Filed: 03/30/2022 11:05 AM Note Text: Chief Complaint Patient presents with: Hospital Follow Up HPI Maria Fernanda Tiwari is a 81 year old female who presents here today for Hospital Discharge Follow up.. 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 - Hyperlipidemia, mixed 10/29/2013 - Hypertensive heart disease with heart failure ([facility]) - Impaired fasting glucose 02/22/2012 - [...] 02/27/2007 - Peripheral venous insufficiency 05/04/2014 - Patient Relations Manager's nodules 12/28/2021 - Small kidney, unspecified NON [...] [Losartan Po* Swell (more content not included)... [facility] 03-23-2022 Miscellaneous Notes Reason for call: Patient calling requesting to reschedule her appointment with Dr. Terry, as she missed it yesterday. Patient denies any new or worsening symptoms of which a provider is not aware: Yes. Outcome: Patient conferenced to the appointment center for assistance with scheduling. documented in this encounter [facility] 03-14-2022 Note Patient Outreach ([facility] MPWS) ---- MARIA FERNANDA TIWARI ([id number]) 1940 F Date Time Provider Department 03/14/22 ISAURO TERRY During your visit today, we recorded the following information about you: Kendra Carter Ma 03/14/2022 10:24 AM Signed TRANSITION CARE MANAGEMENT (TCM) INITIAL CONTACT Flexographic Press Plate Setter Outreach Provider Action/FYI: Patient is still not [...] flowsheet data found. SUMMARY: -Pt discharged from [facility] on 03/11. -Admitted for: hypokalemia Do you [...] benign [I10] 08/15/2005 Myalgia and myositis, unspecified [[id number]] 08/15/2005 02/22/2012 Acute gastritis without mention of [...] [E78.2] 10/29/2013 Perip (more content not included)... [facility] 03-14-2022 Note HNO ID: [id number] Author: Kendra Carter Ma Service: ? Author Type: ? Type: Progress Notes Filed: 03/14/2022 10:24 AM Note Text: TRANSITION CARE MANAGEMENT (TCM) INITIAL CONTACT [employer] Plate Setter Outreach Provider Action/FYI: Patient is still not [...] flowsheet data found. SUMMARY: -Pt discharged from [facility] on 03/11. -Admitted for: hypokalemia Do you [...] recent hospitalization: Placed for provider to review [facility] 03-14-2022 History of Present illness Narrative TRANSITION CARE MANAGEMENT (TCM) INITIAL CONTACT [employer] Press Plate Setter Outreach Provider Action/FYI: Patient is still not [...] flowsheet data found. SUMMARY: -Pt discharged from [facility] on 03/11. -Admitted for: hypokalemia Do you [...] provider to review documented in this encounter [facility] documented as of this encounter (statuses as of 03/14/2022) [facility]09[facility]2022 History of Past illness Narrative* Problem [...] of this encounter (statuses as of 03/23/2022) [facility] History of Past illness Narrative* Problem [...] of this encounter (statuses as of 03/31/2022) [facility] History of Past illness Narrative* Problem [...] of this encounter (statuses as of 04/03/2022) [facility] History of Past illness Narrative* Problem [...] of this encounter (statuses as of 05/24/2022) [facility] History of Past illness Narrative* Problem [...] of this encounter (statuses as of 05/25/2022) [facility] History of Past illness Narrative* Problem [...] of this encounter (statuses as of 06/08/2022) [facility] History of Past illness Narrative* Problem [...] of this encounter (statuses as of 06/21/2022) [facility] History of Past illness Narrative* Problem [...] of this encounter (statuses as of 06/21/2022) [facility] History of Past illness Narrative* Problem [...] of this encounter (statuses as of 08/04/2022) [facility]02-09-2022 NoteHNO ID: [id number] Author: Isauro Terry MD Service: ? Author [...] microalbuminuria, without long-term current use of insulin ([facility]) 10/08/2018 - COPD with hypoxia ([facility]) 12/14/2020 After illness - Depression 02/15/2011 - Disorder of kidney and ureter, unspecified - DJD (degenerative joint disease) 10/24/2011 - Essential hypertension, benign 08/15/2005 - Fatty liver disease, nonalcoholic 10/29/2013 - Fibromyalgia - GERD (gastroesophageal reflux disease) 10/31/2016 - Heart failure, unspecified ([facility]) - Hemorrhage of gastrointestinal tract, unspecified - History of asthma 02/19/2018 - Hyperlipidemia, mixed 10/29/2013 - Hypertensive heart disease with heart failure ([facility]) - Impaired fasting glucose 02/22/2012 - [...] MD Chief Complaint Patient (more content not included)...[facility] * Diagnosis Anemia, unspecified type- Primary Hyperkalemia Hyperpotassemia documented in this encounter [facility] noteNo assessment information [facility] Work Phone: Summary Purpose Family History No Family History Records FoundNo Family History Records FoundNo Family History Records FoundNo Family History Records FoundNo Family History Records FoundNo Family History Records FoundNo Family History Records FoundNo Family History Records FoundNo Family History Records Found Advance Directives No Advanced Directives Records FoundDocuments on File Type Date Recorded Patient Grid Trimmer Expl anation Advance Directives and Living Will Power of Stevedoring Superintendent Latest Code Status on File Code Status Date Activated Date Inactivated Comments Full Code 11/30/2017 10:38 AM 12/01/2017 2:43 AM Latest Code Status on File Code Status Date Activated Date Inactivated Comments Full Code 11/04/2019 6:53 AM 11/04/2019 12:26 PM Full Code 11/30/2017 10:38 AM 12/01/2017 2:43 AM Documents on File Type Date Recorded Patient Grid Trimmer Expl anation Advance Directive(s) 09/16/2018 9:55 AM Advance Directive(s) 11/15/2016 3:31 PM Advance Directive(s) 10/02/2016 2:15 PM Advance Directive(s) 08/25/2016 11:23 AM Advance Directive(s) 08/25/2016 11:14 AM Advance Directive(s) 08/22/2016 5:14 PM Documents on File Type Date Recorded Patient Grid Trimmer Expl anation Advance Directive(s) 09/16/2018 9:55 AM [...] DATE CREATED AUTHOR AUTHOR'S ORGANIZ ATION 05/10/2018 [facility] DATE CREATED AUTHOR AUTHOR'S ORGANIZ ATION 11/10/2019 [facility] DATE CREATED AUTHOR AUTHOR'S ORGANIZ ATION 09/18/2020 [facility] DATE CREATED AUTHOR AUTHOR'S ORGANIZ ATION 06/07/2022 [facility] DATE CREATED AUTHOR AUTHOR'S ORGANIZ ATION 08/19/2022 [facility] DATE CREATED AUTHOR AUTHOR'S ORGANIZ ATION 05/07/2023 [facility] DATE CREATED AUTHOR AUTHOR'S ORGANIZ ATION 07/05/2023 [facility] DATE CREATED AUTHOR AUTHOR'S ORGANIZ ATION 11/10/2023 [facility] Source Comments (unrecognize d section and content) In the event this informatio n is protected by the Federal Confidentiality of Alcohol and Drug Abuse Patient Records regulations: The Federal rules restrict any use of the information to criminally investigate or prosecute any alcohol or drug abuse patient.[facility] the event this information is protected by the Federal Confidentiality of Alcohol and Drug Abuse Patient Records regulations: The Federal rules restrict any use of the information to criminally investigate or prosecute any alcohol or drug abuse patient.[facility] HospitalIn the event this information is protected by the Federal Confidentiality of Alcohol and Drug Abuse Patient Records regulations: The Federal rules restrict any use of the information to criminally investigate or prosecute any alcohol or drug abuse patient.[facility] HospitalIn the event this information is protected by the Federal Confidentiality of Alcohol and Drug Abuse Patient Records regulations: The Federal rules restrict any use of the information to criminally investigate or prosecute any alcohol or drug abuse patient.[facility] HospitalIn the event this information is protected by the Federal Confidentiality of Alcohol and Drug Abuse Patient Records regulations: The Federal rules restrict any use of the information to criminally investigate or prosecute any alcohol or drug abuse patient.[facility] HospitalIn the event this information is protected by the Federal Confidentiality of Alcohol and Drug Abuse Patient Records regulations: The Federal rules restrict any use of the information to criminally investigate or prosecute any alcohol or drug abuse patient.[facility] HospitalIn the event this information is protected by the Federal Confidentiality of Alcohol and Drug Abuse Patient Records regulations: The Federal rules restrict any use of the information to criminally investigate or prosecute any alcohol or drug abuse patient.[facility] HospitalIn the event this information is protected by the Federal Confidentiality of Alcohol and Drug Abuse Patient Records regulations: The Federal rules restrict any use of the information to criminally investigate or prosecute any alcohol or drug abuse patient.[facility] HospitalIn the event this information is protected by the Federal Confidentiality of Alcohol and Drug Abuse Patient Records regulations: The Federal rules restrict any use of the information to criminally investigate or prosecute any alcohol or drug abuse patient.[facility] HospitalIn the event this information is protected by the Federal Confidentiality of Alcohol and Drug Abuse Patient Records regulations: The Federal rules restrict any use of the information to criminally investigate or prosecute any alcohol or drug abuse patient.[facility] HospitalIn the event this information is protected by the Federal Confidentiality of Alcohol and Drug Abuse Patient Records regulations: The Federal rules restrict any use of the information to criminally investigate or prosecute any alcohol or drug abuse patient.[facility] HospitalIn the event this information is protected by the Federal Confidentiality of Alcohol and Drug Abuse Patient Records regulations: The Federal rules restrict any use of the information to criminally investigate or prosecute any alcohol or drug abuse patient.[facility] Reason for Visit (unrecogniz ed section and content) Reason Comments Appointment Rescheduled Reason Comments Results Reason Comments Patient Question Reason Comments ER Summary Reason Comments Fax requested Reason Onset Date Comments Refill Request 06/08/2022 Reason Comments Appointment Reason Comments Forms Care Teams (unrecognized sec tion and content) Motor Equipment Sergeant Relationship Specialty Start Date End Date Isauro Terry MD [address] [facility] [place] [address] PCP - General Family Practice 05/30/21 Motor Equipment Sergeant Relationship Specialty Start Date End Date Isauro Terry MD [address] [facility] [place] [address] PCP - General Family Practice 05/30/21 Motor Equipment Sergeant Relationship Specialty Start Date End Date Isauro Terry MD [address] [facility] [place] [address] PCP - General Family Practice 05/30/21 Motor Equipment Sergeant Relationship Specialty Start Date End Date Isauro Terry MD [address] [facility] [place] [address] PCP - General Family Practice 05/30/21 Motor Equipment Sergeant Relationship Specialty Start Date End Date Isauro Terry MD [address] [facility] [place] [address] PCP - General Family Practice 05/30/21 Motor Equipment Sergeant Relationship Specialty Start Date End Date Isauro Terry MD [address] [facility] [place] [address] PCP - General Family Practice 05/30/21 Motor Equipment Sergeant Relationship Specialty Start Date End Date Isauro Terry MD [address] [facility] [place] [address] PCP - General Family Practice 05/30/21 Team [...] BE BASED ON THE PRIMARY CLINICAL RECORDS. [facility]. provides no warranty or guarantee of the accuracy or completeness of information in this document.
--- NOTE | 2023-12-12 10:09 | PFT ---
INTRODUCTION: The patient is an 82-year-old female who presents for pulmonary function studies secondary to a diagnosis of dyspnea. Respiratory therapy reported good patient effort. Bronchodilators were used during testing. INTERPRETATION: Forced expiration spirometry demonstrated no evidence of a large airways obstructive ventilatory defect. There was no significant response to aerosolized bronchodilators. Spirograms are of good quality and plateau normally. Body plethysmography was performed and revealed lung volumes to be within normal limits. Diffusing capacity by single breath CO was reduced to 42% of predicted. IMPRESSION: Isolated moderate reduction in diffusing capacity, which could be related to an underlying pulmonary vascular disorder such as pulmonary hypertension. Clinical correlation is recommended.
== END | disposition home or self-care (01) ==
PROVIDERS: PCP Family Medicine; Referring Provider Internal Medicine Cardiovascular Disease; Visit Provider Internal Medicine Cardiovascular Disease
DX: R06.09 Other forms of dyspnea (principal); I50.9 Heart failure, unspecified; I27.20 Pulmonary hypertension, unspecified
CPT/HCPCS: 94060; 94726; 94729

== ENCOUNTER → 2023-12-17 | Outpatient (CLI) | payer MEDICARE, MEDICAID, SELFPAY ==
--- OUTSIDE RECORDS SUMMARY | 2023-12-17 09:57 | XMS RPT_ITS | CCD ---
Author Name Unknown Address [id number] [place] [address] Organization [facility] Care Team Providers Care Gravity Meter Operator Name Role Phone NOMI TEJEDA Unavailable Unavail able MARAL TAPIA Unavailable Unavailable NIKHIL, NOMI Unavailable Unavail able NIKHIL, NOMI Unavailable Unavail MARAL Aaron Unavailable MARAL Omalley Unavailable MARAL Omalley THOMAS Unavailable Unavailable Maral Tapia Primary Care Provider CONNIE MUNOZ Admitting Unavailable CONNIE MUNOZ Attending Unavailable CONNIE MUNOZ Referring Unavailable MARAL TAPIA Primary Care Unavailable MARAL TAPIA Referring Unavailable MARAL TAPIA Primary Care Unavailable MARAL TAPIA Referring Unavailable MARAL TAPIA Primary Care Unavailable Aleksandr Salazar MD Primary Care Provider Aleksandr Salazar MD Primary Care Provider Paul Campbell Jr Attending Unavailable Shannan Stephens, Paul Attending Unavailable Shannan Stephens, Paul Attending Unavailable Jenniferestmary Stephens, Paul Attending Unavailable Jenniferestmary Stephens, Paul Attending Unavailable Allergies Allergy Classification Reported Allergen(s) Allergy Type Date of Onset Reaction(s) Facility (3 sources) [facility] Drug Allergy 03-14-20 16 Other (See Comments[facility] [place] [facility] source) Adhesive Tape Propensity to adverse reactions to drug 11-03-20 19 Dermatitis Medical Referral Source Phone: (1 source) Latex Propensity to adverse reactions to drug 10-02-20 19 Medical Referral Source Phone: (4 sources) Benzodiazepine Propensity to adverse reactions to drug 01-13-20 21 Other: See Comments [facility] Work Phone: [phone] (12 sources) carBAMazepine Drug Allergy 08-16-20 17 Mental Status Change [facility] Work Phone: (12 sources) Lisinopril Drug Allergy 09-28-20 20 Cough [facility] Work Phone: (12 sources) Losartan Drug Allergy 12-07-19 12 Swelling [facility] Work Phone: (12 sources) Morphinan opioid Propensity to adverse reactions to drug 01-13-20 21 Other: See Comments [facility] Work Phone: [phone] (4 sources) Thiazides Drug Intolerance 08-23-20 07 Other: See Comments [facility] Work Phone: [phone] (8 sources) Benzodiazepine Propensity to adverse reactions to drug 01-13-20 Other: See Comments [facility] Work Phone: (8 sources) Thiazides Drug Intolerance 08-23-20 07 Other: See Comments [facility] Work Phone: (1 source) erythromycin base Allergy to substance 03-14-20 16 Nausea/Vomitin g [facility] Medications Current Medications Medication Drug Class(es) Dates [...] glucose] Episodic Diseases of white blood cells (12 sources) Leukocytosis; Translations: [Elevated white blood cell count, unspecified] Onset: 2 01-01-2022 Chronic Disorders of lipid metabolism (14 sources) Hypercholesterolemia; Translations: [Mixed hyperlipidemia] Onset: 3 12-28-2021 Chronic Esophageal disorders (12 sources) Gastroesophageal reflux disease; Translations: [Gastro-esophageal reflux disease without esophagitis] Onset: 6 12-28-2021 Chronic Essential hypertension (14 sources) Essential hypertension; Translations: [Benign essential hypertension] Onset: 5 03-13-2018 Chronic Fluid and electrolyte disorders (4 sources) Hypokalemia; Translations: [Hyperkalemia] Onset: 8 Episodic Genitourinary symptoms and ill-defined conditions (12 sources) Urinary incontinence; Translations: [Unspecified urinary incontinence] Onset: 7 12-28-2021 Chronic Miscellaneous mental health disorders (12 sources) Chronic insomnia; Translations: [Psychophysiologic insomnia] Onset: 8 12-28-2021 Chronic Mood disorders (14 sources) Recurrent major depression in full remission; Translations: [Depressive disorder] Onset: 1 03-13-2018 Chronic Nutritional deficiencies (12 sources) Vitamin D deficiency; Translations: [Vitamin D [...] to excess calories] Onset: 1 12-28-2021 Chronic Pulmonary heart disease (10 sources) Pulmonary hypertension; Translations: [Pulmonary hypertension, unspecified] Onset: 2 03-30-2022 Chronic Spondylosis; intervertebral disc disorders; other back problems (13 sources) Other spondylosis, lumbar region; Translations: [Lumbar spondylosis] Onset: 4 12-28-2021 Chronic Unclassified (1 source) LUMBAR RADICULOPATHY / LUMBAR RADICULOPATHY() Onset: 8 Unclassified (1 source) Patient encounter status Past or Other Problems Problem Classification Problem Date Documented Date Episodic/Chronic Deficiency and other anemia (13 sources) Anemia; Translations: [Anemia, unspecified] Onset: 01-01-2022 01-01-2022 Episodic Headache; including migraine (12 sources) Chronic daily headache; Translations: [Chronic daily headache] Onset: 12-16-2014 12-28-2021 Episodic Nutritional deficiencies (12 sources) Serum vitamin B12 low; Translations: [Deficiency of other specified B group vitamins] Onset: 01-01-2022 01-01-2022 Episodic Other aftercare (12 sources) Patient encounter status; Translations: [Other long term care pharmacist (current) drug therapy] Onset: 12-28-2021 12-28-2021 Episodic Other connective tissue disease (12 [...] [Low back pain] Onset: 10-25-2017 10-25-2017 Episodic Results Test Name Value Interpretation Reference Range Facil ity Encounters Encounter Date Encounter Type Care Provider Facility Start: 11-06-2023 End: 11-07-2023 ambulatory Paul Campbell Jr Facility:[facility] Start: 11-06-2023 End: 11-06-2023 ambulatory [facility] Work Phone: Start: 11-06-2023 End: 11-06-2023 Patient encounter procedure [facility] [address] [facility] [address] Work Phone: Start: 05-07-2023 ambulatory Paul Campbell Jr [facility] ity:[facility] Start: 11-06-2022 ambulatory Paul Campbell Jr Lisa ity:[facility] Start: 08-04-2022 Telephone encounter Candice Saunders MA [facility] De[facility] Procedures Date Procedure Procedure Detail Performing Clinician Start: 09-16-2020 Blood count complete automated MARAL TAPIA Start: 09-16-2020 Comprehensive metabo lic panel MARAL TAPIA Start: 09-16-2020 Lipid panel MARAL MAIK LINDA Start: 12-24-2019 Comprehensive metabo lic panel MARAL TAPIA Start: 12-24-2019 Lipid panel MARAL MCKEON Start: 12-24-2019 Comprehensive metabo lic panel Maral Tapia Work Phone: Start: 12-24-2019 Lipid panel Maral laguerre Work Phone: Start: 11-04-2019 DISCHARGE PATIENT CONNIE MUNOZ Start: 11-04-2019 Level iv surg pathol ogy gross&microscopic exam CONNIE MCKEONS Start: 11-04-2019 BEDREST CONNIE LEON Start: 11-04-2019 Continuous pulse oximetry CONNIE MCKEONS Start: 11-04-2019 ENCOURAGE DEEP BREAT ARMANDO AND COUGHING CONNIE MUNOZ Start: 11-04-2019 NOTIFY PHYSICIAN (SPECIFY) CONNIE MCKEONS Start: 11-04-2019 NURSING COMMUNICATION D EREJt MUNOZ Start: 11-04-2019 VITAL SIGNS CONNIE ADAMSE LAS Start: 11-04-2019 INITIATE OXYGEN THER APY PROTOCOL CONNIE MUNOZ Start: 11-04-2019 DIET NPO, NOW CONNIE ORN ELAS Start: 11-04-2019 FULL CODE CONNIE GURROLA LAS Start: 11-04-2019 INITIATE OXYGEN THER APY PROTOCOL CONNIE MUNOZ Start: 11-04-2019 NURSING COMMUNICATION D EREK MUNOZ Start: 11-04-2019 PLACE INTERMITTENT PNEUMATIC COMPRESSION DEVICE CONNIE MUNOZ Start: 11-04-2019 TREATMENT CONSENT CONNIE MCKEONS Start: 11-04-2019 VERIFY INFORMED CONSENT CONNIE MUNOZ Start: 11-04-2019 VOID TIMBER MANAGEMENT PROFESSOR TO OR FABIAN MUNOZ Start: 09-17-2019 Blood [...] Detail Author Start: 12-21-2026 Urine microalbumin profile [facility] Start: 05-16-2026 DTaP/Tdap/Td vaccine (3 - Td) DTaP/Tdap/Td vaccine (3 - Td) [place], [place] Start: 12-30-2022 Hepatitis B surface antibody level LDL CHOLESTEROL [facility] Start: 12-28-2022 3 comp foot exam completed DIABETIC FOOT EXAM [facility] Start: 12-28-2022 Hepatitis B screening URINE ALBUMIN:CREATININE RATIO [facility] Start: 12-28-2022 SHINGRIX VACCINE (2 of 3) SHINGRIX VACCINE (2 of 3) [facility] Immunizations Immunization Date Immunization Notes Care Provider Fa mariana 12-28-2021 pneumococcal polysaccharide vaccine, 23 valent Aleksandr Salazar MD Work Phone: [facility] 10-17-2021 influenza, high dose seasonal, preservative-free Aleksandr Salazar MD Work Phone: [facility] 09-08-2021 influenza (aIIV4) vaccine, age 65+ yr, quadrivalent, PF (FLUAD QUADRIVALENT) Lillian Graves PA-C Work Phone: [facility] 12-17-2020 COVID-19 vaccine, fu ll dose (MODERNA) Lillian Graves PA-C Work Phone: [facility] 09-16-2020 pneumococcal polysaccharide vaccine, 23 valent Lillian Graves PA-C Work Phone: [facility] 09-01-2020 influenza (aIIV4) vaccine, age 65+ yr, quadrivalent, PF (FLUAD QUADRIVALENT) Lillian Graves PA-C Work Phone: [facility] 07-28-2020 influenza, high-dose , quadrivalent vaccine (FLUZONE HIGH DOSE QUADRIVALENT) Aleksandr Salazar MD Work Phone: [facility] 09-02-2019 influenza, high dose seasonal, preservative-free Aleksandr Salazar MD Work Phone: [facility] 08-14-2018 influenza, high dose seasonal, preservative-free Aleksandr Salazar MD Work Phone: [facility] 08-16-2017 influenza, high dose seasonal, preservative-free Aleksandr Salazar MD Work Phone: [facility] 12-21-2016 tetanus toxoid, redu fortino diphtheria toxoid, and acellular pertussis vaccine, adsorbed Aleksandr Salazar MD Work Phone: [facility] Work Phone: 08-08-2016 influenza, high dose seasonal, preservative-free Aleksandr Salazar MD Work Phone: [facility] 09-13-2015 influenza, high dose seasonal, preservative-free Aleksandr Salazar MD Work Phone: [facility] Work Phone: 09-09-2015 pneumococcal conjuga te vaccine, 13 valent [place]al [place], [place] 09-09-2015 pneumococcal polysaccharide vaccine, 23 valent Lillian Graves PA-C Work Phone: [facility] 05-10-2015 pneumococcal conjuga te vaccine, 13 valent Aleksandr Salazar MD Work Phone: [facility] 02-04-2015 zoster vaccine, live [facility] 01-12-2015 tetanus toxoid, redu fortino diphtheria toxoid, and acellular pertussis vaccine, adsorbed Maral [facility] 09-12-2013 influenza virus vacc ine, unspecified formulation Aleksandr Salazar MD Work Phone: [facility] Work Phone: 09-17-2012 influenza virus vacc ine, unspecified formulation Aleksandr Salazar MD Work Phone: [facility] 05-03-2010 zoster vaccine, live Aleksandr Salazar MD Work Phone: [facility] Work Phone: 12-13-2006 pneumococcal polysaccharide vaccine, 23 valent Aleksandr Salazar MD Work Phone: [facility] 12-13-2006 tetanus and diphther ia toxoids, adsorbed, preservative free, for adult use (2 Lf of tetanus toxoid and 2 Lf of diphtheria toxoid) Aleksandr Salazar MD Work Phone: [facility] Payers Date Payer Category Payer Medicare AETNA MEDICARE A ETNA MEDICARE-ADVANTAGE PPO xxxxxxxx 2017-Present [address] [place] [address] Medicare [id number] 2016 Unknown [facility] [employer] U [id number] 2015 Medicare [place] [id number] 2015-Present [phone] [address] [place] [address] [facility] [id number] 2015 Medicare [place] [id number] 2015-Present [phone] [address] [place] [address] [facility] [id number] 2009 Medicare [id number] 1940 Unknown [id number] 1940 Unknown [id number] 1940 Unknown [id number] Medicare Aetna Medicare PPO [id number] Medicare [id number] Medicare UHC AARP MEDICARE [id number] Self-pay Self Pay [id number] Social History Date Type Detail Facility Start: 09-17-2019 End: 11-20-2019 Tobacco smoking status NHIS [place] [place] Start: [birth year]-19-1959 End: 11-19-1994 History of tobacco use Current smoker [place], [place] Start: 09-17-2019 End: 11-20-2019 Cigarettes smoked current (pack per day) - [facility] [place] [place] Start: 09-17-2019 Alcohol intake No [facility] [place] Sex Assigned At Not on file [facility] [place] Start: 11-20-2019 Alcohol intake Current non-dr hvac service technician of alcohol (finding) [facility] Work Phone: Start: 06-26-2011 Tobacco smoking stat us MIIS Never smoked tobacco [facility] Start: 01-01-2022 End: 03-30-2022 Alcohol intake Current drinker of alcohol (finding) [facility] Start: 1940 Sex Assigned At Female [facility] Start: 03-20-2022 End: 03-30-2022 Exposure to SARS-CoV-2 (event) Yes [facility] Start: 06-26-2011 Tobacco use and exposure Smokeless tobacco non-user [facility] Start: 03-14-2016 Former Smoker [facility] Start: 03-14-[address] [facility] Start: 03-14-[address] [facility] Medical Equipment Procedure Code Equipment Code Equipment Origin al Text Equipment Identifier Dates Start: 08-30-2018 Clinical Notes 12-28-2021 to 12-12-2023 Telephone Encounter - Candice Saunders MA - 08/04/2022 12:51 PM EDTTelephone Encounter - Candice Saunders MA - 07/31/2022 9:37 AM EDTTelephone Encounter - Aleksandr Salazar MD - 07/31/2022 8:18 AM EDT Note Date & Type Note Facility 12-12-2023 Note HNO ID: [id number] Author: FITZ SMITH LPN Service: ? Author Type: LICENSED NURSE Type: Progress Notes Filed: 12/12/2023 10:25 Note Text: Scan on 12/12/2023 10:14 AM by Provider, External, PA-C: Pulmonary [facility] 08-04-2022 Miscellaneous Notes Formattin g of this note might be different from the original. Faxed and mailed copy to daughter. Scanned into chart. Candice Saunders MA Spoke with daughter and told her form was completed if she wanted to come pharmacy picking technician the form and have us mail to her. She indicated that they had no idea what they are suppose to do with the form next. It appears on the back of the form there is an address to [facility]. I offered to mail her a copy; a copy for our records and send originals. After looking at this forms. Need to obtain further information. Candice Saunders MA Form completed. Please make copy to scan into chart. Received paperwork in Dr. Salazar's mail box from a [place] for a Request for Statement of Physician. Note state attached states: Request to revoke or suspend Maria Fernanda Tiwari's driving privileges. Paperwork given to PCP. Candice Saunders MA documented in this encounter [facility] 08-04-2022 Miscellaneous Notes Formattin g of this note might be different from the original. Noted. Spoke with daughter and let her know provider was not available due to illness. Daughter did mention that her parents thought about just seeing the physician at the [facility] that it would be easier but she said the her mom felt bad about leaving Dr. Salazar. I assured her that Dr. Salazar would be fine with the patient's decision to see the physician at the facility and if they all felt that was best. She said she would talk to her mom. I told her just reach out and let us know. Candice Saunders MA documented in this encounter [facility] 06-12-2022 Miscellaneous Notes Please see son's message. Fitz Smith LPN Please see message regarding pt's medications. Fitz Smith LPN documented in this encounter [facility] 06-08-2022 Miscellaneous Notes Patient has been [...] Lois Weinberg LPN documented in this encounter [facility] 05-25-2022 Miscellaneous Notes Daughter calls to request the most recent medication list for patient be faxed to [facility] where patient is currently seeking treatment. Faxed to [phone] Quinton Meyer per request. Bre Rodrigues, RN documented in this encounter [facility] 05-24-2022 History of Presen t illness Narrative FYI ER Summary from [facility] Fitz Smith LPN Scan on 05/24/2022 6:14 AM by External Provider: Consultation - Emergency Medicine documented in this encounter [facility] 05-24-2022 Miscellaneous Notes Daughter was notified and aware of provider message below. Daughter advised that its not that easy to place parents in assisted living or long term against there will and could severe relationship. Advised he understands but on his end not able to make that call either. Went over part of driving and they understand that letter in past has been submitted but V does make patients take driving test an if pass they are able to keep DL Kendra Carter Ma Sounds like both parents should be admitted for inpatient alcohol detox and then go from there. If neither parent can care for themselves and family not able to provide extensive care then being in assisted living or long term home permanently would be the best options and the hospital social work lecturer can assist. I don't do detox. Doctors don't take away driving privileges. Family can discuss with [facility] about concerns or just remove car keys and vehicles from patient's home. See TE for , Rasheed as well. Patient daughter Zayda Sal calling mother is currently in [facility] for alcohol abuse and threat of suicide. Daughter said social work lecturer wants to have her sent to [facility] where there is a [facility] substance abuse facility. Family members want to have her driving privileges taken away, daughter asking for any help she can get for parents. Daughter wanted to set up an appt for parents. Please advise documented in this encounter [facility] 04-03-2022 Miscellaneous Notes Patient notified via [employer]. TC to Pt. Unable to LM due to there is no mailbox. Will try again later. Carolina Acharya LPN Urine culture is negative. documented in this encounter [facility] 03-31-2022 Miscellaneous Notes Patient notified of results and provider's instructions. Patient verbalizes understanding. Fitz Smith LPN Potassium level is high. Have her stop the potassium supplement and the we will recheck levels in 2 weeks. She is still slightly anemic but improved. Her platelet count is elevated too. Her other labs are okay though. Let's recheck cbc in 2 weeks as well to trend the numbers. Lillian Graves PA-C documented in this encounter [facility] 03-23-2022 Miscellaneous Notes Reason for call: Patient calling requesting to reschedule her appointment with Dr. Salazar, as she missed it yesterday. Patient denies any new or worsening symptoms of which a provider is not aware: Yes. Outcome: Patient conferenced to the appointment center for assistance with scheduling. documented in this encounter [facility] 03-14-2022 History of Presen t illness Narrative TRANSITION CARE MANAGEMENT (TCM) INITIAL CONTACT Inventory Control Supervisor Outreach Provider Action/FYI: Patient is still not [...] flowsheet data found. SUMMARY: -Pt discharged from [facility] on 03/11. -Admitted for: hypokalemia Do you have a hospital follow up appointment with your PCP? Appointment on 03/22/[address] Salazar. Yes. Remind patient of appointment date, time, [...] provider to review documented in this encounter [facility] documented as of this encounter (statuses as of 03/14/2022) [facility] History of Past illness Narrative* Problem [...] of this encounter (statuses as of 03/23/2022) [facility] History of Past illness Narrative* Problem [...] of this encounter (statuses as of 03/31/2022) [facility] History of Past illness Narrative* Problem [...] of this encounter (statuses as of 04/03/2022) [facility] History of Past illness Narrative* Problem Noted Date Resolved Date Hypercalcemia 12/28/2021 01/01/2022 Overview: Repeat labs 12/2021 within normal limits. 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 12/28/2021 Overview: After illness Polysubstance dependence 10/01/2018 019 Acute respiratory failure with hypoxemia 018 10/08/2018 Skin ulcer, limited to breakdown of skin 10/08/2018 Moderate episode of recurrent major depressive [...] of this encounter (statuses as of 05/24/2022) [facility] History of Past illness Narrative* Problem [...] of this encounter (statuses as of 05/25/2022) [facility] History of Past illness Narrative* Problem [...] of this encounter (statuses as of 06/08/2022) [facility] History of Past illness Narrative* Problem [...] of this encounter (statuses as of 06/21/2022) [facility] History of Past illness Narrative* Problem Noted Date Resolved Date Hypercalcemia 12/28/2021 01/01/2022 Overview: Repeat labs 12/2021 within normal limits. 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 12/28/2021 Overview: After illness Polysubstance dependence 10/01/2018 019 Acute respiratory failure with hypoxemia 018 10/08/2018 Skin ulcer, limited to breakdown of skin 10/08/2018 Moderate episode of recurrent major depressive [...] of this encounter (statuses as of 06/21/2022) [facility] History of Past illness Narrative* Problem [...] of this encounter (statuses as of 08/04/2022) [facility] note* Diagnosis Anemia, unspecified type- Primary Hyperkalemia Hyperpotassemia documented in this encounter [facility] noteNo assessment information [facility] Work Phone: Summary Purpose Family History No Family History Records FoundNo Family History Records FoundNo Family History Records FoundNo Family History Records FoundNo Family History Records FoundNo Family History Records FoundNo Family History Records FoundNo Family History Records FoundNo Family History Records Found Advance Directives No Advanced Directives Records FoundDocuments on File Type Date Recorded 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 Assistant Expl anation Advance Directives and Living Will Power of Hvac Controls Technician Latest Code Status on File Code Status Date Activated Date Inactivated Comments Full Code 11/30/2017 10:38 AM 12/01/2017 2:43 AM Latest Code Status on File Code Status Date Activated Date Inactivated Comments Full Code 11/04/2019 6:53 AM 11/04/2019 12:26 PM Full Code 11/30/2017 10:38 AM 12/01/2017 2:43 AM Documents on File Type Date Recorded 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 Assistant Expl anation Advance Directive(s) 09/16/2018 9:55 AM Advance Directive(s) 11/15/2016 3:31 PM Advance Directive(s) 10/02/2016 2:15 PM Advance Directive(s) 08/25/2016 11:23 AM Advance Directive(s) 08/25/2016 11:14 AM Advance Directive(s) 08/22/2016 5:14 PM Documents on File Type Date Recorded 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 Assistant Expl anation Advance Directive(s) 09/16/2018 9:55 AM [...] DATE CREATED AUTHOR AUTHOR'S ORGANIZ ATION 05/10/2018 [facility] DATE CREATED AUTHOR AUTHOR'S ORGANIZ ATION 11/10/2019 [facility] DATE CREATED AUTHOR AUTHOR'S ORGANIZ ATION 09/18/2020 [facility] DATE CREATED AUTHOR AUTHOR'S ORGANIZ ATION 06/07/2022 [facility] DATE CREATED AUTHOR AUTHOR'S ORGANIZ ATION 05/07/2023 [facility] DATE CREATED AUTHOR AUTHOR'S ORGANIZ ATION 07/05/2023 [facility] DATE CREATED AUTHOR AUTHOR'S ORGANIZ ATION 11/10/2023 [facility] DATE CREATED AUTHOR AUTHOR'S ORGANIZ ATION 12/13/2023 [facility] Source Comments (unrecognize d section and content) In the event this informatio n is protected by the Federal Confidentiality of Alcohol and Drug Abuse Patient Records regulations: The Federal rules restrict any use of the information to criminally investigate or prosecute any alcohol or drug abuse patient.[facility] the event this information is protected by the Federal Confidentiality of Alcohol and Drug Abuse Patient Records regulations: The Federal rules restrict any use of the information to criminally investigate or prosecute any alcohol or drug abuse patient.[facility] the event this information is protected by the Federal Confidentiality of Alcohol and Drug Abuse Patient Records regulations: The Federal rules restrict any use of the information to criminally investigate or prosecute any alcohol or drug abuse patient.[facility] the event this information is protected by the Federal Confidentiality of Alcohol and Drug Abuse Patient Records regulations: The Federal rules restrict any use of the information to criminally investigate or prosecute any alcohol or drug abuse patient.[facility] the event this information is protected by the Federal Confidentiality of Alcohol and Drug Abuse Patient Records regulations: The Federal rules restrict any use of the information to criminally investigate or prosecute any alcohol or drug abuse patient.[facility] the event this information is protected by the Federal Confidentiality of Alcohol and Drug Abuse Patient Records regulations: The Federal rules restrict any use of the information to criminally investigate or prosecute any alcohol or drug abuse patient.[facility] the event this information is protected by the Federal Confidentiality of Alcohol and Drug Abuse Patient Records regulations: The Federal rules restrict any use of the information to criminally investigate or prosecute any alcohol or drug abuse patient.[facility] the event this information is protected by the Federal Confidentiality of Alcohol and Drug Abuse Patient Records regulations: The Federal rules restrict any use of the information to criminally investigate or prosecute any alcohol or drug abuse patient.[facility] the event this information is protected by the Federal Confidentiality of Alcohol and Drug Abuse Patient Records regulations: The Federal rules restrict any use of the information to criminally investigate or prosecute any alcohol or drug abuse patient.[facility] the event this information is protected by the Federal Confidentiality of Alcohol and Drug Abuse Patient Records regulations: The Federal rules restrict any use of the information to criminally investigate or prosecute any alcohol or drug abuse patient.[facility] the event this information is protected by the Federal Confidentiality of Alcohol and Drug Abuse Patient Records regulations: The Federal rules restrict any use of the information to criminally investigate or prosecute any alcohol or drug abuse patient.[facility] the event this information is protected by the Federal Confidentiality of Alcohol and Drug Abuse Patient Records regulations: The Federal rules restrict any use of the information to criminally investigate or prosecute any alcohol or drug abuse patient.[facility] Reason for Visit (unrecogniz ed section and content) Reason Comments Appointment Rescheduled Reason Comments Results Reason Comments Patient Question Reason Comments ER Summary Reason Comments Fax requested Reason Onset Date Comments Refill Request 06/08/2022 Reason Comments Appointment Reason Comments Forms Care Teams (unrecognized sec tion and content) Gravity Meter Operator Relationship Specialty Start Date End Date Aleksandr Salazar MD [facility] [place] [address] PCP - General Family Practice 05/30/21 Gravity Meter Operator Relationship Specialty Start Date End Date Aleksandr Salazar MD [facility] [place] [address] PCP - General Family Practice 05/30/21 Gravity Meter Operator Relationship Specialty Start Date End Date Aleksandr Salazar MD [facility] [place] [address] PCP - General Family Practice 05/30/21 Gravity Meter Operator Relationship Specialty Start Date End Date Aleksandr Salazar MD [facility] [place] [address] PCP - General Family Practice 05/30/21 Gravity Meter Operator Relationship Specialty Start Date End Date Aleksandr Salazar MD [address] [place] [address] [place] [address] PCP - General Family Practice 05/30/21 Gravity Meter Operator Relationship Specialty Start Date End Date Aleksandr Salazar MD [address] [place] [id number] PCP - General Family Practice 05/30/21 Gravity Meter Operator Relationship Specialty Start Date End Date Aleksandr Salazar MD [address] [place] [address] PCP - General Family Practice 05/30/21 Team Status: Active Member Role Status Dates Maral Tapia DO Primary Care Provider Active Team Status: Inactive Member Role Status Dates Maral Tapai DO Primary Care Provider Active Start: November [...] BE BASED ON THE PRIMARY CLINICAL RECORDS. [facility] [employer] [facility] provides no warranty or guarantee of the accuracy or completeness of information in this document.
[2023-12-17 14:08] LABS: Anion Gap 5 (5-15); BUN 18 mg/dL (7-18); BUN/Creat Ratio 16.7 RATIO (10-20); Calcium,Total 10.1 mg/dL (8.5-10.1); Chloride 107 mmol/L (98-107); Creatinine, Serum 1.08 mg/dL (0.55-1.02); EST Glomerular Filtration Rate 52 mL/min (>60); Est Glom Filt Rate - Afr Amer 62 mL/min (>60); Glucose 134 mg/dL (74-106); Rheumatoid Factor < 10.0 IU/mL (<15); Sodium Level 139 mmol/L (136-145)
[2023-12-18 11:09] LABS: ANTINUCLEAR ANTIBODIES DIRECT Negative (Negative)
[2023-12-18 15:08] LABS: CCP IgG Antibodies 9 units (0-19); Cytoplasmic Ab (C-ANCA) <1:20 titer (Neg:<1:20); Perinuclear Ab (P-ANCA) <1:20 titer (Neg:<1:20)
== END | disposition home or self-care (01) ==
LOC: PAVLAB 09:22
PROVIDERS: PCP Internal Medicine; Referring Provider Internal Medicine Critical Care Medicine; Visit Provider Internal Medicine Critical Care Medicine
DX: I27.20 Pulmonary hypertension, unspecified (principal); G47.33 Obstructive sleep apnea (adult) (pediatric)
CPT/HCPCS: 36415; 80048; 86038; 86200; 86225; 86235; 86256; 86431

== ENCOUNTER → 2023-12-20 | Outpatient (CLI) | payer MEDICARE, MEDICAID, SELFPAY ==
[2023-12-20 11:15] VITALS: PULSE 100; PULSE 102; PULSE 107; PULSE 110; PULSE 79; PULSE 85; PULSE 92; PULSE 98; O2SAT 88; O2SAT 90; O2SAT 91; O2SAT 94; O2SAT 95
--- NOTE | 2023-12-20 11:46 | CPS ---
Pt on room air upon arrival. Pt was 88% on room air at rest. Pt was placed on 1 lpm prior to start of walk and saturation above 90%. At 1 minute into walk pt was 88% on the 1 lpm. Pt was increased to . Pt was increased to 2 lpm at 2 minutes and at 3 minutes she was increased to 3 lpm. Pt finished walk on 3 lpm.
--- NOTE | 2023-12-20 13:45 | PCM.PSN.6M ---
PSN 6 Minute Walk Test 6 Minute Walk Test 6 Minute Walk Test: 6 Minute Walk Test PSN:6-Minute Walk Test Start: 12/20/23 11:42 Freq: Status: Active Protocol: RESP.6MINW Document 12/20/23 11:15 AEH (Rec: 12/20/23 11:51 AE Desktop) 6 Minute Walk Test Date Performed 12/20/23 Time Performed 11:15 Height 4 ft 8 in Weight: 68.039 kg Weight in Pounds 150.[address]: Dr Alexander Assistive device used: Walker Pre-test Oxygen Delivery Method Room Air Pulse Ox 88 Pulse Rate (60-100) 79 Dyspnea Stefanie Scale (0-10) 2 Exertion Stefanie Scale (6-20) 0 1st minute Oxygen Flow Rate (L/min) 1 Oxygen Delivery Method Nasal Cannula Pulse Ox 88 Pulse Rate (60-100) 92 Dyspnea Stefanie Scale (0-10) 2 Reported Symptoms Increased Work of Breathing 2nd minute Oxygen Flow Rate (L/min) 2 Oxygen Delivery Method Nasal Cannula Pulse Ox 88 Pulse Rate (60-100) 102 H Dyspnea Stefanie Scale (0-10) 3 Reported Symptoms Increased Work of Breathing 3rd minute Oxygen Flow Rate (L/min) 3 Oxygen Delivery Method Nasal Cannula Pulse Ox 94 Pulse Rate (60-100) 100 4th minute Oxygen Flow Rate (L/min) 3 Oxygen Delivery Method Nasal Cannula Pulse Ox 91 Pulse Rate (60-100) 107 H 5th minute Oxygen Flow Rate (L/min) 3 Oxygen Delivery Method Nasal Cannula Pulse Ox 90 Pulse Rate (60-100) 98 6th minute Oxygen Flow Rate (L/min) 3 Oxygen Delivery Method Nasal Cannula Pulse Ox 90 Pulse Rate (60-100) 110 H Dyspnea Stefanie Scale (0-10) 4 Exertion Stefanie Scale (6-20) 14 Reported Symptoms Increased Work of Breathing Post-test Oxygen Flow Rate (L/min) 3 Oxygen Delivery Method Nasal Cannula Pulse Ox 95 Pulse Rate (60-100) 85 Full Laps Walked 13 Partial Lap, Number of Tiles Walked 8 Total Distance Walked (ft) 775 12/20/23 11:46 Cardiopulmonary Services by Cassia Costello Pt on room air upon arrival. Pt was 88% on room air at rest. Pt was placed on 1 lpm prior to start of walk and saturation above 90%. At 1 minute into walk pt was 88% on the 1 lpm. Pt was increased to . Pt was increased to 2 lpm at 2 minutes and at 3 minutes she was increased to 3 lpm. Pt finished walk on 3 lpm. Initialized on 12/20/23 11:46 - END OF NOTE Interpretation Interpretation: The patient was noted to be 88% on room air at rest, but improved to 90% on 1 L nasal cannula. The patient then started ambulated and required up to 3 L/min to maintain saturations throughout testing. Patient did have an element of reflexive tachycardia. In total, the patient was able to travel 775 feet over the course of 6 minutes with the assistance of a walker and no breaks. These findings are consistent with a respiratory limitation exercise tolerance. Recommendations Recommendations: The patient requires 1 L/min of supplemental oxygen at rest, but up to 3 L/min with any exertion
== END | disposition home or self-care (01) ==
LOC: PSN 11:06
PROVIDERS: PCP Internal Medicine; Referring Provider Internal Medicine Critical Care Medicine; Visit Provider Internal Medicine Critical Care Medicine
DX: G47.33 Obstructive sleep apnea (adult) (pediatric) (principal); I27.20 Pulmonary hypertension, unspecified
CPT/HCPCS: 94618

== ENCOUNTER → 2024-01-01 | Outpatient (CLI) | payer MEDICARE, MEDICAID, SELFPAY ==
--- NOTE | 2024-01-01 06:51 | ECHOD_ITS ---
Reason For Study: CHF, MARIE Procedure This was a 2D Doppler, Color Flow transthoracic echocardiogram. Exam performed in department. Left Ventricle Normal LV size. Left ventricular systolic function is normal. The estimated ejection fraction is 65 %. Stage 2 diastolic dysfunction. Right Ventricle Normal RV size. Normal systolic function. Atria The left atrium is moderately enlarged. The right atrium is mildly enlarged. Mitral Valve Mild diffuse mitral valve thickening. Mild (1+) mitral valve insufficiency. Tricuspid Valve Normal tricuspid valve. Mild to moderate (1-2+) tricuspid valve insufficiency. Right ventricular systolic pressure estimated to be 64 mmHg. Aortic Valve Trisinus/trileaflet aortic valve. Trivial aortic valve insufficiency. Pulmonic Valve The pulmonic valve is not well visualized. Great Vessels Normal aortic root. Pericardium/Pleural No pericardial effusion. MMode/2D Measurements & Calculations LVIDd: 3.9 cm IVSd: 1.0 cm LVOT diam: 2.0 cm LVIDs: 2.3 cm LVPWd: 0.92 cm LVOT area: 3.1 cm2 RVDd: 3.6 cm FS: 40.2 % Ao root diam: 2.6 cm LAV(MOD-bp): 79.5 ml LVAd ap4: 21.7 cm2 LAV(MOD-bp) Indexed: 49.0 ml/m2 LVLd ap4: 7.1 cm LAV(MOD-sp2): 74.4 ml EDV(MOD-sp4): 57.0 ml LAV(MOD-sp4): 86.3 ml EDV(sp4-el): 56.8 ml LVAs ap4: 11.1 cm2 LVLs ap4: 5.8 cm ESV(MOD-sp4): 18.8 ml ESV(sp4-el): 17.9 ml EF(MOD-sp4): 67.0 % EF(sp4-el): 68.4 % LVAd ap2: 21.4 cm2 SV(MOD-sp4): 38.2 ml SV(MOD-sp2): 35.3 ml LVLd ap2: 7.3 cm EDV(MOD-sp2): 54.9 ml EDV(sp2-el): 53.4 ml LVAs ap2: 11.0 cm2 LVLs ap2: 5.9 cm ESV(MOD-sp2): 19.5 ml ESV(sp2-el): 17.5 ml EF(MOD-sp2): 64.4 % SV(sp4-el): 38.8 ml LA dimension(2D): 4.2 cm LA A4 area: 26.1 cm2 RA A4 area: 14.5 cm2 TAPSE: 2.2 cm Time Measurements MV dec time: 0.17 sec Doppler Measurements & Calculations MV E max danny: 112.8 cm/sec Lat Peak E' Danny: 7.5 cm/sec Med Peak E' Danny: 6.9 cm/sec MV A max danny: 122.5 cm/sec E/E' lat: 15.1 E/E' med: 16.4 MV E/A: 0.92 MV V2 max: 141.8 cm/sec MV P1/2t max danny: 122.4 cm/sec Ao V2 max: 195.9 cm/sec MV max P.0 mmHg MV P1/2t: 56.9 msec Ao max P.4 mmHg MV V2 mean: 85.0 cm/sec Ao V2 mean: 132.5 cm/sec MV mean P.2 mmHg MV dec slope: 630.0 cm/sec2 Ao mean P.0 mmHg MV V2 VTI: 38.2 cm MVA(P1/2t): 3.9 cm2 Ao V2 VTI: 45.2 cm AV (velocity ratio): 0.66 MVA(VTI): 2.4 cm2 ROGER(I,D): 2.1 cm2 ROGER(V,D): 2.0 cm2 AI max danny: 448.4 cm/sec LV V1 max: 126.9 cm/sec MR max danny: 591.7 cm/sec AI max P.5 mmHg LV V1 max P.4 mmHg MR max P.1 mmHg AI dec slope: 282.7 cm/sec2 LV V1 mean P.6 mmHg MR mean danny: 500.4 cm/sec AI P1/2t: 464.6 msec LV V1 mean: 89.3 cm/sec MR mean P.9 mmHg LV V1 VTI: 29.7 cm MR VTI: 217.8 cm SV(LVOT): 92.7 ml PA V2 max: 91.5 cm/sec TR max danny: 372.8 cm/sec PA V2 mean: 64.1 cm/sec TR max P.6 mmHg ECHO/Echo Complete Interpretation Summary The estimated ejection fraction is 65 %. Stage 2 diastolic dysfunction. The left atrium is moderately enlarged. The right atrium is mildly enlarged. Mild (1+) mitral valve insufficiency. Right ventricular systolic pressure estimated to be 64 mmHg. Mild to moderate (1-2+) tricuspid valve insufficiency. Ordering Physician: Eva Pinon Referring Physician: Lilian Yang Performed By: Paola Sorenson, RDCS, RVT
--- OUTSIDE RECORDS SUMMARY | 2024-01-01 06:54 | XMS RPT_ITS | CCD ---
Author Name Unknown Address [id number] [place] [address] Organization [facility] Care Team Providers Care Counter Hop Name Role Phone NOMI TEJEDA Unavailable Unavail [...] Unavailable Aleksandr Salazar MD Primary Care Provider [phone] Aleksandr Salazar MD Primary Care Provider Paul Campbell Jr Attending Unavailable Shannan Stephens, Paul Attending Unavailable Shannan Stephens, Paul Attending Unavailable Jenniferestmary Stephens, Paul Attending Unavailable Jenniferestmary Stephens, Paul Attending Unavailable Allergies Allergy Classification Reported Allergen(s) Allergy Type Date of Onset Reaction(s) Facility (3 sources) [facility] Drug Allergy 03-14-20 16 [facility] (See Comments[facility] [place] ([facility] Adhesive Tape Propensity to adverse reactions to drug 11-03-20 19 Dermatitis [facility] Phone: (1 source) Latex Propensity to adverse reactions to drug 10-02-20 19 Retina Implant Phone: (4 sources) Benzodiazepine Propensity to adverse reactions to drug 01-13-20 21 Other: See Comments [facility] Work Phone: [phone] (12 sources) carBAMazepine Drug Allergy 08-16-20 17 Mental Status Change [facility] Work Phone: (12 sources) Lisinopril Drug Allergy 09-28-20 20 Cough [facility] Work Phone: (12 sources) Losartan Drug Allergy 12-07-19 12 Swelling [facility] Work Phone: (12 sources) Morphinan opioid Propensity to adverse reactions to drug 01-13-20 21 Other: See Comments [facility] Work Phone: [phone] (4 sources) Thiazides Drug Intolerance 08-23-20 07 Other: See Comments [facility] Work Phone: [phone] (8 sources) Benzodiazepine Propensity to adverse reactions to drug 01-13-20 Other: See Comments [facility] Work Phone: (8 sources) Thiazides Drug Intolerance 08-23-20 07 Other: See Comments [facility] Work Phone: (1 source) erythromycin base Allergy to substance 03-14-20 16 Nausea/Vomitin g [facility] Medications Current Medications Medication Drug Class(es) Dates [...] (12 sources) Patient encounter status; Translations: [Other correction (current) drug therapy] Onset: 12-28-2021 12-28-2021 Episodic [...] 11-06-2023 End: 11-07-2023 ambulatory Paul Campbell Jr Facility:[facility] Start: 11-06-2023 End: 11-06-2023 ambulatory [facility] Work Phone: Start: 11-06-2023 End: 11-06-2023 Patient encounter procedure [facility] [address] [facility] [address] Work Phone: Start: 05-07-2023 ambulatory Paul Campbell Jr [facility] ity:[facility] Start: 11-06-2022 ambulatory Paul Campbell Jr Lisa ity:[facility] Start: 08-04-2022 Telephone encounter Candice Saunders MA [facility] [place] Procedures Date Procedure Procedure Detail Performing Clinician [...] INFORMED CONSENT CONNIE MUNOZ Start: 11-04-2019 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 MUNOZ Start: 09-17-2019 Blood [...] Detail Author Start: 12-21-2026 Urine microalbumin profile [facility] Start: 05-16-2026 DTaP/Tdap/Td vaccine (3 - Td) DTaP/Tdap/Td vaccine (3 - Td) [place] Start: 12-30-2022 Hepatitis B surface antibody level LDL CHOLESTEROL [facility] Start: 12-28-2022 3 comp foot exam completed DIABETIC FOOT EXAM [facility] Start: 12-28-2022 Hepatitis B screening URINE ALBUMIN:CREATININE RATIO [facility] Start: 12-28-2022 SHINGRIX VACCINE (2 of 3) SHINGRIX VACCINE (2 of 3) [facility] Immunizations Immunization Date Immunization Notes Care Provider Fa mariana 12-28-2021 pneumococcal polysaccharide vaccine, 23 valent Aleksandr Salazar MD Work Phone: [facility] 10-17-2021 influenza, high dose seasonal, preservative-free Aleksandr Salazar MD Work Phone: [facility] 09-08-2021 influenza (aIIV4) vaccine, age 65+ yr, quadrivalent, PF (FLUAD QUADRIVALENT) Lillian Graves PA-C Work Phone: [facility] 12-17-2020 COVID-19 vaccine, fu ll dose (MODERNA) Lillian Graves PA-C Work Phone: [facility] 09-16-2020 pneumococcal polysaccharide vaccine, 23 valent Lillian Graves PA-C Work Phone: [facility] 09-01-2020 influenza (aIIV4) vaccine, age 65+ yr, quadrivalent, PF (FLUAD QUADRIVALENT) Lillian Graves PA-C Work Phone: [facility] 07-28-2020 influenza, high-dose , quadrivalent vaccine (FLUZONE HIGH DOSE QUADRIVALENT) Aleksandr Salazar MD Work Phone: [facility] 09-02-2019 influenza, high dose seasonal, preservative-free Aleksandr Salazar MD Work Phone: [facility] 08-14-2018 influenza, high dose seasonal, preservative-free Aleksandr Salazar MD Work Phone: [facility] 08-16-2017 influenza, high dose seasonal, preservative-free Aleksandr Salazar MD Work Phone: [facility] 12-21-2016 tetanus toxoid, redu fortino diphtheria toxoid, and acellular pertussis vaccine, adsorbed Aleksandr Salazar MD Work Phone: [facility] Work Phone: 08-08-2016 influenza, high dose seasonal, preservative-free Aleksandr Salazar MD Work Phone: [facility] 09-13-2015 influenza, high dose seasonal, preservative-free Aleksandr Salazar MD Work Phone: [facility] Work Phone: 09-09-2015 pneumococcal conjuga te vaccine, 13 valent [place] 09-09-2015 pneumococcal polysaccharide vaccine, 23 valent Lillian Graves PA-C Work Phone: [facility] 05-10-2015 pneumococcal conjuga te vaccine, 13 valent Aleksandr Salazar MD Work Phone: [facility] 02-04-2015 zoster vaccine, live [facility] 01-12-2015 tetanus toxoid, redu fortino diphtheria toxoid, and acellular pertussis vaccine, adsorbed [facility] 09-12-2013 influenza virus vacc ine, unspecified formulation Aleksandr Salazar MD Work Phone: [facility] Work Phone: 09-17-2012 influenza virus vacc ine, unspecified formulation Aleksandr Salazar MD Work Phone: [facility] 05-03-2010 zoster vaccine, live Aleksandr Salazar MD Work Phone: [facility] Work Phone: 12-13-2006 pneumococcal polysaccharide vaccine, 23 valent Aleksandr Salazar MD Work Phone: [facility] 12-13-2006 tetanus and diphther ia toxoids, adsorbed, preservative free, for adult use (2 Lf of tetanus toxoid and 2 Lf of diphtheria toxoid) Aleksandr Salazar MD Work Phone: [facility] Payers Date Payer Category Payer Medicare AETNA MEDICARE A ETNA MEDICARE-ADVANTAGE PPO xxxxxxxx 2017-Present [address] [place] [address] Medicare [id number] 2016 Unknown [facility] Local Commercial U [id number] 2015 [place] [id number] 2015-Present [phone] [address] [place] [address] [facility] [id number] 2015 Medicare [place] [id number] 2015-Present [phone] [address] [place] [address] [facility] [id number] 2009 Medicare [id number] 1940 Unknown [id number] 1940 Unknown [id number] 1940 Unknown [id number] Medicare Aetna Medicare PPO [id number] Medicare [id number] Medicare UHC AARP MEDICARE [id number] Self-pay Self Pay [id number] Social History Date Type Detail Facility Start: 09-17-2019 End: 11-20-2019 Tobacco smoking status NHIS [place] Start: [birth year]-19-1959 End: 11-19-1994 History of tobacco use Current smoker [place], [place] Start: 09-17-2019 End: 11-20-2019 Cigarettes smoked current (pack per day) - [facility] [place] [place] Start: 09-17-2019 Alcohol intake No [place] Sex Assigned At Not on file 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 (finding) [facility] Work Phone: Start: 06-26-2011 Tobacco smoking stat us SDIS Never smoked tobacco [facility] Start: 01-01-2022 End: 03-30-2022 Alcohol intake Current drinker of alcohol (finding) [facility] Start: 1940 Sex Assigned At Female [facility] Start: 03-20-2022 End: 03-30-2022 Exposure to SARS-CoV-2 (event) Yes [facility] Start: 06-26-2011 Tobacco use and exposure Smokeless tobacco non-user [facility] Start: 03-14-2016 Former Smoker [facility] Start: 03-14-2016 2015 [facility] Start: 03-14-2016 current [facility] Medical Equipment Procedure Code Equipment Code Equipment Origin al Text Equipment Identifier Dates Start: 08-30-2018 Clinical Notes 12-28-2021 to 12-12-2023 Telephone Encounter - Candice Saunders MA - 08/04/2022 12:51 PM EDTTelephone Encounter - Candice Saunders MA - 07/31/2022 9:37 AM EDTTelephone Encounter - Aleksandr Salazar MD - 07/31/2022 8:18 AM EDT Note Date & Type Note Facility 12-12-2023 Note HNO ID: [id number] Author: FITZ SMITH LPN Service: ? Author Type: LICENSED NURSE Type: Progress Notes Filed: 12/12/2023 10:25 Note Text: Scan on 12/12/2023 10:14 AM by Provider, External, PA-C: Pulmonary [facility] 08-04-2022 Miscellaneous Notes Formattin g of this note might be different from the original. Faxed and mailed copy to daughter. Scanned into chart. Candice Saunders MA Spoke with daughter and told her form was completed if she wanted to come peanut picker the form and have us mail to her. She indicated that they had no idea what they are suppose to do with the form next. It appears on the back of the form there is an address to [facility]. I offered to mail her a copy; [...] Candice Saunders MA documented in this encounter [facility] 08-04-2022 Miscellaneous Notes Formattin g of this note might be different from the original. Noted. Spoke with daughter and let her know provider was not available due to illness. Daughter did mention that her parents thought about just seeing the physician at the [facility] that it would be easier but [...] Candice Saunders MA documented in this encounter [facility] 06-12-2022 Miscellaneous Notes Please see son's message. Fitz Smith LPN Please see message regarding pt's medications. Fitz Smith LPN documented in this encounter [facility] 06-08-2022 Miscellaneous Notes Patient has been identified by name and date of : Yes Patient phones for refill(s): Pending Prescriptions Disp Refills OMEPRAZOLE 20 MG CAPSULE,DELAYED RELEASE 90 capsule 1 Sig: Take 1 capsule by mouth daily 1/2 hr before breakfast. DO: No Date of last office visit in primary care: 03/30/22 Please advise. Thank you. Lois Weinberg LPN documented in this encounter [facility] 05-25-2022 Miscellaneous Notes Daughter calls to request the most recent medication list for patient be faxed to [facility] where patient is currently seeking treatment. Faxed to [phone] Quinton Meyer per request. Bre Rodrigues, RN documented in this encounter [facility] 05-24-2022 History of Presen t illness Narrative FYI ER Summary from [facility] Fitz Smith LPN Scan on 05/24/2022 6:14 AM by External Provider: Consultation - Emergency Medicine documented in this encounter [facility] 05-24-2022 Miscellaneous Notes Daughter was notified and aware of provider message below. Daughter advised that its not that easy to place parents in assisted living or jail against there will and could severe relationship. [...] care then being in assisted living or jail home permanently would be the best options and the hospital social services technician can assist. I don't do detox. Doctors don't take away driving privileges. Family can discuss with [facility] about concerns or just remove car keys and vehicles from patient's home. See TE for , Rasheed as well. Patient daughter Zayda Sal calling mother is currently in [facility] for alcohol abuse and threat of suicide. Daughter said social services technician wants to have her sent to [facility]] where there is a [facility] substance abuse facility. Family members want to have her driving privileges taken away, daughter asking for any help she can get for parents. Daughter wanted to set up an appt for parents. Please advise documented in this encounter [facility] 04-03-2022 Miscellaneous Notes Patient notified via [facility] TC to Pt. Unable to LM due to there is no mailbox. Will try again later. Carolina Acharya LPN Urine culture is negative. documented in this encounter [facility] 03-31-2022 Miscellaneous Notes Patient notified of results [...] Lillian Graves PA-C documented in this encounter [facility] 03-23-2022 Miscellaneous Notes Reason for call: Patient calling requesting to reschedule her appointment with Dr. Salazar, as she missed it yesterday. Patient denies any new or worsening symptoms of which a provider is not aware: Yes. Outcome: Patient conferenced to the appointment center for assistance with scheduling. documented in this encounter [facility] 03-14-2022 History of Presen t illness Narrative TRANSITION CARE MANAGEMENT (TCM) INITIAL CONTACT [facility] Provider Action/FYI: Patient is still not [...] flowsheet data found. SUMMARY: -Pt discharged from [facility] on 03/11. -Admitted for: hypokalemia Do [...] provider to review documented in this encounter [facility] documented as of this encounter (statuses as of 03/14/2022) [facility]-09-2022 History of Past illness Narrative* Problem Noted [...] of this encounter (statuses as of 03/23/2022) [facility]20[facility] History of Past illness Narrative* Problem Noted [...] of this encounter (statuses as of 03/31/2022) [facility]20[facility] History of Past illness Narrative* Problem Noted [...] of this encounter (statuses as of 04/03/2022) [facility] History of Past illness Narrative* Problem Noted [...] of this encounter (statuses as of 05/24/2022) [facility] History of Past illness Narrative* Problem Noted [...] of this encounter (statuses as of 05/25/2022) [facility] History of Past illness Narrative* Problem Noted [...] of this encounter (statuses as of 06/08/2022) [facility] History of Past illness Narrative* Problem Noted [...] of this encounter (statuses as of 06/21/2022) [facility] History of Past illness Narrative* Problem Noted [...] of this encounter (statuses as of 06/21/2022) [facility] History of Past illness Narrative* Problem Noted [...] of this encounter (statuses as of 08/04/2022) [facility] note* Diagnosis Anemia, unspecified type- Primary Hyperkalemia Hyperpotassemia documented in this encounter [facility] noteNo assessment information [facility] Work Phone: Summary Purpose Family History No Family History Records FoundNo Family History Records FoundNo Family History Records FoundNo Family History Records FoundNo Family History Records FoundNo Family History Records FoundNo Family History Records FoundNo Family History Records FoundNo Family History Records Found Advance Directives No Advanced Directives Records FoundDocuments on File Type Date Recorded Patient Straightening Roll Operator Expl anation Advance Directives and Living Will Power of Running Specialist Latest Code Status on File Code Status Date Activated Date Inactivated Comments Full Code 11/30/2017 10:38 AM 12/01/2017 2:43 AM Latest Code Status on File Code Status Date Activated Date Inactivated Comments Full Code 11/04/2019 6:53 AM 11/04/2019 12:26 PM Full Code 11/30/2017 10:38 AM 12/01/2017 2:43 AM Documents on File Type Date Recorded Patient Straightening Roll Operator Expl anation Advance Directive(s) 09/16/2018 9:55 AM Advance Directive(s) 11/15/2016 3:31 PM Advance Directive(s) 10/02/2016 2:15 PM Advance Directive(s) 08/25/2016 11:23 AM Advance Directive(s) 08/25/2016 11:14 AM Advance Directive(s) 08/22/2016 5:14 PM Documents on File Type Date Recorded Patient Straightening Roll Operator Expl anation Advance Directive(s) 09/16/2018 9:55 [...] DATE CREATED AUTHOR AUTHOR'S ORGANIZ ATION 05/10/2018 [facility] DATE CREATED AUTHOR AUTHOR'S ORGANIZ ATION 11/10/2019 [facility] DATE CREATED AUTHOR AUTHOR'S ORGANIZ ATION 09/18/2020 [facility] DATE CREATED AUTHOR AUTHOR'S ORGANIZ ATION 06/07/2022 [facility] DATE CREATED AUTHOR AUTHOR'S ORGANIZ ATION 05/07/2023 [facility] DATE CREATED AUTHOR AUTHOR'S ORGANIZ ATION 07/05/2023 [facility] DATE CREATED AUTHOR AUTHOR'S ORGANIZ ATION 11/10/2023 [facility] DATE CREATED AUTHOR AUTHOR'S ORGANIZ ATION 12/13/2023 [facility] Source Comments (unrecognize d section and content) In the event this informatio n is protected by the Federal Confidentiality of Alcohol and Drug Abuse Patient Records regulations: The Federal rules restrict any use of the information to criminally investigate or prosecute any alcohol or drug abuse patient.[facility] the event this information is protected by the Federal Confidentiality of Alcohol and Drug Abuse Patient Records regulations: The Federal rules restrict any use of the information to criminally investigate or prosecute any alcohol or drug abuse patient.[facility] the event this information is protected by the Federal Confidentiality of Alcohol and Drug Abuse Patient Records regulations: The Federal rules restrict any use of the information to criminally investigate or prosecute any alcohol or drug abuse patient.[facility] the event this information is protected by the Federal Confidentiality of Alcohol and Drug Abuse Patient Records regulations: The Federal rules restrict any use of the information to criminally investigate or prosecute any alcohol or drug abuse patient.[facility] the event this information is protected by the Federal Confidentiality of Alcohol and Drug Abuse Patient Records regulations: The Federal rules restrict any use of the information to criminally investigate or prosecute any alcohol or drug abuse patient.[facility] the event this information is protected by the Federal Confidentiality of Alcohol and Drug Abuse Patient Records regulations: The Federal rules restrict any use of the information to criminally investigate or prosecute any alcohol or drug abuse patient.[facility] the event this information is protected by the Federal Confidentiality of Alcohol and Drug Abuse Patient Records regulations: The Federal rules restrict any use of the information to criminally investigate or prosecute any alcohol or drug abuse patient.[facility] the event this information is protected by the Federal Confidentiality of Alcohol and Drug Abuse Patient Records regulations: The Federal rules restrict any use of the information to criminally investigate or prosecute any alcohol or drug abuse patient.[facility] the event this information is protected by the Federal Confidentiality of Alcohol and Drug Abuse Patient Records regulations: The Federal rules restrict any use of the information to criminally investigate or prosecute any alcohol or drug abuse patient.[facility] the event this information is protected by the Federal Confidentiality of Alcohol and Drug Abuse Patient Records regulations: The Federal rules restrict any use of the information to criminally investigate or prosecute any alcohol or drug abuse patient.[facility] the event this information is protected by the Federal Confidentiality of Alcohol and Drug Abuse Patient Records regulations: The Federal rules restrict any use of the information to criminally investigate or prosecute any alcohol or drug abuse patient.[facility] the event this information is protected by the Federal Confidentiality of Alcohol and Drug Abuse Patient Records regulations: The Federal rules restrict any use of the information to criminally investigate or prosecute any alcohol or drug abuse patient.[facility] Reason for Visit (unrecogniz ed section and content) Reason Comments Appointment Rescheduled Reason Comments Results Reason Comments Patient Question Reason Comments ER Summary Reason Comments Fax requested Reason Onset Date Comments Refill Request 06/08/2022 Reason Comments Appointment Reason Comments Forms Care Teams (unrecognized sec tion and content) Counter Hop Relationship Specialty Start Date End Date Aleksandr Salazar MD [facility] [place] [address] PCP - General Family Practice 05/30/21 Counter Hop Relationship Specialty Start Date End Date Aleksandr Salazar MD [facility] [place] [address] PCP - General Family Practice 05/30/21 Counter Hop Relationship Specialty Start Date End Date Aleksandr Salazar MD [facility] [place] [address] PCP - General Family Practice 05/30/21 Counter Hop Relationship Specialty Start Date End Date Aleksandr Salazar MD [facility] [place] [address] PCP - General Family Practice 05/30/21 Counter Hop Relationship Specialty Start Date End Date Aleksandr Salazar MD [address] [place] [address] [place] [address] PCP - General Family Practice 05/30/21 Counter Hop Relationship Specialty Start Date End Date Aleksandr Salazar MD [address] [place] [address] PCP - General Family Practice 05/30/21 Counter Hop Relationship Specialty Start Date End Date Aleksandr Salazar MD [address] [facility] [place] [address] PCP - General Family Practice 05/30/21 Team [...] BE BASED ON THE PRIMARY CLINICAL RECORDS. [facility]. provides no warranty or guarantee of the accuracy or completeness of information in this document.
--- OUTSIDE RECORDS SUMMARY | 2024-01-15 22:38 | XMS RPT_ITS | CCD ---
Author Name Unknown Address [address] [place] [address] Organization [facility] Care Team Providers Care Community Support Specialist Name Role Phone NOMI TEJEDA Unavailable Unavail [...] Unavailable MARAL TAPIA Primary Care Unavailable Aleksandr Salaazr MD Primary Care Provider Aleksandr Salazar MD Primary Care Provider Paul Campbell Jr Attending Unavailable Shannan Stephens, Paul Attending Unavailable Shannan Stephens, Paul Attending Unavailable Jenniferestmary Stephens, Paul Attending Unavailable Potestmary Stephens, Paul Attending Unavailable Allergies Allergy Classification Reported Allergen(s) Allergy Type Date of Onset Reaction(s) Facility (3 sources) [facility] Drug Allergy 03-14-20 16 [facility] (See Comments[facility] [place] [facility] Adhesive Tape Propensity to adverse reactions to drug 11-03-20 19 Dermatitis [facility] Phone: (1 source) Latex Propensity to adverse reactions to drug 10-02-20 19 [facility] Phone: (4 sources) Benzodiazepine Propensity to adverse reactions to drug 01-13-20 21 Other: See Comments [facility] Work Phone: [phone] (12 sources) carBAMazepine Drug Allergy 08-16-[address] [facility] Work Phone: (12 sources) Lisinopril Drug Allergy 09-28-[address] [facility] Work Phone: (12 sources) Losartan Drug Allergy 12-07-[address] [facility] Work Phone: (12 sources) Morphinan opioid Propensity to adverse reactions to drug 01-13-20 21 Other: See Comments [facility] Work Phone: [phone] (4 sources) Thiazides Drug Intolerance 08-23-20 07 Other: See Comments [facility] Work Phone: [phone] (8 sources) Benzodiazepine Propensity to adverse reactions to drug 01-13-20 Other: See Comments [facility] Work Phone: (8 sources) Thiazides Drug Intolerance 08-23-20 07 Other: See Comments [facility] Work Phone: (1 source) erythromycin base Allergy to substance 03-14-20 16 Nausea/Vomitin g [facility] Medications Current Medications Medication Drug Class(es) Dates [...] (12 sources) Patient encounter status; Translations: [Other ch[facility] (current) drug therapy] Onset: 12-28-2021 12-28-2021 Episodic [...] End: 11-07-2023 ambulatory Paul Campbell Jr Facility:[facility] Start: 11-06-2023 End: 11-06-2023 ambulatory [facility] Work Phone: Start: 11-06-2023 End: 11-06-2023 Patient encounter procedure [facility] [address] [facility] [address] Work Phone: Start: 05-07-2023 ambulatory Paul Campbell Jr [facility] ity:[facility] Start: 11-06-2022 ambulatory Paul Campbell Jr Lisa ity:[facility] Start: 08-04-2022 Telephone encounter Candice Saunders MA [facility] Procedures Date Procedure Procedure Detail Performing Clinician [...] INFORMED CONSENT CONNIE MUNOZ Start: 11-04-2019 VOID OVERNIGHT ASSOCIATE TO OR FABIAN MUNOZ Start: 09-17-2019 Blood [...] Detail Author Start: 12-21-[address] [facility] Start: 05-16-2026 DTaP/Tdap/Td vaccine (3 - Td) DTaP/Tdap/Td vaccine (3 - Td) [place], [place] Start: 12-30-2022 Hepatitis B surface antibody level LDL CHOLESTEROL [facility] Start: 12-28-2022 3 comp foot exam completed DIABETIC FOOT EXAM [facility] Start: 12-28-2022 Hepatitis B screening URINE ALBUMIN:CREATININE RATIO [facility] Start: 12-28-2022 SHINGRIX VACCINE (2 of 3) SHINGRIX VACCINE (2 of 3) [facility] Immunizations Immunization Date Immunization Notes Care Provider Fa marinaa 12-28-2021 pneumococcal polysaccharide vaccine, 23 valent Aleksandr Salazar MD Work Phone: [facility] 10-17-2021 influenza, high dose seasonal, preservative-free Aleksandr Salazar MD Work Phone: [facility] 09-08-2021 influenza (aIIV4) vaccine, age 65+ yr, quadrivalent, PF (FLUAD QUADRIVALENT) Lillian Graves PA-C Work Phone: [facility] 12-17-2020 COVID-19 vaccine, fu ll dose (MODERNA) Lillian Graves PA-C Work Phone: [facility] 09-16-2020 pneumococcal polysaccharide vaccine, 23 valent Lillian Graves PA-C Work Phone: [facility] 09-01-2020 influenza (aIIV4) vaccine, age 65+ yr, quadrivalent, PF (FLUAD QUADRIVALENT) Lillian Graves PA-C Work Phone: [facility] 07-28-2020 influenza, high-dose , quadrivalent vaccine (FLUZONE HIGH DOSE QUADRIVALENT) Aleksandr Salazar MD Work Phone: [facility] 09-02-2019 influenza, high dose seasonal, preservative-free Aleksandr Salazar MD Work Phone: [facility] 08-14-2018 influenza, high dose seasonal, preservative-free Aleksandr Salazar MD Work Phone: [facility] 08-16-2017 influenza, high dose seasonal, preservative-free Aleksandr Salazar MD Work Phone: [facility] 12-21-2016 tetanus toxoid, redu fortino diphtheria toxoid, and acellular pertussis vaccine, adsorbed Aleksandr Salazar MD Work Phone: [facility] Work Phone: 08-08-2016 influenza, high dose seasonal, preservative-free Aleksandr Salazar MD Work Phone: [facility] 09-13-2015 influenza, high dose seasonal, preservative-free Aleksandr Salazar MD Work Phone: [facility] Work Phone: 09-09-2015 pneumococcal conjuga te vaccine, 13 valent [place], [place] 09-09-2015 pneumococcal polysaccharide vaccine, 23 valent Lillian Graves PA-C Work Phone: [facility] 05-10-2015 pneumococcal conjuga te vaccine, 13 valent Aleksandr Salazar MD Work Phone: [facility] 02-04-2015 zoster vaccine, live [facility] 01-12-2015 tetanus toxoid, redu fortino diphtheria toxoid, and acellular pertussis vaccine, adsorbed Mar[facility] 09-12-2013 influenza virus vacc ine, unspecified formulation Aleksandr Salazar MD Work Phone: [facility] Work Phone: 09-17-2012 influenza virus vacc ine, unspecified formulation Aleksandr Salazar MD Work Phone: [facility] 05-03-2010 zoster vaccine, live Aleksandr Salazar MD Work Phone: [facility] Work Phone: 12-13-2006 pneumococcal polysaccharide vaccine, 23 valent Aleksandr Salazar MD Work Phone: [facility] 12-13-2006 tetanus and diphther ia toxoids, adsorbed, preservative free, for adult use (2 Lf of tetanus toxoid and 2 Lf of diphtheria toxoid) Aleksandr Salazar MD Work Phone: [facility] Payers Date Payer Category Payer Medicare AETNA MEDICARE A ETNA MEDICARE-ADVANTAGE PPO xxxxxxxx 2017-Present [address] [place] [address] Medicare [id number] 2016 Unknown Formerly [facility] Local Commercial U [id number] 2015 [place] [id number] 2015-Present [phone] [address] [place] [address] [facility] [id number] 2015 Medicare [place] [id number] 2015-Present [phone] [address] [place] [address] [facility] [id number] 2009 Medicare [id number] 1940 Unknown [id number] 1940 Unknown [id number] 1940 Unknown [id number] Medicare Aetna Medicare PPO [id number] 300 [id number] Medicare [id number] Medicare UHC AARP MEDICARE [id number] Self-pay Self Pay [id number] Social History Date Type Detail Facility Start: 09-17-2019 End: 11-20-2019 Tobacco smoking status [place] Start: 11-19-1959 End: 11-19-1994 History of tobacco use Current smoker [place], [place] Start: 09-17-2019 End: 11-20-2019 Cigarettes smoked current (pack per day) - [facility] [place] [place] Start: 09-17-2019 Alcohol intake No [facility] [place] Sex Assigned At Not on file [facility] [place] Start: 11-20-2019 Alcohol intake 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 Start: 01-01-2022 End: 03-30-2022 Alcohol intake Current drinker of alcohol (finding) [facility] Start: 1940 Sex Assigned At Female [facility] Start: 03-20-2022 End: 03-30-2022 Exposure to SARS-CoV-2 (event) Yes [facility] Start: 06-26-2011 Tobacco use and exposure Smokeless tobacco non-user [facility] Start: 03-14-2016 Former Smoker [facility] Start: 03-14-2016 2015 [facility] Start: 03-14-2016 current [facility] Medical Equipment Procedure Code Equipment Code Equipment Origin al Text Equipment Identifier Dates Start: 08-30-2018 Clinical Notes 12-28-2021 to 12-12-2023 Telephone Encounter - Candice Saunders MA - 08/04/2022 12:51 PM EDTTelephone Encounter - Candice Saunders MA - 07/31/2022 9:37 AM EDTTelephone Encounter - Aleksandr Salazar MD - 07/31/2022 8:18 AM EDT Note Date & Type Note Facility 12-12-2023 Note HNO ID: [id number] Author: FITZ SMITH LPN Service: ? Author Type: LICENSED NURSE Type: Progress Notes Filed: 12/12/2023 10:25 Note Text: Scan on 12/12/2023 10:14 AM by Provider, External, PA-C: Pulmonary [facility] 08-04-2022 Miscellaneous Notes Formattin g of this note might be different from the original. Faxed and mailed copy to daughter. Scanned into chart. Candice Saunders MA Spoke with daughter and told her form was completed if she wanted to come steel pickler the form and have us mail to her. She indicated that they had no idea what they are suppose to do with the form next. It appears on the back of the form there is an address to [facility]. I offered to mail her [...] Candice Saunders MA documented in this encounter [facility] 08-04-2022 Miscellaneous Notes Formattin g of this note might be different from the original. Noted. Spoke with daughter and let her know provider was not available due to illness. Daughter did mention that her parents thought about just seeing the physician at the [facility] that it would be easier but she [...] Candice Saunders MA documented in this encounter [facility] 06-12-2022 Miscellaneous Notes Please see son's message. Fitz Smith LPN Please see message regarding pt's medications. Fitz Smith LPN documented in this encounter [facility] 06-08-2022 Miscellaneous Notes Patient has been [...] Lois Weinberg LPN documented in this encounter [facility] 05-25-2022 Miscellaneous Notes Daughter calls to request the most recent medication list for patient be faxed to [facility] where patient is currently seeking treatment. Faxed to [phone] Quinton Meyer per request. Bre Rodrigues, RN documented in this encounter [facility] 05-24-2022 History of Presen t illness Narrative FYI ER Summary from [facility] Fitz Smith LPN Scan on 05/24/2022 6:14 AM by External Provider: Consultation - Emergency Medicine documented in this encounter [facility] 05-24-2022 Miscellaneous Notes Daughter was notified and aware of provider message below. Daughter advised that its not that easy to place parents in assisted living or chcf against there will and could severe relationship. [...] care then being in assisted living or chcf home permanently would be the best options and the hospital manager social responsibility can assist. I don't do detox. Doctors don't take away driving privileges. Family can discuss with [facility] about concerns or just remove car keys and vehicles from patient's home. See TE for , Rasheed as well. Patient daughter Zayda Sal calling mother is currently in [facility] for alcohol abuse and threat of suicide. Daughter said manager social responsibility wants to have her sent to [facility] where there is a [facility] substance abuse facility. Family members want to have her driving privileges taken away, daughter asking for any help she can get for parents. Daughter wanted to set up an appt for parents. Please advise documented in this encounter [facility] 04-03-2022 Miscellaneous Notes Patient notified via [employer]. TC to Pt. Unable to LM due to there is no mailbox. Will try again later. Carolina Acharya LPN Urine culture is negative. documented in this encounter [facility] 03-31-2022 Miscellaneous Notes Patient notified of [...] Lillian Graves PA-C documented in this encounter [facility] 03-23-2022 Miscellaneous Notes Reason for call: Patient calling requesting to reschedule her appointment with Dr. Salazar, as she missed it yesterday. Patient denies any new or worsening symptoms of which a provider is not aware: Yes. Outcome: Patient conferenced to the appointment center for assistance with scheduling. documented in this encounter [facility] 03-14-2022 History of Presen t illness Narrative TRANSITION CARE MANAGEMENT (TCM) INITIAL CONTACT Deputy Court Clerk Outreach Provider Action/FYI: Patient is still not [...] flowsheet data found. SUMMARY: -Pt discharged from [facility] on 03/11. -Admitted for: hypokalemia Do [...] provider to review documented in this encounter [facility] documented as of this encounter (statuses as of 03/14/2022) [facility] History of Past illness Narrative* Problem [...] of this encounter (statuses as of 03/23/2022) [facility] History of Past illness Narrative* Problem [...] of this encounter (statuses as of 03/31/2022) [facility] History of Past illness Narrative* Problem [...] of this encounter (statuses as of 04/03/2022) [facility] History of Past illness Narrative* Problem [...] of this encounter (statuses as of 05/24/2022) [facility] History of Past illness Narrative* Problem [...] of this encounter (statuses as of 05/25/2022) [facility] History of Past illness Narrative* Problem [...] of this encounter (statuses as of 06/08/2022) [facility] History of Past illness Narrative* Problem [...] of this encounter (statuses as of 06/21/2022) [facility] History of Past illness Narrative* Problem [...] of this encounter (statuses as of 06/21/2022) [facility] History of Past illness Narrative* Problem [...] of this encounter (statuses as of 08/04/2022) [facility] note* Diagnosis Anemia, unspecified type- Primary Hyperkalemia Hyperpotassemia documented in this encounter [facility] noteNo assessment information [facility] Work Phone: Summary Purpose Family History No Family History Records FoundNo Family History Records FoundNo Family History Records FoundNo Family History Records FoundNo Family History Records FoundNo Family History Records FoundNo Family History Records FoundNo Family History Records FoundNo Family History Records Found Advance Directives No Advanced Directives Records FoundDocuments on File Type Date Recorded 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 [employer]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 Expl 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 Advance Directives and Living Will Power of Freight Broker Agent Latest Code Status on File Code Status Date Activated Date Inactivated Comments Full Code 11/30/2017 10:38 AM 12/01/2017 2:43 AM Latest Code Status on File Code Status Date Activated Date Inactivated Comments Full Code 11/04/2019 6:53 AM 11/04/2019 12:26 PM Full Code 11/30/2017 10:38 AM 12/01/2017 2:43 AM Documents on File Type Date Recorded 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 [employer]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 Expl anation Advance Directive(s) 09/16/2018 9:55 AM Advance Directive(s) 11/15/2016 3:31 PM Advance Directive(s) 10/02/2016 2:15 PM Advance Directive(s) 08/25/2016 11:23 AM Advance Directive(s) 08/25/2016 11:14 AM Advance Directive(s) 08/22/2016 5:14 PM Documents on File Type Date Recorded Patient [employer]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 Expl anation Advance Directive(s) 09/16/2018 9:55 AM [...] DATE CREATED AUTHOR AUTHOR'S ORGANIZ ATION 05/10/2018 [facility] DATE CREATED AUTHOR AUTHOR'S ORGANIZ ATION 11/10/2019 [facility] DATE CREATED AUTHOR AUTHOR'S ORGANIZ ATION 09/18/2020 [facility] DATE CREATED AUTHOR AUTHOR'S ORGANIZ ATION 06/07/2022 [facility] DATE CREATED AUTHOR AUTHOR'S ORGANIZ ATION 05/07/2023 [facility] DATE CREATED AUTHOR AUTHOR'S ORGANIZ ATION 07/05/2023 [facility] DATE CREATED AUTHOR AUTHOR'S ORGANIZ ATION 11/10/2023 [facility] DATE CREATED AUTHOR AUTHOR'S ORGANIZ ATION 12/13/[address] [facility] Source Comments (unrecognize d section and content) In the event this informatio n is protected by the Federal Confidentiality of Alcohol and Drug Abuse Patient Records regulations: The Federal rules restrict any use of the information to criminally investigate or prosecute any alcohol or drug abuse patient.[facility] the event this information is protected by the Federal Confidentiality of Alcohol and Drug Abuse Patient Records regulations: The Federal rules restrict any use of the information to criminally investigate or prosecute any alcohol or drug abuse patient.[facility] the event this information is protected by the Federal Confidentiality of Alcohol and Drug Abuse Patient Records regulations: The Federal rules restrict any use of the information to criminally investigate or prosecute any alcohol or drug abuse patient.[facility] the event this information is protected by the Federal Confidentiality of Alcohol and Drug Abuse Patient Records regulations: The Federal rules restrict any use of the information to criminally investigate or prosecute any alcohol or drug abuse patient.[facility] the event this information is protected by the Federal Confidentiality of Alcohol and Drug Abuse Patient Records regulations: The Federal rules restrict any use of the information to criminally investigate or prosecute any alcohol or drug abuse patient.[facility] the event this information is protected by the Federal Confidentiality of Alcohol and Drug Abuse Patient Records regulations: The Federal rules restrict any use of the information to criminally investigate or prosecute any alcohol or drug abuse patient.[facility] the event this information is protected by the Federal Confidentiality of Alcohol and Drug Abuse Patient Records regulations: The Federal rules restrict any use of the information to criminally investigate or prosecute any alcohol or drug abuse patient.[facility] the event this information is protected by the Federal Confidentiality of Alcohol and Drug Abuse Patient Records regulations: The Federal rules restrict any use of the information to criminally investigate or prosecute any alcohol or drug abuse patient.[facility] the event this information is protected by the Federal Confidentiality of Alcohol and Drug Abuse Patient Records regulations: The Federal rules restrict any use of the information to criminally investigate or prosecute any alcohol or drug abuse patient.[facility] the event this information is protected by the Federal Confidentiality of Alcohol and Drug Abuse Patient Records regulations: The Federal rules restrict any use of the information to criminally investigate or prosecute any alcohol or drug abuse patient.[facility] the event this information is protected by the Federal Confidentiality of Alcohol and Drug Abuse Patient Records regulations: The Federal rules restrict any use of the information to criminally investigate or prosecute any alcohol or drug abuse patient.[facility] the event this information is protected by the Federal Confidentiality of Alcohol and Drug Abuse Patient Records regulations: The Federal rules restrict any use of the information to criminally investigate or prosecute any alcohol or drug abuse patient.[facility] Reason for Visit (unrecogniz ed section and content) Reason Comments Appointment Rescheduled Reason Comments Results Reason Comments Patient Question Reason Comments ER Summary Reason Comments Fax requested Reason Onset Date Comments Refill Request 06/08/2022 Reason Comments Appointment Reason Comments Forms Care Teams (unrecognized sec tion and content) Community Support Specialist Relationship Specialty Start Date End Date Aleksandr Salazar MD [facility] [place] [address] PCP - General Family Practice 05/30/21 Community Support Specialist Relationship Specialty Start Date End Date Aleksandr Salazar MD [facility] [place] [address] PCP - General Family Practice 05/30/21 Community Support Specialist Relationship Specialty Start Date End Date Aleksandr Salazar MD [facility] [place] [address] PCP - General Family Practice 05/30/21 Community Support Specialist Relationship Specialty Start Date End Date Aleksandr Salazar MD [facility] [place] [address] PCP - General Family Practice 05/30/21 Community Support Specialist Relationship Specialty Start Date End Date Aleksandr Salazar MD [address] [place] [address] [place] [address] PCP - General Family Practice 05/30/21 Community Support Specialist Relationship Specialty Start Date End Date Aleksandr Salazar MD [address] [place] [address] PCP - General Family Practice 05/30/21 Community Support Specialist Relationship Specialty Start Date End Date Aleksandr Salazar MD [address] [facility] [place] [address] PCP - General Family Practice 05/30/21 Team [...] BE BASED ON THE PRIMARY CLINICAL RECORDS. [facility] [employer] [facility]. provides no warranty or guarantee of the accuracy or completeness of information in this document.
== END | disposition home or self-care (01) ==
LOC: CVS 01-15 13:49
PROVIDERS: PCP Internal Medicine; Referring Provider Internal Medicine Cardiovascular Disease; Visit Provider Internal Medicine Cardiovascular Disease
DX: I50.9 Heart failure, unspecified (principal); I27.20 Pulmonary hypertension, unspecified; E78.2 Mixed hyperlipidemia; I10 Essential (primary) hypertension
CPT/HCPCS: 93306; A4216; J2785

== ENCOUNTER → 2024-01-04 | Outpatient (CLI) | payer MEDICARE, MEDICAID, SELFPAY ==
--- NOTE | 2024-01-04 10:49 | NM_ITS ---
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 VENTILATION-PERFUSION LUNG SCINTIGRAPHY COMPARISON: None available FINDINGS: The patient was administered 54 mCi 99m Tc DTPA aerosol. The aerosol ventilation study demonstrates heterogeneous ventilation identified throughout the bilateral lung lockhart. Central clumping of the aerosol is noted in the bilateral hemithorax. Following the intravenous administration of 5.4 mCi of 99m Tc MAA the pulmonary perfusion study reveals uniform perfusion throughout both lung lockhart. There are no segmental or subsegmental perfusion defects identified. There are no ventilation-perfusion mismatches observed. NM/Lung Scan Vent/Perf IMPRESSION: 1. NORMAL 99m Tc MAA pulmonary perfusion imaging examination, according to PIOPED II interpretive criteria. (Sotsman et al, Radiology 246: 941, 2008 Soximena et al, J Nucl Med 49: 1741, 2008). 2. Central clumping of the aerosol may be secondary to obstructive airway mechanics and or clinical tachypnea. 3. Patients with documented pulmonary hypertension and the presence of low probability, very low probability and normal ventilation-perfusion lung scintigraphy are associated with a LOW likelihood of thromboembolic pulmonary hypertension. (Colten et al, Chest 84: 679, 1983 Lisbona et al, AJR 144: 27, 1985). Electronically Signed: Rasheed Davidson DO at 13:05 EST ,
--- OUTSIDE RECORDS SUMMARY | 2024-01-04 11:10 | XMS RPT_ITS | CCD ---
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 Name Role Phone NOMI TEJEDA Unavailable Unavail [...] Unavailable Aleksandr Salazar MD Primary Care Provider [phone] Aleksandr Salazar MD Primary Care Provider Paul Campbell Jr Attending Unavailable Shannan Stephens, Paul Attending Unavailable Shannan Stephens, Paul Attending Unavailable Jenniferestmary Stephens, Paul Attending Unavailable Potestmary Stephens, Paul Attending Unavailable Allergies Allergy Classification Reported Allergen(s) Allergy Type Date of Onset Reaction(s) Facility (3 sources) [facility] Drug Allergy 03-14-20 16 Other (See Comments[facility] [place] [facility] Adhesive Tape Propensity to adverse reactions to drug 11-03-20 19 Dermatitis [employer] Phone: (1 source) Latex Propensity to adverse reactions to drug 10-02-20 19 [employer] Phone: (4 sources) Benzodiazepine Propensity to adverse reactions to drug 01-13-20 21 Other: See Comments [facility] Work Phone: [phone] (12 sources) carBAMazepine Drug Allergy 08-16-20 17 Mental Status Change [facility] Work Phone: (12 sources) Lisinopril Drug Allergy 09-28-20 20 Cough [facility] Work Phone: (12 sources) Losartan Drug Allergy 12-07-19 12 Swelling [facility] Work Phone: (12 sources) Morphinan opioid Propensity to adverse reactions to drug 01-13-20 21 Other: See Comments [facility] Work Phone: [phone] (4 sources) Thiazides Drug Intolerance 08-23-20 07 Other: See Comments [facility] Work Phone: [phone] (8 sources) Benzodiazepine Propensity to adverse reactions to drug 01-13-20 Other: See Comments [facility] Work Phone: (8 sources) Thiazides Drug Intolerance 08-23-20 07 Other: See Comments [facility] Work Phone: (1 source) erythromycin base Allergy to substance 03-14-20 16 Nausea/Vomitin g [facility] Medications Current Medications Medication Drug Class(es) Dates [...] (12 sources) Patient encounter status; Translations: [Other prison (current) drug therapy] Onset: 12-28-2021 12-28-2021 Episodic [...] 11-06-2023 End: 11-07-2023 ambulatory Paul Campbell Jr Facility:[facility] Start: 11-06-2023 End: 11-06-2023 ambulatory [facility] Work Phone: Start: 11-06-2023 End: 11-06-2023 Patient encounter procedure [facility] [address] [facility] [address] Work Phone: Start: 05-07-2023 ambulatory Paul Campbell Jr [facility] ity:[facility] Start: 11-06-2022 ambulatory Paul Campbell Jr Lisa ity:[facility] Start: 08-04-2022 Telephone encounter Candice Saunders MA [facility] [place] Procedures Date Procedure Procedure Detail Performing Clinician [...] Work Phone: Start: 11-04-2019 DISCHARGE PATIENT CONNIE MNUOZ Start: 11-04-2019 Level iv surg pathol ogy [...] INFORMED CONSENT CONNIE MUNOZ Start: 11-04-2019 VOID CORE RESCUER TO OR FABIAN MUNOZ Start: 09-17-2019 Blood [...] Detail Author Start: 12-21-2026 Urine microalbumin profile [facility] Start: 05-16-2026 DTaP/Tdap/Td vaccine (3 - Td) DTaP/Tdap/Td vaccine (3 - Td) [place], [place] Start: 12-30-2022 Hepatitis B surface antibody level LDL CHOLESTEROL [facility] Start: 12-28-2022 3 comp foot exam completed DIABETIC FOOT EXAM [facility] Start: 12-28-2022 Hepatitis B screening URINE ALBUMIN:CREATININE RATIO [facility] Start: 12-28-2022 SHINGRIX VACCINE (2 of 3) SHINGRIX VACCINE (2 of 3) [facility] Immunizations Immunization Date Immunization Notes Care Provider Fa mariana 12-28-2021 pneumococcal polysaccharide vaccine, 23 valent Aleksandr Salazar MD Work Phone: [facility] 10-17-2021 influenza, high dose seasonal, preservative-free Aleksandr Salazar MD Work Phone: [facility] 09-08-2021 influenza (aIIV4) vaccine, age 65+ yr, quadrivalent, PF (FLUAD QUADRIVALENT) Lillian Graves PA-C Work Phone: [facility] 12-17-2020 COVID-19 vaccine, fu ll dose (MODERNA) Lillian Graves PA-C Work Phone: [facility] 09-16-2020 pneumococcal polysaccharide vaccine, 23 valent Lillian Graves PA-C Work Phone: [facility] 09-01-2020 influenza (aIIV4) vaccine, age 65+ yr, quadrivalent, PF (FLUAD QUADRIVALENT) Lillian Graves PA-C Work Phone: [facility] 07-28-2020 influenza, high-dose , quadrivalent vaccine (FLUZONE HIGH DOSE QUADRIVALENT) Aleksandr Salazar MD Work Phone: [facility] 09-02-2019 influenza, high dose seasonal, preservative-free Aleksandr Salazar MD Work Phone: [facility] 08-14-2018 influenza, high dose seasonal, preservative-free Aleksandr Salazar MD Work Phone: [facility] 08-16-2017 influenza, high dose seasonal, preservative-free Aleksandr Salazar MD Work Phone: [facility] 12-21-2016 tetanus toxoid, redu fortino diphtheria toxoid, and acellular pertussis vaccine, adsorbed Aleksandr Salazar MD Work Phone: [facility] Work Phone: 08-08-2016 influenza, high dose seasonal, preservative-free Aleksandr Salazar MD Work Phone: [facility] 09-13-2015 influenza, high dose seasonal, preservative-free Aleksandr Salazar MD Work Phone: [facility] Work Phone: 09-09-2015 pneumococcal conjuga te vaccine, 13 valent [place] 09-09-2015 pneumococcal polysaccharide vaccine, 23 valent Lillian Graves PA-C Work Phone: [facility] 05-10-2015 pneumococcal conjuga te vaccine, 13 valent Aleksandr Salazar MD Work Phone: [facility] 02-04-2015 zoster vaccine, live [facility] 01-12-2015 tetanus toxoid, redu fortino diphtheria toxoid, and acellular pertussis vaccine, adsorbed [facility] 09-12-2013 influenza virus vacc ine, unspecified formulation Aleksandr Salazar MD Work Phone: [facility] Work Phone: 09-17-2012 influenza virus vacc ine, unspecified formulation Aleksandr Salazar MD Work Phone: [facility] 05-03-2010 zoster vaccine, live Aleksandr Salazar MD Work Phone: [facility] Work Phone: 12-13-2006 pneumococcal polysaccharide vaccine, 23 valent Aleksandr Salazar MD Work Phone: [facility] 12-13-2006 tetanus and diphther ia toxoids, adsorbed, preservative free, for adult use (2 Lf of tetanus toxoid and 2 Lf of diphtheria toxoid) Aleksandr Salazar MD Work Phone: [facility] Payers Date Payer Category Payer Medicare AETNA MEDICARE A ETNA MEDICARE-ADVANTAGE PPO xxxxxxxx 2017-Present [address] [place] [address] Medicare [id number] 2016 Unknown Critical access hospital Local [employer] U [id number] 2015 [place] [id number] 2015-Present [phone] [address] [place] [address] [facility] [id number] 2015 Medicare [place] [id number] 2015-Present [phone] [address] [place] [address] [facility] [id number] 2009 Medicare [id number] 1940 Unknown [id number] 1940 Unknown [id number] 1940 Unknown [id number] Medicare Aetna Medicare PPO [id number] Medicare [id number] Medicare UHC AARP MEDICARE [id number] Self-pay Self Pay [id number] Social History Date Type Detail Facility Start: 09-17-2019 End: 11-20-2019 Tobacco smoking status NHIS Former [place] [facility] [place] Start: [birth year]-19-1959 End: 11-19-1994 History of tobacco use Current smoker [place], [place] Start: 09-17-2019 End: 11-20-2019 Cigarettes smoked current (pack per day) - [facility] [place] [place] Start: 09-17-2019 Alcohol intake No [employer] [place], [place] Sex Assigned At Not on file [facility] [place] Start: 11-20-2019 Alcohol intake Current non-dr label pinker of alcohol (finding) [employer] Work Phone: Start: 06-26-2011 Tobacco smoking stat us PRIS Never smoked tobacco [facility] Start: 01-01-2022 End: 03-30-2022 Alcohol intake Current drinker of alcohol (finding) [facility] Start: 1940 Sex Assigned At Female [facility] Start: 03-20-2022 End: 03-30-2022 Exposure to SARS-CoV-2 (event) Yes [facility] Start: 06-26-2011 Tobacco use and exposure Smokeless tobacco non-user [facility] Start: 03-14-2016 Former Smoker [facility] Start: 03-14-2016 2015 [facility] Start: 03-14-2016 current [facility] Medical Equipment Procedure Code Equipment Code Equipment Origin al Text Equipment Identifier Dates Start: 08-30-2018 Clinical Notes 12-28-2021 to 12-12-2023 Telephone Encounter - Canidce Saunders MA - 08/04/2022 12:51 PM EDTTelephone Encounter - Candice Saunders MA - 07/31/2022 9:37 AM EDTTelephone Encounter - Aleksandr Salazar MD - 07/31/2022 8:18 AM EDT Note Date & Type Note Facility 12-12-2023 Note HNO ID: [id number] Author: FITZ SMITH LPN Service: ? Author Type: LICENSED NURSE Type: Progress Notes Filed: 12/12/2023 10:25 Note Text: Scan on 12/12/2023 10:14 AM by Provider, External, PA-C: Pulmonary [facility] 08-04-2022 Miscellaneous Notes Formattin g of this note might be different from the original. Faxed and mailed copy to daughter. Scanned into chart. Candice Saunders MA Spoke with daughter and told her form was completed if she wanted to come picker tender helper the form and have us mail to her. She indicated that they had no idea what they are suppose to do with the form next. It appears on the back of the form there is an address to [facility]. I offered to mail her a copy; [...] Candice Saunders MA documented in this encounter [facility] 08-04-2022 Miscellaneous Notes Formattin g of this note might be different from the original. Noted. Spoke with daughter and let her know provider was not available due to illness. Daughter did mention that her parents thought about just seeing the physician at the [facility] that it would be easier but [...] Candice Saunders MA documented in this encounter [facility] 06-12-2022 Miscellaneous Notes Please see son's message. Fitz Smith LPN Please see message regarding pt's medications. Fitz Smith LPN documented in this encounter [facility] 06-08-2022 Miscellaneous Notes Patient has been [...] Lois Weinberg LPN documented in this encounter [facility] 05-25-2022 Miscellaneous Notes Daughter calls to request the most recent medication list for patient be faxed to [facility] where patient is currently seeking treatment. Faxed to [phone] Quinton Meyer per request. Bre Rodrigues, RN documented in this encounter [facility] 05-24-2022 History of Presen t illness Narrative FYI ER Summary from [facility] Fitz Smith LPN Scan on 05/24/2022 6:14 AM by External Provider: Consultation - Emergency Medicine documented in this encounter [facility] 05-24-2022 Miscellaneous Notes Daughter was notified and aware of provider message below. Daughter advised that its not that easy to place parents in assisted living or long-term against there will and could severe relationship. [...] care then being in assisted living or long-term home permanently would be the best options and the hospital clinical social work aide can assist. I don't do detox. Doctors don't take away driving privileges. Family can discuss with [facility] about concerns or just remove car keys and vehicles from patient's home. See TE for , Rasheed as well. Patient daughter Zayda Sal calling mother is currently in [facility] for alcohol abuse and threat of suicide. Daughter said clinical social work aide wants to have her sent to [facility] where [facility]. Family members want to have her driving privileges taken away, daughter asking for any help she can get for parents. Daughter wanted to set up an appt for parents. Please advise documented in this encounter [facility] 04-03-2022 Miscellaneous Notes Patient notified via [email or web address]. TC to Pt. Unable to LM due to there is no mailbox. Will try again later. Carolina Acharya LPN Urine culture is negative. documented in this encounter [facility] 03-31-2022 Miscellaneous Notes Patient notified of [...] Lillian Graves PA-C documented in this encounter [facility] 03-23-2022 Miscellaneous Notes Reason for call: Patient calling requesting to reschedule her appointment with Dr. Salazar, as she missed it yesterday. Patient denies any new or worsening symptoms of which a provider is not aware: Yes. Outcome: Patient conferenced to the appointment center for assistance with scheduling. documented in this encounter [facility] 03-14-2022 History of Presen t illness Narrative TRANSITION CARE MANAGEMENT (TCM) INITIAL CONTACT [employer] Provider Action/FYI: Patient is still not [...] flowsheet data found. SUMMARY: -Pt discharged from [facility] on 03/11. -Admitted for: hypokalemia Do [...] provider to review documented in this encounter [facility] documented as of this encounter (statuses as of 03/14/2022) [facility] History of Past illness Narrative* Problem [...] of this encounter (statuses as of 03/23/2022) [facility] History of Past illness Narrative* Problem [...] of this encounter (statuses as of 03/31/2022) [facility] History of Past illness Narrative* Problem [...] of this encounter (statuses as of 04/03/2022) [facility] History of Past illness Narrative* Problem [...] of this encounter (statuses as of 05/24/2022) [facility] History of Past illness Narrative* Problem [...] of this encounter (statuses as of 05/25/2022) [facility] of Past illness Narrative* Problem [...] of this encounter (statuses as of 06/08/2022) [facility] of Past illness Narrative* Problem [...] of this encounter (statuses as of 06/21/2022) [facility] History of Past illness Narrative* Problem [...] of this encounter (statuses as of 06/21/2022) [facility] History of Past illness Narrative* Problem [...] of this encounter (statuses as of 08/04/2022) [facility] note* Diagnosis Anemia, unspecified type- Primary Hyperkalemia Hyperpotassemia documented in this encounter [facility] noteNo assessment information available[facility] Work Phone: Summary Purpose Family History No Family History Records FoundNo Family History Records FoundNo Family History Records FoundNo Family History Records FoundNo Family History Records FoundNo Family History Records FoundNo Family History Records FoundNo Family History Records FoundNo Family History Records Found Advance Directives No Advanced Directives Records FoundDocuments on File Type Date Recorded 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 Advance Directives and Living Will Power of [employer] [address] [employer] [address] Latest Code Status on File Code Status Date Activated Date Inactivated Comments Full Code 11/30/2017 10:38 AM 12/01/2017 2:43 AM Latest Code Status on File Code Status Date Activated Date Inactivated Comments Full Code 11/04/2019 6:53 AM 11/04/2019 12:26 PM Full Code 11/30/2017 10:38 AM 12/01/2017 2:43 AM Documents on File Type Date Recorded 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 Advance Directive(s) 09/16/2018 9:55 AM Advance Directive(s) 11/15/2016 3:31 PM Advance Directive(s) 10/02/2016 2:15 PM Advance Directive(s) 08/25/2016 11:23 AM Advance Directive(s) 08/25/2016 11:14 AM Advance Directive(s) 08/22/2016 5:14 PM Documents on File Type Date Recorded 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 Advance Directive(s) 09/16/2018 9:55 AM [...] DATE CREATED AUTHOR AUTHOR'S ORGANIZ ATION 05/10/2018 [facility] DATE CREATED AUTHOR AUTHOR'S ORGANIZ ATION 11/10/2019 [facility] DATE CREATED AUTHOR AUTHOR'S ORGANIZ ATION 09/18/2020 [facility] DATE CREATED AUTHOR AUTHOR'S ORGANIZ ATION 06/07/2022 [facility] DATE CREATED AUTHOR AUTHOR'S ORGANIZ ATION 05/07/2023 [facility] DATE CREATED AUTHOR AUTHOR'S ORGANIZ ATION 07/05/2023 [facility] DATE CREATED AUTHOR AUTHOR'S ORGANIZ ATION 11/10/2023 [facility] DATE CREATED AUTHOR AUTHOR'S ORGANIZ ATION 12/13/2023 [facility] Source Comments (unrecognize d section and content) In the event this informatio n is protected by the Federal Confidentiality of Alcohol and Drug Abuse Patient Records regulations: The Federal rules restrict any use of the information to criminally investigate or prosecute any alcohol or drug abuse patient.[facility] the event this information is protected by the Federal Confidentiality of Alcohol and Drug Abuse Patient Records regulations: The Federal rules restrict any use of the information to criminally investigate or prosecute any alcohol or drug abuse patient.[facility] the event this information is protected by the Federal Confidentiality of Alcohol and Drug Abuse Patient Records regulations: The Federal rules restrict any use of the information to criminally investigate or prosecute any alcohol or drug abuse patient.[facility] the event this information is protected by the Federal Confidentiality of Alcohol and Drug Abuse Patient Records regulations: The Federal rules restrict any use of the information to criminally investigate or prosecute any alcohol or drug abuse patient.[facility] the event this information is protected by the Federal Confidentiality of Alcohol and Drug Abuse Patient Records regulations: The Federal rules restrict any use of the information to criminally investigate or prosecute any alcohol or drug abuse patient.[facility] the event this information is protected by the Federal Confidentiality of Alcohol and Drug Abuse Patient Records regulations: The Federal rules restrict any use of the information to criminally investigate or prosecute any alcohol or drug abuse patient.[facility] the event this information is protected by the Federal Confidentiality of Alcohol and Drug Abuse Patient Records regulations: The Federal rules restrict any use of the information to criminally investigate or prosecute any alcohol or drug abuse patient.[facility] the event this information is protected by the Federal Confidentiality of Alcohol and Drug Abuse Patient Records regulations: The Federal rules restrict any use of the information to criminally investigate or prosecute any alcohol or drug abuse patient.[facility]In the event this information is protected by the Federal Confidentiality of Alcohol and Drug Abuse Patient Records regulations: The Federal rules restrict any use of the information to criminally investigate or prosecute any alcohol or drug abuse patient.[facility] the event this information is protected by the Federal Confidentiality of Alcohol and Drug Abuse Patient Records regulations: The Federal rules restrict any use of the information to criminally investigate or prosecute any alcohol or drug abuse patient.[facility] Hospital[facility] the event this information is protected by the Federal Confidentiality of Alcohol and Drug Abuse Patient Records regulations: The Federal rules restrict any use of the information to criminally investigate or prosecute any alcohol or drug abuse patient.[facility] the event this information is protected by the Federal Confidentiality of Alcohol and Drug Abuse Patient Records regulations: The Federal rules restrict any use of the information to criminally investigate or prosecute any alcohol or drug abuse patient.[facility] Reason for Visit (unrecogniz ed section and content) Reason Comments Appointment Rescheduled Reason Comments Results Reason Comments Patient Question Reason Comments ER Summary Reason Comments Fax requested Reason Onset Date Comments Refill Request 06/08/2022 Reason Comments Appointment Reason Comments Forms Care Teams (unrecognized sec tion and content) Buffing Wheel Former 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 Relationship Specialty Start Date End Date Aleksandr Salazar MD [facility] [place] [address] PCP - General Family Practice 05/30/21 Buffing Wheel Former Machine Relationship Specialty Start Date End Date Aleksandr Salazar MD [facility] [place] [address] PCP - General Family Practice 05/30/21 Buffing Wheel Former Machine Relationship Specialty Start Date End Date Aleksandr Salazar MD [facility] [place] [address] PCP - General Family Practice 05/30/21 Buffing Wheel Former Machine Relationship Specialty Start Date End Date Aleksandr Salazar MD [facility] [place] [address] PCP - General Family Practice 05/30/21 Buffing Wheel Former Machine Relationship Specialty Start Date End Date Aleksandr Salazar MD [address] [place] [address] [place] [address] PCP - General Family Practice 05/30/21 Buffing Wheel Former Machine Relationship Specialty Start Date End Date Aleksandr Salazar MD [address] [place] [address] PCP - General Family Practice 05/30/21 Buffing Wheel Former Machine Relationship Specialty Start Date End Date Aleksandr Salazar MD [address] [place] [address] PCP - General Family Practice 05/30/21 Team [...] BE BASED ON THE PRIMARY CLINICAL RECORDS. [facility]. provides no warranty or guarantee of the accuracy or completeness of information in this document.
== END | disposition home or self-care (01) ==
LOC: NM 10:47
PROVIDERS: PCP Internal Medicine; Referring Provider Internal Medicine Critical Care Medicine; Visit Provider Internal Medicine Critical Care Medicine
DX: G47.33 Obstructive sleep apnea (adult) (pediatric) (principal); I27.20 Pulmonary hypertension, unspecified
CPT/HCPCS: 78582; A9540; A9567

== ENCOUNTER → 2024-01-24 | Outpatient (CLI) | payer MEDICARE, MEDICAID, SELFPAY | END | disposition home or self-care (01) | LOC: SL 20:26 | PROVIDERS: PCP Internal Medicine; Referring Provider Internal Medicine Critical Care Medicine; Visit Provider Internal Medicine Critical Care Medicine | DX: G47.33 Obstructive sleep apnea (adult) (pediatric) (principal); I27.20 Pulmonary hypertension, unspecified | CPT/HCPCS: 95810 ==

== ENCOUNTER → 2024-01-25 | Outpatient (CLI) | payer MEDICARE, MEDICAID, SELFPAY ==
--- OUTSIDE RECORDS SUMMARY | 2024-01-25 06:01 | XMS RPT_ITS | CCD ---
Author Name Unknown Address [address] [place] [address] Organization [facility] Care Team Providers Care [employer] Contractor Name Role Phone NOMI TEJEDA Unavailable Unavail able MARAL TAPIA Unavailable Unavailable NIKHIL, NOMI Unavailable Unavail able NIKHIL, NOMI Unavailable Unavail MARAL Aaron Unavailable MARAL Omalley Unavailable MARAL Omalley THOMAS Unavailable Unavailable Maral Tapia Primary Care Provider [phone] CONNIE MUNOZ Admitting Unavailable CONNIE MUNOZ Attending Unavailable CONNIE MUNOZ Referring Unavailable MARAL TAPIA Primary Care Unavailable MARAL TAPIA Referring Unavailable MARAL TAPIA Primary Care Unavailable MARAL TAPIA Referring Unavailable MARAL TAPIA Primary Care Unavailable Aleksandr Salazar MD Primary Care Provider Aleksandr Salazar MD Primary Care Provider [phone] Paul Campbell Jr Attending Unavailable Shannan Stephens, Paul Attending Unavailable Shannan Stephens, Paul Attending Unavailable Jenniferestmary Stephens, Paul Attending Unavailable Jenniferestmary Stephens, Paul Attending Unavailable Allergies Allergy Classification Reported Allergen(s) Allergy Type Date of Onset Reaction(s) Facility (3 sources) [facility] Drug Allergy 03-14-20 16 Other (See Comments) [facility] [place] ([facility] source) Adhesive Tape Propensity to adverse reactions to drug 11-03-20 19 Dermatitis [facility] Phone: (1 source) Latex Propensity to adverse reactions to drug 10-02-20 19 [facility] Phone: (4 sources) Benzodiazepine Propensity to adverse reactions to drug 01-13-20 21 Other: See Comments [facility] Work Phone: [phone] (12 sources) carBAMazepine Drug Allergy 08-16-20 17 Mental Status Change [facility] Work Phone: (12 sources) Lisinopril Drug Allergy 09-28-20 20 Cough [facility] Work Phone: (12 sources) Losartan Drug Allergy 12-07-19 12 Swelling [facility] Work Phone: (12 sources) Morphinan opioid Propensity to adverse reactions to drug 01-13-20 21 Other: See Comments [facility] Work Phone: [phone] (4 sources) Thiazides Drug Intolerance 08-23-20 07 Other: See Comments [facility] Work Phone: [phone] (8 sources) Benzodiazepine Propensity to adverse reactions to drug 01-13-20 Other: See Comments [facility] Work Phone: (8 sources) Thiazides Drug Intolerance 08-23-20 07 Other: See Comments [facility] Work Phone: (1 source) erythromycin base Allergy to substance 03-14-20 16 Nausea/Vomitin g [facility] Medications Current Medications Medication Drug Class(es) [...] (12 sources) Patient encounter status; Translations: [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] Onset: 12-28-2021 12-28-2021 Episodic [...] 11-06-2023 End: 11-07-2023 ambulatory Paul Campbell Jr Facility:[facility] Start: 11-06-2023 End: 11-06-2023 ambulatory [facility] Work Phone: Start: 11-06-2023 End: 11-06-2023 Patient encounter procedure [facility] [address] [facility] Work Phone: Start: 05-07-2023 ambulatory Paul Campbell Jr [facility] ity:[facility] Start: 11-06-2022 ambulatory Paul Campbell Jr Lisa ity:[facility] Start: 08-04-2022 Telephone encounter Candice Saunders MA [facility] [place] Procedures Date Procedure Procedure Detail Performing Clinician [...] INFORMED CONSENT CONNIE MUNOZ Start: 11-04-2019 VOID UNDERGRADUATE INTERN TO OR FABIAN MUNOZ Start: 09-17-2019 Blood [...] Detail Author Start: 12-21-2026 Urine microalbumin profile [facility] Start: 05-16-2026 DTaP/Tdap/Td vaccine (3 - Td) DTaP/Tdap/Td vaccine (3 - Td) [place] Start: 12-30-2022 Hepatitis B surface antibody level LDL CHOLESTEROL [facility] Start: 12-28-2022 3 comp foot exam completed DIABETIC FOOT EXAM [facility] Start: 12-28-2022 Hepatitis B screening URINE ALBUMIN:CREATININE RATIO [facility] Start: 12-28-2022 SHINGRIX VACCINE (2 of 3) SHINGRIX VACCINE (2 of 3) [facility] Immunizations Immunization Date Immunization Notes Care Provider Fa mariana 12-28-2021 pneumococcal polysaccharide vaccine, 23 valent Aleksandr Salazar MD Work Phone: [facility] 10-17-2021 influenza, high dose seasonal, preservative-free Aleksandr Salazar MD Work Phone: [facility] 09-08-2021 influenza (aIIV4) vaccine, age 65+ yr, quadrivalent, PF (FLUAD QUADRIVALENT) Lillian Graves PA-C Work Phone: [facility] 12-17-2020 COVID-19 vaccine, fu ll dose (MODERNA) Lillian Graves PA-C Work Phone: [facility] 09-16-2020 pneumococcal polysaccharide vaccine, 23 valent Lillian Graves PA-C Work Phone: [facility] 09-01-2020 influenza (aIIV4) vaccine, age 65+ yr, quadrivalent, PF (FLUAD QUADRIVALENT) Lillian Graves PA-C Work Phone: [facility] 07-28-2020 influenza, high-dose , quadrivalent vaccine (FLUZONE HIGH DOSE QUADRIVALENT) Aleksandr Salazar MD Work Phone: [facility] 09-02-2019 influenza, high dose seasonal, preservative-free Aleksandr Salazar MD Work Phone: [facility] 08-14-2018 influenza, high dose seasonal, preservative-free Aleksandr Salazar MD Work Phone: [facility] 08-16-2017 influenza, high dose seasonal, preservative-free Aleksandr Salazar MD Work Phone: [facility] 12-21-2016 tetanus toxoid, redu fortino diphtheria toxoid, and acellular pertussis vaccine, adsorbed Aleksandr Salazar MD Work Phone: [facility] Work Phone: 08-08-2016 influenza, high dose seasonal, preservative-free Aleksandr Salazar MD Work Phone: [facility] 09-13-2015 influenza, high dose seasonal, preservative-free Aleksandr Salazar MD Work Phone: [facility] Work Phone: 09-09-2015 pneumococcal conjuga te vaccine, 13 valent [facility] [place] 09-09-2015 pneumococcal polysaccharide vaccine, 23 valent Lillian Graves PA-C Work Phone: [facility] 05-10-2015 pneumococcal conjuga te vaccine, 13 valent Aleksandr Salazar MD Work Phone: [facility] 02-04-2015 zoster vaccine, live [facility] 01-12-2015 tetanus toxoid, redu fortino diphtheria toxoid, and acellular pertussis vaccine, adsorbed Maral [facility] 09-12-2013 influenza virus vacc ine, unspecified formulation Aleksandr Salazar MD Work Phone: [facility] Work Phone: 09-17-2012 influenza virus vacc ine, unspecified formulation Aleksandr Salazar MD Work Phone: [facility] 05-03-2010 zoster vaccine, live Aleksandr Salazar MD Work Phone: [facility] Work Phone: 12-13-2006 pneumococcal polysaccharide vaccine, 23 valent Aleksandr Salazar MD Work Phone: [facility] 12-13-2006 tetanus and diphther ia toxoids, adsorbed, preservative free, for adult use (2 Lf of tetanus toxoid and 2 Lf of diphtheria toxoid) Aleksandr Salazar MD Work Phone: [facility] Payers Date Payer Category Payer Medicare AETNA MEDICARE A ETNA MEDICARE-ADVANTAGE PPO [id number] 2017-Present [address] [place] [address] Medicare [id number] 2016 Unknown [facility] Local Commercial U [id number] 2015 [place] [id number] 2015-Present [phone] [address] [place] [address] [facility] [id number] 2015 Medicare [place] [id number] 2015-Present [phone] [address] [place] [address] [facility] [id number] 2009 Medicare [id number] 1940 Unknown [id number] 1940 Unknown [id number] 1940 Unknown [id number] Medicare Aetna Medicare PPO [id number] Medicare [id number] Medicare UHC AARP MEDICARE [id number] Self-pay Self Pay [id number] Social History Date Type Detail Facility Start: 09-17-2019 End: 11-20-2019 Tobacco smoking status NHIS [place] [facility] [place] Start[place] 11-19-1959 End: 11-19-1994 History of tobacco use Current smoker [place] Start: 09-17-2019 End: 11-20-2019 Cigarettes smoked current (pack per day) - [facility]orted [facility] [place] Start: 09-17-2019 Alcohol intake No [employer] [place] Sex Assigned At Not on file [facility] [place] Start: 11-20-2019 Alcohol intake 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) [employer] Work Phone: Start: 06-26-2011 Tobacco smoking stat us TXIS Never smoked tobacco [facility] Start: 01-01-2022 End: 03-30-2022 Alcohol intake Current drinker of alcohol (finding) [facility] Start: 1940 Sex Assigned At Female C [facility] Start: 03-20-2022 End: 03-30-2022 Exposure to SARS-CoV-2 (event) Yes [facility] Start: 06-26-2011 Tobacco use and exposure Smokeless tobacco non-user [facility] Start: 03-14-2016 Former Smoker [facility] Start: 03-14-2016 2015 [facility] Start: 03-14-2016 current [facility] Medical Equipment Procedure Code Equipment Code Equipment Origin al Text Equipment Identifier Dates Start: 08-30-2018 Clinical Notes 12-28-2021 to 12-12-2023 Telephone Encounter - Candice Saunders MA - 08/04/2022 12:51 PM EDTTelephone Encounter - Candice Saunders MA - 07/31/2022 9:37 AM EDTTelephone Encounter - Aleksandr Salazar MD - 07/31/2022 8:18 AM EDT Note Date & Type Note Facility 12-12-2023 Note HNO ID: [id number] Author: FITZ SMITH LPN Service: ? Author Type: LICENSED NURSE Type: Progress Notes Filed: 12/12/2023 10:25 Note Text: Scan on 12/12/2023 10:14 AM by Provider, External, PA-C: Pul[facility] 08-04-2022 Miscellaneous Notes Formattin g of this note might be different from the original. Faxed and mailed copy to daughter. Scanned into chart. Candice Saunders MA Spoke with daughter and told her form was completed if she wanted to come bead picker the form and have us mail to her. She indicated that they had no idea what they are suppose to do with the form next. It appears on the back of the form there is an address to [facility]. I offered to mail her a copy; [...] Candice Saunders MA documented in this encounter [facility] 08-04-2022 Miscellaneous Notes Formattin g of this note might be different from the original. Noted. Spoke with daughter and let her know provider was not available due to illness. Daughter did mention that her parents thought about just seeing the physician at the [facility] that it would be easier but [...] Candice Saunders MA documented in this encounter [facility] 06-12-2022 Miscellaneous Notes Please see son's message. Fitz Smith LPN Please see message regarding pt's medications. Fitz Smith LPN documented in this encounter [facility] 06-08-2022 Miscellaneous Notes Patient has [...] Lois Weinberg LPN documented in this encounter [facility] 05-25-2022 Miscellaneous Notes Daughter calls to request the most recent medication list for patient be faxed to [facility] where patient is currently seeking treatment. Faxed to [phone] Quinton Meyer per request. Bre Rodrigues, RN documented in this encounter [facility] 05-24-2022 History of Presen t illness Narrative FYI ER Summary from [facility] Fitz Smith LPN Scan on 05/24/2022 6:14 AM by External Provider: Consultation - Emergency Medicine documented in this encounter [facility] 05-24-2022 Miscellaneous Notes Daughter was notified and aware of provider message below. Daughter advised that its not that easy to place parents in assisted living or shelter against there will and could severe relationship. [...] care then being in assisted living or shelter home permanently would be the best options and the hospital social work faculty member can assist. I don't do detox. Doctors don't take away driving privileges. Family can discuss with [facility] about concerns or just remove car keys and vehicles from patient's home. See TE for , Rasheed as well. Patient daughter Zayda Sal calling mother is currently in [facility] for alcohol abuse and threat of suicide. Daughter said social work faculty member wants to have her sent to [facility] where [facility] is a [facility] substance abuse facility. Family members want to have her driving privileges taken away, daughter asking for any help she can get for parents. Daughter wanted to set up an appt for parents. Please advise documented in this encounter [facility] 04-03-2022 Miscellaneous Notes Patient notified via [employer]. TC to Pt. Unable to LM due to there is no mailbox. Will try again later. Carolina Acharya LPN Urine culture is negative. documented in this encounter [facility] 03-31-2022 Miscellaneous Notes Patient notified [...] Lillian Graves PA-C documented in this encounter [facility] 03-23-2022 Miscellaneous Notes Reason for call: Patient calling requesting to reschedule her appointment with Dr. Salazar, as she missed it yesterday. Patient denies any new or worsening symptoms of which a provider is not aware: Yes. Outcome: Patient conferenced to the appointment center for assistance with scheduling. documented in this encounter [facility] 03-14-2022 History of Presen t illness Narrative TRANSITION CARE MANAGEMENT (TCM) INITIAL CONTACT Airfield Manager Outreach Provider Action/FYI: Patient is still not [...] flowsheet data found. SUMMARY: -Pt discharged from [facility] on 03/11. -Admitted for: hypokalemia Do [...] provider to review documented in this encounter [facility] documented as of this encounter (statuses as of 03/14/2022) [facility] History of Past illness Narrative* [...] of this encounter (statuses as of 03/23/2022) [facility] History of Past illness Narrative* [...] of this encounter (statuses as of 03/31/2022) [facility] History of Past illness Narrative* [...] of this encounter (statuses as of 04/03/2022) [facility] History of Past illness Narrative* [...] of this encounter (statuses as of 05/24/2022) [facility] History of Past illness Narrative* [...] of this encounter (statuses as of 05/25/2022) [facility] History of Past illness Narrative* [...] of this encounter (statuses as of 06/08/2022) [facility] History of Past illness Narrative* [...] of this encounter (statuses as of 06/21/2022) [facility] History of Past illness Narrative* [...] of this encounter (statuses as of 06/21/2022) [facility] History of Past illness Narrative* [...] this encounter (statuses as of 08/04/2022) [facility] note* Diagnosis Anemia, unspecified type- Primary Hyperkalemia Hyperpotassemia documented in this encounter [facility] noteNo assessment information availableSouthdaly citys [facility] Work Phone: Summary Purpose Family History No Family History Records FoundNo Family History Records FoundNo Family History Records FoundNo Family History Records FoundNo Family History Records FoundNo Family History Records FoundNo Family History Records FoundNo Family History Records FoundNo Family History Records Found Advance Directives No Advanced Directives Records FoundDocuments on File Type Date 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 Advance Directives and Living Will Power of Fugitive Investigator Latest Code Status on File Code Status Date Activated Date Inactivated Comments Full Code 11/30/2017 10:38 AM 12/01/2017 2:43 AM Latest Code Status on File Code Status Date Activated Date Inactivated Comments Full Code 11/04/2019 6:53 AM 11/04/2019 12:26 PM Full Code 11/30/2017 10:38 AM 12/01/2017 2:43 AM Documents on File Type Date Recorded 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 Advance Directive(s) 09/16/2018 9:55 AM Advance Directive(s) 11/15/2016 3:31 PM Advance Directive(s) 10/02/2016 2:15 PM Advance Directive(s) 08/25/2016 11:23 AM Advance Directive(s) 08/25/2016 11:14 AM Advance Directive(s) 08/22/2016 5:14 PM Documents on File Type Date Recorded 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 Advance Directive(s) 09/16/2018 9:55 [...] DATE CREATED AUTHOR AUTHOR'S ORGANIZ ATION 05/10/2018 [facility] DATE CREATED AUTHOR AUTHOR'S ORGANIZ ATION 11/10/2019 [facility] DATE CREATED AUTHOR AUTHOR'S ORGANIZ ATION 09/18/2020 [facility] DATE CREATED AUTHOR AUTHOR'S ORGANIZ ATION 06/07/2022 [facility] DATE CREATED AUTHOR AUTHOR'S ORGANIZ ATION 05/07/2023 [facility] DATE CREATED AUTHOR AUTHOR'S ORGANIZ ATION 07/05/2023 [facility] DATE CREATED AUTHOR AUTHOR'S ORGANIZ ATION 11/10/2023 [facility] DATE CREATED AUTHOR AUTHOR'S ORGANIZ ATION 12/13/[address] [facility] Source Comments (unrecognize d section and content) In the event this informatio n is protected by the Federal Confidentiality of Alcohol and Drug Abuse Patient Records regulations: The Federal rules restrict any use of the information to criminally investigate or prosecute any alcohol or drug abuse patient.[facility] the event this information is protected by the Federal Confidentiality of Alcohol and Drug Abuse Patient Records regulations: The Federal rules restrict any use of the information to criminally investigate or prosecute any alcohol or drug abuse patient.[facility] the event this information is protected by the Federal Confidentiality of Alcohol and Drug Abuse Patient Records regulations: The Federal rules restrict any use of the information to criminally investigate or prosecute any alcohol or drug abuse patient.[facility] the event this information is protected by the Federal Confidentiality of Alcohol and Drug Abuse Patient Records regulations: The Federal rules restrict any use of the information to criminally investigate or prosecute any alcohol or drug abuse patient.[facility] the event this information is protected by the Federal Confidentiality of Alcohol and Drug Abuse Patient Records regulations: The Federal rules restrict any use of the information to criminally investigate or prosecute any alcohol or drug abuse patient.[facility] the event this information is protected by the Federal Confidentiality of Alcohol and Drug Abuse Patient Records regulations: The Federal rules restrict any use of the information to criminally investigate or prosecute any alcohol or drug abuse patient.[facility] the event this information is protected by the Federal Confidentiality of Alcohol and Drug Abuse Patient Records regulations: The Federal rules restrict any use of the information to criminally investigate or prosecute any alcohol or drug abuse patient.[facility] the event this information is protected by the Federal Confidentiality of Alcohol and Drug Abuse Patient Records regulations: The Federal rules restrict any use of the information to criminally investigate or prosecute any alcohol or drug abuse patient.[facility] the event this information is protected by the Federal Confidentiality of Alcohol and Drug Abuse Patient Records regulations: The Federal rules restrict any use of the information to criminally investigate or prosecute any alcohol or drug abuse patient.[facility] the event this information is protected by the Federal Confidentiality of Alcohol and Drug Abuse Patient Records regulations: The Federal rules restrict any use of the information to criminally investigate or prosecute any alcohol or drug abuse patient.[facility] the event this information is protected by the Federal Confidentiality of Alcohol and Drug Abuse Patient Records regulations: The Federal rules restrict any use of the information to criminally investigate or prosecute any alcohol or drug abuse patient.[facility] the event this information is protected by the Federal Confidentiality of Alcohol and Drug Abuse Patient Records regulations: The Federal rules restrict any use of the information to criminally investigate or prosecute any alcohol or drug abuse patient.[facility] Reason for Visit (unrecogniz ed section and content) Reason Comments Appointment Rescheduled Reason Comments Results Reason Comments Patient Question Reason Comments ER Summary Reason Comments Fax requested Reason Onset Date Comments Refill Request 06/08/2022 Reason Comments Appointment Reason Comments Forms Care Teams (unrecognized sec tion and content) [employer] Contractor Relationship Specialty Start Date End Date Aleksandr Salazar MD [facility] [place] [address] PCP - General Family Practice 05/30/21 [employer] Contractor Relationship Specialty Start Date End Date Aleksandr Salazar MD [facility] [place] [address] PCP - General Family Practice 05/30/21 [employer] Contractor Relationship Specialty Start Date End Date Aleksandr Salazar MD [facility] [place] [address] PCP - General Family Practice 05/30/21 [employer] Contractor Relationship Specialty Start Date End Date Aleksandr Salazar MD [facility] [place] [address] PCP - General Family Practice 05/30/21 [employer] Contractor Relationship Specialty Start Date End Date Aleksandr Salazar MD [address] [place] [address] [place] [address] PCP - General Family Practice 05/30/21 [employer] Contractor Relationship Specialty Start Date End Date Aleksandr Salazar MD [address] [place] [address] PCP - General Family Practice 05/30/21 [employer] Contractor Relationship Specialty Start Date End Date Aleksandr Salazar MD [address] [place] [address] PCP - General Family Practice 05/30/21 Team [...] BE BASED ON THE PRIMARY CLINICAL RECORDS. [facility]. provides no warranty or guarantee of the accuracy or completeness of information in this document.
--- NOTE | 2024-02-01 15:00 | STRESSREP_ITS ---
Stress Test Report Date: 01/25/2024 Procedure: Pharmacologic stress nuclear imaging study Indications: Dyspnea on exertion Consent: Per the patient Procedure: The patient underwent pharmacologic (Regadenoson 0.4mg ) evaluation with a peak heart rate of 95 beats per minute (69%predicted maximal heart rate) and a peak blood pressure of 150/74 mmHg. The baseline ECG demonstrated sinus rhythm. The peak pharmacologic ECG demonstrated no ischemic changes. There were no cardiac dysrhythmias pretest, during pharmacologic infusion, or recovery. There was no complaint of chest discomfort during pharmacologic infusion or recovery. The patient was injected with 11.3 millicuries of technetium 99m Cardiolite and subsequently rest SPECT Cardiolite nuclear imaging was obtained in the horizontal long, vertical long, and short axis views. The patient underwent pharmacologic (Regadenoson) evaluation. The patient was injected with 33.9 millicuries of technetium 99m Cardiolite and subsequently stress SPECT Cardiolite nuclear imaging was obtained in the horizontal long, vertical long, and short axis views. A gated Cardiolite study at peak stress was obtained. The examination was stopped secondary to completion of protocol. Rest and stress SPECT Cardiolite nuclear imaging status post realignment, normalization, and attenuation correction demonstrate no fixed or reversible perfusion defects. There is end systolic thickening and brightening. The gated Cardiolite study demonstrates myocardial thickening and inward wall motion. The reported LVEF is 80%. Impression: 1. Pharmacologic (Regadenoson) evaluation 2. Peak pharmacologic ECG with no ischemic changes. 3. There were no cardiac dysrhythmias pretest, during pharmacologic infusion, or recovery. 5. Rest and stress SPECT Cardiolite nuclear imaging demonstrate relative uniform tracer uptake and myocardial perfusion appearing within normal limits. 6. The gated Cardiolite study reports an LVEF of 80%. This note was generated with Airtimeation software. It may contain incorrect words, spelling, and punctuation that were not noted in checking the note before signing.
== END | disposition home or self-care (01) ==
LOC: CVS 05:58
PROVIDERS: PCP Internal Medicine; Referring Provider Internal Medicine Cardiovascular Disease; Visit Provider Internal Medicine Cardiovascular Disease
DX: R06.09 Other forms of dyspnea (principal); I50.9 Heart failure, unspecified; I27.20 Pulmonary hypertension, unspecified; I10 Essential (primary) hypertension
CPT/HCPCS: 78452; 93017; A9500; A4216; J2785

== ENCOUNTER → 2024-03-10 | Outpatient (REF) | payer MEDICARE, MEDICAID, SELFPAY ==
[2024-03-10 09:24] LABS: Hematocrit 37.1 % (37-47); Hemoglobin 11.1 g/dL (12.0-15.0); Mean Corp Hgb Conc 29.9 g/dL (32-36); Mean Corpuscular Hgb 28.1 pg (27.0-32.0); Mean Corpuscular Volume 93.9 fL (81-99); Mean Platelet Vol. 10.3 fl (6.2-12.0); Platelet Count 415 K/mm3 (150-450); RBC Distribution Width CV 14.7 % (11.6-14.6); Red Blood Count 3.95 M/mm3 (4.2-5.4); White Blood Count 10.1 K/mm3 (4.4-11.0)
[2024-03-10 10:03] LABS: Anion Gap 5 (5-15); BUN 20 mg/dL (7-18); BUN/Creat Ratio 20.9 RATIO (10-20); Calcium,Total 9.8 mg/dL (8.5-10.1); Chloride 101 mmol/L (98-107); Creatinine, Serum 0.96 mg/dL (0.55-1.02); EST Glomerular Filtration Rate 59 mL/min (>60); Est Glom Filt Rate - Afr Amer 71 mL/min (>60); Glucose 122 mg/dL (74-106); Magnesium 1.7 mg/dL (1.6-2.6); Potassium 3.8 mmol/L (3.5-5.1); Sodium Level 137 mmol/L (136-145)
== END ==
LOC: OLS.SWAL 05:00
PROVIDERS: PCP Internal Medicine; Visit Provider Internal Medicine
DX: E11.29 Type 2 diabetes mellitus with other diabetic kidney complication (principal)
CPT/HCPCS: 36415; 80048; 83735; 85027

== ENCOUNTER → 2024-04-28 | Outpatient (REF) | payer MEDICARE, MEDICAID, SELFPAY ==
[2024-04-28 08:47] LABS: Hematocrit 37.5 % (37-47); Hemoglobin 11.2 g/dL (12.0-15.0); Mean Corp Hgb Conc 29.9 g/dL (32-36); Mean Corpuscular Hgb 27.9 pg (27.0-32.0); Mean Corpuscular Volume 93.3 fL (81-99); Platelet Count 509 K/mm3 (150-450); RBC Distribution Width CV 14.5 % (11.6-14.6); RBC Distribution Width SD 49.8 fl (35.1-43.9); Red Blood Count 4.02 M/mm3 (4.2-5.4); White Blood Count 12.1 K/mm3 (4.4-11.0)
[2024-04-28 09:15] LABS: Anion Gap 6 (5-15); BUN 15 mg/dL (7-18); BUN/Creat Ratio 13.3 RATIO (10-20); Calcium,Total 10.2 mg/dL (8.5-10.1); Chloride 104 mmol/L (98-107); Creatinine, Serum 1.13 mg/dL (0.55-1.02); EST Glomerular Filtration Rate 49 mL/min (>60); Est Glom Filt Rate - Afr Amer 59 mL/min (>60); Glucose 115 mg/dL (74-106); Potassium 3.6 mmol/L (3.5-5.1); Sodium Level 134 mmol/L (136-145)
== END ==
LOC: OLS.SWAL 05:00
PROVIDERS: PCP Internal Medicine; Visit Provider Internal Medicine
DX: I11.0 Hypertensive heart disease with heart failure (principal); I50.9 Heart failure, unspecified; K58.9 Irritable bowel syndrome, unspecified
CPT/HCPCS: 36415; 80048; 85027

== ENCOUNTER → 2024-05-05 | Outpatient (REF) | payer MEDICARE, MEDICAID, SELFPAY ==
[2024-05-05 08:18] LABS: Mucous, Urine 0 SEEN /hpf (<or=2+); Red Blood Cells-Urine 0 SEEN /hpf (0-5)
[2024-05-05 08:38] LABS: Color, Urine Yellow (Yellow); Glucose, Dipstick Normal (Normal); Ketone-Dipstick Negative (Negative); Leukocyte Esterase-Dipstick 25 /ul (Negative); Nitrite-Dipstick Negative (Negative); Occult Blood-Urine Negative /ul (Negative); Protein-Dipstick 15 mg/dl (Negative); Urine Bilirubin Dipstick Negative (Negative); Urine Clarity Clear (Clear); Urine Urobilinogen Normal (Normal)
[2024-05-05 08:58] LABS: Bacteria 1+ /hpf (None Seen)
[2024-05-05 08:59] LABS: Squamous Epithelial Cells - UA 0-5 SEEN /hpf (5-10); White Blood Cells 0-5 SEEN /hpf (0-5)
[2024-05-05 09:00] LABS: Anion Gap 8 (5-15); BUN 22 mg/dL (7-18); BUN/Creat Ratio 20.6 RATIO (10-20); Calcium,Total 9.8 mg/dL (8.5-10.1); Chloride 106 mmol/L (98-107); Creatinine, Serum 1.07 mg/dL (0.55-1.02); EST Glomerular Filtration Rate 52 mL/min (>60); Est Glom Filt Rate - Afr Amer 63 mL/min (>60); Glucose 118 mg/dL (74-106); Potassium 3.9 mmol/L (3.5-5.1); Sodium Level 138 mmol/L (136-145)
== END ==
LOC: OLS.SWAL 07:20
PROVIDERS: PCP Internal Medicine; Visit Provider Internal Medicine
DX: E11.9 Type 2 diabetes mellitus without complications (principal); I10 Essential (primary) hypertension; E78.5 Hyperlipidemia, unspecified; M54.50 Low back pain, unspecified; K21.9 Gastro-esophageal reflux disease without esophagitis; N39.0 Urinary tract infection, site not specified
CPT/HCPCS: 36415; 80048; 81001; 87086; 87088; 87186

== ENCOUNTER → 2024-05-23 04:00 | Outpatient (REF) | payer MEDICARE, MEDICAID, SELFPAY ==
[2024-05-23 09:12] LABS: Hematocrit 35.1 % (37-47); Hemoglobin 10.4 g/dL (12.0-15.0); Mean Corp Hgb Conc 29.6 g/dL (32-36); Mean Corpuscular Hgb 27.4 pg (27.0-32.0); Mean Corpuscular Volume 92.6 fL (81-99); Mean Platelet Vol. 10.6 fl (6.2-12.0); Platelet Count 423 K/mm3 (150-450); RBC Distribution Width CV 14.6 % (11.6-14.6); RBC Distribution Width SD 49.7 fl (35.1-43.9); Red Blood Count 3.79 M/mm3 (4.2-5.4)
== END ==
LOC: OLS.SWAL 04:00
PROVIDERS: PCP Internal Medicine; Referring Provider Internal Medicine; Visit Provider Internal Medicine
DX: I10 Essential (primary) hypertension (principal)
CPT/HCPCS: 36415; 85027

== ENCOUNTER → 2024-05-30 | Outpatient (REF) | payer MEDICARE, MEDICAID, SELFPAY ==
[2024-05-30 09:19] LABS: Hematocrit 35.2 % (37-47); Hemoglobin 10.5 g/dL (12.0-15.0); Mean Corp Hgb Conc 29.8 g/dL (32-36); Mean Corpuscular Hgb 27.6 pg (27.0-32.0); Mean Corpuscular Volume 92.6 fL (81-99); Mean Platelet Vol. 10.6 fl (6.2-12.0); Platelet Count 418 K/mm3 (150-450); RBC Distribution Width CV 14.5 % (11.6-14.6); RBC Distribution Width SD 49.3 fl (35.1-43.9); White Blood Count 9.1 K/mm3 (4.4-11.0)
== END ==
LOC: OLS.SWAL 04:00
PROVIDERS: PCP Internal Medicine; Referring Provider Internal Medicine; Visit Provider Internal Medicine
DX: I10 Essential (primary) hypertension (principal)
CPT/HCPCS: 36415; 85027

== ENCOUNTER → 2024-06-02 | Outpatient (REF) | payer MEDICARE, MEDICAID, SELFPAY ==
[2024-06-03 09:52] LABS: Color, Urine Yellow (Yellow); Glucose, Dipstick Normal (Normal); Ketone-Dipstick Negative (Negative); Leukocyte Esterase-Dipstick Negative /ul (Negative); Nitrite-Dipstick Negative (Negative); Occult Blood-Urine Negative /ul (Negative); Protein-Dipstick Negative (Negative); Urine Bilirubin Dipstick Negative (Negative); Urine Clarity Clear (Clear); Urine Urobilinogen Normal (Normal)
== END ==
LOC: OLS.SWAL 14:00
PROVIDERS: PCP Internal Medicine; Referring Provider Internal Medicine; Visit Provider Internal Medicine
DX: N39.0 Urinary tract infection, site not specified (principal)
CPT/HCPCS: 81002; 87086; 87088

== ENCOUNTER → 2024-06-06 04:00 | Outpatient (REF) | payer MEDICARE, MEDICAID, SELFPAY ==
[2024-06-06 06:58] LABS: Hematocrit 32.3 % (37-47); Hemoglobin 9.6 g/dL (12.0-15.0); Mean Corp Hgb Conc 29.7 g/dL (32-36); Mean Corpuscular Hgb 27.6 pg (27.0-32.0); Mean Corpuscular Volume 92.8 fL (81-99); Mean Platelet Vol. 10.4 fl (6.2-12.0); Platelet Count 333 K/mm3 (150-450); RBC Distribution Width CV 14.9 % (11.6-14.6); RBC Distribution Width SD 50.2 fl (35.1-43.9); Red Blood Count 3.48 M/mm3 (4.2-5.4); White Blood Count 11.8 K/mm3 (4.4-11.0)
== END ==
LOC: OLS.SWAL 04:00
PROVIDERS: PCP Internal Medicine; Visit Provider Internal Medicine
DX: I10 Essential (primary) hypertension (principal)
CPT/HCPCS: 36415; 85027; 96361; 96374; 96375; 99221; G0378

== ENCOUNTER 2024-06-12 01:25 | Emergency (ER) | payer MEDICARE, MEDICAID, SELFPAY ==
[2024-06-12] VITALS (7 sets, daily range): BP systolic 151–193; BP diastolic 62–97; PULSE 61–71; RESP 14–18; TEMP 35.8–36.8; O2SAT 94–98; BMI 36.3
--- NOTE | 2024-06-12 01:38 | EKG12_ITS ---
Test Reason : ALT LOC Blood Pressure : / mmHG Vent. Rate : 063 BPM Atrial Rate : 063 BPM P-R Int : 146 ms QRS Dur : 090 ms QT Int : 412 ms P-R-T Axes : 031 007 022 degrees QTc Int : 421 ms Sinus rhythm with sinus arrhythmia with Premature ventricular complexes or Fusion complexes Cannot rule out Inferior infarct , age undetermined Abnormal ECG Confirmed by MILDRED HYATT, MANOLO ([id number]), video tape editor ANGELA HIRSCH ([id number]) on 06/17/2024 1:47:14 PM Referred By: Confirmed By:HOMER LEVY MD
--- NOTE | 2024-06-12 01:38 | CT_ITS ---
EXAM: CT HEAD WITHOUT INTRAVENOUS CONTRAST CLINICAL INDICATION: visual hallucinations visual hallucinations TECHNIQUE: Multiple axial images were obtained of the head without intravenous contrast. This CT exam was performed using one or more of the following dose reduction techniques: automated exposure control, adjustment of the mA and/or kV according to patient size, and/or use of iterative reconstruction technique. RADIATION DOSE: CTDIvol = 44.99 mGy, DLP = 745.49 mGy-cm COMPARISON: CT scan brain 03/09/2022 FINDINGS: BRAIN AND EXTRA-AXIAL SPACES: There is cerebral atrophy. There are microvascular changes in supratentorial white matter. No intra- or extra-axial hemorrhage. No evidence of acute infarct. No intracranial mass or mass effect. There is preservation of the de la rosa/white matter interface. Posterior fossa structures are unremarkable. No hydrocephalus. Basal cisterns are patent. BONES/JOINTS: Unremarkable. No discrete lytic or blastic abnormalities. VASCULATURE: There is atherosclerotic calcification of the cavernous carotid arteries. SINUSES: There is opacification of the right frontal sinus and multiple right anterior ethmoid air cells, which was not present on the 2021 exam. No air-fluid levels are demonstrated. Finding is of indeterminate chronicity. MASTOID AIR CELLS: Unremarkable. Clear. ORBITS: There is evidence for previous cataract surgery. SELLA: There is CSF expansion of the pituitary fossa with thin rim of pituitary tissue, consistent with an empty sella syndrome. CT/Brain/Head without Contrast IMPRESSION: 1. Chronic involutional changes of the brain. 2. No demonstrated acute intracranial process. 3. Right frontal and ethmoid sinusitis, of indeterminate chronicity. Electronically Signed: Jaspreet Chowdary MD at 2:44 EDT ,
--- NOTE | 2024-06-12 01:39 | EDS_ITS ---
HPI History of Present Illness Chief Complaint: Alt LOC Informant: patient Narrative Narrative: Patient presents via EMS from [facility] secondary to altered LOC. Patient states that she feels fine and does not know why she is here. She does state that her couple months ago. She then states, however, she does not believe he is actually did because she still sees him and talks to him. This has been ongoing since he passed. EMS was told that she was being sent in because she was hallucinating about her . Patient denies any recent falls. She denies pain. She has been eating and drinking well. 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Recorded ?Last Taken ?Type amlodipine 10 mg tablet 10 mg PO DAILY bp 04/29/18 03/09/22 History cholecalciferol (vitamin D3) 50 2,000 unit PO DAILY supplement 04/29/18 03/09/22 History mcg (2,000 unit) capsule (D3-2000) duloxetine 60 mg capsule,delayed 60 mg PO BID mental health 04/29/18 03/09/22 History release carvedilol 6.25 mg tablet 6.25 mg PO BID blood pessure 01/11/21 03/09/22 History omeprazole 20 mg capsule,delayed 20 mg PO DAILY reflux 02/06/22 03/09/22 History release cyanocobalamin (vitamin B-12) 1,000 tab PO DAILY 05/23/22 Unknown History 1,000 mcg tablet (Vitamin B-12) hydroxyzine HCl 25 mg tablet 25 mg PO BID PRN Anxiety 05/23/22 Unknown History acetaminophen 325 mg capsule 650 mg PO Q4H PRN fever or pain 10/24/23 Unknown History ammonium lactate 12 % lotion 1 applic topical DAILY PRN dry skin 10/24/23 Unknown History dicyclomine 10 mg capsule 10 mg PO BID 10/24/23 Unknown History gabapentin 300 mg capsule 300 mg PO BID 10/24/23 Unknown History oxybutynin chloride 5 mg tablet 5 mg PO DAILY 10/24/23 Unknown History potassium chloride 10 mEq 10 meq PO DAILY 10/24/23 Unknown History tablet,extended release albuterol sulfate 2.5 mg/3 mL 2.5 mg continuous nebulization BID 12/03/23 Unknown History (0.083 %) solution for nebulization albuterol sulfate 90 mcg/actuation 2 puff inhalation Q6H 12/03/23 Unknown History aerosol inhaler sertraline 50 mg tablet 50 mg PO DAILY 12/03/23 Unknown History aluminum-magnesium hydroxide 225 30 ml PO Q4H PRN 12/17/23 Unknown History mg-200 mg/5 mL oral suspension benzonatate 100 mg capsule 100 mg PO BID PRN 12/17/23 Unknown History dextrose 40 % oral gel (Glucose 10 g PO Q15M PRN 12/17/23 Unknown History Gel) furosemide 20 mg tablet 20 mg PO DAILY edema 12/17/23 Unknown History glucagon 1 mg solution for 1 mg subcut Q20M PRN hypoglycemia 12/17/23 Unknown History injection (Glucagon Emergency Kit) guaifenesin 200 mg/5 mL oral liquid 400 mg PO Q4H PRN 12/17/23 Unknown History guaifenesin 600 mg tablet, 600 mg PO Q12H PRN congestion 12/17/23 Unknown History extended release 12 hr (Mucinex) loperamide 2 mg capsule (Imodium 2 mg PO DAILY PRN loose stool 12/17/23 Unknown History A-D) metoprolol tartrate 25 mg tablet 50 mg PO BID 12/17/23 Unknown History probiotic oral capsule PO QAM 12/17/23 Unknown History nystatin 100,000 unit/mL oral 5 ml PO TID thrush 06/12/24 Unknown History suspension oxybutynin chloride 5 mg 5 mg PO DAILY 06/12/24 Unknown History tablet,extended release 24 hr Allergy/AdvReac Type Severity Reaction Status Date / Time lisinopril (From Zestril) Allergy Swelling Verified 06/12/24 01:33 losartan (From Cozaar) Allergy Swelling Verified 06/12/24 01:33 Benzodiazepines AdvReac Intermediate Other Verified 06/12/24 01:33 morphine AdvReac Intermediate Other Verified 06/12/24 01:33 carbamazepine (From Tegretol) AdvReac MENTAL Verified 06/12/24 01:33 STATUS CHANGE hydrochlorothiazide AdvReac confusion Verified 06/12/24 01:33 Family History Mother Cancer leukemia Father CVA (cerebral vascular accident) Sister Arthritis Brother COPD (chronic obstructive pulmonary disease) CAD (coronary artery disease) Brother Cancer lung Surgical History Hx of tubal ligation History of left heart catheterization S/P cholecystectomy S/P tonsillectomy S/P hysterectomy Social History household members: spouse housing: house Smoking Status: Never smoker Electronic Cigarette Use: not used second hand exposure: Yes (Family smokes ) alcohol intake: current alcohol intake frequency: a few times a week details: Reports occasional, Hx of abuse (cocktails, double, at least 2-4 daily) substance use type: other details: Prior history of abusing NyQuil and also taking her husbands BZD regimen. caffeine: Yes Type: carbonated beverages Number of servings: 2 ROS ROS ED Constitutional Constitutional ED: Denies chills or fever(s) Eyes Eyes: Denies discharge from eye(s) ENT ENT ED: Denies discharge from eye(s), rhinorrhea or sore throat Cardiovascular Cardiovascular: Denies chest pain Respiratory/Chest Respiratory/Chest: Denies cough or dyspnea Gastrointestinal Gastrointestinal: Denies abdominal pain, diarrhea, nausea or vomiting Musculoskeletal Musculoskeletal: Denies back pain or extremity pain Integumentary Denies Abrasions or rash Neurologic Neurologic: Denies headache(s) or weakness Psychiatric Psychiatric: Denies anxiety or depression Allergic/Immunologic Allergic/Immunologic ED: Denies lip swelling or urticaria EXAM Physical Exam Const Vital Signs: 06/12/24 01:26 06/12/24 01:31 06/12/24 02:26 Temperature 98.3 F 98.3 F Temperature Source Oral Oral Pulse Rate 63 68 66 Respiratory Rate 18 18 18 Blood Pressure 151/62 H 151/62 H 192/85 H Blood Pressure Mean 91 91 120 Pulse Ox 94 98 96 Oxygen Delivery Method Nasal Cannula Nasal Cannula Nasal Cannula Oxygen Flow Rate (L/min) 3 3 3 06/12/24 02:31 06/12/24 03:00 06/12/24 03:00 Temperature 97 F L 97.2 F L Temperature Source Temporal Temporal Pulse Rate 66 71 71 Respiratory Rate 18 16 16 Blood Pressure 184/90 H 193/96 H 193/96 H Blood Pressure Mean 121 128 128 Pulse Ox 95 97 97 Oxygen Delivery Method Nasal Cannula Nasal Cannula Nasal Cannula Oxygen Flow Rate (L/min) 3 06/12/24 04:00 06/12/24 04:00 Temperature 97.6 F L Temperature Source Temporal Pulse Rate 61 61 Respiratory Rate 16 14 Blood Pressure 183/97 H 183/78 H Blood Pressure Mean 125 113 Pulse Ox 97 96 Oxygen Delivery Method Nasal Cannula Nasal Cannula Oxygen Flow Rate (L/min) Positive well nourished and well developed General Appearance ED: well developed HEENT Reports moist mucous membranes Eyes EOMs intact bilaterally Chest Wall inspection of chest normal and palpation of chest normal Resp normal respiratory effort and clear to auscultation bilaterally Cardio regular rate and regular rhythm GI non-tender Palpation: soft Extremity normal to inspection Neuro oriented x3 Neuro Narrative: No focal neurologic deficit. Psych mental status grossly normal Skin no rashes or lesions noted MDM MDM MDM Narrative Medical decision making narrative: IV line established. Labwork obtained to evaluate for leukocytosis, anemia, and electrolyte derangement. Urinalysis obtained to evaluate for infection/hematuria. CT scan of the head will be obtained to ensure no acute intracranial abnormalities causing her visual and auditory hallucinations. EKG obtained to evaluate for cardiac arrhythmia/ischemia. History & Record Review Discussion w/independent historian: Patient Additional record(s) reviewed:: Prior labs Lab Data Attestation: I reviewed the patient's lab results. Labs: Laboratory Results - last 24 hr 06/12/24 06/12/24 01:35 02:16 WBC 10.6 RBC 3.93 L Hgb 10.7 L Hct 36.0 L MCV 91.6 MCH 27.2 MCHC 29.7 L RDW Std Deviation 50.0 H RDW Coeff of Felicia 14.9 H Plt Count 344 MPV 9.4 Immature Gran % (Auto) 0.600 Neut % (Auto) 71.6 H Lymph % (Auto) 14.9 L Dukes % (Auto) 7.8 Eos % (Auto) 4.0 Baso % (Auto) 1.1 H Absolute Neuts (auto) 7.6 Absolute Lymphs (auto) 1.58 Nucleated RBC % 0 Sodium 139 Potassium 3.5 Chloride 106 Carbon Dioxide 26.0 Anion Gap 7 BUN 24 H Creatinine 1.37 H Estim Creat Clear Calc 27.87 Est GFR (MDRD) Af Amer 47 L Est GFR (MDRD) Non-Af 39 L BUN/Creatinine Ratio 17.5 Glucose 118 H Calcium 9.7 Urine Color Yellow Urine Clarity Clear Urine pH 6.0 Ur Specific Franklin 1.015 Urine Protein 30 H Urine Glucose (UA) Normal Urine Ketones Negative Urine Occult Blood Negative Urine Nitrite Negative Urine Bilirubin Negative Urine Urobilinogen Normal Ur Leukocyte Esterase 25 H Urine RBC 0 SEEN Urine WBC 0 SEEN Ur Squamous Epith Cells 0 SEEN Urine Bacteria 0 SEEN Urine Mucus 0 SEEN Ethyl Alcohol < 3.0 Radiography Diagnostic Testing: Clinical Impression(s) from Imaging Studies Brain CT 06/12/24 01:38 IMPRESSION: 1. Chronic involutional changes of the brain. 2. No demonstrated acute intracranial process. 3. Right frontal and ethmoid sinusitis, of indeterminate chronicity. Electronically Signed: Jaspreet Chowdary MD at 2:44 EDT Reading Location ID and State: [facility] / [place] , Service support , EKG Initial EKG: Attestation: I personally reviewed and interpreted this EKG as follows: Interpretation: Sinus Rhythm (Sinus at 63 with no acute ischemia.) Treatment and Re-Evaluation :: CBC was white count of 10.6 with a 10.7 hemoglobin. Differential revealed 71% neutrophils. Chemistry studies reveal a BUN of 24 and a creatinine 1.37. This is only slightly bumped over her baseline. Urinalysis reveals no evidence of infection. EKG is sinus rhythm with no evidence of ischemia. CT scan of the head reveals chronic changes with no acute findings. Test results are discussed with the patient as well as with daughter who is now at bedside. Daughter states that she was called by the facility and told that she was coming here to have a mental health evaluation. Daughter also elaborates stating that the patient has been calling 911 thinking that there was someone holding her against his will. Patient states she remembers c alling 911 and thought she had looked outside today and saw her sitting in a car with another man and they would not let him out of the vehicle. About a month ago she was also calling 911 stating that there were 2 individuals in her apartment. Patient was seen and evaluated by crisis. Patient does not represent an imminent risk to herself. She is given resources and they will do phone check- in's throughout the weekend. Patient and daughter are both comfortable with this plan. Discharge Plan Triage Chief Complaint: Alt LOC ED Provider: Tiera Jenkins Dx/Rx/DC Orders Clinical Impression: Hallucinations Instructions: ED Confusion Prescriptions: No Action acetaminophen 325 mg capsule 650 mg PO Q4H PRN (Reason: fever or pain) ammonium lactate 12 % lotion 1 applic topical DAILY PRN (Reason: dry skin) Patient Comments: APPLY LOTION TOPICALLY TO AFFECTED AREA NEEDED FOR DRY SKIN dicyclomine 10 mg capsule 10 mg PO BID gabapentin 300 mg capsule 300 mg PO BID oxybutynin chloride 5 mg tablet 5 mg PO DAILY potassium chloride 10 mEq tablet extended release 10 meq PO DAILY furosemide 20 mg tablet 20 mg PO DAILY albuterol sulfate 2.5 mg /3 mL (0.083 %) solution for nebulization 2.5 mg continuous nebulization BID sertraline 50 mg tablet 50 mg PO DAILY albuterol sulfate 90 mcg/actuation HFA aerosol inhaler 2 puff inhalation Q6H metoprolol tartrate 25 mg tablet 50 mg PO BID Glucagon Emergency Kit (human) 1 mg recon soln 1 mg subcut Q20M PRN (Reason: hypoglycemia) Rx Instructions: until target blood sugar attained dextrose [Glucose Gel] 40 % gel 10 g PO Q15M PRN Rx Instructions: until symptoms of low blood sugar are controlled guaifenesin 200 mg/5 mL liquid 400 mg PO Q4H PRN loperamide [Imodium A-D] 2 mg capsule 2 mg PO DAILY PRN (Reason: loose stool) benzonatate 100 mg capsule 100 mg PO BID PRN guaifenesin [Mucinex] 600 mg tablet extended release 12hr 600 mg PO Q12H PRN (Reason: congestion) probiotic oral capsule capsule PO QAM aluminum-magnesium hydroxide 225-200 mg/5 mL suspension 30 ml PO Q4H PRN amlodipine 10 MG tablet 10 mg PO DAILY duloxetine 60 MG capsule,delayed release(DR/EC) 60 mg PO BID cholecalciferol (vitamin D3) [D3-2000] 2,000 UNIT capsule 2,000 unit PO DAILY carvedilol 6.25 MG tablet 6.25 mg PO BID omeprazole 20 mg capsule,delayed release(DR/EC) 20 mg PO DAILY Patient Comments: TAKE 1 CAPSULE BY MOUTH ONCE DAILY 1/2 HOUR BEFORE BREAKFAST cyanocobalamin (vitamin B-12) [Vitamin B-12] 1,000 mcg tablet 1,000 tab PO DAILY hydroxyzine HCl 25 mg Tablet 25 mg PO BID PRN (Reason: Anxiety) nystatin 100,000 unit/mL suspension 5 ml PO TID oxybutynin chloride 5 mg tablet extended release 24hr 5 mg PO DAILY Primary Care Provider: Lilian Yang Referrals: Counseling,Center [Group of Physicians] - As Needed Lilian Yang MD [Primary Care Provider] - Print Language: Samoan Disposition Disposition: Home, Self Care
[2024-06-12 01:48] LABS: Absolute Lymphocyte Count 1.58 X10^3/uL (0.83-4.51); Absolute Neutrophil Count 7.6 X10^3/uL (2.0-7.7); Basophil# 0.12 X10^3/uL; Basophil% 1.1 % (0-1); Eosinophil# 0.42 X10^3/uL; Hemoglobin 10.7 g/dL (12.0-15.0); Lymphocyte # 1.58 X10^3/ul (0.83-4.51); Lymphocyte % 14.9 % (19-41); Mean Corp Hgb Conc 29.7 g/dL (32-36); Mean Corpuscular Hgb 27.2 pg (27.0-32.0); Mean Corpuscular Volume 91.6 fL (81-99); Mean Platelet Vol. 9.4 fl (6.2-12.0); Monocyte# 0.83 X10^3/uL; Monocyte% 7.8 % (0-10); NRBC Flagged by Analyzer 0 % (0-5); Neutrophil # 7.62 X10^3/uL (2.7-7.7); Neutrophil % 71.6 % (47-70); Platelet Count 344 K/mm3 (150-450); RBC Distribution Width CV 14.9 % (11.6-14.6); Red Blood Count 3.93 M/mm3 (4.2-5.4); White Blood Count 10.6 K/mm3 (4.4-11.0)
[2024-06-12 02:01] LABS: Anion Gap 7 (5-15); BUN 24 mg/dL (7-18); BUN/Creat Ratio 17.5 RATIO (10-20); Calcium,Total 9.7 mg/dL (8.5-10.1); Chloride 106 mmol/L (98-107); Creatinine, Serum 1.37 mg/dL (0.55-1.02); EST Glomerular Filtration Rate 39 mL/min (>60); Est Glom Filt Rate - Afr Amer 47 mL/min (>60); Estimated Creatinine Clearance 27.87 ml/min; Glucose 118 mg/dL (74-106); Potassium 3.5 mmol/L (3.5-5.1); Sodium Level 139 mmol/L (136-145)
[2024-06-12 02:21] LABS: Bacteria 0 SEEN /hpf (None Seen); Mucous, Urine 0 SEEN /hpf (<or=2+); Red Blood Cells-Urine 0 SEEN /hpf (0-5); Squamous Epithelial Cells - UA 0 SEEN /hpf (5-10); White Blood Cells 0 SEEN /hpf (0-5)
[2024-06-12 02:25] LABS: Color, Urine Yellow (Yellow); Glucose, Dipstick Normal (Normal); Ketone-Dipstick Negative (Negative); Leukocyte Esterase-Dipstick 25 /ul (Negative); Nitrite-Dipstick Negative (Negative); Occult Blood-Urine Negative /ul (Negative); Protein-Dipstick 30 mg/dl (Negative); Specific Gravity, Urine 1.015 (1.002-1.030); Urine Bilirubin Dipstick Negative (Negative); Urine Clarity Clear (Clear); Urine Urobilinogen Normal (Normal)
[2024-06-12 02:40] LABS: Alcohol, Blood (Medical)-Serum < 3.0 mg/dL
--- NOTE | 2024-06-12 04:46 | ED.RN ---
Pt requesting for daughter to take her back to [facility] despite being on 3L NC at baseline. Daughter stated pt intermittently wears her oxygen and she feels comfortable transporting pt back to extended care facility. licensed life and health agent notified.
--- NOTE | 2024-06-12 04:58 | ED.RN ---
Pt and daughter requested to transport pt back to extended care facility despite pt being on 3l o2 at baseline. Pt's daughter stated she felt comfortable transporting pt and that pt often takes her oxygen off. Charge nurse notified, discharged with wheel chair assist
--- NOTE | 2024-06-12 05:04 | ED.RN ---
Attempted to call report to [facility] Alfonso, no one picked up phone
== END 2024-06-12 04:53 | disposition home or self-care (01) ==
PROVIDERS: Emergency Provider Emergency Medicine; PCP Internal Medicine; Visit Provider Emergency Medicine
DX: R44.3 Hallucinations, unspecified (principal); I11.0 Hypertensive heart disease with heart failure; I50.32 Chronic diastolic (congestive) heart failure; E11.40 Type 2 diabetes mellitus with diabetic neuropathy, unspecified; E78.2 Mixed hyperlipidemia; Z98.51 Tubal ligation status; Z90.710 Acquired absence of both cervix and uterus; Z90.49 Acquired absence of other specified parts of digestive tract; G47.33 Obstructive sleep apnea (adult) (pediatric)
CPT/HCPCS: 70450; 80048; 81001; 82077; 85025; 93005; 99285; A4216

== ENCOUNTER → 2024-06-13 05:00 | Outpatient (REF) | payer MEDICARE, MEDICAID, SELFPAY ==
[2024-06-13 07:41] LABS: Hemoglobin 10.3 g/dL (12.0-15.0); Mean Corp Hgb Conc 30.3 g/dL (32-36); Mean Corpuscular Hgb 28.1 pg (27.0-32.0); Mean Corpuscular Volume 92.9 fL (81-99); Platelet Count 327 K/mm3 (150-450); RBC Distribution Width CV 15.1 % (11.6-14.6); RBC Distribution Width SD 51.6 fl (35.1-43.9); Red Blood Count 3.66 M/mm3 (4.2-5.4); White Blood Count 10.6 K/mm3 (4.4-11.0)
== END ==
LOC: OLS.SWAL 05:00
PROVIDERS: PCP Internal Medicine; Visit Provider Internal Medicine
DX: I10 Essential (primary) hypertension (principal)
CPT/HCPCS: 36415; 85027

== ENCOUNTER → 2024-06-23 05:00 | Outpatient (REF) | payer MEDICARE, MEDICAID, SELFPAY ==
[2024-06-23 08:53] LABS: Hematocrit 34.2 % (37-47); Mean Corp Hgb Conc 29.2 g/dL (32-36); Mean Corpuscular Hgb 27.5 pg (27.0-32.0); Mean Platelet Vol. 10.1 fl (6.2-12.0); Platelet Count 473 K/mm3 (150-450); RBC Distribution Width SD 52.2 fl (35.1-43.9); Red Blood Count 3.64 M/mm3 (4.2-5.4); White Blood Count 9.8 K/mm3 (4.4-11.0)
[2024-06-23 09:12] LABS: Anion Gap 4 (5-15); BUN 17 mg/dL (7-18); BUN/Creat Ratio 13.8 RATIO (10-20); Calcium,Total 9.7 mg/dL (8.5-10.1); Chloride 103 mmol/L (98-107); Creatinine, Serum 1.23 mg/dL (0.55-1.02); EST Glomerular Filtration Rate 44 mL/min (>60); Est Glom Filt Rate - Afr Amer 54 mL/min (>60); Glucose 102 mg/dL (74-106); Potassium 4.1 mmol/L (3.5-5.1); Sodium Level 137 mmol/L (136-145)
== END ==
LOC: OLS.SWAL 05:00
PROVIDERS: PCP Internal Medicine; Visit Provider Internal Medicine
DX: I10 Essential (primary) hypertension (principal)
CPT/HCPCS: 36415; 80048; 85027

== ENCOUNTER → 2024-06-30 | Outpatient (REF) | payer MEDICARE, MEDICAID, SELFPAY ==
[2024-06-30 08:34] LABS: Bacteria 0 SEEN /hpf (None Seen); Mucous, Urine 0 SEEN /hpf (<or=2+); White Blood Cells 0 SEEN /hpf (0-5)
[2024-06-30 09:06] LABS: Hematocrit 34.2 % (37-47); Hemoglobin 10.3 g/dL (12.0-15.0); Mean Corp Hgb Conc 30.1 g/dL (32-36); Mean Corpuscular Hgb 27.9 pg (27.0-32.0); Mean Corpuscular Volume 92.7 fL (81-99); Mean Platelet Vol. 10.7 fl (6.2-12.0); Platelet Count 423 K/mm3 (150-450); RBC Distribution Width CV 14.8 % (11.6-14.6); RBC Distribution Width SD 50.4 fl (35.1-43.9); Red Blood Count 3.69 M/mm3 (4.2-5.4)
[2024-06-30 09:19] LABS: Color, Urine Yellow (Yellow); Glucose, Dipstick Normal (Normal); Ketone-Dipstick Negative (Negative); Leukocyte Esterase-Dipstick Negative /ul (Negative); Nitrite-Dipstick Negative (Negative); Occult Blood-Urine Negative /ul (Negative); Protein-Dipstick 15 mg/dl (Negative); Urine Bilirubin Dipstick Negative (Negative); Urine Clarity Clear (Clear); Urine Urobilinogen Normal (Normal)
[2024-06-30 09:37] LABS: Red Blood Cells-Urine 0-5 SEEN /hpf (0-5)
[2024-06-30 09:39] LABS: Squamous Epithelial Cells - UA 0-5 SEEN /hpf (5-10)
== END ==
LOC: OLS.SWAL 06:50
PROVIDERS: PCP Internal Medicine; Visit Provider Internal Medicine
DX: N39.0 Urinary tract infection, site not specified (principal); I11.0 Hypertensive heart disease with heart failure; I50.9 Heart failure, unspecified
CPT/HCPCS: 36415; 81001; 85027; 87086; 87088

== ENCOUNTER → 2024-07-14 | Outpatient (REF) | payer MEDICARE, MEDICAID, SELFPAY ==
[2024-07-14 07:26] LABS: Hematocrit 34.6 % (37-47); Hemoglobin 10.1 g/dL (12.0-15.0); Mean Corp Hgb Conc 29.2 g/dL (32-36); Mean Corpuscular Hgb 27.4 pg (27.0-32.0); Mean Platelet Vol. 10.9 fl (6.2-12.0); Platelet Count 334 K/mm3 (150-450); RBC Distribution Width SD 52.4 fl (35.1-43.9); Red Blood Count 3.68 M/mm3 (4.2-5.4); White Blood Count 14.7 K/mm3 (4.4-11.0)
[2024-07-14 09:30] LABS: Anion Gap 7 (5-15); BUN 20 mg/dL (7-18); BUN/Creat Ratio 18.7 RATIO (10-20); Calcium,Total 10.1 mg/dL (8.5-10.1); Chloride 105 mmol/L (98-107); Creatinine, Serum 1.07 mg/dL (0.55-1.02); EST Glomerular Filtration Rate 52 mL/min (>60); Est Glom Filt Rate - Afr Amer 63 mL/min (>60); Glucose 116 mg/dL (74-106); Potassium 3.5 mmol/L (3.5-5.1); Sodium Level 138 mmol/L (136-145)
[2024-07-14 13:10] LABS: Vitamin B12 1397 pg/mL (211-911); Vitamin D,25 Hydroxy 35.6 ng/mL
[2024-07-16 10:13] LABS: Hemoglobin A1c 6.5 % (3.8-5.6)
== END ==
LOC: OLS.SWAL 05:00
PROVIDERS: PCP Internal Medicine; Visit Provider Internal Medicine
DX: I11.0 Hypertensive heart disease with heart failure (principal); I50.9 Heart failure, unspecified; G47.33 Obstructive sleep apnea (adult) (pediatric); E55.9 Vitamin D deficiency, unspecified; Z79.899 Other long term (current) drug therapy
CPT/HCPCS: 36415; 80048; 82306; 82607; 83036; 85027

== ENCOUNTER → 2024-07-18 | Outpatient (REF) | payer MEDICARE, MEDICAID, SELFPAY ==
[2024-07-18 08:59] LABS: Hematocrit 32.9 % (37-47); Hemoglobin 9.6 g/dL (12.0-15.0); Mean Corp Hgb Conc 29.2 g/dL (32-36); Mean Corpuscular Hgb 27.5 pg (27.0-32.0); Mean Corpuscular Volume 94.3 fL (81-99); Mean Platelet Vol. 10.8 fl (6.2-12.0); Platelet Count 340 K/mm3 (150-450); RBC Distribution Width CV 15.5 % (11.6-14.6); RBC Distribution Width SD 53.1 fl (35.1-43.9); Red Blood Count 3.49 M/mm3 (4.2-5.4)
== END ==
LOC: OLS.SWAL 05:00
PROVIDERS: PCP Internal Medicine; Visit Provider Internal Medicine
DX: I10 Essential (primary) hypertension (principal)
CPT/HCPCS: 36415; 85027

== ENCOUNTER → 2024-07-22 05:00 | Outpatient (REF) | payer MEDICARE, MEDICAID, SELFPAY ==
[2024-07-22 09:39] LABS: Hematocrit 38.1 % (37-47); Hemoglobin 11.1 g/dL (12.0-15.0); Mean Corp Hgb Conc 29.1 g/dL (32-36); Mean Corpuscular Hgb 27.5 pg (27.0-32.0); Mean Corpuscular Volume 94.3 fL (81-99); Mean Platelet Vol. 10.8 fl (6.2-12.0); Platelet Count 401 K/mm3 (150-450); RBC Distribution Width CV 14.9 % (11.6-14.6); RBC Distribution Width SD 52.2 fl (35.1-43.9); Red Blood Count 4.04 M/mm3 (4.2-5.4)
== END ==
LOC: OLS.SW 05:00
PROVIDERS: PCP Internal Medicine; Visit Provider Internal Medicine
DX: I10 Essential (primary) hypertension (principal)
CPT/HCPCS: 36415; 85027

== ENCOUNTER → 2024-07-28 05:00 | Outpatient (REF) | payer MEDICARE, MEDICAID, SELFPAY ==
[2024-07-28 10:56] LABS: Absolute Lymphocyte Count 1.48 X10^3/uL (0.83-4.51); Absolute Neutrophil Count 6.5 X10^3/uL (2.0-7.7); Basophil# 0.07 X10^3/uL; Basophil% 0.8 % (0-1); Eosinophil# 0.44 X10^3/uL; Eosinophils% 4.7 % (0-5); Hematocrit 35.6 % (37-47); Hemoglobin 10.4 g/dL (12.0-15.0); Lymphocyte # 1.48 X10^3/ul (0.83-4.51); Lymphocyte % 15.9 % (19-41); Mean Corp Hgb Conc 29.2 g/dL (32-36); Mean Corpuscular Hgb 27.8 pg (27.0-32.0); Mean Corpuscular Volume 95.2 fL (81-99); Mean Platelet Vol. 10.2 fl (6.2-12.0); Monocyte# 0.78 X10^3/uL; Monocyte% 8.4 % (0-10); NRBC Flagged by Analyzer 0 % (0-5); Neutrophil # 6.49 X10^3/uL (2.7-7.7); Neutrophil % 69.9 % (47-70); Platelet Count 368 K/mm3 (150-450); RBC Distribution Width CV 15.5 % (11.6-14.6); RBC Distribution Width SD 54.4 fl (35.1-43.9); Red Blood Count 3.74 M/mm3 (4.2-5.4); White Blood Count 9.3 K/mm3 (4.4-11.0)
== END ==
LOC: OLS.SWAL 05:00
PROVIDERS: PCP Internal Medicine; Visit Provider Internal Medicine
DX: D64.9 Anemia, unspecified (principal); I10 Essential (primary) hypertension
CPT/HCPCS: 36415; 85025

== ENCOUNTER → 2024-08-05 | Outpatient (REF) | payer MEDICARE, MEDICAID, SELFPAY ==
[2024-08-05 08:34] LABS: Hematocrit 35.4 % (37-47); Hemoglobin 10.5 g/dL (12.0-15.0); Mean Corp Hgb Conc 29.7 g/dL (32-36); Mean Corpuscular Hgb 28.2 pg (27.0-32.0); Mean Corpuscular Volume 95.2 fL (81-99); Mean Platelet Vol. 10.3 fl (6.2-12.0); Platelet Count 410 K/mm3 (150-450); RBC Distribution Width CV 15.5 % (11.6-14.6); RBC Distribution Width SD 54.2 fl (35.1-43.9); Red Blood Count 3.72 M/mm3 (4.2-5.4); White Blood Count 11.1 K/mm3 (4.4-11.0)
== END ==
LOC: OLS.SWAL 07:30
PROVIDERS: PCP Internal Medicine; Visit Provider Internal Medicine
DX: I10 Essential (primary) hypertension (principal)
CPT/HCPCS: 36415; 85027

== ENCOUNTER → 2024-08-19 | Outpatient (REF) | payer MEDICARE, MEDICAID, SELFPAY ==
[2024-08-19 09:37] LABS: Mean Corp Hgb Conc 29.7 g/dL (32-36); Mean Corpuscular Hgb 28.4 pg (27.0-32.0); Mean Corpuscular Volume 95.4 fL (81-99); Mean Platelet Vol. 10.1 fl (6.2-12.0); Platelet Count 388 K/mm3 (150-450); RBC Distribution Width CV 16.3 % (11.6-14.6); RBC Distribution Width SD 56.3 fl (35.1-43.9); Red Blood Count 3.88 M/mm3 (4.2-5.4); White Blood Count 10.4 K/mm3 (4.4-11.0)
== END ==
LOC: OLS.SWAL 05:00
PROVIDERS: PCP Internal Medicine; Visit Provider Internal Medicine
DX: I10 Essential (primary) hypertension (principal)
CPT/HCPCS: 36415; 85027

== ENCOUNTER → 2024-08-25 | Outpatient (REF) | payer MEDICARE, MEDICAID, SELFPAY ==
[2024-08-25 09:21] LABS: Hemoglobin A1c 6.3 % (3.8-5.6)
[2024-08-25 11:11] LABS: ALB/GLOB Ratio 0.9 RATIO (0.9-2.4); AST(SGOT) 8 U/L (15-37); Alanine Aminotransfer ALT/SGPT 14 U/L (13-56); Albumin, Serum 3.1 g/dL (3.2-5.0); Alkaline Phosphatase 94 U/L (45-117); Anion Gap 4 (5-15); BUN 18 mg/dL (7-18); BUN/Creat Ratio 17.3 RATIO (10-20); Calcium,Total 10.1 mg/dL (8.5-10.1); Chloride 107 mmol/L (98-107); Creatinine, Serum 1.04 mg/dL (0.55-1.02); EST Glomerular Filtration Rate 54 mL/min (>60); Est Glom Filt Rate - Afr Amer 65 mL/min (>60); Globulin 3.4 g/dL (2.2-4.2); Glucose 102 mg/dL (74-106); Potassium 3.4 mmol/L (3.5-5.1); Protein, Total 6.5 g/dL (6.4-8.2); Sodium Level 137 mmol/L (136-145)
== END ==
LOC: OLS.SWAL 05:00
PROVIDERS: PCP Internal Medicine; Visit Provider Internal Medicine
DX: E11.9 Type 2 diabetes mellitus without complications (principal); I10 Essential (primary) hypertension
CPT/HCPCS: 36415; 80053; 83036; 83735

== ENCOUNTER → 2024-09-02 | Outpatient (REF) | payer MEDICARE, MEDICAID, SELFPAY ==
[2024-09-02 08:28] LABS: Hematocrit 35.9 % (37-47); Hemoglobin 10.7 g/dL (12.0-15.0); Mean Corp Hgb Conc 29.8 g/dL (32-36); Mean Corpuscular Hgb 28.7 pg (27.0-32.0); Mean Corpuscular Volume 96.2 fL (81-99); Mean Platelet Vol. 9.8 fl (6.2-12.0); Platelet Count 429 K/mm3 (150-450); RBC Distribution Width CV 15.9 % (11.6-14.6); RBC Distribution Width SD 55.4 fl (35.1-43.9); Red Blood Count 3.73 M/mm3 (4.2-5.4); White Blood Count 13.1 K/mm3 (4.4-11.0)
== END ==
LOC: OLS.SWAL 05:00
PROVIDERS: PCP Internal Medicine; Visit Provider Internal Medicine
DX: I10 Essential (primary) hypertension (principal)
CPT/HCPCS: 36415; 85027

== ENCOUNTER → 2024-09-02 | Outpatient (REF) | payer MEDICARE, MEDICAID, SELFPAY ==
[2024-09-03 09:13] LABS: Bacteria 0 SEEN /hpf (None Seen); Mucous, Urine 0 SEEN /hpf (<or=2+); Red Blood Cells-Urine 0 SEEN /hpf (0-5); White Blood Cells 0 SEEN /hpf (0-5)
[2024-09-03 10:26] LABS: Color, Urine Yellow (Yellow); Glucose, Dipstick Normal (Normal); Ketone-Dipstick Negative (Negative); Leukocyte Esterase-Dipstick Negative /ul (Negative); Nitrite-Dipstick Negative (Negative); Occult Blood-Urine Negative /ul (Negative); Protein-Dipstick 15 mg/dl (Negative); Urine Bilirubin Dipstick Negative (Negative); Urine Clarity Sl. Cloudy (Clear); Urine Urobilinogen Normal (Normal)
[2024-09-03 11:13] LABS: Squamous Epithelial Cells - UA 0-5 SEEN /hpf (5-10)
== END ==
LOC: OLS.SWAL 19:30
PROVIDERS: PCP Internal Medicine; Visit Provider Internal Medicine
DX: D72.829 Elevated white blood cell count, unspecified (principal); R39.9 Unspecified symptoms and signs involving the genitourinary system
CPT/HCPCS: 81001; 87086; 87088

== ENCOUNTER → 2024-09-03 | Outpatient (REF) | payer MEDICARE, MEDICAID, SELFPAY | LOC: OLS.SWAL 16:00 | PROVIDERS: PCP Internal Medicine; Visit Provider Internal Medicine | DX: D72.829 Elevated white blood cell count, unspecified (principal) ==

== ENCOUNTER → 2024-09-08 | Outpatient (REF) | payer MEDICARE, MEDICAID, SELFPAY ==
[2024-09-08 10:18] LABS: ALB/GLOB Ratio 0.9 RATIO (0.9-2.4); AST(SGOT) 13 U/L (15-37); Alanine Aminotransfer ALT/SGPT 19 U/L (13-56); Albumin, Serum 3.2 g/dL (3.2-5.0); Alkaline Phosphatase 140 U/L (45-117); Anion Gap 9 (5-15); BUN 17 mg/dL (7-18); BUN/Creat Ratio 15.7 RATIO (10-20); Calcium,Total 9.9 mg/dL (8.5-10.1); Chloride 98 mmol/L (98-107); Creatinine, Serum 1.08 mg/dL (0.55-1.02); EST Glomerular Filtration Rate 51 mL/min (>60); Est Glom Filt Rate - Afr Amer 62 mL/min (>60); Globulin 3.6 g/dL (2.2-4.2); Glucose 113 mg/dL (74-106); Potassium 4.3 mmol/L (3.5-5.1); Protein, Total 6.8 g/dL (6.4-8.2); Sodium Level 132 mmol/L (136-145)
== END ==
LOC: OLS.SWAL 05:00
PROVIDERS: PCP Internal Medicine; Visit Provider Internal Medicine
DX: E87.6 Hypokalemia (principal)
CPT/HCPCS: 36415; 80053

== ENCOUNTER → 2024-09-09 | Outpatient (REF) | payer MEDICARE, MEDICAID, SELFPAY ==
[2024-09-10 08:28] LABS: Bacteria 0 SEEN /hpf (None Seen); Mucous, Urine 0 SEEN /hpf (<or=2+); Red Blood Cells-Urine 0 SEEN /hpf (0-5); Squamous Epithelial Cells - UA 0 SEEN /hpf (5-10); White Blood Cells 0 SEEN /hpf (0-5)
[2024-09-10 08:35] LABS: Color, Urine Yellow (Yellow); Glucose, Dipstick Normal (Normal); Ketone-Dipstick 5 mg/dl (Negative); Leukocyte Esterase-Dipstick Negative /ul (Negative); Nitrite-Dipstick Negative (Negative); Occult Blood-Urine Negative /ul (Negative); Protein-Dipstick Negative (Negative); Urine Bilirubin Dipstick Negative (Negative); Urine Clarity Clear (Clear); Urine Urobilinogen Normal (Normal)
== END ==
LOC: OLS.SWAL 17:00
PROVIDERS: PCP Internal Medicine; Visit Provider Internal Medicine
DX: N39.0 Urinary tract infection, site not specified (principal)
CPT/HCPCS: 81001; 87086; 87088

== ENCOUNTER → 2024-09-11 | Outpatient (REF) | payer MEDICARE, MEDICAID, SELFPAY ==
[2024-09-11 11:06] LABS: Anion Gap 9 (5-15); BUN 12 mg/dL (7-18); BUN/Creat Ratio 11.2 RATIO (10-20); Calcium,Total 10.4 mg/dL (8.5-10.1); Chloride 94 mmol/L (98-107); Creatinine, Serum 1.07 mg/dL (0.55-1.02); EST Glomerular Filtration Rate 52 mL/min (>60); Est Glom Filt Rate - Afr Amer 63 mL/min (>60); Glucose 119 mg/dL (74-106); Potassium 3.8 mmol/L (3.5-5.1); Sodium Level 125 mmol/L (136-145)
== END ==
LOC: OLS.SWAL 05:00
PROVIDERS: PCP Internal Medicine; Visit Provider Internal Medicine
DX: E87.1 Hypo-osmolality and hyponatremia (principal)
CPT/HCPCS: 36415; 80048

== ENCOUNTER → 2024-09-16 | Outpatient (REF) | payer MEDICARE, MEDICAID, SELFPAY ==
[2024-09-16 08:27] LABS: Hemoglobin 9.1 g/dL (12.0-15.0); Mean Corp Hgb Conc 30.3 g/dL (32-36); Mean Corpuscular Hgb 28.3 pg (27.0-32.0); Mean Corpuscular Volume 93.5 fL (81-99); Mean Platelet Vol. 9.4 fl (6.2-12.0); Platelet Count 439 K/mm3 (150-450); RBC Distribution Width CV 15.9 % (11.6-14.6); Red Blood Count 3.21 M/mm3 (4.2-5.4); White Blood Count 13.6 K/mm3 (4.4-11.0)
== END ==
LOC: OLS.SWAL 05:00
PROVIDERS: PCP Internal Medicine; Visit Provider Internal Medicine
DX: I10 Essential (primary) hypertension (principal)
CPT/HCPCS: 36415; 85027

== ENCOUNTER 2024-09-22 21:27 | Inpatient (IN) | payer MEDICARE, MEDICAID, SELFPAY ==
[2024-09-22] VITALS (7 sets, daily range): BP systolic 145–167; BP diastolic 66–115; PULSE 70–81; RESP 23–31; TEMP 36.6–36.8; O2SAT 90–97; BMI 32.9
[2024-09-22 22:01] LABS: Absolute Lymphocyte Count 0.81 X10^3/uL (0.83-4.51); Absolute Neutrophil Count 13.2 X10^3/uL (2.0-7.7); Basophil% 0.6 % (0-1); Eosinophil# 0.21 X10^3/uL; Eosinophils% 1.4 % (0-5); Hematocrit 29.6 % (37-47); Lymphocyte # 0.81 X10^3/ul (0.83-4.51); Lymphocyte % 5.2 % (19-41); Mean Corp Hgb Conc 30.4 g/dL (32-36); Mean Corpuscular Hgb 29.1 pg (27.0-32.0); Mean Corpuscular Volume 95.8 fL (81-99); Mean Platelet Vol. 9.4 fl (6.2-12.0); Monocyte# 1.06 X10^3/uL; Monocyte% 6.8 % (0-10); NRBC Flagged by Analyzer 0 % (0-5); Neutrophil # 13.24 X10^3/uL (2.7-7.7); Neutrophil % 85.2 % (47-70); Platelet Count 307 K/mm3 (150-450); RBC Distribution Width CV 17.2 % (11.6-14.6); RBC Distribution Width SD 58.3 fl (35.1-43.9); Red Blood Count 3.09 M/mm3 (4.2-5.4); White Blood Count 15.5 K/mm3 (4.4-11.0)
[2024-09-22] MEDS: Aspirin 81 MG TAB.CHEW 324 MG PO (22:06)
[2024-09-22] MEDS: Furosemide 40 MG/4 ML Vial IV (22:06)
[2024-09-22 22:20] LABS: Anion Gap 7 (5-15); BUN 16 mg/dL (7-18); Calcium,Total 9.5 mg/dL (8.5-10.1); Chloride 108 mmol/L (98-107); Creatinine, Serum 0.94 mg/dL (0.55-1.02); EST Glomerular Filtration Rate 60 mL/min (>60); Est Glom Filt Rate - Afr Amer 73 mL/min (>60); Estimated Creatinine Clearance 40.02 ml/min; Glucose 110 mg/dL (74-106); Potassium 3.6 mmol/L (3.5-5.1); Sodium Level 139 mmol/L (136-145); Troponin-I HS (w/2H Reflex) 12 pg/mL (3.0-54.0)
[2024-09-22 22:26] LABS: BNP,B-Type NATRIURETIC PEPTIDE 1026.2 pg/mL (0-100)
[2024-09-22 23:48] LABS: Reflex Troponin-HS? (from REC) Y
[2024-09-23] VITALS (13 sets, daily range): BP systolic 131–167; BP diastolic 56–101; PULSE 58–88; RESP 16–28; TEMP 36.6–36.9; O2SAT 3–98; BMI 33.8; BMI 33.7
[2024-09-23 00:30] LABS: Troponin-I HS 10 pg/mL (3.0-54.0)
[2024-09-23] MEDS: hydrOXYzine PAM 25 MG Capsule PO (01:38)
[2024-09-23] MEDS: guaiFENesin 10 ML UDC (200MG/10ML) 20 ML PO (01:38)
[2024-09-23 01:42] LABS: Alcohol, Blood (Medical)-Serum < 3.0 mg/dL
[2024-09-23] MEDS: Albuterol 2.5 MG/3 ML VIAL.NEB. INHALATION ×3 (05:27→19:30)
[2024-09-23 06:59] LABS: Bedside Glucose 111 mg/dL (74-106)
[2024-09-23 07:24] LABS: Absolute Lymphocyte Count 1.58 X10^3/uL (0.83-4.51); Absolute Neutrophil Count 11.5 X10^3/uL (2.0-7.7); Basophil# 0.07 X10^3/uL; Basophil% 0.5 % (0-1); Eosinophil# 0.35 X10^3/uL; Eosinophils% 2.4 % (0-5); Hematocrit 29.1 % (37-47); Lymphocyte # 1.58 X10^3/ul (0.83-4.51); Lymphocyte % 10.9 % (19-41); Mean Corp Hgb Conc 30.9 g/dL (32-36); Mean Corpuscular Hgb 29.4 pg (27.0-32.0); Mean Corpuscular Volume 95.1 fL (81-99); Mean Platelet Vol. 9.5 fl (6.2-12.0); Monocyte# 0.89 X10^3/uL; Monocyte% 6.2 % (0-10); NRBC Flagged by Analyzer 0 % (0-5); Neutrophil # 11.47 X10^3/uL (2.7-7.7); Neutrophil % 79.2 % (47-70); Platelet Count 300 K/mm3 (150-450); RBC Distribution Width SD 57.7 fl (35.1-43.9); Red Blood Count 3.06 M/mm3 (4.2-5.4); White Blood Count 14.5 K/mm3 (4.4-11.0)
[2024-09-23 08:12] LABS: Ferritin 44 ng/mL (8-252); Iron 53 ug/dL (50-170); Iron Binding Capacity,Total 383 ug/dL (250-450); PERCENT IRON SATURATION 13.8 % (15.0-55.0); Thyroid Stim Hormone (TSH) 0.644 uIU/mL (0.358-3.740)
[2024-09-23 08:19] LABS: Hemoglobin A1c 6.4 % (3.8-5.6)
[2024-09-23 08:21] LABS: ALB/GLOB Ratio 0.7 RATIO (0.9-2.4); AST(SGOT) 6 U/L (15-37); Alanine Aminotransfer ALT/SGPT 8 U/L (13-56); Albumin, Serum 2.8 g/dL (3.2-5.0); Alkaline Phosphatase 98 U/L (45-117); Anion Gap 9 (5-15); BUN 12 mg/dL (7-18); BUN/Creat Ratio 15.5 RATIO (10-20); Calcium,Total 9.8 mg/dL (8.5-10.1); Chloride 104 mmol/L (98-107); Cholesterol 123 mg/dL (200); Creatinine, Serum 0.77 mg/dL (0.55-1.02); EST Glomerular Filtration Rate 76 mL/min (>60); Est Glom Filt Rate - Afr Amer 92 mL/min (>60); Estimated Creatinine Clearance 45.91 ml/min; Globulin 3.8 g/dL (2.2-4.2); Glucose 109 mg/dL (74-106); High Density Lipoprotein 71 mg/dL; Magnesium 1.5 mg/dL (1.6-2.6); Phosphorus 2.5 mg/dL (2.5-4.9); Potassium 2.6 mmol/L (3.5-5.1); Protein, Total 6.6 g/dL (6.4-8.2); Sodium Level 141 mmol/L (136-145); Triglycerides 73 mg/dL; Very Low Density Lipoprotein 15 mg/dL (5-40)
[2024-09-23] MEDS: DULoxetine Hcl 60 MG Capsule PO ×2 (08:27→20:56)
[2024-09-23] MEDS: amLODIPine 10 MG Tablet PO (08:27)
[2024-09-23] MEDS: Dicyclomine 10 MG Capsule PO ×2 (08:27→20:56)
[2024-09-23] MEDS: Enoxaparin 40 MG/0.4 ML Syringe SC (08:27)
[2024-09-23] MEDS: ARIPiprazole 2 MG Tablet 3 MG PO (08:27)
[2024-09-23] MEDS: Thiamine Hydrochloride 100 MG Tablet PO (08:27)
[2024-09-23] MEDS: Magnesium Chloride 64 MG Delay Rel.Tablet 128 MG PO ×2 (08:28→20:56)
[2024-09-23] MEDS: Metoprolol Tartrate 50 MG Tablet PO ×2 (08:28→20:56)
[2024-09-23] MEDS: Potassium Chloride Oral Tablet 20 MEQ PO ×2 (08:28→18:41)
[2024-09-23] MEDS: Folic Acid 1 MG Tablet PO (08:28)
[2024-09-23] MEDS: Gabapentin 300 MG Capsule PO ×2 (08:34→20:57)
[2024-09-23 08:36] LABS: BNP,B-Type NATRIURETIC PEPTIDE 725.7 pg/mL (0-100)
[2024-09-23] MEDS: Potassium Chloride Oral Tablet 20 MEQ 40 MEQ PO (08:39)
[2024-09-23] MEDS: Sodium Ferric Gluconat/Sucrose 250 MG in 0.9% Normal Saline (250mL Bag) 250 ML 135 MG IV (09:18)
[2024-09-23] MEDS: Furosemide 40 MG/4 ML Vial IV ×2 (11:43→18:41)
[2024-09-23] MEDS: Magnesium Sulfate 2 GM in Dextrose 5%-Water (100mL Bag) 100 ML IV (11:43)
[2024-09-23] MEDS: Insulin Lispro 100 UNIT/ML INSULN.PEN SC ×2 (11:50→18:39)
[2024-09-23 11:54] LABS: Amphetamine Urine VISTA NEGATIVE (<1000 ng/mL); Barbiturate Urine VISTA NEGATIVE (< 200 ng/mL); Benzodiazepine Urine VISTA NEGATIVE (< 200 ng/mL); Cocaine Urine VISTA NEGATIVE (< 300 ng/mL); Ecstacy Urine VISTA NEGATIVE (< 500 ng/mL); Methadone Urine VISTA NEGATIVE (< 300 ng/mL); PCP Urine VISTA NEGATIVE (< 25 ng/mL); THC Urine VISTA NEGATIVE (< 50 ng/mL); Vista UDS pH Range 6
[2024-09-23 12:05] LABS: Bedside Glucose 155 mg/dL (74-106)
[2024-09-23 12:45] LABS: Bacteria 0 SEEN /hpf (None Seen); Mucous, Urine 0 SEEN /hpf (<or=2+); Red Blood Cells-Urine 0 SEEN /hpf (0-5)
[2024-09-23 12:46] LABS: Color, Urine Yellow (Yellow); Glucose, Dipstick Normal (Normal); Ketone-Dipstick Negative (Negative); Leukocyte Esterase-Dipstick Negative /ul (Negative); Nitrite-Dipstick Negative (Negative); Occult Blood-Urine Negative /ul (Negative); Protein-Dipstick 15 mg/dl (Negative); Urine Bilirubin Dipstick Negative (Negative); Urine Clarity Clear (Clear); Urine Urobilinogen 1 mg/dl (Normal); Urine pH 6.5 (5.0 - 8.0)
[2024-09-23 12:57] LABS: Squamous Epithelial Cells - UA 0-5 SEEN /hpf (5-10); White Blood Cells 0-5 SEEN /hpf (0-5)
[2024-09-23 19:00] LABS: Bedside Glucose 174 mg/dL (74-106)
[2024-09-23] MEDS: Acetaminophen 325 MG Tablet 650 MG PO (20:57)
[2024-09-23] MEDS: 0.9% Saline Lock 10 ML Syringe IV (20:58)
[2024-09-23] MEDS: traZODone 100 MG Tablet PO (21:45)
[2024-09-23 21:58] LABS: Bedside Glucose 128 mg/dL (74-106)
[2024-09-24] VITALS (9 sets, daily range): BP systolic 144–177; BP diastolic 59–75; PULSE 65–87; RESP 16–20; TEMP 36.6–36.9; O2SAT 88–99; BMI 34.0
[2024-09-24] MEDS: hydrALAZINE 20 MG/ML Vial 10 MG IV (01:04)
[2024-09-24] MEDS: 0.9% Saline Lock 10 ML Syringe IV (01:04)
[2024-09-24] MEDS: hydrOXYzine PAM 25 MG Capsule PO (01:04)
[2024-09-24] MEDS: Albuterol 2.5 MG/3 ML VIAL.NEB. INHALATION (06:43)
[2024-09-24 06:56] LABS: Bedside Glucose 111 mg/dL (74-106)
[2024-09-24] MEDS: Gabapentin 300 MG Capsule PO (09:31)
[2024-09-24] MEDS: Enoxaparin 40 MG/0.4 ML Syringe SC (09:31)
[2024-09-24] MEDS: Metoprolol Tartrate 50 MG Tablet PO (09:31)
[2024-09-24] MEDS: amLODIPine 10 MG Tablet PO (09:31)
[2024-09-24] MEDS: Dicyclomine 10 MG Capsule PO (09:31)
[2024-09-24] MEDS: Thiamine Hydrochloride 100 MG Tablet PO (09:32)
[2024-09-24] MEDS: ARIPiprazole 2 MG Tablet 3 MG PO (09:32)
[2024-09-24] MEDS: DULoxetine Hcl 60 MG Capsule PO (09:32)
[2024-09-24] MEDS: Potassium Chloride Oral Tablet 20 MEQ PO ×2 (09:32→16:31)
[2024-09-24] MEDS: Folic Acid 1 MG Tablet PO (09:32)
[2024-09-24] MEDS: Magnesium Chloride 64 MG Delay Rel.Tablet 128 MG PO (09:32)
[2024-09-24] MEDS: Furosemide 40 MG/4 ML Vial IV (09:33)
[2024-09-24] MEDS: Sodium Ferric Gluconat/Sucrose 250 MG in 0.9% Normal Saline (250mL Bag) 250 ML 135 MG IV (09:55)
[2024-09-24 10:16] LABS: Anion Gap 3 (5-15); BUN 11 mg/dL (7-18); BUN/Creat Ratio 12.7 RATIO (10-20); Calcium,Total 9.9 mg/dL (8.5-10.1); Chloride 107 mmol/L (98-107); Creatinine, Serum 0.87 mg/dL (0.55-1.02); EST Glomerular Filtration Rate 66 mL/min (>60); Est Glom Filt Rate - Afr Amer 80 mL/min (>60); Glucose 178 mg/dL (74-106); Potassium 3.8 mmol/L (3.5-5.1); Sodium Level 137 mmol/L (136-145)
[2024-09-24 12:02] LABS: Bedside Glucose 123 mg/dL (74-106)
[2024-09-24 18:43] LABS: Bedside Glucose 126 mg/dL (74-106)
[2024-09-26 13:09] LABS: Vitamin D 1,25-Dihydroxy 53.4 pg/mL (24.8-81.5)
== END 2024-09-24 17:30 | disposition home or self-care (01) | DRG 291 ==
LOC: ED 23:25 → PCU 09-23 00:43
PROVIDERS: Admitting Provider Internal Medicine; Emergency Provider Emergency Medicine; PCP Internal Medicine; Referring Provider Emergency Medicine; Visit Provider Hospitalist
DX: I11.0 Hypertensive heart disease with heart failure (principal); I50.33 Acute on chronic diastolic (congestive) heart failure; J96.11 Chronic respiratory failure with hypoxia; E11.40 Type 2 diabetes mellitus with diabetic neuropathy, unspecified; D50.9 Iron deficiency anemia, unspecified; E11.59 Type 2 diabetes mellitus with other circulatory complications; F10.10 Alcohol abuse, uncomplicated; F32.A Depression, unspecified; E66.9 Obesity, unspecified; G47.33 Obstructive sleep apnea (adult) (pediatric); M79.7 Fibromyalgia; I87.2 Venous insufficiency (chronic) (peripheral); E78.2 Mixed hyperlipidemia; F41.8 Other specified anxiety disorders; K58.9 Irritable bowel syndrome, unspecified; Z90.710 Acquired absence of both cervix and uterus; Z68.32 Body mass index [BMI] 32.0-32.9, adult; M81.0 Age-related osteoporosis without current pathological fracture; F41.1 Generalized anxiety disorder; Z82.3 Family history of stroke; Z68.33 Body mass index [BMI] 33.0-33.9, adult
CPT/HCPCS: 36415; 71045; 80048; 80053; 80061; 80307; 81001; 82077; 82274; 82652; 82728; 82962; 83036; 83540; 83550; 83735; 83880; 84100; 84443; 84484; 85025; 93005; 94640; 94668; 97162; 97166; 99285; J7050; A4216; J1940; J2916

== ENCOUNTER → 2024-09-22 | Outpatient (REF) | payer MEDICARE, MEDICAID, SELFPAY ==
[2024-09-22 10:11] LABS: Anion Gap 7 (5-15); BUN 11 mg/dL (7-18); BUN/Creat Ratio 12.9 RATIO (10-20); Chloride 108 mmol/L (98-107); Creatinine, Serum 0.86 mg/dL (0.55-1.02); EST Glomerular Filtration Rate 67 mL/min (>60); Est Glom Filt Rate - Afr Amer 81 mL/min (>60); Glucose 105 mg/dL (74-106); Potassium 3.5 mmol/L (3.5-5.1); Sodium Level 139 mmol/L (136-145)
== END ==
LOC: OLS.SWAL 04:00
PROVIDERS: PCP Internal Medicine; Referring Provider Internal Medicine; Visit Provider Internal Medicine
DX: E87.1 Hypo-osmolality and hyponatremia (principal)
CPT/HCPCS: 36415; 80048

== ENCOUNTER → 2024-09-29 | Outpatient (REF) | payer MEDICARE, MEDICAID, SELFPAY ==
[2024-09-29 08:16] LABS: Hematocrit 33.4 % (37-47); Hemoglobin 9.8 g/dL (12.0-15.0); Mean Corp Hgb Conc 29.3 g/dL (32-36); Mean Corpuscular Volume 98.8 fL (81-99); Mean Platelet Vol. 9.3 fl (6.2-12.0); POSITIVE MORPHOLOGY YES; Platelet Count 549 K/mm3 (150-450); RBC Distribution Width CV 18.6 % (11.6-14.6); RBC Distribution Width SD 67.4 fl (35.1-43.9); Red Blood Count 3.38 M/mm3 (4.2-5.4); White Blood Count 12.5 K/mm3 (4.4-11.0)
[2024-09-29 08:27] LABS: Scan Indicated on CBC? Y/N YES- FLAGS NOTED
[2024-09-29 08:33] LABS: Anion Gap 4 (5-15); BUN 16 mg/dL (7-18); BUN/Creat Ratio 16.9 RATIO (10-20); Calcium,Total 10.2 mg/dL (8.5-10.1); Chloride 104 mmol/L (98-107); Creatinine, Serum 0.95 mg/dL (0.55-1.02); EST Glomerular Filtration Rate 60 mL/min (>60); Est Glom Filt Rate - Afr Amer 72 mL/min (>60); Glucose 115 mg/dL (74-106); Magnesium 1.9 mg/dL (1.6-2.6); Potassium 4.2 mmol/L (3.5-5.1); Sodium Level 137 mmol/L (136-145)
== END ==
LOC: OLS.SWAL 05:00
PROVIDERS: PCP Internal Medicine; Visit Provider Internal Medicine
DX: I10 Essential (primary) hypertension (principal)
CPT/HCPCS: 36415; 80048; 83735; 85027

== ENCOUNTER → 2024-09-30 | Outpatient (REF) | payer MEDICARE, MEDICAID, SELFPAY ==
[2024-10-01 06:54] LABS: Mucous, Urine 0 SEEN /hpf (<or=2+); Red Blood Cells-Urine 0 SEEN /hpf (0-5)
[2024-10-01 07:18] LABS: Color, Urine Yellow (Yellow); Glucose, Dipstick Normal (Normal); Ketone-Dipstick Negative (Negative); Leukocyte Esterase-Dipstick 100 /ul (Negative); Nitrite-Dipstick Negative (Negative); Occult Blood-Urine Negative /ul (Negative); Protein-Dipstick 15 mg/dl (Negative); Urine Bilirubin Dipstick Negative (Negative); Urine Clarity Clear (Clear); Urine Urobilinogen Normal (Normal)
[2024-10-01 07:56] LABS: Bacteria 1+ /hpf (None Seen); Squamous Epithelial Cells - UA 0-5 SEEN /hpf (5-10); Transitional Epithelial - Ur 0-5 SEEN /hpf (0-5); White Blood Cells 0-5 SEEN /hpf (0-5)
== END ==
LOC: OLS.SWAL 20:00
PROVIDERS: PCP Internal Medicine; Visit Provider Internal Medicine
DX: N39.0 Urinary tract infection, site not specified (principal)
CPT/HCPCS: 81001; 87086; 87088; 87186

== ENCOUNTER → 2024-10-02 | Outpatient (REF) | payer MEDICARE, MEDICAID, SELFPAY ==
[2024-10-02 11:27] LABS: Anion Gap 5 (5-15); BUN 18 mg/dL (7-18); BUN/Creat Ratio 15.1 RATIO (10-20); Calcium,Total 9.9 mg/dL (8.5-10.1); Chloride 101 mmol/L (98-107); Creatinine, Serum 1.19 mg/dL (0.55-1.02); EST Glomerular Filtration Rate 46 mL/min (>60); Est Glom Filt Rate - Afr Amer 56 mL/min (>60); Glucose 185 mg/dL (74-106); Potassium 4.1 mmol/L (3.5-5.1); Sodium Level 133 mmol/L (136-145)
[2024-10-02 11:57] LABS: PTHIN 193.5 pg/mL (18.4-80.1)
== END ==
LOC: OLS.SWAL 09:54
PROVIDERS: PCP Internal Medicine; Visit Provider Internal Medicine
DX: E83.52 Hypercalcemia (principal); I50.9 Heart failure, unspecified
CPT/HCPCS: 36415; 80048; 83970

== ENCOUNTER → 2024-10-15 | Outpatient (REF) | payer MEDICARE, MEDICAID, SELFPAY ==
[2024-10-15 08:32] LABS: Hematocrit 36.2 % (37-47); Hemoglobin 10.7 g/dL (12.0-15.0); Mean Corp Hgb Conc 29.6 g/dL (32-36); Mean Corpuscular Hgb 29.6 pg (27.0-32.0); Mean Platelet Vol. 9.6 fl (6.2-12.0); Platelet Count 426 K/mm3 (150-450); RBC Distribution Width CV 16.2 % (11.6-14.6); RBC Distribution Width SD 59.6 fl (35.1-43.9); Red Blood Count 3.62 M/mm3 (4.2-5.4); White Blood Count 10.6 K/mm3 (4.4-11.0)
== END ==
LOC: OLS.SWAL 04:00
PROVIDERS: PCP Internal Medicine; Referring Provider Internal Medicine; Visit Provider Internal Medicine
DX: I10 Essential (primary) hypertension (principal)
CPT/HCPCS: 36415; 85027

== ENCOUNTER → 2024-10-29 | Outpatient (REF) | payer MEDICARE, MEDICAID, SELFPAY ==
[2024-10-29 08:04] LABS: Hematocrit 39.2 % (37-47); Hemoglobin 11.3 g/dL (12.0-15.0); Mean Corp Hgb Conc 28.8 g/dL (32-36); Mean Corpuscular Hgb 29.1 pg (27.0-32.0); Platelet Count 367 K/mm3 (150-450); RBC Distribution Width CV 14.7 % (11.6-14.6); Red Blood Count 3.88 M/mm3 (4.2-5.4); White Blood Count 8.8 K/mm3 (4.4-11.0)
== END ==
LOC: OLS.SWAL 05:00
PROVIDERS: PCP Internal Medicine; Visit Provider Internal Medicine
DX: I10 Essential (primary) hypertension (principal)
CPT/HCPCS: 36415; 85027

== ENCOUNTER → 2024-11-03 | Outpatient (REF) | payer MEDICARE, MEDICAID, SELFPAY ==
[2024-11-03 08:59] LABS: Anion Gap 7 (5-15); BUN 41 mg/dL (7-18); BUN/Creat Ratio 32.8 RATIO (10-20); Calcium,Total 10.4 mg/dL (8.5-10.1); Chloride 103 mmol/L (98-107); Creatinine, Serum 1.25 mg/dL (0.55-1.02); EST Glomerular Filtration Rate 43 mL/min (>60); Est Glom Filt Rate - Afr Amer 53 mL/min (>60); Glucose 112 mg/dL (74-106); Potassium 3.6 mmol/L (3.5-5.1); Sodium Level 138 mmol/L (136-145)
== END ==
LOC: OLS.SWAL 05:00
PROVIDERS: PCP Internal Medicine; Visit Provider Internal Medicine
DX: I10 Essential (primary) hypertension (principal); E78.2 Mixed hyperlipidemia
CPT/HCPCS: 36415; 80048; 83735

== ENCOUNTER → 2024-11-07 | Outpatient (REF) | payer MEDICARE, MEDICAID, SELFPAY ==
[2024-11-07 08:58] LABS: Ionized Calcium Order ORDER TUBE
[2024-11-07 09:27] LABS: PTHIN 112.3 pg/mL (18.4-80.1)
[2024-11-07 10:19] LABS: Ionized Calcium 1.45 mmol/L (1.09-1.30)
== END ==
LOC: OLS.SWAL 05:00
PROVIDERS: PCP Internal Medicine; Visit Provider Internal Medicine
DX: I10 Essential (primary) hypertension (principal); E55.9 Vitamin D deficiency, unspecified
CPT/HCPCS: 36415; 82330; 83970

== ENCOUNTER → 2024-11-13 05:00 | Outpatient (REF) | payer MEDICARE, MEDICAID, SELFPAY ==
[2024-11-13 08:12] LABS: Hematocrit 37.4 % (37-47); Hemoglobin 11.3 g/dL (12.0-15.0); Mean Corp Hgb Conc 30.2 g/dL (32-36); Mean Corpuscular Hgb 30.4 pg (27.0-32.0); Mean Corpuscular Volume 100.5 fL (81-99); Mean Platelet Vol. 10.5 fl (6.2-12.0); Platelet Count 330 K/mm3 (150-450); RBC Distribution Width CV 13.7 % (11.6-14.6); RBC Distribution Width SD 50.5 fl (35.1-43.9); Red Blood Count 3.72 M/mm3 (4.2-5.4); White Blood Count 9.8 K/mm3 (4.4-11.0)
== END ==
LOC: OLS.SWAL 05:00
PROVIDERS: PCP Internal Medicine; Visit Provider Internal Medicine
DX: I10 Essential (primary) hypertension (principal)
CPT/HCPCS: 36415; 85027

== ENCOUNTER → 2024-11-27 05:00 | Outpatient (REF) | payer MEDICARE, MEDICAID, SELFPAY ==
[2024-11-27 09:41] LABS: Hematocrit 37.3 % (37-47); Hemoglobin 10.8 g/dL (12.0-15.0); Mean Corpuscular Hgb 29.1 pg (27.0-32.0); Mean Corpuscular Volume 100.5 fL (81-99); Platelet Count 312 K/mm3 (150-450); RBC Distribution Width CV 13.6 % (11.6-14.6); RBC Distribution Width SD 50.4 fl (35.1-43.9); Red Blood Count 3.71 M/mm3 (4.2-5.4); White Blood Count 10.3 K/mm3 (4.4-11.0)
== END ==
LOC: OLS.SWAL 05:00
PROVIDERS: PCP Internal Medicine; Visit Provider Internal Medicine
DX: I10 Essential (primary) hypertension (principal)
CPT/HCPCS: 36415; 85027

== ENCOUNTER → 2024-12-11 05:00 | Outpatient (REF) | payer MEDICARE, MEDICAID, SELFPAY ==
[2024-12-11 08:20] LABS: Hematocrit 40.7 % (37-47); Hemoglobin 12.3 g/dL (12.0-15.0); Mean Corp Hgb Conc 30.2 g/dL (32-36); Mean Corpuscular Hgb 29.6 pg (27.0-32.0); Mean Corpuscular Volume 97.8 fL (81-99); Mean Platelet Vol. 9.6 fl (6.2-12.0); Platelet Count 461 K/mm3 (150-450); RBC Distribution Width CV 13.4 % (11.6-14.6); RBC Distribution Width SD 47.8 fl (35.1-43.9); Red Blood Count 4.16 M/mm3 (4.2-5.4); White Blood Count 9.2 K/mm3 (4.4-11.0)
== END ==
LOC: OLS.SWAL 05:00
PROVIDERS: PCP Internal Medicine; Visit Provider Internal Medicine
DX: I10 Essential (primary) hypertension (principal)
CPT/HCPCS: 36415; 85027

== ENCOUNTER → 2024-12-25 05:00 | Outpatient (REF) | payer MEDICARE, MEDICAID, SELFPAY ==
[2024-12-25 09:40] LABS: Hematocrit 33.4 % (37-47); Hemoglobin 9.8 g/dL (12.0-15.0); Mean Corp Hgb Conc 29.3 g/dL (32-36); Mean Corpuscular Hgb 28.6 pg (27.0-32.0); Mean Corpuscular Volume 97.4 fL (81-99); Mean Platelet Vol. 10.2 fl (6.2-12.0); Platelet Count 226 K/mm3 (150-450); RBC Distribution Width CV 13.5 % (11.6-14.6); RBC Distribution Width SD 47.8 fl (35.1-43.9); Red Blood Count 3.43 M/mm3 (4.2-5.4); White Blood Count 10.2 K/mm3 (4.4-11.0)
== END ==
LOC: OLS.SWAL 05:00
PROVIDERS: PCP Internal Medicine; Visit Provider Internal Medicine
DX: I10 Essential (primary) hypertension (principal)
CPT/HCPCS: 36415; 85027

== ENCOUNTER → 2025-01-02 06:48 | Outpatient (REF) | payer MEDICARE, MEDICAID, SELFPAY ==
[2025-01-02 09:08] LABS: Anion Gap 9 (5-15); BUN 32 mg/dL (7-18); Calcium,Total 8.7 mg/dL (8.5-10.1); Chloride 100 mmol/L (98-107); Creatinine, Serum 1.39 mg/dL (0.55-1.02); EST Glomerular Filtration Rate 38 mL/min (>60); Est Glom Filt Rate - Afr Amer 47 mL/min (>60); Glucose 105 mg/dL (74-106); Magnesium 2.1 mg/dL (1.6-2.6); Potassium 3.4 mmol/L (3.5-5.1); Sodium Level 138 mmol/L (136-145)
== END ==
LOC: OLS.SWAL 06:48
PROVIDERS: PCP Internal Medicine; Visit Provider Internal Medicine
DX: I50.9 Heart failure, unspecified (principal)
CPT/HCPCS: 36415; 80048; 83735

== ENCOUNTER → 2025-01-05 12:30 | Outpatient (REF) | payer MEDICARE, MEDICAID, SELFPAY ==
[2025-01-06 08:12] LABS: Bacteria 0 SEEN /hpf (None Seen); Mucous, Urine 0 SEEN /hpf (<or=2+); Squamous Epithelial Cells - UA 0 SEEN /hpf (5-10); White Blood Cells 0 SEEN /hpf (0-5)
[2025-01-06 09:11] LABS: Color, Urine Straw (Yellow); Glucose, Dipstick Normal (Normal); Ketone-Dipstick Negative (Negative); Leukocyte Esterase-Dipstick Negative /ul (Negative); Nitrite-Dipstick Negative (Negative); Occult Blood-Urine Negative /ul (Negative); Protein-Dipstick Negative (Negative); Urine Bilirubin Dipstick Negative (Negative); Urine Clarity Clear (Clear); Urine Urobilinogen Normal (Normal); Urine pH 6.5 (5.0 - 8.0)
[2025-01-06 09:41] LABS: Red Blood Cells-Urine 0 SEEN /hpf (0-5)
== END ==
LOC: OLS.SWAL 12:30
PROVIDERS: PCP Internal Medicine; Referring Provider Internal Medicine; Visit Provider Internal Medicine
DX: N39.0 Urinary tract infection, site not specified (principal)
CPT/HCPCS: 81001; 87086; 87088

== ENCOUNTER → 2025-01-08 05:00 | Outpatient (REF) | payer MEDICARE, MEDICAID, SELFPAY ==
[2025-01-08 09:14] LABS: Hematocrit 37.2 % (37-47); Hemoglobin 10.7 g/dL (12.0-15.0); Mean Corp Hgb Conc 28.8 g/dL (32-36); Mean Corpuscular Hgb 29.2 pg (27.0-32.0); Mean Corpuscular Volume 101.4 fL (81-99); Platelet Count 608 K/mm3 (150-450); RBC Distribution Width CV 16.2 % (11.6-14.6); RBC Distribution Width SD 59.7 fl (35.1-43.9); Red Blood Count 3.67 M/mm3 (4.2-5.4); White Blood Count 13.6 K/mm3 (4.4-11.0)
== END ==
LOC: OLS.SWAL 05:00
PROVIDERS: PCP Internal Medicine; Visit Provider Internal Medicine
DX: I10 Essential (primary) hypertension (principal)
CPT/HCPCS: 36415; 85027

== ENCOUNTER → 2025-01-22 | Outpatient (REF) | payer MEDICARE, MEDICAID, SELFPAY ==
[2025-01-22 08:47] LABS: Hematocrit 37.7 % (37-47); Hemoglobin 11.3 g/dL (12.0-15.0); Mean Corpuscular Hgb 29.1 pg (27.0-32.0); Mean Corpuscular Volume 97.2 fL (81-99); Mean Platelet Vol. 10.2 fl (6.2-12.0); Platelet Count 218 K/mm3 (150-450); RBC Distribution Width CV 14.7 % (11.6-14.6); RBC Distribution Width SD 52.6 fl (35.1-43.9); Red Blood Count 3.88 M/mm3 (4.2-5.4); White Blood Count 7.8 K/mm3 (4.4-11.0)
[2025-01-22 10:15] LABS: Hemoglobin A1c 6.2 % (<=5.6)
== END ==
LOC: OLS.SWAL 04:00
PROVIDERS: PCP Internal Medicine; Referring Provider Internal Medicine; Visit Provider Internal Medicine
DX: I10 Essential (primary) hypertension (principal); E11.9 Type 2 diabetes mellitus without complications
CPT/HCPCS: 36415; 83036; 85027

== ENCOUNTER → 2025-02-19 07:30 | Outpatient (REF) | payer MEDICARE, MEDICAID, SELFPAY ==
[2025-02-19 08:31] LABS: Hematocrit 35.2 % (37-47); Hemoglobin 10.4 g/dL (12.0-15.0); Mean Corp Hgb Conc 29.5 g/dL (32-36); Mean Corpuscular Hgb 28.7 pg (27.0-32.0); Mean Corpuscular Volume 97.2 fL (81-99); Mean Platelet Vol. 10.1 fl (6.2-12.0); Platelet Count 208 K/mm3 (150-450); RBC Distribution Width SD 53.3 fl (35.1-43.9); Red Blood Count 3.62 M/mm3 (4.2-5.4); White Blood Count 13.5 K/mm3 (4.4-11.0)
== END ==
LOC: OLS.SWAL 07:30
PROVIDERS: PCP Internal Medicine; Visit Provider Internal Medicine
DX: I10 Essential (primary) hypertension (principal)
CPT/HCPCS: 36415; 85027

== ENCOUNTER → 2025-02-23 | Outpatient (REF) | payer MEDICARE, MEDICAID, SELFPAY ==
[2025-02-23 09:49] LABS: Absolute Neutrophil Count 9.6 X10^3/uL (2.0-7.7); Basophil% 0.7 % (0-1); Eosinophil# 1.14 X10^3/uL; Eosinophils% 8.4 % (0-5); Hematocrit 36.2 % (37-47); Mean Corp Hgb Conc 30.4 g/dL (32-36); Mean Corpuscular Hgb 29.1 pg (27.0-32.0); Mean Corpuscular Volume 95.8 fL (81-99); Monocyte# 1.18 X10^3/uL; Monocyte% 8.7 % (0-10); NRBC Flagged by Analyzer 0 % (0-5); Neutrophil % 70.5 % (47-70); Platelet Count 219 K/mm3 (150-450); RBC Distribution Width CV 15.5 % (11.6-14.6); RBC Distribution Width SD 53.3 fl (35.1-43.9); Red Blood Count 3.78 M/mm3 (4.2-5.4); White Blood Count 13.6 K/mm3 (4.4-11.0)
== END ==
LOC: OLS.SWAL 05:00
PROVIDERS: PCP Internal Medicine; Visit Provider Internal Medicine
DX: I10 Essential (primary) hypertension (principal)
CPT/HCPCS: 36415; 85025